=== PATIENT | male | born 1955 | race Caucasian/White ===

== ENCOUNTER 2017-05-28 19:28 | Inpatient (IN) | payer OTHER, MEDICAID ==
--- NOTE | 2017-05-28 20:57 | ER Document Report ---
ED General - General Chief Complaint: Altered Mental Status Stated Complaint: CONFUSION Time Seen by Provider: 05/28/17 20:26 Mode of Arrival: Ambulatory Information source: Patient Cannot obtain history due to: Other Notes: 61 yr old male presents with complaints of confusion feeling tired. He beleives he is in [facility] he has been walking outside all day. found ot by hypothermic at 92.2. pt denies any pain TRAVEL OUTSIDE OF THE [place] IN LAST 30 DAYS: No - HPI Onset: Just prior to arrival Onset/Duration: Sudden Quality of pain: No pain Severity: Mild Pain Level: Denies Associated symptoms: Weakness, Other Exacerbated by: Denies Relieved by: Denies Similar symptoms previously: No Recently seen / treated by doctor: No - Related Data Allergies/Adverse Reactions: No Known Allergies Allergy (Unverified 05/29/17 02:12) Past Medical History - Social History Smoking Status: Current Every Day Smoker Cigarette use (# per day): Yes Chew tobacco use (# tins/day): No Smoking Education Provided: No Family History: Reviewed & Not Pertinent Patient has suicidal ideation: No Patient has homicidal ideation: No Renal/ Medical History: Denies: Hx Peritoneal Dialysis Review of Systems - Review of Systems Notes: REVIEW OF SYSTEMS: CONSTITUTIONAL : Denies fever, chills, or sweats. Denies recent illness. EENT: Denies eye, ear, throat, or mouth pain or symptoms. Denies nasal or sinus congestion or discharge. Denies throat, tongue, or mouth swelling or difficulty swallowing. CARDIOVASCULAR: Denies chest pain. Denies palpitations or racing or irregular heart beat. Denies ankle edema. RESPIRATORY: Denies cough, cold, or chest congestion. Denies shortness of breath, difficulty breathing, or wheezing. GASTROINTESTINAL: Denies abdominal pain or distention. Denies nausea, vomiting , or diarrhea. Denies blood in vomitus, stools, or per rectum. Denies black, tarry stools. Denies constipation. GENITOURINARY: Denies difficulty urinating, painful urination, burning, frequency, blood in urine, or discharge. MUSCULOSKELETAL: Denies back or neck pain or stiffness. Denies joint pain or swelling. SKIN: Denies rash, lesions or sores. HEMATOLOGIC : Denies easy bruising or bleeding. LYMPHATIC: Denies swollen, enlarged glands. NEUROLOGICAL: Admits to weakness confusion PSYCHIATRIC: Denies anxiety or stress. Denies depression, suicidal ideation, or homicidal ideation. ALL OTHER SYSTEMS REVIEWED AND NEGATIVE. Dictation was performed using [employer] voice recognition software PHYSICAL EXAMINATION: GENERAL: Thin male cold to touch HEAD: Atraumatic, normocephalic. EYES: Pupils equal round and reactive to light, extraocular movements intact, sclera anicteric, conjunctiva are normal. ENT: Nares patent, oropharynx clear without exudates. Moist mucous membranes. NECK: Normal range of motion, supple without lymphadenopathy LUNGS: Breath sounds clear to auscultation bilaterally and equal. No wheezes rales or rhonchi. HEART: Regular rate and rhythm without murmurs ABDOMEN: Soft, nontender, nondistended abdomen. No guarding, no rebound. No masses appreciated. Musculoskeletal: Normal range of motion, no pitting or edema. No cyanosis. NEUROLOGICAL: Cranial nerves grossly intact. Normal speech, normal gait. Normal sensory, motor exams PSYCH: Normal mood, normal affect. SKIN: Cold to touch Physical Exam - Vital signs Vitals: Pulse Resp BP Pulse Ox 108 H 16 104/58 L 99 05/28/17 20:07 05/28/17 20:07 05/28/17 20:07 05/28/17 20:07 Course - Re-evaluation Re-evalutation: 05/28/17 20:58 Bear hugger IV fluids that are warmed have been started, septic workup pending 05/29/17 02:40 Patient overall looks quite ill however no sign of infection is noted, he has been noted to be hypotensive tachycardic white count elevation therefore he meets SIRS criteria but without a source of infection I will not be starting a prophylactic antibiotic at this time patient will be admitted to the hospitalist service - Vital Signs Vital signs: Temp Pulse Resp BP Pulse Ox 98.8 F 80 25 H 85/66 L 96 05/29/17 01:31 05/29/17 00:00 05/29/17 01:31 05/29/17 01:31 05/29/17 01:31 - Laboratory Result Diagrams: 05/28/17 20:50 05/28/17 20:50 Laboratory results interpreted by me: 05/28/17 05/28/17 05/28/17 20:50 20:50 20:50 WBC 13.7 H RBC 4.11 L MCV 106 H MCH 35.5 H RDW 15.7 H Seg Neutrophils % 79.0 H Lymphocytes % 12.4 L Absolute Neutrophils 10.8 H VBG HCO3 19.4 L Potassium 3.2 L Chloride 94 L Carbon Dioxide 18 L Anion Gap 31 H Lactic Acid Phosphorus Total Bilirubin 1.5 H Direct Bilirubin 0.9 H Creatine Kinase CK-MB (CK-2) TSH Urine Protein Urine Ketones Urine Bilirubin Urine Urobilinogen Ur Leukocyte Esterase Salicylates < 1.0 L Acetaminophen < 10 L 05/28/17 05/28/17 05/28/17 20:50 20:50 20:50 WBC RBC MCV MCH RDW Seg Neutrophils % Lymphocytes % Absolute Neutrophils VBG HCO3 Potassium Chloride Carbon Dioxide Anion Gap Lactic Acid 3.6 H Phosphorus 5.4 H Total Bilirubin Direct Bilirubin Creatine Kinase 210 H CK-MB (CK-2) TSH Urine Protein Urine Ketones Urine Bilirubin Urine Urobilinogen Ur Leukocyte Esterase Salicylates Acetaminophen 05/28/17 05/28/17 05/28/17 20:50 20:50 22:22 WBC RBC MCV MCH RDW Seg Neutrophils % Lymphocytes % Absolute Neutrophils VBG HCO3 Potassium Chloride Carbon Dioxide Anion Gap Lactic Acid Phosphorus Total Bilirubin Direct Bilirubin Creatine Kinase CK-MB (CK-2) 9.60 H TSH 7.99 H Urine Protein 30 H Urine Ketones 80 H Urine Bilirubin SMALL H Urine Urobilinogen 4.0 H Ur Leukocyte Esterase TRACE H Salicylates Acetaminophen - Diagnostic Test Radiology reviewed: Image reviewed, Reports reviewed - EKG Interpretation by [place] EKG shows normal: Sinus rhythm, Mcleod, Intervals, QRS Complexes Critical Care Note - Critical Care Note Total time excluding time spent on procedures (mins): 34 Comments: 34 minutes of critical care time spent in direct contact evaluating and reevaluating the patient, treating symptoms, reviewing labs and studies and speaking with family and consultants excluding any procedures Discharge - Discharge Clinical Impression: Altered awareness, transient Hypothermia Qualifiers: Encounter type: initial encounter Qualified Code(s): T68.XXXA - Hypothermia, initial encounter Hypotension Qualifiers: Hypotension type: unspecified hypotension type Qualified Code(s): I95.9 - Hypotension, unspecified Condition: Fair Disposition: ADMITTED INPATIENT Admitting Provider: Hospitalist Unit Admitted: [facility]
[2017-05-28] MEDS ORDERED: NORMAL SALINE 1000 ML 1,000 ML IV ONE (21:00)
[2017-05-28 21:12] LABS: VENOUS BLOOD BASE EXCESS -6.2 mmol/L; VENOUS BLOOD HCO3 19.4 mmol/L (20-32); VENOUS BLOOD PCO2 38.9 mmHg (35-63); VENOUS BLOOD PH 7.32 (7.30-7.42)
[2017-05-28 21:21] LABS: ABSOLUTE LYMPHOCYTES (AUTO) 1.7 10^3/uL (0.5-4.7); ABSOLUTE MONOCYTES (AUTO) 1.1 10^3/uL (0.1-1.4); ABSOLUTE NEUT (AUTO) 10.8 10^3/uL (1.7-8.2); BASOPHILS % (AUTO) 0.2 % (0-2); EOSINOPHILS % (AUTO) 0.1 % (0-6); HEMATOCRIT 43.7 % (37.9-51.0); HEMOGLOBIN 14.6 g/dL (13.5-17.0); LYMPHOCYTES % (AUTO) 12.4 % (13-45); MEAN CORPUSCULAR HEMOGLOBIN 35.5 pg (27.0-33.4); MEAN CORPUSCULAR HGB CONC 33.5 g/dL (32.0-36.0); MEAN CORPUSCULAR VOLUME 106 fl (80-97); MONOCYTES % (AUTO) 8.3 % (3-13); PLATELET COUNT 205 10^3/uL (150-450); RED BLOOD COUNT 4.11 10^6/uL (4.35-5.55); RED CELL DISTRIBUTION WIDTH 15.7 % (11.5-14.0); TOTAL CELLS COUNTED % (AUTO) 100 %; WHITE BLOOD COUNT 13.7 10^3/uL (4.0-10.5)
[2017-05-28 21:35] LABS: ALANINE AMINOTRANSFERASE 22 U/L (21-72); ALBUMIN 4.2 g/dL (3.5-5.0); ALKALINE PHOSPHATASE 77 U/L (38-126); ASPARTATE AMINO TRANSFERASE 33 U/L (17-59); BILIRUBIN,DIRECT 0.9 mg/dL (0.0-0.4); BILIRUBIN,TOTAL 1.5 mg/dL (0.2-1.3); BLOOD UREA NITROGEN 17 mg/dL (7-20); GLUCOSE 98 mg/dL (75-110); TOTAL PROTEIN 6.7 g/dL (6.3-8.2)
[2017-05-28 21:44] LABS: CARBON DIOXIDE 18 mmol/L (22-30); CHLORIDE 94 mmol/L (98-107); POTASSIUM 3.2 mmol/L (3.6-5.0); SODIUM 143.3 mmol/L (137-145)
[2017-05-28 21:47] LABS: ACETAMINOPHEN < 10 ug/mL (10-30); ALCOHOL < 10 mg/dL (NONE DETECTED); ANION GAP 31 (5-19); SALICYLATE < 1.0 mg/dL (2.0-20.0)
--- NOTE | 2017-05-28 22:07 | RADIOLOGY REPORT (SQ) ---
EXAM DESCRIPTION: CT HEAD WITHOUT COMPLETED DATE/TIME: 05/28/2017 9:28 pm REASON FOR STUDY: confusion COMPARISON: None. TECHNIQUE: Axial images acquired through the brain without intravenous contrast. Images reviewed wi th bone, brain and subdural windows. Images stored on PACS. All CT scanners at this facility use dose modulation, iterative reconstruction, and/or weight based d osing when appropriate to reduce radiation dose to as low as reasonably achievable (ALARA). [facility]: Dose Right [facility]: CareDose [facility]: Dose Right [facility]: Teradose 4D [facility]: Smart NXE RADIATION DOSE: Up-to-date CT equipment and radiation dose reduction techniques were employed. CTDIv ol: 64.6 mGy. DLP: 1163 mGy-cm. mGy. LIMITATIONS: None. FINDINGS: VENTRICLES: Normal size and contour. CEREBRUM: No masses. No hemorrhage. No midline shift. No evidence for acute infarction. Normal gra y/white matter differentiation. No areas of low density in the white matter. CEREBELLUM: No masses. No hemorrhage. No alteration of density. No evidence for acute infarction. EXTRAAXIAL SPACES: No fluid collections. No masses. ORBITS AND GLOBE: No intra- or extraconal masses. Normal contour of globe without masses. CALVARIUM: No fracture. PARANASAL SINUSES: No fluid or mucosal thickening. SOFT TISSUES: No mass or hematoma. OTHER: No other significant finding. IMPRESSION: No acute intracranial findings. EVIDENCE OF ACUTE STROKE: NO. COMMENT: Quality ID # [id number]: Final reports with documentation of one or more dose reduction techniques (e.g., Automated exposure control, adjustment of the mA and/or kV according to patient size, use of iterative reconstruction technique) TECHNICAL DOCUMENTATION: JOB ID: [id number] [place]-72 2010 [employer]- All Rights Reserved
--- NOTE | 2017-05-28 22:49 | RADIOLOGY REPORT (SQ) ---
EXAM DESCRIPTION: CHEST PA/LAT COMPLETED DATE/TIME: 05/28/2017 9:19 pm REASON FOR STUDY: confusion/AMS COMPARISON: None. NUMBER OF VIEWS: Two view. TECHNIQUE: Frontal and lateral radiographic views of the chest acquired. LIMITATIONS: None. FINDINGS: LUNGS AND PLEURA: No opacities, masses or pneumothorax. No pleural effusion. Attenuated bl ood vessels and flattened kike-diaphragms. MEDIASTINUM AND HILAR STRUCTURES: No masses. No contour abnormalities. HEART AND VASCULAR STRUCTURES: Heart normal in size and contour. No evidence for failure. BONES: No acute findings. HARDWARE: None in the chest. OTHER: No other significant finding. IMPRESSION: COPD. NO ACUTE RADIOGRAPHIC FINDING IN THE CHEST. TECHNICAL DOCUMENTATION: JOB ID: [id number] [place]-72 2010 [employer]- All Rights Reserved
[2017-05-28 23:10] LABS: APPEARANCE,URINE CLEAR; BILIRUBIN,URINE SMALL (NEGATIVE); COLOR,URINE AMBER; GLUCOSE, URINE NEGATIVE (NEGATIVE); KETONES,URINE 80 mg/dL (NEGATIVE); LEUKOCYTE ESTERASE,URINE TRACE (NEGATIVE); NITRITE,URINE NEGATIVE (NEGATIVE); PROTEIN,URINE 30 mg/dL (NEGATIVE); URINE SPECIFIC GRAVITY 1.024
[2017-05-28 23:24] LABS: URINE AMPHETAMINES SCREEN NEGATIVE; URINE BARBITURATES SCREEN NEGATIVE; URINE BENZODIAZEPINES SCREEN UNCONFIRMED POSITIVE; URINE COCAINE SCREEN NEGATIVE; URINE MARIJUANA (THC) SCREEN NEGATIVE; URINE METHADONE SCREEN NEGATIVE; URINE PHENCYCLIDINE SCREEN NEGATIVE
[2017-05-28] MEDS: NORMAL SALINE 1000 ML 1,000 ML IV PRN (23:34)
[2017-05-29] MEDS ORDERED: THIAMINE HCL 100 MG, FOLIC ACID 1 MG in NORMAL SALINE 250 ML IV ONE (00:02)
[2017-05-29] MEDS ORDERED: POTASSI CL 20 MEQ/D5-1/2NS 1L 1,000 ML IV ONE (00:11)
[2017-05-29] MEDS ORDERED: POTASSI CL 20 MEQ/50 ML RIDER 50 ML IV SCH (00:15)
[2017-05-29] MEDS: NORMAL SALINE 1000 ML 1,000 ML IV PRN (00:36)
[2017-05-29] MEDS ORDERED: THIAMINE HCL INJ 200 MG/2 ML VIAL ONE (00:40)
[2017-05-29] MEDS ORDERED: FOLIC ACID INJ 5 MG/1 ML 10 ML VIAL ONE (00:40)
[2017-05-29 00:41] LABS: PHOSPHORUS 5.4 mg/dL (2.5-4.5)
[2017-05-29] MEDS ORDERED: MAGNESIUM HYDROXIDE SUSP 30 ML UDCUP PO PRN (00:58)
[2017-05-29] MEDS ORDERED: DIAZEPAM 2 MG TABLET PO PRN (01:02)
[2017-05-29 01:13] LABS: CREATINE KINASE MB 9.6 ng/mL (<4.55)
[2017-05-29 01:17] LABS: TROPONIN I 0.044 ng/mL
[2017-05-29] MEDS ORDERED: DEXTROSE 5%-WATER 250 ML with NOREPINEPHRINE BITARTRATE 4 MG IV PRN ×2 (02:38)
[2017-05-29] MEDS ORDERED: NOREPINEPHRINE BITARTRATE INJ/PF 4 MG/4 ML SDV IV PRN (03:11)
[2017-05-29] MEDS ORDERED: LEVOFLOXACIN 750 MG/D5W RTU 750 MG/150 ML RTUPB IV ONE (04:00)
[2017-05-29] MEDS ORDERED: INFLUENZA ADLT QUAD (36MOS+) 2017-18 VAC 0.5 ML SYR IM PRN (04:53)
[2017-05-29] MEDS: HEPARIN SOD (PORCINE) 5,000 UNIT/ML 1 ML SYRINGE SUBCUT SCH ×3 (05:18→21:26)
[2017-05-29 05:25] LABS: ANION GAP 17 (5-19); BLOOD UREA NITROGEN 13 mg/dL (7-20); CALCIUM 7.5 mg/dL (8.4-10.2); CARBON DIOXIDE 20 mmol/L (22-30); CHLORIDE 109 mmol/L (98-107); GLUCOSE 122 mg/dL (75-110); SODIUM 145.5 mmol/L (137-145)
[2017-05-29 05:36] LABS: POTASSIUM 2.8 mmol/L (3.6-5.0)
[2017-05-29 05:42] LABS: ABSOLUTE LYMPHOCYTES (AUTO) 1.7 10^3/uL (0.5-4.7); ABSOLUTE MONOCYTES (AUTO) 0.8 10^3/uL (0.1-1.4); ABSOLUTE NEUT (AUTO) 6.9 10^3/uL (1.7-8.2); BASOPHILS % (AUTO) 0.1 % (0-2); EOSINOPHILS % (AUTO) 0.1 % (0-6); HEMATOCRIT 33.5 % (37.9-51.0); LYMPHOCYTES % (AUTO) 17.8 % (13-45); MEAN CORPUSCULAR HEMOGLOBIN 35.7 pg (27.0-33.4); MEAN CORPUSCULAR VOLUME 105 fl (80-97); MONOCYTES % (AUTO) 8.1 % (3-13); PLATELET COUNT 150 10^3/uL (150-450); RED BLOOD COUNT 3.18 10^6/uL (4.35-5.55); RED CELL DISTRIBUTION WIDTH 15.4 % (11.5-14.0); SEGMENTED NEUTROPHILS % (AUTO) 73.9 % (42-78); TOTAL CELLS COUNTED % (AUTO) 100 %; WHITE BLOOD COUNT 9.4 10^3/uL (4.0-10.5)
[2017-05-29 05:46] LABS: HEMOGLOBIN 11.4 g/dL (13.5-17.0)
[2017-05-29] MEDS: POTASSIUM CHLORIDE 20 MEQ/50 ML RTU IV SCH ×2 (05:56→07:39)
[2017-05-29] MEDS ORDERED: POTASSIUM CHLORIDE 10 MEQ TABLET.SA PO ONE (06:00)
--- NOTE | 2017-05-29 06:07 | PDOC H&P ---
History of Present Illness Admission Date/PCP: 05/29/17 00:58 Patient complains of: Confusion History of Present Illness: SANJANA GODWIN is a 61 year old male with an unclear past medical history who is brought to the emergency room by JVD after being found confused walking around in the rain. He is found to be hypothermic at 92.2, hypotensive with blood pressure of 70/40 with tachycardia. He denies pain, his speech is clear but confused believing he is in [place]. There is no record of prior visit , he cannot recall his medication. He receives IV fluid and warming and referred to the hospitalist for admission. Social History Information Source: Patient Smoking Status: Current Every Day Smoker Frequency of Alcohol Use: None Hx Recreational Drug Use: No - Advance Directive Resuscitation Status: Full Code Family History Family History: None Parental Family History Reviewed: Yes Children Family History Reviewed: Yes Sibling(s) Family History Reviewed.: Yes Medication/Allergy Allergies/Adverse Reactions: No Known Allergies Allergy (Unverified 05/29/17 02:12) Review of Systems Constitutional: ABSENT: chills, fever(s), headache(s), weight gain, weight loss Eyes: ABSENT: visual disturbances Ears: ABSENT: hearing changes Cardiovascular: ABSENT: chest pain, dyspnea on exertion, edema, orthropnea, palpitations Respiratory: ABSENT: cough, hemoptysis Gastrointestinal: ABSENT: abdominal pain, constipation, diarrhea, hematemesis, hematochezia, nausea, vomiting Genitourinary: ABSENT: dysuria, hematuria Musculoskeletal: ABSENT: joint swelling Integumentary: ABSENT: rash, wounds Neurological: ABSENT: abnormal gait, abnormal speech, confusion, dizziness, focal weakness, syncope Psychiatric: ABSENT: anxiety, depression, homidical ideation, suicidal ideation Endocrine: ABSENT: cold intolerance, heat intolerance, polydipsia, polyuria Hematologic/Lymphatic: ABSENT: easy bleeding, easy bruising Physical Exam Vital Signs: Temp Pulse Resp BP Pulse Ox 97.9 F 69 20 104/74 95 05/29/17 05:41 05/29/17 04:26 05/29/17 04:26 05/29/17 04:26 05/29/17 04:26 Intake & Output 05/27/17 05/28/17 05/29/17 11:59 11:59 11:59 Output Total 715 Balance -715 Weight 49.3 kg General appearance: PRESENT: cooperative, disheveled, mild distress, thin, other - Chronically ill-appearing, cachectic with temporal wasting Head exam: PRESENT: atraumatic, normocephalic Eye exam: PRESENT: conjunctiva pink, EOMI, PERRLA. ABSENT: scleral icterus Ear exam: PRESENT: normal external ear exam Mouth exam: PRESENT: moist, tongue midline Teeth exam: PRESENT: poor dentation Neck exam: ABSENT: carotid bruit, JVD, lymphadenopathy, thyromegaly Respiratory exam: PRESENT: clear to auscultation kae, prolonged expiratory phas. ABSENT: rales, rhonchi, wheezes Cardiovascular exam: PRESENT: RRR. ABSENT: diastolic murmur, rubs, systolic murmur Pulses: PRESENT: normal dorsalis pedis pul Vascular exam: PRESENT: normal capillary refill GI/Abdominal exam: PRESENT: normal bowel sounds, soft. ABSENT: distended, guarding, mass, organolmegaly, rebound, tenderness Rectal exam: PRESENT: deferred Extremities exam: PRESENT: full ROM. ABSENT: calf tenderness, clubbing, pedal edema Neurological exam: PRESENT: alert, altered, awake, oriented to person, CN II- XII grossly intact. ABSENT: motor sensory deficit Psychiatric exam: PRESENT: unusual affect Skin exam: PRESENT: dry, intact, warm. ABSENT: cyanosis, rash Results Laboratory Results: 05/29/17 04:58 05/29/17 04:58 05/29/17 05/29/17 05/29/17 01:40 04:58 04:58 WBC 9.4 RBC 3.18 L Hgb 11.4 L D Hct 33.5 L MCV 105 H MCH 35.7 H MCHC 34.0 RDW 15.4 H Plt Count 150 Seg Neutrophils % 73.9 Lymphocytes % 17.8 Monocytes % 8.1 Eosinophils % 0.1 Basophils % 0.1 Absolute Neutrophils 6.9 Absolute Lymphocytes 1.7 Absolute Monocytes 0.8 Absolute Eosinophils 0.0 Absolute Basophils 0.0 Sodium 145.5 H Potassium 2.8 L* Chloride 109 H Carbon Dioxide 20 L Anion Gap 17 BUN 13 Creatinine 0.61 Est GFR ( Amer) > 60 Est GFR (Non-Af Amer) > 60 Glucose 122 H Lactic Acid 1.3 Calcium 7.5 L Impressions: Chest X-Ray 05/28/17 20:27 IMPRESSION: COPD. NO ACUTE RADIOGRAPHIC FINDING IN THE CHEST. Head CT 05/28/17 20:27 IMPRESSION: No acute intracranial findings. EVIDENCE OF ACUTE STROKE: NO. Assessment & Plan - Diagnosis (1) Sepsis Is this a current diagnosis for this admission?: Yes Plan: Unclear source empiric antibiotics reevaluate CBC, blood and urine culture. (2) Encephalopathy Is this a current diagnosis for this admission?: Yes Plan: Benzodiazepine positive urine, possible acute intoxication, possible another acute intoxication not detected by drug screen, supportive measures (3) Hypokalemia Is this a current diagnosis for this admission?: Yes Plan: Unclear cause evaluate magnesium replete and reevaluate chemistry (4) Hypotension Qualifiers: Hypotension type: unspecified hypotension type Qualified Code(s): I95.9 - Hypotension, unspecified Is this a current diagnosis for this admission?: Yes Plan: Patient appears dehydrated he has received 2 L of normal saline will order additional 3 and levofed as needed (5) Hypothermia Qualifiers: Encounter type: initial encounter Qualified Code(s): T68.XXXA - Hypothermia , initial encounter Is this a current diagnosis for this admission?: Yes Plan: Likely secondary to exposure versus sepsis, warming blanket and empiric antibiotic, evaluate thyroid function and adrenal state. - Time Time Spent: 50 to 70 Minutes - Inpatient Certification Medical Necessity: Need Close Monitoring Due to Risk of Patient Decompensation
[2017-05-29] MEDS: NORMAL SALINE 1000 ML 1,000 ML IV SCH ×3 (06:08→07:59)
--- NOTE | 2017-05-29 08:05 | EKG REPORT ---
SEVERITY:- ABNORMAL ECG - SINUS TACHYCARDIA PROBABLE LEFT ATRIAL ABNORMALITY BORDERLINE RIGHT AXIS DEVIATION BORDERLINE R WAVE PROGRESSION, ANTERIOR LEADS, CONSIDER OLD ANT DC. ABNORMAL T, CONSIDER ISCHEMIA, DIFFUSE LEADS : Confirmed by: Davian Phan MD 29-May-2017 08:04:57
[2017-05-29] MEDS ORDERED: NORMAL SALINE 1000 ML 1,000 ML IV PRN ×2 (08:11→12:45)
[2017-05-29] MEDS ORDERED: POTASSI CL 40 MEQ/NS 1L 1,000 ML IV PRN (08:16)
[2017-05-29] MEDS: IPRATROPIUM/ALBUTEROL 0.5-2.5 MG/3 ML AMPUL NEB SCH ×2 (08:17→16:21)
--- NOTE | 2017-05-29 08:24 | Progress Note ---
Provider Note Provider Note: Patient was found wandering and confused and he was brought into emergency room for further evaluation. He was hypotensive and hypothermic. Patient at the present time in intensive care unit. Still confused. 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 Has a ketone smell but he denies diabetes. Blood pressure had recuperated. Proceed to discontinue Levophed and proceed with transfer to a telemetry unit. TSH was elevated and patient will be started on levothyroxine. Since potassium is low and patient alert will replace through IV and orally.
[2017-05-29] MEDS ORDERED: MAGNESIUM SULFATE/D5W 1 GM/100 ML RTUPB IV ONE (09:00)
[2017-05-29] MEDS ORDERED: POTASSIUM CHLORIDE 10 MEQ TABLET.SA PO SCH ×2 (09:30→14:00)
[2017-05-29] MEDS ORDERED: LEVOFLOXACIN 750 MG TABLET PO SCH (10:00)
[2017-05-29] MEDS: POTASSIUM CHLORIDE 20 MEQ/15 ML UDCUP PO SCH ×3 (10:37→17:20)
[2017-05-29] MEDS: THIAMINE HCL 100 MG TABLET PO SCH (10:39)
[2017-05-29] MEDS: MULTIVITAMIN TABLET PO SCH (10:39)
[2017-05-29] MEDS: DOCUSATE SODIUM 100 MG CAPSULE PO SCH ×2 (10:39→17:20)
[2017-05-29] MEDS ORDERED: NORMAL SALINE 1000 ML 2,000 ML IV ONE (11:30)
[2017-05-29] MEDS ORDERED: MIDODRINE HCL 5 MG TABLET PO ONE (13:45)
[2017-05-29] MEDS ORDERED: RINGERS SOLUTION 1,000 ML IV PRN (15:06)
[2017-05-29] MEDS: DEXTROSE 10%-WATER 1,000 ML IV PRN (17:20)
[2017-05-29] MEDS: MIDODRINE HCL 5 MG TABLET PO SCH (17:20)
--- NOTE | 2017-05-29 19:28 | RADIOLOGY REPORT (SQ) ---
EXAM DESCRIPTION: MRI HEAD WITHOUT COMPLETED DATE/TIME: 05/29/2017 6:58 pm REASON FOR STUDY: Encephalopathy COMPARISON: Head CT from 05/28/2017 TECHNIQUE: Multiplanar imaging includes non-contrasted T1, T2, FLAIR, and diffusion with ADC map seq uences. Images stored on PACS. LIMITATIONS: Nondiagnostic FLAIR sequence due to artifact. FINDINGS: ANATOMY: No anomalies. Normal vascular flow voids. Pituitary fossa normal. CSF SPACES: Normal in size and contour. No hemorrhage. CEREBRUM: Sulci and gyri normal in size and contour. No evidence of hemorrhage, mass, or extraaxial fluid collection. POSTERIOR FOSSA: No signal alteration. No hemorrhage. No edema, masses or mass effect. Internal vincenzo tory canals, cerebello-pontine angles, mastoids normal. DIFFUSION IMAGING: Negative for acute or sub-acute infarction. ORBITS: No masses. Globes normal. PARANASAL SINUSES: No fluid levels. Mucosa normal. OTHER: No other significant finding. IMPRESSION: NO ACUTE ISCHEMIA, HEMORRHAGE, OR MASS LESION. CANNOT ASSESS FOR ABNORMAL WHITE MATTER SIGNAL DUE TO NONDIAGNOSTIC FLAIR IMAGING FROM [employer]. EVIDENCE OF ACUTE STROKE: NO. TECHNICAL DOCUMENTATION: JOB ID: [id number] [employer]- All Rights Reserved
[2017-05-29] MEDS: HYDROCORTISONE SOD SUCCINATE INJ/PF 100 MG/2 ML SDV IV SCH (21:23)
[2017-05-29] MEDS: ACETAMINOPHEN 325 MG TABLET PO PRN (23:01)
[2017-05-30] MEDS: IPRATROPIUM/ALBUTEROL 0.5-2.5 MG/3 ML AMPUL NEB SCH ×4 (00:03→23:38)
[2017-05-30 04:35] LABS: ABSOLUTE LYMPHOCYTES (AUTO) 0.7 10^3/uL (0.5-4.7); ABSOLUTE MONOCYTES (AUTO) 0.3 10^3/uL (0.1-1.4); ABSOLUTE NEUT (AUTO) 5.8 10^3/uL (1.7-8.2); ABSOLUTE RETICS # 0.029 10^6/uL (0.028-0.122); BASOPHILS % (AUTO) 0.1 % (0-2); HEMATOCRIT 31.1 % (37.9-51.0); HEMOGLOBIN 10.7 g/dL (13.5-17.0); LYMPHOCYTES % (AUTO) 10.2 % (13-45); MEAN CORPUSCULAR HEMOGLOBIN 36.2 pg (27.0-33.4); MEAN CORPUSCULAR HGB CONC 34.2 g/dL (32.0-36.0); MEAN CORPUSCULAR VOLUME 106 fl (80-97); MONOCYTES % (AUTO) 4.7 % (3-13); PLATELET COUNT 133 10^3/uL (150-450); RED BLOOD COUNT 2.95 10^6/uL (4.35-5.55); RED CELL DISTRIBUTION WIDTH 15.7 % (11.5-14.0); RETICULOCYTE COUNT (AUTO) 0.97 % (0.66-2.85); TOTAL CELLS COUNTED % (AUTO) 100 %; WHITE BLOOD COUNT 6.8 10^3/uL (4.0-10.5)
[2017-05-30 05:20] LABS: IRON(TIBC) 68.7 ug/dL (49-181)
[2017-05-30] MEDS: HYDROCORTISONE SOD SUCCINATE INJ/PF 100 MG/2 ML SDV IV SCH (05:20)
[2017-05-30] MEDS: HEPARIN SOD (PORCINE) 5,000 UNIT/ML 1 ML SYRINGE SUBCUT SCH ×3 (05:21→22:09)
[2017-05-30] MEDS: MIDODRINE HCL 5 MG TABLET PO SCH ×3 (05:22→17:16)
[2017-05-30 05:23] LABS: ALANINE AMINOTRANSFERASE 17 U/L (21-72); ALKALINE PHOSPHATASE 40 U/L (38-126); ANION GAP 7 (5-19); ASPARTATE AMINO TRANSFERASE 19 U/L (17-59); BILIRUBIN,DIRECT 0.3 mg/dL (0.0-0.4); BILIRUBIN,TOTAL 0.3 mg/dL (0.2-1.3); BLOOD UREA NITROGEN 3 mg/dL (7-20); CALCIUM 7.3 mg/dL (8.4-10.2); CARBON DIOXIDE 20 mmol/L (22-30); CHLORIDE 116 mmol/L (98-107); GLUCOSE 181 mg/dL (75-110); SODIUM 142.5 mmol/L (137-145)
[2017-05-30 05:40] LABS: POTASSIUM 4.4 mmol/L (3.6-5.0)
[2017-05-30] MEDS: ACETAMINOPHEN 325 MG TABLET PO PRN (05:57)
[2017-05-30] MEDS: DEXTROSE 10%-WATER 1,000 ML IV PRN (07:36)
--- NOTE | 2017-05-30 07:53 | PDOC PROGRESS REPORT ---
Subjective Progress Note for:: 05/30/17 Subjective:: Patient relates that feels better than yesterday but nick not elaborate. still confused. Nurse reports that PT attempted to ambulate patient but BP went down to the 60's. Physical Exam Vital Signs: Temp Pulse Resp BP Pulse Ox 97.9 F 71 21 H 80/62 L 99 05/30/17 00:00 05/30/17 00:03 05/30/17 06:15 05/30/17 04:37 05/30/17 06:15 Intake & Output 05/29/17 05/30/17 05/31/17 06:59 06:59 06:59 Intake Total 2069 6056 Output Total 715 1712 Balance 1354 4344 Weight 49.3 kg 53.9 kg General appearance: PRESENT: no acute distress, cooperative, thin Head exam: PRESENT: atraumatic, normocephalic Eye exam: PRESENT: EOMI, PERRLA Mouth exam: PRESENT: moist, neck supple Teeth exam: PRESENT: poor dentation Neck exam: PRESENT: full ROM. ABSENT: tenderness Respiratory exam: PRESENT: clear to auscultation kae Cardiovascular exam: PRESENT: RRR. ABSENT: diastolic murmur, systolic murmur Vascular exam: PRESENT: normal capillary refill GI/Abdominal exam: PRESENT: normal bowel sounds, soft. ABSENT: guarding, rigid , tenderness Extremities exam: ABSENT: joint swelling, pedal edema Musculoskeletal exam: PRESENT: full ROM Neurological exam: PRESENT: alert, other - disoriented Skin exam: PRESENT: normal color Results Laboratory Results: 05/30/17 03:51 05/30/17 04:13 05/30/17 05/30/17 05/30/17 03:51 03:51 04:13 WBC 6.8 RBC 2.95 L Hgb 10.7 L Hct 31.1 L MCV 106 H MCH 36.2 H MCHC 34.2 RDW 15.7 H Plt Count 133 L Seg Neutrophils % 85.0 H Lymphocytes % 10.2 L Monocytes % 4.7 Eosinophils % 0.0 Basophils % 0.1 Absolute Neutrophils 5.8 Absolute Lymphocytes 0.7 Absolute Monocytes 0.3 Absolute Eosinophils 0.0 Absolute Basophils 0.0 Retic Count (auto) 0.97 Absolute Retic 0.029 Sodium Cancelled 142.5 Potassium Cancelled 4.4 D Chloride Cancelled 116 H Carbon Dioxide Cancelled 20 L Anion Gap Cancelled 7 BUN Cancelled 3 L Creatinine Cancelled 0.46 L Est GFR ( Amer) Cancelled > 60 Est GFR (Non-Af Amer) Cancelled > 60 Glucose Cancelled 181 H Calcium Cancelled 7.3 L Magnesium 1.3 L Iron 68.7 TIBC 160 L % Saturation 43 Ferritin 317.00 Total Bilirubin 0.3 AST 19 ALT 17 L Alkaline Phosphatase 40 Total Protein 4.0 L Albumin 2.0 L Vitamin B12 518.0 Folate 4.10 Impressions: Chest X-Ray 05/28/17 20:27 IMPRESSION: COPD. NO ACUTE RADIOGRAPHIC FINDING IN THE CHEST. Head CT 05/28/17 20:27 IMPRESSION: No acute intracranial findings. EVIDENCE OF ACUTE STROKE: NO. Head MRI 05/29/17 00:00 IMPRESSION: NO ACUTE ISCHEMIA, HEMORRHAGE, OR MASS LESION. CANNOT ASSESS FOR ABNORMAL WHITE MATTER SIGNAL DUE TO NONDIAGNOSTIC FLAIR IMAGING FROM [employer]. EVIDENCE OF ACUTE STROKE: NO. Assessment & Plan - Diagnosis (1) Hypomagnesemia Is this a current diagnosis for this admission?: Yes Plan: replace iv and po. Trend (2) Encephalopathy Is this a current diagnosis for this admission?: Yes Plan: MRI noted. Likely this is an ongoing issue and contributing to presentation. Order ammonia and RPR (3) Hypokalemia Is this a current diagnosis for this admission?: Yes Plan: Replaced (4) Hypotension Qualifiers: Hypotension type: unspecified hypotension type Qualified Code(s): I95.9 - Hypotension, unspecified Is this a current diagnosis for this admission?: Yes Plan: Add fludrocortisone. Discontinue hydrocortisone. Urine appears less concentrated. Continue ivf's. Follow up response to PT. (5) Hypothermia Qualifiers: Encounter type: initial encounter Qualified Code(s): T68.XXXA - Hypothermia , initial encounter Is this a current diagnosis for this admission?: Yes Plan: Resolved (6) Sepsis Is this a current diagnosis for this admission?: No Plan: Presumptive on admission and ruled out (7) Hypothyroidism Is this a current diagnosis for this admission?: Yes Plan: Replacement started (8) Metabolic acidosis Is this a current diagnosis for this admission?: Yes Plan: Mild. Start sodium bicarb aiming to correct abnormalities. - Time Time Spent with patient: 15-24 minutes Medications reviewed and adjusted accordingly: Yes Anticipated discharge: SNF - Inpatient Certification Based on my medical assessment, after consideration of the patient's comorbidities, presenting symptoms, or acuity I expect that the services needed warrant INPATIENT care.: Yes I certify that my determination is in accordance with my understanding of Medicare's requirements for reasonable and necessary INPATIENT services [42 CFR 412.3e].: Yes Medical Necessity: Need For IV Fluids, Need for Neurological Checks, Risk of Complication if Not Cared For in Hospital
[2017-05-30] MEDS ORDERED: MAGNESIUM SULFATE/D5W 1 GM/100 ML RTUPB IV ONE (08:00)
[2017-05-30] MEDS: RINGERS SOLUTION,LACTATED 1,000 ML IV PRN ×2 (09:29→23:19)
[2017-05-30] MEDS: LEVOTHYROXINE SODIUM 0.075 MG TABLET PO SCH (09:30)
[2017-05-30] MEDS: MAGNESIUM OXIDE 400 MG TABLET PO SCH ×2 (09:30→17:16)
[2017-05-30] MEDS: DOCUSATE SODIUM 100 MG CAPSULE PO SCH ×2 (09:30→17:16)
[2017-05-30] MEDS: MULTIVITAMIN TABLET PO SCH (09:30)
[2017-05-30] MEDS: THIAMINE HCL 100 MG TABLET PO SCH (09:30)
[2017-05-30] MEDS: FLUDROCORTISONE ACETATE 0.1 MG TABLET PO SCH (09:31)
[2017-05-30] MEDS: SODIUM BICARBONATE 650 MG TABLET PO SCH (09:31)
[2017-05-30] MEDS ORDERED: LEVOFLOXACIN 750 MG/D5W RTU 750 MG/150 ML RTUPB IV SCH (10:00)
[2017-05-31 04:04] LABS: ABSOLUTE LYMPHOCYTES (AUTO) 1.9 10^3/uL (0.5-4.7); ABSOLUTE MONOCYTES (AUTO) 0.6 10^3/uL (0.1-1.4); ABSOLUTE NEUT (AUTO) 2.9 10^3/uL (1.7-8.2); BASOPHILS % (AUTO) 0.6 % (0-2); EOSINOPHILS % (AUTO) 0.5 % (0-6); HEMATOCRIT 30.2 % (37.9-51.0); HEMOGLOBIN 10.4 g/dL (13.5-17.0); LYMPHOCYTES % (AUTO) 34.4 % (13-45); MEAN CORPUSCULAR HGB CONC 34.6 g/dL (32.0-36.0); MEAN CORPUSCULAR VOLUME 104 fl (80-97); MONOCYTES % (AUTO) 11.1 % (3-13); PLATELET COUNT 129 10^3/uL (150-450); RED BLOOD COUNT 2.89 10^6/uL (4.35-5.55); RED CELL DISTRIBUTION WIDTH 15.7 % (11.5-14.0); SEGMENTED NEUTROPHILS % (AUTO) 53.4 % (42-78); TOTAL CELLS COUNTED % (AUTO) 100 %; WHITE BLOOD COUNT 5.5 10^3/uL (4.0-10.5)
[2017-05-31 04:37] LABS: ALBUMIN 1.9 g/dL (3.5-5.0); BLOOD UREA NITROGEN 4 mg/dL (7-20); CALCIUM 7.4 mg/dL (8.4-10.2); CARBON DIOXIDE 23 mmol/L (22-30); CHLORIDE 112 mmol/L (98-107); GLUCOSE 90 mg/dL (75-110)
[2017-05-31 04:44] LABS: ANION GAP 6 (5-19); SODIUM 140.6 mmol/L (137-145)
[2017-05-31 04:46] LABS: POTASSIUM 3.4 mmol/L (3.6-5.0)
[2017-05-31] MEDS ORDERED: MAGNESIUM SULFATE/D5W 1 GM/100 ML RTUPB IV ONE ×2 (05:30→17:55)
[2017-05-31] MEDS: MIDODRINE HCL 5 MG TABLET PO SCH ×3 (05:33→17:48)
[2017-05-31] MEDS: HEPARIN SOD (PORCINE) 5,000 UNIT/ML 1 ML SYRINGE SUBCUT SCH ×3 (05:34→21:46)
[2017-05-31] MEDS: POTASSIUM CHLORIDE 20 MEQ/50 ML RTU IV SCH ×2 (05:34→07:57)
[2017-05-31] MEDS: RINGERS SOLUTION,LACTATED 1,000 ML IV PRN ×2 (06:08→12:48)
[2017-05-31] MEDS: IPRATROPIUM/ALBUTEROL 0.5-2.5 MG/3 ML AMPUL NEB SCH ×3 (08:06→23:22)
[2017-05-31] MEDS: MAGNESIUM OXIDE 400 MG TABLET PO SCH ×2 (09:47→17:48)
[2017-05-31] MEDS: MULTIVITAMIN TABLET PO SCH (09:47)
[2017-05-31] MEDS: THIAMINE HCL 100 MG TABLET PO SCH (09:47)
[2017-05-31] MEDS: DOCUSATE SODIUM 100 MG CAPSULE PO SCH ×2 (09:47→17:48)
[2017-05-31] MEDS: FLUDROCORTISONE ACETATE 0.1 MG TABLET PO SCH (09:47)
[2017-05-31] MEDS: LEVOTHYROXINE SODIUM 0.075 MG TABLET PO SCH (09:48)
[2017-05-31] MEDS: SODIUM BICARBONATE 650 MG TABLET PO SCH (09:48)
--- NOTE | 2017-05-31 13:56 | PDOC PROGRESS REPORT ---
Subjective Progress Note for:: 05/31/17 Subjective:: The patient is a 61-year-old male who was found wandering in [facility]. He was taken to the emergency department by police. Today, he could tell me his name, his birthdate and his Social Security number. He could not tell me where he lived. He could not tell me who he lived with. He could not tell me why he was in the hospital. He did not answer questions appropriately. His only complaint today was that his left toe is hurting. Physical Exam Vital Signs: Temp Pulse Resp BP Pulse Ox 98.1 F 83 17 98/70 L 95 05/31/17 05:10 05/31/17 09:06 05/31/17 10:16 05/31/17 10:16 05/31/17 10:16 Intake & Output 05/30/17 05/31/17 06/01/17 06:59 06:59 06:59 Intake Total 6056 3664 Output Total 1712 1750 425 Balance 4344 1914 -425 Weight 53.9 kg 56.7 kg Additional comments: The patient is disheveled. He appears much older than his stated age. He is thin, bordering on cachexia. He has unkempt facial hair. His oropharynx is noteworthy for multiple, severe dental caries. His lips are otherwise normal. His thyroid is nonpalpable. Trachea is midline. He does not have any cervical or supraclavicular lymphadenopathy. His lungs are clear bilaterally both anteriorly and posteriorly. His cardiac exam demonstrates a regular rate and rhythm. He does not have any murmurs, gallops or rubs. The abdomen is soft and flat. Bowel sounds are present in all 4 quadrants. He does not have guarding or rebound. He does not have hernias or masses. Lower extremities are no noteworthy for 1-2+ pedal edema. The patient has a stage II ulcer on the right heel. This is covered with Tegaderm. He is complaining of abnormal sensation and pain of the left great toe but no abnormalities are identified. Results Laboratory Results: 05/31/17 03:56 05/31/17 03:56 05/30/17 05/31/17 05/31/17 03:51 03:56 03:56 WBC 5.5 RBC 2.89 L Hgb 10.4 L Hct 30.2 L MCV 104 H MCH 36.0 H MCHC 34.6 RDW 15.7 H Plt Count 129 L Seg Neutrophils % 53.4 Lymphocytes % 34.4 Monocytes % 11.1 Eosinophils % 0.5 Basophils % 0.6 Absolute Neutrophils 2.9 Absolute Lymphocytes 1.9 Absolute Monocytes 0.6 Absolute Eosinophils 0.0 Absolute Basophils 0.0 Sodium 140.6 Potassium 3.4 L D Chloride 112 H Carbon Dioxide 23 Anion Gap 6 BUN 4 L Creatinine 0.44 L Est GFR ( Amer) > 60 Est GFR (Non-Af Amer) > 60 Glucose 90 Calcium 7.4 L Magnesium 1.5 L Transferrin 90 L Albumin 1.9 L Impressions: Chest X-Ray 05/28/17 20:27 IMPRESSION: COPD. NO ACUTE RADIOGRAPHIC FINDING IN THE CHEST. Head CT 05/28/17 20:27 IMPRESSION: No acute intracranial findings. EVIDENCE OF ACUTE STROKE: NO. Head MRI 05/29/17 00:00 IMPRESSION: NO ACUTE ISCHEMIA, HEMORRHAGE, OR MASS LESION. CANNOT ASSESS FOR ABNORMAL WHITE MATTER SIGNAL DUE TO NONDIAGNOSTIC FLAIR IMAGING FROM [employer]. EVIDENCE OF ACUTE STROKE: NO. Assessment & Plan - Diagnosis (1) Encephalopathy Is this a current diagnosis for this admission?: Yes Plan: need to follow-up on ammonia level and RPR. Alcoholism is suspected. Start thiamine. (2) Hypokalemia Is this a current diagnosis for this admission?: Yes Plan: Will need additional replacement today. (3) Hypomagnesemia Is this a current diagnosis for this admission?: Yes Plan: Will need additional replacement today. (4) Hypotension Qualifiers: Hypotension type: unspecified hypotension type Qualified Code(s): I95.9 - Hypotension, unspecified Is this a current diagnosis for this admission?: Yes Plan: Normalizing. (5) Hypothermia Qualifiers: Encounter type: initial encounter Qualified Code(s): T68.XXXA - Hypothermia , initial encounter Is this a current diagnosis for this admission?: Yes Plan: Likely due to exposure. Normalizing. (6) Hypothyroidism Is this a current diagnosis for this admission?: Yes Plan: Continue supplementation. (7) Metabolic acidosis Is this a current diagnosis for this admission?: Yes Plan: Near corrected. Stop supplemental bicarbonate. (8) Sepsis Is this a current diagnosis for this admission?: No Plan: Ruled out. - Time Time Spent with patient: 25-34 minutes - Inpatient Certification Medical Necessity: Risk of Complication if Not Cared For in Hospital - Plan Summary Plan Summary: I will need to call the police department in [place] to see if I can find any of patient's living relatives. Patient will need care after discharge and will likely need to go to a skilled facility.
[2017-05-31] MEDS: MAGNESIUM SULFATE/D5W 1 GM/100 ML RTUPB IV SCH ×3 (14:57→17:58)
--- NOTE | 2017-05-31 15:03 | RADIOLOGY REPORT (SQ) ---
EXAM DESCRIPTION: FOOT LEFT COMPLETE COMPLETED DATE/TIME: 05/31/2017 2:48 pm REASON FOR STUDY: Pain COMPARISON: None. NUMBER OF VIEWS: Three views left foot. LIMITATIONS: None. FINDINGS: Joint space narrowing at the toe MP joint. Mild osteopenia. No fracture or bone lesion, subluxation or dislocation evident. No radiopaque foreign body. No large ankle joint effusion or so ft tissue swelling. OTHER: No other significant finding. IMPRESSION: 1. No acute or suspicious radiographic abnormality left the left foot. TECHNICAL DOCUMENTATION: JOB ID: [id number]
[2017-06-01] MEDS: DIAZEPAM 5 MG TABLET PO PRN ×3 (00:05→18:47)
[2017-06-01 04:08] LABS: ABSOLUTE EOSINOPHILS # (AUTO) 0.1 10^3/uL (0.0-0.6); ABSOLUTE LYMPHOCYTES (AUTO) 2.1 10^3/uL (0.5-4.7); ABSOLUTE MONOCYTES (AUTO) 0.6 10^3/uL (0.1-1.4); ABSOLUTE NEUT (AUTO) 2.9 10^3/uL (1.7-8.2); BASOPHILS % (AUTO) 0.3 % (0-2); EOSINOPHILS % (AUTO) 0.9 % (0-6); HEMATOCRIT 31.1 % (37.9-51.0); HEMOGLOBIN 10.6 g/dL (13.5-17.0); LYMPHOCYTES % (AUTO) 37.4 % (13-45); MEAN CORPUSCULAR HEMOGLOBIN 35.5 pg (27.0-33.4); MEAN CORPUSCULAR HGB CONC 34.2 g/dL (32.0-36.0); MEAN CORPUSCULAR VOLUME 104 fl (80-97); MONOCYTES % (AUTO) 10.5 % (3-13); PLATELET COUNT 144 10^3/uL (150-450); RED BLOOD COUNT 2.99 10^6/uL (4.35-5.55); SEGMENTED NEUTROPHILS % (AUTO) 50.9 % (42-78); TOTAL CELLS COUNTED % (AUTO) 100 %; WHITE BLOOD COUNT 5.6 10^3/uL (4.0-10.5)
[2017-06-01 04:31] LABS: BLOOD UREA NITROGEN 6 mg/dL (7-20); CALCIUM 7.7 mg/dL (8.4-10.2); GLUCOSE 85 mg/dL (75-110)
[2017-06-01 04:48] LABS: CHLORIDE 108 mmol/L (98-107); POTASSIUM 4.7 mmol/L (3.6-5.0)
[2017-06-01 04:49] LABS: ANION GAP 4 (5-19); CARBON DIOXIDE 27 mmol/L (22-30); SODIUM 139.5 mmol/L (137-145)
[2017-06-01] MEDS: HEPARIN SOD (PORCINE) 5,000 UNIT/ML 1 ML SYRINGE SUBCUT SCH ×3 (06:11→22:03)
[2017-06-01] MEDS: MIDODRINE HCL 5 MG TABLET PO SCH ×3 (06:11→18:47)
[2017-06-01] MEDS: IPRATROPIUM/ALBUTEROL 0.5-2.5 MG/3 ML AMPUL NEB SCH ×3 (08:15→23:39)
[2017-06-01] MEDS: MAGNESIUM OXIDE 400 MG TABLET PO SCH ×2 (09:52→18:47)
[2017-06-01] MEDS: MULTIVITAMIN TABLET PO SCH (09:52)
[2017-06-01] MEDS: DOCUSATE SODIUM 100 MG CAPSULE PO SCH ×2 (09:52→18:47)
[2017-06-01] MEDS: THIAMINE HCL 100 MG TABLET PO SCH (09:52)
[2017-06-01] MEDS: LEVOTHYROXINE SODIUM 0.075 MG TABLET PO SCH (09:52)
--- NOTE | 2017-06-01 10:09 | PDOC PROGRESS REPORT ---
Subjective Progress Note for:: 06/01/17 Subjective:: The patient is a 61-year-old male who was found wandering in [place]. He was taken to the emergency department by police. Today, the patient is awake. He is oriented to person. He knows that he is in the hospital but he does not know why. He does not remember being brought in by police. He could not tell me his address or the town that he lives in. He states that he is but he could not tell me where his is or what her phone number is. He told me that he thinks that she works in [place] or [place] as a nurse. He is no longer complaining of left foot pain. Physical Exam Vital Signs: Temp Pulse Resp BP Pulse Ox 97.3 F 67 20 118/70 95 06/01/17 06:00 06/01/17 07:53 06/01/17 07:15 06/01/17 06:09 06/01/17 06:00 Intake & Output 05/31/17 06/01/17 06/02/17 06:59 06:59 06:59 Intake Total 3664 2504 Output Total 1750 1525 Balance 1914 979 Weight 56.7 kg 55.5 kg Additional comments: The patient does not appear to be in any distress. He does have some tremulousness of the extremities. His facial appearance is unchanged. He appears unkempt. He has multiple dental caries. His lungs are noted to be clear to auscultation bilaterally. His cardiac exam is regular. I do not appreciate any murmurs, gallops or rubs. The abdomen is soft and flat. Bowel sounds are noted in the lower quadrants. The patient does not have guarding, rebound, hernias, masses. The lower extremities are warm to touch. 1+ pedal edema remains present. Otherwise, the skin is warm, dry and intact without lesions or rashes. Results Laboratory Results: 06/01/17 03:56 06/01/17 03:56 05/30/17 06/01/17 06/01/17 03:51 03:56 03:56 WBC 5.6 RBC 2.99 L Hgb 10.6 L Hct 31.1 L MCV 104 H MCH 35.5 H MCHC 34.2 RDW 16.0 H Plt Count 144 L Seg Neutrophils % 50.9 Lymphocytes % 37.4 Monocytes % 10.5 Eosinophils % 0.9 Basophils % 0.3 Absolute Neutrophils 2.9 Absolute Lymphocytes 2.1 Absolute Monocytes 0.6 Absolute Eosinophils 0.1 Absolute Basophils 0.0 Sodium 139.5 Potassium 4.7 D Chloride 108 H Carbon Dioxide 27 Anion Gap 4 L BUN 6 L Creatinine 0.49 L Est GFR ( Amer) > 60 Est GFR (Non-Af Amer) > 60 Glucose 85 Calcium 7.7 L Transferrin 90 L Impressions: Chest X-Ray 05/28/17 20:27 IMPRESSION: COPD. NO ACUTE RADIOGRAPHIC FINDING IN THE CHEST. Head CT 05/28/17 20:27 IMPRESSION: No acute intracranial findings. EVIDENCE OF ACUTE STROKE: NO. Head MRI 05/29/17 00:00 IMPRESSION: NO ACUTE ISCHEMIA, HEMORRHAGE, OR MASS LESION. CANNOT ASSESS FOR ABNORMAL WHITE MATTER SIGNAL DUE TO NONDIAGNOSTIC FLAIR IMAGING FROM [employer]. EVIDENCE OF ACUTE STROKE: NO. Foot X-Ray 05/31/17 00:00 IMPRESSION: 1. No acute or suspicious radiographic abnormality left the left foot. Assessment & Plan - Diagnosis (1) Encephalopathy Is this a current diagnosis for this admission?: Yes Plan: Ammonia level sent on admission is normal. RPR is still pending. Patient is being presumed at risk for alcohol withdrawal. (2) Hypokalemia Is this a current diagnosis for this admission?: Yes Plan: Corrected. Will follow. (3) Hypomagnesemia Is this a current diagnosis for this admission?: Yes Plan: Patient received IV replacement yesterday. Will repeat labs in the morning. (4) Hypotension Qualifiers: Hypotension type: unspecified hypotension type Qualified Code(s): I95.9 - Hypotension, unspecified Is this a current diagnosis for this admission?: Yes Plan: Normalizing. Levophed was discontinued. Midodrine and fludrocortisone have been discontinued. (5) Hypothermia Qualifiers: Encounter type: initial encounter Qualified Code(s): T68.XXXA - Hypothermia , initial encounter Is this a current diagnosis for this admission?: Yes Plan: Likely due to exposure. Normalizing. (6) Hypothyroidism Is this a current diagnosis for this admission?: Yes Plan: Continue supplementation. (7) Metabolic acidosis Is this a current diagnosis for this admission?: Yes Plan: Near corrected. Stopped supplemental bicarbonate. (8) Sepsis Is this a current diagnosis for this admission?: No Plan: Ruled out. - Time Time Spent with patient: 25-34 minutes - Inpatient Certification Medical Necessity: Need Close Monitoring Due to Risk of Patient Decompensation, Risk of Complication if Not Cared For in Hospital - Plan Summary Plan Summary: The patient is certainly not capable of caring for himself at home. We will continue to try to find friends or relatives that know this patient. I did contact the [facility] Police Department yesterday. They have not had anybody calling regarding this patient. They have no contacts on record. We will [facility] to [facility] some [facility]. The patient will likely need to be transferred to a skilled facility upon discharge. At this time the patient is not stable medically for discharge and I anticipate that he will have evidence of alcohol withdrawal ongoing for the next 3 days.
[2017-06-01] MEDS ORDERED: NORMAL SALINE 500 ML IV ONE (12:15)
[2017-06-01] MEDS ORDERED: MIDODRINE HCL 5 MG TABLET PO ONE (12:53)
[2017-06-02] MEDS: LORAZEPAM INJ 2 MG/1 ML VIAL IV PRN (01:22)
[2017-06-02] MEDS: HEPARIN SOD (PORCINE) 5,000 UNIT/ML 1 ML SYRINGE SUBCUT SCH ×3 (05:10→21:40)
[2017-06-02 08:09] LABS: ABSOLUTE EOSINOPHILS # (AUTO) 0.1 10^3/uL (0.0-0.6); ABSOLUTE LYMPHOCYTES (AUTO) 1.7 10^3/uL (0.5-4.7); ABSOLUTE MONOCYTES (AUTO) 0.6 10^3/uL (0.1-1.4); ABSOLUTE NEUT (AUTO) 4.2 10^3/uL (1.7-8.2); BASOPHILS % (AUTO) 0.5 % (0-2); EOSINOPHILS % (AUTO) 0.9 % (0-6); HEMATOCRIT 28.7 % (37.9-51.0); LYMPHOCYTES % (AUTO) 25.8 % (13-45); MEAN CORPUSCULAR HEMOGLOBIN 36.5 pg (27.0-33.4); MEAN CORPUSCULAR HGB CONC 34.8 g/dL (32.0-36.0); MEAN CORPUSCULAR VOLUME 105 fl (80-97); MONOCYTES % (AUTO) 9.7 % (3-13); PLATELET COUNT 150 10^3/uL (150-450); RED BLOOD COUNT 2.74 10^6/uL (4.35-5.55); RED CELL DISTRIBUTION WIDTH 15.6 % (11.5-14.0); SEGMENTED NEUTROPHILS % (AUTO) 63.1 % (42-78); TOTAL CELLS COUNTED % (AUTO) 100 %; WHITE BLOOD COUNT 6.6 10^3/uL (4.0-10.5)
[2017-06-02] MEDS: IPRATROPIUM/ALBUTEROL 0.5-2.5 MG/3 ML AMPUL NEB SCH ×3 (08:10→23:43)
[2017-06-02 08:11] LABS: INTERNATIONAL RATION (INR) 0.83
[2017-06-02 08:36] LABS: ALANINE AMINOTRANSFERASE 26 U/L (21-72); ALKALINE PHOSPHATASE 42 U/L (38-126); ANION GAP 5 (5-19); ASPARTATE AMINO TRANSFERASE 17 U/L (17-59); BILIRUBIN,DIRECT 0.3 mg/dL (0.0-0.4); BILIRUBIN,TOTAL 0.3 mg/dL (0.2-1.3); BLOOD UREA NITROGEN 9 mg/dL (7-20); CALCIUM 8.4 mg/dL (8.4-10.2); CARBON DIOXIDE 27 mmol/L (22-30); CHLORIDE 106 mmol/L (98-107); GLUCOSE 93 mg/dL (75-110); PHOSPHORUS 3.9 mg/dL (2.5-4.5); POTASSIUM 3.9 mmol/L (3.6-5.0); SODIUM 137.7 mmol/L (137-145); TOTAL PROTEIN 3.8 g/dL (6.3-8.2)
[2017-06-02] MEDS: DOCUSATE SODIUM 100 MG CAPSULE PO SCH ×2 (09:35→17:53)
[2017-06-02] MEDS: MULTIVITAMIN TABLET PO SCH (09:35)
[2017-06-02] MEDS: LEVOTHYROXINE SODIUM 0.075 MG TABLET PO SCH (09:35)
[2017-06-02] MEDS: MAGNESIUM OXIDE 400 MG TABLET PO SCH ×2 (09:35→17:54)
[2017-06-02] MEDS: THIAMINE HCL 100 MG TABLET PO SCH (09:35)
[2017-06-02] MEDS: MIDODRINE HCL 5 MG TABLET PO SCH ×3 (09:35→17:53)
--- NOTE | 2017-06-02 11:30 | PDOC PROGRESS REPORT ---
Subjective Progress Note for:: 06/02/17 Subjective:: The patient is a 61-year-old male who was found wandering in [place]. He was taken to the emergency department by police. When the patient was brought into the hospital he was noted to be hypotensive and hypothermic. He was started on Levophed. This was titrated to off in 12 hours. The patient was also placed on Midodrine and fludrocortisone. Yesterday, I stopped the Midodrine and fludrocortisone. However, his blood pressure again dropped to 70/40 and therefore I restarted the Midodrine. His blood pressure is now normalizing. The patient has also been started on supplemental Synthroid for a mildly elevated TSH. At this point time the patient does admit to drinking a lot of alcohol. His beverage of choice is vodka. He is receiving Valium and thiamine for withdrawal prophylaxis and for prophylaxis of Wernicke's encephalopathy. The patient remains very confused. He is not able to tell me where he is or why he is here. At this point time we have not been able to find any family members or friends that could be responsible for this person. He is clearly unable to care for himself. He will likely need to be placed. I think the next most appropriate thing to do is try to contact the [place] system to see if they have any records on this patient and to see if they can find a next of kin. Physical Exam Vital Signs: Temp Pulse Resp BP Pulse Ox 98.4 F 76 14 109/57 L 92 06/02/17 07:40 06/02/17 08:10 06/02/17 08:10 06/02/17 07:40 06/02/17 08:10 Intake & Output 06/01/17 06/02/17 06/03/17 06:59 06:59 06:59 Intake Total 2504 840 Output Total 1525 1200 Balance 979 -360 Weight 55.5 kg 61 kg Additional comments: Patient appears to be disheveled. He was again confused this morning. He is oriented to person but not place. He was not aware that he was in [place] this morning. He was not aware that he was in the hospital this morning. He does have some increasing periorbital edema this morning especially on the right. His lungs, however, remain clear both anteriorly and posteriorly. His cardiac exam demonstrates a regular rate and rhythm without murmurs, gallops or rubs. The abdomen is soft and flat. Bowel sounds are present. There is no guarding or rebound and there are no hernias or masses present. The lower extremities demonstrate 1+ pedal edema which is symmetrical bilaterally. Otherwise, the skin is clean dry and intact without lesions or rashes. Results Laboratory Results: 06/02/17 07:45 06/02/17 07:45 06/02/17 06/02/17 07:45 07:45 WBC 6.6 RBC 2.74 L Hgb 10.0 L Hct 28.7 L MCV 105 H MCH 36.5 H MCHC 34.8 RDW 15.6 H Plt Count 150 Seg Neutrophils % 63.1 Lymphocytes % 25.8 Monocytes % 9.7 Eosinophils % 0.9 Basophils % 0.5 Absolute Neutrophils 4.2 Absolute Lymphocytes 1.7 Absolute Monocytes 0.6 Absolute Eosinophils 0.1 Absolute Basophils 0.0 Sodium 137.7 Potassium 3.9 Chloride 106 Carbon Dioxide 27 Anion Gap 5 BUN 9 Creatinine 0.48 L Est GFR ( Amer) > 60 Est GFR (Non-Af Amer) > 60 Glucose 93 Calcium 8.4 Phosphorus 3.9 Magnesium 1.8 Total Bilirubin 0.3 AST 17 ALT 26 Alkaline Phosphatase 42 Total Protein 3.8 L Albumin 2.0 L Impressions: Chest X-Ray 05/28/17 20:27 IMPRESSION: COPD. NO ACUTE RADIOGRAPHIC FINDING IN THE CHEST. Head CT 05/28/17 20:27 IMPRESSION: No acute intracranial findings. EVIDENCE OF ACUTE STROKE: NO. Head MRI 05/29/17 00:00 IMPRESSION: NO ACUTE ISCHEMIA, HEMORRHAGE, OR MASS LESION. CANNOT ASSESS FOR ABNORMAL WHITE MATTER SIGNAL DUE TO NONDIAGNOSTIC FLAIR IMAGING FROM [employer]. EVIDENCE OF ACUTE STROKE: NO. Foot X-Ray 05/31/17 00:00 IMPRESSION: 1. No acute or suspicious radiographic abnormality left the left foot. Assessment & Plan - Diagnosis (1) Encephalopathy Is this a current diagnosis for this admission?: Yes Plan: Ammonia level sent on admission is normal. RPR is still pending. Imaging of brain is unremarkable. Patient is being presumed at risk for alcohol withdrawal. Continue benzodiazepines and thiamine. (2) Hypokalemia Is this a current diagnosis for this admission?: Yes Plan: Corrected. Will follow. (3) Hypomagnesemia Is this a current diagnosis for this admission?: Yes Plan: Corrected. Continue supplementation. (4) Hypotension Qualifiers: Hypotension type: unspecified hypotension type Qualified Code(s): I95.9 - Hypotension, unspecified Is this a current diagnosis for this admission?: Yes Plan: After stopping fludrocortisone and Midodrine yesterday the patient had recurrent hypotension. Midodrine has been restarted with good effect. (5) Hypothermia Qualifiers: Encounter type: initial encounter Qualified Code(s): T68.XXXA - Hypothermia , initial encounter Is this a current diagnosis for this admission?: Yes Plan: Likely due to exposure. Normalizing. (6) Hypothyroidism Is this a current diagnosis for this admission?: Yes Plan: Continue supplementation. (7) Metabolic acidosis Is this a current diagnosis for this admission?: Yes Plan: Resolved. (8) Sepsis Is this a current diagnosis for this admission?: No Plan: Ruled out. (9) Severe protein-calorie malnutrition Is this a current diagnosis for this admission?: Yes Plan: The patient presents with evidence of severe and long-standing protein calorie malnutrition. I will request a dietary consultation. - Time Time Spent with patient: 25-34 minutes - Inpatient Certification Medical Necessity: Need Close Monitoring Due to Risk of Patient Decompensation, Risk of Complication if Not Cared For in Hospital
[2017-06-03] MEDS: HEPARIN SOD (PORCINE) 5,000 UNIT/ML 1 ML SYRINGE SUBCUT SCH ×3 (05:13→22:31)
[2017-06-03] MEDS: IPRATROPIUM/ALBUTEROL 0.5-2.5 MG/3 ML AMPUL NEB SCH ×3 (08:44→23:58)
[2017-06-03] MEDS: LEVOTHYROXINE SODIUM 0.075 MG TABLET PO SCH (09:57)
[2017-06-03] MEDS: DOCUSATE SODIUM 100 MG CAPSULE PO SCH ×2 (09:57→18:11)
[2017-06-03] MEDS: THIAMINE HCL 100 MG TABLET PO SCH (09:57)
[2017-06-03] MEDS: MULTIVITAMIN TABLET PO SCH (09:58)
[2017-06-03] MEDS: MAGNESIUM OXIDE 400 MG TABLET PO SCH ×2 (09:58→18:12)
[2017-06-03] MEDS: MIDODRINE HCL 5 MG TABLET PO SCH ×3 (09:58→18:11)
--- NOTE | 2017-06-03 13:13 | PDOC PROGRESS REPORT ---
Subjective Progress Note for:: 06/03/17 Subjective:: Mr. Bolden is a 61-year-old male who was found wandering in [place]. He was taken to the emergency department by police. When the patient was brought into the hospital he was noted to be hypotensive and hypothermic. He required pressor support with Levophed, which has now been weaned off. He was started on Midodrine and fludrocortisone for BP support. Has a long standing history of EtOH absue and there is concern for Wernicke's encephalopathy. Interval History: Remains confused. Thinks that he came to the hospital today as he was not feeling well at work. States that he lives with his but is unable to recall her name. No specific complaints today. Denies fevers, chills, CP, SOB, abdominal pain, NV. PO intake has been good. At times is noted to be agitated by staffing and scheduling coordinator and trying to remove lines and court monitor. In the process of obtaining records from the [facility]. Physical Exam Vital Signs: Temp Pulse Resp BP Pulse Ox 98.7 F 73 17 99/55 L 93 06/03/17 11:27 06/03/17 11:27 06/03/17 11:27 06/03/17 11:27 06/03/17 11:27 Intake & Output 06/02/17 06/03/17 06/04/17 06:59 06:59 06:59 Intake Total 840 950 Output Total 1200 3100 Balance -360 -2150 Weight 61 kg 58.3 kg General appearance: PRESENT: no acute distress, thin, well-nourished Head exam: PRESENT: atraumatic, normocephalic Eye exam: PRESENT: EOMI, PERRLA. ABSENT: scleral icterus Mouth exam: PRESENT: moist Teeth exam: PRESENT: poor dentation Neck exam: ABSENT: carotid bruit, JVD, lymphadenopathy, thyromegaly Respiratory exam: PRESENT: clear to auscultation kae. ABSENT: rales, rhonchi, wheezes Cardiovascular exam: PRESENT: RRR. ABSENT: diastolic murmur, rubs, systolic murmur Pulses: PRESENT: normal dorsalis pedis pul Vascular exam: PRESENT: normal capillary refill GI/Abdominal exam: PRESENT: normal bowel sounds, soft. ABSENT: distended, guarding, mass, organolmegaly, rebound, tenderness Rectal exam: PRESENT: deferred Extremities exam: PRESENT: full ROM. ABSENT: calf tenderness, clubbing, pedal edema Neurological exam: PRESENT: alert, awake, CN II-XII grossly intact, other - No asterixis. ABSENT: oriented to person, oriented to place, oriented to time, oriented to situation, motor sensory deficit Psychiatric exam: PRESENT: normal mood. ABSENT: appropriate affect, homicidal ideation, suicidal ideation Focused psych exam: PRESENT: other - Confused Skin exam: PRESENT: dry, intact, warm. ABSENT: cyanosis, rash Results Laboratory Results: 06/02/17 07:45 06/02/17 07:45 05/29/17 07:08 Blood Blood Culture - Final NO GROWTH IN 5 DAYS 05/29/17 04:58 Blood Blood Culture - Final NO GROWTH IN 5 DAYS Impressions: Chest X-Ray 05/28/17 20:27 IMPRESSION: COPD. NO ACUTE RADIOGRAPHIC FINDING IN THE CHEST. Head CT 05/28/17 20:27 IMPRESSION: No acute intracranial findings. EVIDENCE OF ACUTE STROKE: NO. Head MRI 05/29/17 00:00 IMPRESSION: NO ACUTE ISCHEMIA, HEMORRHAGE, OR MASS LESION. CANNOT ASSESS FOR ABNORMAL WHITE MATTER SIGNAL DUE TO NONDIAGNOSTIC FLAIR IMAGING FROM [employer]. EVIDENCE OF ACUTE STROKE: NO. Foot X-Ray 05/31/17 00:00 IMPRESSION: 1. No acute or suspicious radiographic abnormality left the left foot. Assessment & Plan - Diagnosis (1) Encephalopathy Is this a current diagnosis for this admission?: Yes Plan: Unclear etiology. Concern fro Wernicke's Encephalopathy. Work up includes negative brain MRI, normal NH3 levels, no other metabolic abnormalities to explain confusion. Records obtained from [facility] and patient has recent history of homelessness and has been living in and out of homeless shelters. Continue thiamine and multivitamins. Given 5 days of admission and no evidence of DT's, discontinued court monitor. Can have PRN Benzo's if needed. (2) Sepsis Is this a current diagnosis for this admission?: No Plan: No evidence of sepsis. Blood cultures negative. Has been off antibiotics. (3) Severe protein-calorie malnutrition Is this a current diagnosis for this admission?: Yes Plan: Nutrition following. Per their recs: Recommend as liberal diet as possible. Will change to low sodium diet order, Ensure high protein to all meals and magic cup to lunch and dinner to increase kcal intake (4) Homelessness Is this a current diagnosis for this admission?: Yes Plan[facility] Will need to work with social work re: placement. - Time Time Spent with patient: 15-24 minutes Anticipated discharge: Other - Will need to determine if patient qualifies for placement.
[2017-06-04] MEDS: HEPARIN SOD (PORCINE) 5,000 UNIT/ML 1 ML SYRINGE SUBCUT SCH ×3 (06:21→21:33)
[2017-06-04] MEDS: IPRATROPIUM/ALBUTEROL 0.5-2.5 MG/3 ML AMPUL NEB SCH ×2 (07:31→16:03)
[2017-06-04] MEDS: MAGNESIUM OXIDE 400 MG TABLET PO SCH ×2 (10:55→17:33)
[2017-06-04] MEDS: MULTIVITAMIN TABLET PO SCH (10:56)
[2017-06-04] MEDS: DOCUSATE SODIUM 100 MG CAPSULE PO SCH ×2 (10:56→17:34)
[2017-06-04] MEDS: THIAMINE HCL 100 MG TABLET PO SCH (10:57)
[2017-06-04] MEDS: LEVOTHYROXINE SODIUM 0.075 MG TABLET PO SCH (10:58)
[2017-06-04] MEDS: MIDODRINE HCL 5 MG TABLET PO SCH ×3 (10:58→17:35)
[2017-06-04] MEDS ORDERED: NORMAL SALINE 1000 ML 1,000 ML IV PRN (13:48)
--- NOTE | 2017-06-04 13:48 | PDOC PROGRESS REPORT ---
Subjective Progress Note for:: 06/04/17 Subjective:: Pt states that he is doing well. Physical Exam Vital Signs: Temp Pulse Resp BP Pulse Ox 98.7 F 88 17 91/50 L 93 06/04/17 11:39 06/04/17 11:39 06/04/17 11:39 06/04/17 11:39 06/04/17 11:39 Intake & Output 06/03/17 06/04/17 06/05/17 06:59 06:59 06:59 Intake Total 950 1207 Output Total 3100 Balance -2150 1207 Weight 58.3 kg 58.7 kg General appearance: PRESENT: no acute distress, thin Head exam: PRESENT: atraumatic, normocephalic Eye exam: PRESENT: conjunctiva pink, EOMI, PERRLA. ABSENT: scleral icterus Ear exam: PRESENT: normal external ear exam Mouth exam: PRESENT: moist, tongue midline Neck exam: ABSENT: carotid bruit, JVD, lymphadenopathy, thyromegaly Respiratory exam: PRESENT: clear to auscultation kae. ABSENT: rales, rhonchi, wheezes Cardiovascular exam: PRESENT: RRR. ABSENT: diastolic murmur, rubs, systolic murmur Pulses: PRESENT: normal dorsalis pedis pul Vascular exam: PRESENT: normal capillary refill GI/Abdominal exam: PRESENT: normal bowel sounds, soft. ABSENT: distended, guarding, mass, organolmegaly, rebound, tenderness Rectal exam: PRESENT: deferred Extremities exam: PRESENT: full ROM. ABSENT: calf tenderness, clubbing, pedal edema Neurological exam: PRESENT: alert, altered, oriented to person, other - Pt states that the President is John. Pt stated that the year was 2009. ABSENT : motor sensory deficit Psychiatric exam: PRESENT: appropriate affect, normal mood. ABSENT: homicidal ideation, suicidal ideation Skin exam: PRESENT: dry, intact, warm. ABSENT: cyanosis, rash Results Laboratory Results: 06/02/17 07:45 06/02/17 07:45 Impressions: Chest X-Ray 05/28/17 20:27 IMPRESSION: COPD. NO ACUTE RADIOGRAPHIC FINDING IN THE CHEST. Head CT 05/28/17 20:27 IMPRESSION: No acute intracranial findings. EVIDENCE OF ACUTE STROKE: NO. Head MRI 05/29/17 00:00 IMPRESSION: NO ACUTE ISCHEMIA, HEMORRHAGE, OR MASS LESION. CANNOT ASSESS FOR ABNORMAL WHITE MATTER SIGNAL DUE TO NONDIAGNOSTIC FLAIR IMAGING FROM [employer]. EVIDENCE OF ACUTE STROKE: NO. Foot X-Ray 05/31/17 00:00 IMPRESSION: 1. No acute or suspicious radiographic abnormality left the left foot. Assessment & Plan - Diagnosis (1) Encephalopathy Is this a current diagnosis for this admission?: Yes Plan: Secondary to ETOH Abuse: Supportive care. (2) Homelessness Is this a current diagnosis for this admission?: Yes Plan: Pt will need to locate next of Kin in order to arrange discharge plans. (3) Hypokalemia Is this a current diagnosis for this admission?: Yes Plan: resolved. Will check labs. (4) Hypomagnesemia Is this a current diagnosis for this admission?: Yes Plan: Resolved. (5) Hypotension Qualifiers: Hypotension type: unspecified hypotension type Qualified Code(s): I95.9 - Hypotension, unspecified Is this a current diagnosis for this admission?: Yes Plan: Will continue IVF. (6) Hypothermia Qualifiers: Encounter type: initial encounter Qualified Code(s): T68.XXXA - Hypothermia , initial encounter Is this a current diagnosis for this admission?: Yes Plan: Secondary to environment: Resolved. (7) Hypothyroidism Is this a current diagnosis for this admission?: Yes Plan: Continue Synthroid (8) Sepsis Is this a current diagnosis for this admission?: No Plan: Ruled out - Time Time Spent with patient: Less than 15 minutes
[2017-06-04] MEDS: DIAZEPAM 5 MG TABLET PO PRN (17:34)
[2017-06-04] MEDS: LORAZEPAM INJ 2 MG/1 ML VIAL IV PRN (23:14)
[2017-06-04] MEDS: ACETAMINOPHEN 325 MG TABLET PO PRN (23:14)
[2017-06-05] MEDS: IPRATROPIUM/ALBUTEROL 0.5-2.5 MG/3 ML AMPUL NEB SCH ×4 (00:03→23:43)
[2017-06-05] MEDS: HEPARIN SOD (PORCINE) 5,000 UNIT/ML 1 ML SYRINGE SUBCUT SCH ×3 (05:42→23:46)
[2017-06-05 09:09] LABS: HEMATOCRIT 29.2 % (37.9-51.0); HEMOGLOBIN 10.2 g/dL (13.5-17.0); MEAN CORPUSCULAR HEMOGLOBIN 36.1 pg (27.0-33.4); MEAN CORPUSCULAR HGB CONC 34.8 g/dL (32.0-36.0); MEAN CORPUSCULAR VOLUME 104 fl (80-97); PLATELET COUNT 191 10^3/uL (150-450); RED BLOOD COUNT 2.81 10^6/uL (4.35-5.55); RED CELL DISTRIBUTION WIDTH 16.3 % (11.5-14.0); WHITE BLOOD COUNT 5.3 10^3/uL (4.0-10.5)
[2017-06-05] MEDS: DOCUSATE SODIUM 100 MG CAPSULE PO SCH ×2 (09:10→17:25)
[2017-06-05] MEDS: THIAMINE HCL 100 MG TABLET PO SCH (09:10)
[2017-06-05] MEDS: LEVOTHYROXINE SODIUM 0.075 MG TABLET PO SCH (09:11)
[2017-06-05] MEDS: MAGNESIUM OXIDE 400 MG TABLET PO SCH ×2 (09:11→17:25)
[2017-06-05] MEDS: MULTIVITAMIN TABLET PO SCH (09:11)
[2017-06-05] MEDS: MIDODRINE HCL 5 MG TABLET PO SCH ×3 (09:11→17:25)
--- NOTE | 2017-06-05 09:14 | PDOC PROGRESS REPORT ---
Subjective Progress Note for:: 06/05/17 Subjective:: Pt states that his children have been to the hospital. Pt states that he has a son Hubert and a daughter Maggie. Nursing states that pt has not had any visitors. Pt states that he is hoping to go to [facility] today. Physical Exam Vital Signs: Temp Pulse Resp BP Pulse Ox 98.5 F 66 14 100/62 94 06/05/17 07:46 06/05/17 08:13 06/05/17 08:13 06/05/17 07:46 06/05/17 08:13 Intake & Output 06/04/17 06/05/17 06/06/17 06:59 06:59 06:59 Intake Total 1207 1012 Output Total 1725 Balance 1207 -713 Weight 58.7 kg 55 kg General appearance: PRESENT: no acute distress, thin Head exam: PRESENT: atraumatic, normocephalic Eye exam: PRESENT: conjunctiva pink, EOMI, PERRLA. ABSENT: scleral icterus Ear exam: PRESENT: normal external ear exam Mouth exam: PRESENT: moist, tongue midline Neck exam: ABSENT: carotid bruit, JVD, lymphadenopathy, thyromegaly Respiratory exam: PRESENT: clear to auscultation kae. ABSENT: rales, rhonchi, wheezes Cardiovascular exam: PRESENT: RRR. ABSENT: diastolic murmur, rubs, systolic murmur Pulses: PRESENT: normal dorsalis pedis pul Vascular exam: PRESENT: normal capillary refill GI/Abdominal exam: PRESENT: normal bowel sounds, soft. ABSENT: distended, guarding, mass, organolmegaly, rebound, tenderness Rectal exam: PRESENT: deferred Extremities exam: PRESENT: full ROM. ABSENT: calf tenderness, clubbing, pedal edema Neurological exam: PRESENT: alert, altered, oriented to person Psychiatric exam: PRESENT: appropriate affect, normal mood. ABSENT: homicidal ideation, suicidal ideation Skin exam: PRESENT: dry, intact, warm. ABSENT: cyanosis, rash Results Laboratory Results: 06/05/17 08:55 06/05/17 08:55 WBC 5.3 RBC 2.81 L Hgb 10.2 L Hct 29.2 L MCV 104 H MCH 36.1 H MCHC 34.8 RDW 16.3 H Plt Count 191 Impressions: Chest X-Ray 05/28/17 20:27 IMPRESSION: COPD. NO ACUTE RADIOGRAPHIC FINDING IN THE CHEST. Head CT 05/28/17 20:27 IMPRESSION: No acute intracranial findings. EVIDENCE OF ACUTE STROKE: NO. Head MRI 05/29/17 00:00 IMPRESSION: NO ACUTE ISCHEMIA, HEMORRHAGE, OR MASS LESION. CANNOT ASSESS FOR ABNORMAL WHITE MATTER SIGNAL DUE TO NONDIAGNOSTIC FLAIR IMAGING FROM [employer]. EVIDENCE OF ACUTE STROKE: NO. Foot X-Ray 05/31/17 00:00 IMPRESSION: 1. No acute or suspicious radiographic abnormality left the left foot. Assessment & Plan - Diagnosis (1) Encephalopathy Is this a current diagnosis for this admission?: Yes Plan: Secondary to ETOH Abuse: Supportive care. (2) Homelessness Is this a current diagnosis for this admission?: Yes Plan: Case managment states that they are trying to locate his family. (3) Hypokalemia Is this a current diagnosis for this admission?: Yes Plan: resolved. BMP pending (4) Hypomagnesemia Is this a current diagnosis for this admission?: Yes Plan: Resolved. (5) Hypotension Qualifiers: Hypotension type: unspecified hypotension type Qualified Code(s): I95.9 - Hypotension, unspecified Is this a current diagnosis for this admission?: Yes Plan: Will continue IVF. (6) Hypothermia Qualifiers: Encounter type: initial encounter Qualified Code(s): T68.XXXA - Hypothermia , initial encounter Is this a current diagnosis for this admission?: Yes Plan: Secondary to environment: Resolved. (7) Hypothyroidism Is this a current diagnosis for this admission?: Yes Plan: Continue Synthroid (8) Sepsis Is this a current diagnosis for this admission?: No Plan: Ruled out (9) DVT prophylaxis Is this a current diagnosis for this admission?: Yes Plan: heparin - Time Time Spent with patient: Less than 15 minutes
[2017-06-05 09:22] LABS: ANION GAP 7 (5-19); BLOOD UREA NITROGEN 9 mg/dL (7-20); CALCIUM 9.3 mg/dL (8.4-10.2); CARBON DIOXIDE 27 mmol/L (22-30); CHLORIDE 106 mmol/L (98-107); GLUCOSE 83 mg/dL (75-110); POTASSIUM 4.1 mmol/L (3.6-5.0); SODIUM 139.7 mmol/L (137-145)
[2017-06-05] MEDS ORDERED: LORAZEPAM INJ 2 MG/1 ML VIAL IV PRN (14:00)
[2017-06-06] MEDS: LEVOTHYROXINE SODIUM 0.075 MG TABLET PO SCH (05:24)
[2017-06-06] MEDS: HEPARIN SOD (PORCINE) 5,000 UNIT/ML 1 ML SYRINGE SUBCUT SCH ×3 (05:24→23:15)
[2017-06-06] MEDS: IPRATROPIUM/ALBUTEROL 0.5-2.5 MG/3 ML AMPUL NEB SCH ×2 (07:52→15:47)
[2017-06-06] MEDS: DOCUSATE SODIUM 100 MG CAPSULE PO SCH ×2 (10:21→18:24)
[2017-06-06] MEDS: MULTIVITAMIN TABLET PO SCH (10:21)
[2017-06-06] MEDS: THIAMINE HCL 100 MG TABLET PO SCH (10:22)
[2017-06-06] MEDS: MAGNESIUM OXIDE 400 MG TABLET PO SCH ×2 (10:22→18:25)
[2017-06-06] MEDS: MIDODRINE HCL 5 MG TABLET PO SCH ×4 (10:22→18:25)
--- NOTE | 2017-06-06 13:55 | PDOC PROGRESS REPORT ---
Subjective Progress Note for:: 06/06/17 Subjective:: Nursing states that pt did not sleeping well. Pt states that he is ok but tired. Physical Exam Vital Signs: Temp Pulse Resp BP Pulse Ox 98.7 F 93 20 90/50 L 94 06/06/17 12:00 06/06/17 12:00 06/06/17 12:00 06/06/17 12:00 06/06/17 12:00 Intake & Output 06/05/17 06/06/17 06/07/17 06:59 06:59 06:59 Intake Total 1012 1312 Output Total 1725 Balance -713 1312 Weight 55 kg 55.2 kg General appearance: PRESENT: no acute distress, thin Head exam: PRESENT: atraumatic, normocephalic Eye exam: PRESENT: conjunctiva pink, EOMI, PERRLA. ABSENT: scleral icterus Ear exam: PRESENT: normal external ear exam Mouth exam: PRESENT: moist, tongue midline Neck exam: ABSENT: carotid bruit, JVD, lymphadenopathy, thyromegaly Respiratory exam: PRESENT: clear to auscultation ake. ABSENT: rales, rhonchi, wheezes Cardiovascular exam: PRESENT: RRR. ABSENT: diastolic murmur, rubs, systolic murmur Pulses: PRESENT: normal dorsalis pedis pul Vascular exam: PRESENT: normal capillary refill GI/Abdominal exam: PRESENT: normal bowel sounds, soft. ABSENT: distended, guarding, mass, organolmegaly, rebound, tenderness Rectal exam: PRESENT: deferred Extremities exam: PRESENT: full ROM. ABSENT: calf tenderness, clubbing, pedal edema Neurological exam: PRESENT: alert, altered, awake, oriented to person Psychiatric exam: PRESENT: appropriate affect, normal mood. ABSENT: homicidal ideation, suicidal ideation Skin exam: PRESENT: dry, intact, warm. ABSENT: cyanosis, rash Results Laboratory Results: 06/05/17 08:55 06/05/17 08:55 Impressions: Chest X-Ray 05/28/17 20:27 IMPRESSION: COPD. NO ACUTE RADIOGRAPHIC FINDING IN THE CHEST. Head CT 05/28/17 20:27 IMPRESSION: No acute intracranial findings. EVIDENCE OF ACUTE STROKE: NO. Head MRI 05/29/17 00:00 IMPRESSION: NO ACUTE ISCHEMIA, HEMORRHAGE, OR MASS LESION. CANNOT ASSESS FOR ABNORMAL WHITE MATTER SIGNAL DUE TO NONDIAGNOSTIC FLAIR IMAGING FROM [employer]. EVIDENCE OF ACUTE STROKE: NO. Foot X-Ray 05/31/17 00:00 IMPRESSION: 1. No acute or suspicious radiographic abnormality left the left foot. Assessment & Plan - Diagnosis (1) Korsakoff's psychosis, alcoholic Is this a current diagnosis for this admission?: Yes Plan: Supportive care. Will continue to monitor. (2) Encephalopathy Is this a current diagnosis for this admission?: Yes Plan: Secondary to ETOH Abuse: Resolved. (3) Homelessness Is this a current diagnosis for this admission?: Yes Plan: Case managment states that they are trying to locate his family. (4) Hypokalemia Is this a current diagnosis for this admission?: Yes Plan: Resolved. (5) Hypotension Qualifiers: Hypotension type: unspecified hypotension type Qualified Code(s): I95.9 - Hypotension, unspecified Is this a current diagnosis for this admission?: Yes Plan: Will increase Midodrine 10mg PO TID. (6) Hypomagnesemia Is this a current diagnosis for this admission?: Yes Plan: Will give 2 grams of magnesium. (7) Hypothermia Qualifiers: Encounter type: initial encounter Qualified Code(s): T68.XXXA - Hypothermia , initial encounter Is this a current diagnosis for this admission?: Yes Plan: Secondary to environment: Resolved. (8) Hypothyroidism Is this a current diagnosis for this admission?: Yes Plan: Continue Synthroid (9) Sepsis Is this a current diagnosis for this admission?: No Plan: Ruled out (10) DVT prophylaxis Is this a current diagnosis for this admission?: Yes Plan: Heparin - Time Time Spent with patient: Less than 15 minutes
[2017-06-06] MEDS: MAGNESIUM SULFATE/D5W 1 GM/100 ML RTUPB IV SCH ×2 (15:31→16:38)
[2017-06-06] MEDS: ACETAMINOPHEN 325 MG TABLET PO PRN ×2 (16:38→20:35)
[2017-06-07] MEDS: IPRATROPIUM/ALBUTEROL 0.5-2.5 MG/3 ML AMPUL NEB SCH ×3 (00:35→16:35)
[2017-06-07] MEDS: HEPARIN SOD (PORCINE) 5,000 UNIT/ML 1 ML SYRINGE SUBCUT SCH ×3 (05:41→22:20)
[2017-06-07] MEDS: LEVOTHYROXINE SODIUM 0.075 MG TABLET PO SCH (05:42)
[2017-06-07] MEDS: DOCUSATE SODIUM 100 MG CAPSULE PO SCH ×2 (10:36→17:39)
[2017-06-07] MEDS: THIAMINE HCL 100 MG TABLET PO SCH (10:36)
[2017-06-07] MEDS: MIDODRINE HCL 5 MG TABLET PO SCH ×3 (10:36→18:00)
[2017-06-07] MEDS: MAGNESIUM OXIDE 400 MG TABLET PO SCH ×2 (10:36→17:39)
[2017-06-07] MEDS: MULTIVITAMIN TABLET PO SCH (10:36)
--- NOTE | 2017-06-07 15:13 | PDOC PROGRESS REPORT ---
Subjective Progress Note for:: 06/07/17 Subjective:: No new issues. Physical Exam Vital Signs: Temp Pulse Resp BP Pulse Ox 98.4 F 78 18 103/65 98 06/07/17 11:51 06/07/17 11:51 06/07/17 11:51 06/07/17 11:51 06/07/17 11:51 Intake & Output 06/06/17 06/07/17 06/08/17 06:59 06:59 06:59 Intake Total 1312 1404 Output Total 500 Balance 1312 904 Weight 55.2 kg 54.1 kg General appearance: PRESENT: no acute distress, thin Head exam: PRESENT: atraumatic, normocephalic Eye exam: PRESENT: conjunctiva pink, EOMI. ABSENT: scleral icterus Ear exam: PRESENT: normal external ear exam Mouth exam: PRESENT: moist, tongue midline Neck exam: ABSENT: carotid bruit, JVD, lymphadenopathy, thyromegaly Respiratory exam: PRESENT: clear to auscultation kae. ABSENT: rales, rhonchi, wheezes Cardiovascular exam: PRESENT: RRR. ABSENT: diastolic murmur, rubs, systolic murmur Pulses: PRESENT: normal dorsalis pedis pul Vascular exam: PRESENT: normal capillary refill GI/Abdominal exam: PRESENT: normal bowel sounds, soft. ABSENT: distended, guarding, mass, organolmegaly, rebound, tenderness Rectal exam: PRESENT: deferred Extremities exam: PRESENT: full ROM. ABSENT: calf tenderness, clubbing, pedal edema Neurological exam: PRESENT: alert, awake, oriented to person Skin exam: PRESENT: dry, intact, warm. ABSENT: cyanosis, rash Results Laboratory Results: 06/05/17 08:55 06/05/17 08:55 Impressions: Chest X-Ray 05/28/17 20:27 IMPRESSION: COPD. NO ACUTE RADIOGRAPHIC FINDING IN THE CHEST. Head CT 05/28/17 20:27 IMPRESSION: No acute intracranial findings. EVIDENCE OF ACUTE STROKE: NO. Head MRI 05/29/17 00:00 IMPRESSION: NO ACUTE ISCHEMIA, HEMORRHAGE, OR MASS LESION. CANNOT ASSESS FOR ABNORMAL WHITE MATTER SIGNAL DUE TO NONDIAGNOSTIC FLAIR IMAGING FROM [employer]. EVIDENCE OF ACUTE STROKE: NO. Foot X-Ray 05/31/17 00:00 IMPRESSION: 1. No acute or suspicious radiographic abnormality left the left foot. Assessment & Plan - Diagnosis (1) Korsakoff's psychosis, alcoholic Is this a current diagnosis for this admission?: Yes Plan: Supportive care. Will continue to monitor. (2) Encephalopathy Is this a current diagnosis for this admission?: Yes Plan: Secondary to ETOH Abuse: Resolved. (3) Homelessness Is this a current diagnosis for this admission?: Yes Plan: Case managment states that they are trying to locate his family. (4) Hypokalemia Is this a current diagnosis for this admission?: Yes Plan: Resolved. (5) Hypotension Qualifiers: Hypotension type: unspecified hypotension type Qualified Code(s): I95.9 - Hypotension, unspecified Is this a current diagnosis for this admission?: Yes Plan: Midodrine 10mg PO TID. (6) Hypomagnesemia Is this a current diagnosis for this admission?: Yes Plan: Will give 3 grams of magnesium. (7) Hypothermia Qualifiers: Encounter type: initial encounter Qualified Code(s): T68.XXXA - Hypothermia , initial encounter Is this a current diagnosis for this admission?: Yes Plan: Secondary to environment: Resolved. (8) Hypothyroidism Is this a current diagnosis for this admission?: Yes Plan: Continue Synthroid (9) Sepsis Is this a current diagnosis for this admission?: No Plan: Ruled out (10) DVT prophylaxis Is this a current diagnosis for this admission?: Yes Plan: Heparin - Time Time Spent with patient: Less than 15 minutes - Case Management states that they have contacted pt Ex who will provide phone numbers for the next of kin.
[2017-06-07] MEDS: MAGNESIUM SULFATE/D5W 1 GM/100 ML RTUPB IV SCH ×3 (17:40→22:20)
[2017-06-08] MEDS: IPRATROPIUM/ALBUTEROL 0.5-2.5 MG/3 ML AMPUL NEB SCH ×3 (00:22→15:32)
[2017-06-08] MEDS: LEVOTHYROXINE SODIUM 0.075 MG TABLET PO SCH (05:44)
[2017-06-08] MEDS: HEPARIN SOD (PORCINE) 5,000 UNIT/ML 1 ML SYRINGE SUBCUT SCH ×3 (05:45→22:21)
[2017-06-08 08:03] LABS: ANION GAP 10 (5-19); BLOOD UREA NITROGEN 13 mg/dL (7-20); CALCIUM 9.1 mg/dL (8.4-10.2); CARBON DIOXIDE 25 mmol/L (22-30); CHLORIDE 104 mmol/L (98-107); GLUCOSE 95 mg/dL (75-110); POTASSIUM 4.1 mmol/L (3.6-5.0); SODIUM 138.9 mmol/L (137-145)
[2017-06-08] MEDS: MIDODRINE HCL 5 MG TABLET PO SCH ×3 (10:53→17:41)
[2017-06-08] MEDS: MULTIVITAMIN TABLET PO SCH (10:54)
[2017-06-08] MEDS: DOCUSATE SODIUM 100 MG CAPSULE PO SCH ×2 (10:54→17:41)
[2017-06-08] MEDS: MAGNESIUM OXIDE 400 MG TABLET PO SCH ×2 (10:54→17:41)
[2017-06-08] MEDS: THIAMINE HCL 100 MG TABLET PO SCH (10:54)
--- NOTE | 2017-06-08 11:24 | PDOC PROGRESS REPORT ---
Subjective Progress Note for:: 06/08/17 Subjective:: Pt sitting up in chair. Pt states that he gets agitated at times. Physical Exam Vital Signs: Temp Pulse Resp BP Pulse Ox 98.7 F 75 14 98/58 L 98 06/08/17 08:08 06/08/17 08:18 06/08/17 08:18 06/08/17 08:08 06/08/17 08:18 Intake & Output 06/07/17 06/08/17 06/09/17 06:59 06:59 06:59 Intake Total 1626 875 Output Total 500 325 Balance 1126 550 Weight 54.1 kg 54.3 kg General appearance: PRESENT: no acute distress, thin Head exam: PRESENT: atraumatic, normocephalic Eye exam: PRESENT: conjunctiva pink, EOMI, PERRLA. ABSENT: scleral icterus Ear exam: PRESENT: normal external ear exam Mouth exam: PRESENT: moist, tongue midline Neck exam: ABSENT: carotid bruit, JVD, lymphadenopathy, thyromegaly Respiratory exam: PRESENT: clear to auscultation kae. ABSENT: rales, rhonchi, wheezes Cardiovascular exam: PRESENT: RRR. ABSENT: diastolic murmur, rubs, systolic murmur Pulses: PRESENT: normal dorsalis pedis pul Vascular exam: PRESENT: normal capillary refill GI/Abdominal exam: PRESENT: normal bowel sounds, soft. ABSENT: distended, guarding, mass, organolmegaly, rebound, tenderness Rectal exam: PRESENT: deferred Extremities exam: PRESENT: full ROM. ABSENT: calf tenderness, clubbing, pedal edema Neurological exam: PRESENT: alert, awake, oriented to person, oriented to place , oriented to time, oriented to situation, CN II-XII grossly intact. ABSENT: motor sensory deficit Psychiatric exam: PRESENT: appropriate affect, normal mood. ABSENT: homicidal ideation, suicidal ideation Skin exam: PRESENT: dry, intact, warm. ABSENT: cyanosis, rash Results Laboratory Results: 06/05/17 08:55 06/08/17 07:21 06/08/17 07:21 Sodium 138.9 Potassium 4.1 Chloride 104 Carbon Dioxide 25 Anion Gap 10 BUN 13 Creatinine 0.58 Est GFR ( Amer) > 60 Est GFR (Non-Af Amer) > 60 Glucose 95 Calcium 9.1 Magnesium 2.3 Impressions: Chest X-Ray 05/28/17 20:27 IMPRESSION: COPD. NO ACUTE RADIOGRAPHIC FINDING IN THE CHEST. Head CT 05/28/17 20:27 IMPRESSION: No acute intracranial findings. EVIDENCE OF ACUTE STROKE: NO. Head MRI 05/29/17 00:00 IMPRESSION: NO ACUTE ISCHEMIA, HEMORRHAGE, OR MASS LESION. CANNOT ASSESS FOR ABNORMAL WHITE MATTER SIGNAL DUE TO NONDIAGNOSTIC FLAIR IMAGING FROM [employer]. EVIDENCE OF ACUTE STROKE: NO. Foot X-Ray 05/31/17 00:00 IMPRESSION: 1. No acute or suspicious radiographic abnormality left the left foot. Assessment & Plan - Diagnosis (1) Korsakoff's psychosis, alcoholic Is this a current diagnosis for this admission?: Yes Plan: Supportive care. Will continue to monitor. (2) Encephalopathy Is this a current diagnosis for this admission?: Yes Plan: Secondary to ETOH Abuse: Resolved. (3) Homelessness Is this a current diagnosis for this admission?: Yes Plan: Case managment states that they are trying to locate his family. (4) Hypokalemia Is this a current diagnosis for this admission?: Yes Plan: Resolved. (5) Hypotension Qualifiers: Hypotension type: unspecified hypotension type Qualified Code(s): I95.9 - Hypotension, unspecified Is this a current diagnosis for this admission?: Yes Plan: Midodrine 10mg PO TID. (6) Hypomagnesemia Is this a current diagnosis for this admission?: Yes Plan: Resolved. (7) Hypothermia Qualifiers: Encounter type: initial encounter Qualified Code(s): T68.XXXA - Hypothermia , initial encounter Is this a current diagnosis for this admission?: Yes Plan: Secondary to environment: Resolved. (8) Hypothyroidism Is this a current diagnosis for this admission?: Yes Plan: Continue Synthroid (9) Sepsis Is this a current diagnosis for this admission?: No Plan: Ruled out (10) DVT prophylaxis Is this a current diagnosis for this admission?: Yes Plan: Heparin - Time Time Spent with patient: Less than 15 minutes - No new changes. Pt is a placement issue. Case Management working to resolve this issue.
[2017-06-09] MEDS: IPRATROPIUM/ALBUTEROL 0.5-2.5 MG/3 ML AMPUL NEB SCH ×3 (00:15→16:10)
[2017-06-09] MEDS: HEPARIN SOD (PORCINE) 5,000 UNIT/ML 1 ML SYRINGE SUBCUT SCH ×3 (06:08→22:51)
[2017-06-09] MEDS: LEVOTHYROXINE SODIUM 0.075 MG TABLET PO SCH (06:08)
[2017-06-09] MEDS: DOCUSATE SODIUM 100 MG CAPSULE PO SCH ×2 (09:12→17:15)
[2017-06-09] MEDS: THIAMINE HCL 100 MG TABLET PO SCH (09:12)
[2017-06-09] MEDS: MIDODRINE HCL 5 MG TABLET PO SCH ×3 (09:12→17:14)
[2017-06-09] MEDS: MULTIVITAMIN TABLET PO SCH (09:12)
[2017-06-09] MEDS: MAGNESIUM OXIDE 400 MG TABLET PO SCH ×2 (09:13→17:14)
--- NOTE | 2017-06-09 16:56 | PDOC PROGRESS REPORT ---
Subjective Progress Note for:: 06/09/17 Subjective:: No new issues. Physical Exam Vital Signs: Temp Pulse Resp BP Pulse Ox 99.0 F 87 16 120/66 96 06/09/17 15:41 06/09/17 16:10 06/09/17 16:10 06/09/17 15:41 06/09/17 16:10 Intake & Output 06/08/17 06/09/17 06/10/17 06:59 06:59 06:59 Intake Total 875 1143 Output Total 325 Balance 550 1143 Weight 54.3 kg General appearance: PRESENT: no acute distress, thin Head exam: PRESENT: atraumatic, normocephalic Eye exam: PRESENT: conjunctiva pink, EOMI. ABSENT: scleral icterus Ear exam: PRESENT: normal external ear exam Mouth exam: PRESENT: dry mucosa Neck exam: ABSENT: carotid bruit, JVD, lymphadenopathy, thyromegaly Respiratory exam: PRESENT: clear to auscultation kae. ABSENT: rales, rhonchi, wheezes Cardiovascular exam: PRESENT: RRR. ABSENT: diastolic murmur, rubs, systolic murmur Pulses: PRESENT: normal dorsalis pedis pul Vascular exam: PRESENT: normal capillary refill GI/Abdominal exam: PRESENT: normal bowel sounds, soft. ABSENT: distended, guarding, mass, organolmegaly, rebound, tenderness Rectal exam: PRESENT: deferred Extremities exam: PRESENT: full ROM. ABSENT: calf tenderness, clubbing, pedal edema Neurological exam: PRESENT: alert, awake, oriented to person Psychiatric exam: PRESENT: appropriate affect, normal mood. ABSENT: homicidal ideation, suicidal ideation Skin exam: PRESENT: dry, intact, warm. ABSENT: cyanosis, rash Results Laboratory Results: 06/05/17 08:55 06/08/17 07:21 Impressions: Chest X-Ray 05/28/17 20:27 IMPRESSION: COPD. NO ACUTE RADIOGRAPHIC FINDING IN THE CHEST. Head CT 05/28/17 20:27 IMPRESSION: No acute intracranial findings. EVIDENCE OF ACUTE STROKE: NO. Head MRI 05/29/17 00:00 IMPRESSION: NO ACUTE ISCHEMIA, HEMORRHAGE, OR MASS LESION. CANNOT ASSESS FOR ABNORMAL WHITE MATTER SIGNAL DUE TO NONDIAGNOSTIC FLAIR IMAGING FROM [employer]. EVIDENCE OF ACUTE STROKE: NO. Foot X-Ray 05/31/17 00:00 IMPRESSION: 1. No acute or suspicious radiographic abnormality left the left foot. Assessment & Plan - Diagnosis (1) Korsakoff's psychosis, alcoholic Is this a current diagnosis for this admission?: Yes Plan: Supportive care. Will continue to monitor. (2) Encephalopathy Is this a current diagnosis for this admission?: Yes Plan: Secondary to ETOH Abuse: Resolved. (3) Homelessness Is this a current diagnosis for this admission?: Yes Plan: Case management states that they are trying to locate his family. (4) Hypokalemia Is this a current diagnosis for this admission?: Yes Plan: Resolved. (5) Hypotension Qualifiers: Hypotension type: unspecified hypotension type Qualified Code(s): I95.9 - Hypotension, unspecified Is this a current diagnosis for this admission?: Yes Plan: Midodrine 10mg PO TID. (6) Hypomagnesemia Is this a current diagnosis for this admission?: Yes Plan: Resolved. (7) Hypothermia Qualifiers: Encounter type: initial encounter Qualified Code(s): T68.XXXA - Hypothermia , initial encounter Is this a current diagnosis for this admission?: Yes Plan: Secondary to environment: Resolved. (8) Hypothyroidism Is this a current diagnosis for this admission?: Yes Plan: Continue Synthroid (9) Sepsis Is this a current diagnosis for this admission?: No Plan: Ruled out (10) DVT prophylaxis Is this a current diagnosis for this admission?: Yes Plan: Heparin - Time Time Spent with patient: Less than 15 minutes
[2017-06-10] MEDS: IPRATROPIUM/ALBUTEROL 0.5-2.5 MG/3 ML AMPUL NEB SCH ×4 (00:41→23:47)
[2017-06-10] MEDS: HEPARIN SOD (PORCINE) 5,000 UNIT/ML 1 ML SYRINGE SUBCUT SCH ×3 (05:43→21:36)
[2017-06-10] MEDS: LEVOTHYROXINE SODIUM 0.075 MG TABLET PO SCH (05:43)
[2017-06-10] MEDS: MIDODRINE HCL 5 MG TABLET PO SCH ×3 (10:45→21:35)
[2017-06-10] MEDS: DOCUSATE SODIUM 100 MG CAPSULE PO SCH ×2 (10:45→17:15)
[2017-06-10] MEDS: THIAMINE HCL 100 MG TABLET PO SCH (10:45)
[2017-06-10] MEDS: MAGNESIUM OXIDE 400 MG TABLET PO SCH ×2 (10:46→17:15)
[2017-06-10] MEDS: MULTIVITAMIN TABLET PO SCH (10:46)
[2017-06-10] MEDS ORDERED: MAGNESIUM HYDROXIDE SUSP 30 ML UDCUP PO PRN (14:30)
--- NOTE | 2017-06-10 19:31 | PDOC PROGRESS REPORT ---
Subjective Progress Note for:: 06/10/17 Subjective:: Patient admitted for hypotension, hypothermia thought to have Koraskoffs pyshosis. Patient states hes was working until 2 this morning. He states it was very cold riding around his his jeep. Patient does not have any other complaints. Physical Exam Vital Signs: Temp Pulse Resp BP Pulse Ox 98.0 F 80 14 97/54 L 100 06/10/17 00:15 06/10/17 00:40 06/10/17 00:40 06/10/17 00:15 06/10/17 00:15 Intake & Output 06/09/17 06/10/17 06/11/17 06:59 06:59 06:59 Intake Total 1143 1496 Balance 1143 1496 Weight 54.2 kg General appearance: PRESENT: no acute distress, disheveled, thin Head exam: PRESENT: normocephalic Eye exam: PRESENT: EOMI. ABSENT: scleral icterus Ear exam: PRESENT: normal external ear exam Mouth exam: PRESENT: moist Neck exam: ABSENT: carotid bruit, JVD, lymphadenopathy, thyromegaly Respiratory exam: PRESENT: clear to auscultation kae. ABSENT: rales, rhonchi, wheezes Cardiovascular exam: PRESENT: RRR. ABSENT: diastolic murmur, rubs, systolic murmur Pulses: PRESENT: normal dorsalis pedis pul Vascular exam: PRESENT: normal capillary refill GI/Abdominal exam: PRESENT: normal bowel sounds, soft. ABSENT: distended, guarding, mass, organolmegaly, rebound, tenderness Rectal exam: PRESENT: deferred Extremities exam: PRESENT: full ROM. ABSENT: calf tenderness, clubbing, pedal edema Neurological exam: PRESENT: alert, altered, awake, oriented to person, CN II- XII grossly intact. ABSENT: motor sensory deficit Psychiatric exam: PRESENT: appropriate affect, normal mood. ABSENT: homicidal ideation, suicidal ideation Skin exam: PRESENT: dry, intact, warm. ABSENT: cyanosis, rash Results Laboratory Results: 06/05/17 08:55 06/08/17 07:21 Impressions: Chest X-Ray 05/28/17 20:27 IMPRESSION: COPD. NO ACUTE RADIOGRAPHIC FINDING IN THE CHEST. Head CT 05/28/17 20:27 IMPRESSION: No acute intracranial findings. EVIDENCE OF ACUTE STROKE: NO. Head MRI 05/29/17 00:00 IMPRESSION: NO ACUTE ISCHEMIA, HEMORRHAGE, OR MASS LESION. CANNOT ASSESS FOR ABNORMAL WHITE MATTER SIGNAL DUE TO NONDIAGNOSTIC FLAIR IMAGING FROM [employer]. EVIDENCE OF ACUTE STROKE: NO. Foot X-Ray 05/31/17 00:00 IMPRESSION: 1. No acute or suspicious radiographic abnormality left the left foot. Assessment & Plan - Diagnosis (1) Encephalopathy Is this a current diagnosis for this admission?: Yes Plan: Due to alcohol abuse. Patient without any other signs of infection. Resolved. (2) Homelessness Is this a current diagnosis for this admission?: Yes Plan: Attempted to reach family. It does not appear as if discharge planning is having much luck. (3) Hypokalemia Is this a current diagnosis for this admission?: Yes Plan: Most likely due to poor dietary intake. Resolved. (4) Hypomagnesemia Is this a current diagnosis for this admission?: Yes Plan: Most likely due to poor dietary intake. Resolved. (5) Hypotension Qualifiers: Hypotension type: unspecified hypotension type Qualified Code(s): I95.9 - Hypotension, unspecified Is this a current diagnosis for this admission?: Yes Plan: Labile. Paitent currently on midodrine. If patient is symptomatic will increase dose to 10mg TID. If still not improved add florinef. (6) Hypothyroidism Is this a current diagnosis for this admission?: Yes Plan: Conitnue supplement. (7) Korsakoff's psychosis, alcoholic Is this a current diagnosis for this admission?: Yes Plan: Continue with supportive care. (8) DVT prophylaxis Is this a current diagnosis for this admission?: Yes Plan: Continue heparin. (9) Hypothermia Qualifiers: Encounter type: initial encounter Qualified Code(s): T68.XXXA - Hypothermia , initial encounter Is this a current diagnosis for this admission?: Yes Plan: Patient being out in the cold weather. Now resolved. - Time Time Spent with patient: Less than 15 minutes Anticipated discharge: SNF - Inpatient Certification Medical Necessity: Risk of Complication if Not Cared For in Hospital - Patient out in the cold and hypothermic.
[2017-06-11] MEDS: HEPARIN SOD (PORCINE) 5,000 UNIT/ML 1 ML SYRINGE SUBCUT SCH ×3 (06:50→22:29)
[2017-06-11] MEDS: LEVOTHYROXINE SODIUM 0.075 MG TABLET PO SCH (06:50)
[2017-06-11] MEDS: IPRATROPIUM/ALBUTEROL 0.5-2.5 MG/3 ML AMPUL NEB SCH ×2 (08:10→15:52)
[2017-06-11] MEDS: MIDODRINE HCL 5 MG TABLET PO SCH ×2 (13:21→17:22)
[2017-06-11] MEDS: MAGNESIUM OXIDE 400 MG TABLET PO SCH ×2 (13:21→17:22)
[2017-06-11] MEDS: THIAMINE HCL 100 MG TABLET PO SCH (13:22)
[2017-06-11] MEDS: MULTIVITAMIN TABLET PO SCH (13:22)
[2017-06-11] MEDS: DOCUSATE SODIUM 100 MG CAPSULE PO SCH ×2 (13:23→17:22)
[2017-06-12] MEDS: IPRATROPIUM/ALBUTEROL 0.5-2.5 MG/3 ML AMPUL NEB SCH ×4 (00:18→23:32)
[2017-06-12] MEDS: LEVOTHYROXINE SODIUM 0.075 MG TABLET PO SCH (06:40)
[2017-06-12] MEDS: HEPARIN SOD (PORCINE) 5,000 UNIT/ML 1 ML SYRINGE SUBCUT SCH ×3 (06:44→22:33)
[2017-06-12] MEDS: MIDODRINE HCL 5 MG TABLET PO SCH (12:01)
[2017-06-12] MEDS: MAGNESIUM OXIDE 400 MG TABLET PO SCH ×2 (12:02→18:16)
[2017-06-12] MEDS: THIAMINE HCL 100 MG TABLET PO SCH (12:03)
[2017-06-12] MEDS: MULTIVITAMIN TABLET PO SCH (12:03)
[2017-06-12] MEDS: DOCUSATE SODIUM 100 MG CAPSULE PO SCH ×2 (12:04→18:18)
[2017-06-12] MEDS: HYDROXYZINE PAMOATE 25 MG CAPSULE PO PRN ×2 (16:27→22:31)
--- NOTE | 2017-06-12 18:52 | PDOC PROGRESS REPORT ---
Subjective Progress Note for:: 06/11/17 Subjective:: Patient admitted for hypotension, hypothermia thought to have Koraskoffs psychosis. Patient still continues to make up stories. He is otherwise doing okay. Still awaiting placement. Physical Exam Vital Signs: Temp Pulse Resp BP Pulse Ox 99.2 F 83 20 100/64 95 06/11/17 15:54 06/11/17 15:54 06/11/17 15:54 06/11/17 15:54 06/11/17 15:54 Intake & Output 06/10/17 06/11/17 06/12/17 06:59 06:59 06:59 Intake Total 1496 1155 240 Output Total 600 Balance 1496 1155 -360 Weight 54.2 kg 54.6 kg General appearance: PRESENT: no acute distress, disheveled Head exam: PRESENT: normocephalic, other - bi temporal wasting Eye exam: PRESENT: EOMI Mouth exam: PRESENT: moist, neck supple Neck exam: PRESENT: full ROM Respiratory exam: PRESENT: clear to auscultation kae, unlabored Cardiovascular exam: PRESENT: RRR GI/Abdominal exam: PRESENT: normal bowel sounds, soft. ABSENT: tenderness Rectal exam: PRESENT: deferred Neurological exam: PRESENT: alert, altered, awake, oriented to person, CN II- XII grossly intact Psychiatric exam: PRESENT: flat affect Results Laboratory Results: 06/05/17 08:55 06/08/17 07:21 Impressions: Chest X-Ray 05/28/17 20:27 IMPRESSION: COPD. NO ACUTE RADIOGRAPHIC FINDING IN THE CHEST. Head CT 05/28/17 20:27 IMPRESSION: No acute intracranial findings. EVIDENCE OF ACUTE STROKE: NO. Head MRI 05/29/17 00:00 IMPRESSION: NO ACUTE ISCHEMIA, HEMORRHAGE, OR MASS LESION. CANNOT ASSESS FOR ABNORMAL WHITE MATTER SIGNAL DUE TO NONDIAGNOSTIC FLAIR IMAGING FROM [employer]. EVIDENCE OF ACUTE STROKE: NO. Foot X-Ray 05/31/17 00:00 IMPRESSION: 1. No acute or suspicious radiographic abnormality left the left foot. Assessment & Plan - Diagnosis (1) Encephalopathy Is this a current diagnosis for this admission?: Yes Plan: Infection ruled out. Most likely the result of chronic alcohol abuse. Stable. (2) Homelessness Is this a current diagnosis for this admission?: Yes Plan: Discharge planning is assisting with placement. (3) Hypokalemia Is this a current diagnosis for this admission?: Yes Plan: Most likely due to poor dietary intake. Resolved. (4) Hypomagnesemia Is this a current diagnosis for this admission?: Yes Plan: Most likely due to poor dietary intake. Resolved. (5) Hypotension Qualifiers: Hypotension type: unspecified hypotension type Qualified Code(s): I95.9 - Hypotension, unspecified Is this a current diagnosis for this admission?: Yes Plan: Labile. Paitent currently on midodrine. Will monitor for side effects especially with patient being on maximum dose. (6) Hypothyroidism Is this a current diagnosis for this admission?: Yes Plan: Continue supplement. (7) Korsakoff's psychosis, alcoholic Is this a current diagnosis for this admission?: Yes Plan: Continue with supportive care. (8) DVT prophylaxis Is this a current diagnosis for this admission?: Yes Plan: Continue heparin. (9) Hypothermia Qualifiers: Encounter type: initial encounter Qualified Code(s): T68.XXXA - Hypothermia , initial encounter Is this a current diagnosis for this admission?: Yes Plan: Patient being out in the cold weather. Now resolved. - Time Time Spent with patient: Less than 15 minutes Anticipated discharge: SNF Within: when bed available - Inpatient Certification Medical Necessity: Risk of Complication if Not Cared For in Hospital
--- NOTE | 2017-06-12 22:05 | PDOC PROGRESS REPORT ---
Subjective Progress Note for:: 06/12/17 Subjective:: Patient admitted for hypotension, hypothermia thought to have Koraskoffs psychosis. Patient continues to confabulate when asked questions. He does state that he is very anxious. [facility] Patient states he get panic attack from time to time. Nurse report that patient is anxious at times stating that he cannot breathe. Physical Exam Vital Signs: Temp Pulse Resp BP Pulse Ox 98.2 F 84 20 108/72 97 06/12/17 16:00 06/12/17 16:00 06/12/17 16:00 06/12/17 16:00 06/12/17 16:00 Intake & Output 06/11/17 06/12/17 06/13/17 06:59 06:59 06:59 Intake Total 1155 545 789 Output Total 600 3 Balance 1155 -55 786 Weight 54.6 kg 51.6 kg General appearance: PRESENT: no acute distress, disheveled, thin Head exam: PRESENT: normocephalic Eye exam: PRESENT: EOMI. ABSENT: scleral icterus Ear exam: PRESENT: normal external ear exam Mouth exam: PRESENT: moist Neck exam: ABSENT: carotid bruit, JVD, lymphadenopathy, thyromegaly Respiratory exam: PRESENT: clear to auscultation kae. ABSENT: rales, rhonchi, wheezes Cardiovascular exam: PRESENT: RRR. ABSENT: diastolic murmur, rubs, systolic murmur Pulses: PRESENT: normal dorsalis pedis pul Vascular exam: PRESENT: normal capillary refill GI/Abdominal exam: PRESENT: normal bowel sounds, soft. ABSENT: distended, guarding, mass, organolmegaly, rebound, tenderness Rectal exam: PRESENT: deferred Extremities exam: PRESENT: full ROM. ABSENT: calf tenderness, clubbing, pedal edema Neurological exam: PRESENT: alert, altered, awake, oriented to person, CN II- XII grossly intact. ABSENT: motor sensory deficit Psychiatric exam: PRESENT: anxious, flat affect. ABSENT: homicidal ideation, suicidal ideation Skin exam: PRESENT: dry, intact, warm. ABSENT: cyanosis, rash Results Laboratory Results: 06/05/17 08:55 06/08/17 07:21 Impressions: Chest X-Ray 05/28/17 20:27 IMPRESSION: COPD. NO ACUTE RADIOGRAPHIC FINDING IN THE CHEST. Head CT 05/28/17 20:27 IMPRESSION: No acute intracranial findings. EVIDENCE OF ACUTE STROKE: NO. Head MRI 05/29/17 00:00 IMPRESSION: NO ACUTE ISCHEMIA, HEMORRHAGE, OR MASS LESION. CANNOT ASSESS FOR ABNORMAL WHITE MATTER SIGNAL DUE TO NONDIAGNOSTIC FLAIR IMAGING FROM [employer]. EVIDENCE OF ACUTE STROKE: NO. Foot X-Ray 05/31/17 00:00 IMPRESSION: 1. No acute or suspicious radiographic abnormality left the left foot. Assessment & Plan - Diagnosis (1) Encephalopathy Is this a current diagnosis for this admission?: Yes Plan: Infection ruled out. Most likely the result of chronic alcohol abuse. Stable. (2) Homelessness Is this a current diagnosis for this admission?: Yes Plan: Discharge planning is assisting with placement. (3) Hypokalemia Is this a current diagnosis for this admission?: Yes Plan: Most likely due to poor dietary intake. Resolved. (4) Hypomagnesemia Is this a current diagnosis for this admission?: Yes Plan: Most likely due to poor dietary intake. Resolved. (5) Hypotension Qualifiers: Hypotension type: unspecified hypotension type Qualified Code(s): I95.9 - Hypotension, unspecified Is this a current diagnosis for this admission?: Yes Plan: Labile. Patient may be having side effects from the midodrine, this medication was discontinued and patient started on florinef. (6) Hypothyroidism Is this a current diagnosis for this admission?: Yes Plan: Continue supplement. (7) Korsakoff's psychosis, alcoholic Is this a current diagnosis for this admission?: Yes Plan: Continue with supportive care. (8) DVT prophylaxis Is this a current diagnosis for this admission?: Yes Plan: Continue heparin. (9) Hypothermia Qualifiers: Encounter type: initial encounter Qualified Code(s): T68.XXXA - Hypothermia , initial encounter Is this a current diagnosis for this admission?: Yes Plan: Patient being out in the cold weather. Now resolved. (10) Anxiety Is this a current diagnosis for this admission?: Yes Plan: Patient gives history of being treated for panic attacks and anxiety in the past. Concern that the midodrine may be causing some of the feeling of nervousness as that is a side effect of the drung along with chills. Midodrine was discontinued. Patient started on buspar 5mg Qam and 10mg Qpm along with vistaril Q6PRN for anxiety. - Time Time Spent with patient: 15-24 minutes Anticipated discharge: Other - Inpatient Certification Medical Necessity: Risk of Complication if Not Cared For in Hospital
[2017-06-12] MEDS: BUSPIRONE HCL 10 MG TABLET PO SCH (22:31)
[2017-06-13] MEDS: LEVOTHYROXINE SODIUM 0.075 MG TABLET PO SCH (06:47)
[2017-06-13] MEDS: HEPARIN SOD (PORCINE) 5,000 UNIT/ML 1 ML SYRINGE SUBCUT SCH ×3 (06:49→22:00)
[2017-06-13 07:15] LABS: ANION GAP 10 (5-19); BLOOD UREA NITROGEN 17 mg/dL (7-20); CALCIUM 9.8 mg/dL (8.4-10.2); CARBON DIOXIDE 25 mmol/L (22-30); CHLORIDE 106 mmol/L (98-107); GLUCOSE 94 mg/dL (75-110); POTASSIUM 4.2 mmol/L (3.6-5.0); SODIUM 140.8 mmol/L (137-145)
[2017-06-13] MEDS: IPRATROPIUM/ALBUTEROL 0.5-2.5 MG/3 ML AMPUL NEB SCH ×3 (08:56→23:49)
[2017-06-13] MEDS: FLUDROCORTISONE ACETATE 0.1 MG TABLET PO SCH (09:21)
[2017-06-13] MEDS: THIAMINE HCL 100 MG TABLET PO SCH (09:21)
[2017-06-13] MEDS: MAGNESIUM OXIDE 400 MG TABLET PO SCH ×2 (09:21→18:06)
[2017-06-13] MEDS: DOCUSATE SODIUM 100 MG CAPSULE PO SCH ×2 (09:21→18:06)
[2017-06-13] MEDS: BUSPIRONE HCL 10 MG TABLET PO SCH ×2 (09:22→22:00)
[2017-06-13] MEDS: MULTIVITAMIN TABLET PO SCH (09:22)
--- NOTE | 2017-06-13 13:44 | PDOC PROGRESS REPORT ---
Subjective Progress Note for:: 06/13/17 Subjective:: The patient was admitted after being found wandering in [facility]. He was brought in by police. He appears now to have evidence of Korsakoff psychosis. He has issues of malnutrition. Today, the patient knew that he was in the hospital but could not identify the city that he was in. Physical Exam Vital Signs: Temp Pulse Resp BP Pulse Ox 98.4 F 73 16 104/64 95 06/13/17 08:34 06/13/17 08:56 06/13/17 08:56 06/13/17 08:34 06/13/17 08:56 Intake & Output 06/12/17 06/13/17 06/14/17 06:59 06:59 06:59 Intake Total 545 1269 Output Total 600 603 Balance -55 666 Weight 51.6 kg 51.6 kg Additional comments: Patient is disheveled in appearance. His breath is fetid. However, he is extremely pleasant and cooperative. His lungs are noted to be clear to auscultation bilaterally. His cardiac exam is regular without murmurs, gallops or rubs. The abdomen is soft and flat. Bowel sounds are present in the lower quadrants. There is no guarding or rebound present. The lower extremities are thin. No edema is present. The skin is warm, dry and intact. Results Laboratory Results: 06/05/17 08:55 06/13/17 06:45 06/13/17 06:45 Sodium 140.8 Potassium 4.2 Chloride 106 Carbon Dioxide 25 Anion Gap 10 BUN 17 Creatinine 0.55 Est GFR ( Amer) > 60 Est GFR (Non-Af Amer) > 60 Glucose 94 Calcium 9.8 Impressions: Chest X-Ray 05/28/17 20:27 IMPRESSION: COPD. NO ACUTE RADIOGRAPHIC FINDING IN THE CHEST. Head CT 05/28/17 20:27 IMPRESSION: No acute intracranial findings. EVIDENCE OF ACUTE STROKE: NO. Head MRI 05/29/17 00:00 IMPRESSION: NO ACUTE ISCHEMIA, HEMORRHAGE, OR MASS LESION. CANNOT ASSESS FOR ABNORMAL WHITE MATTER SIGNAL DUE TO NONDIAGNOSTIC FLAIR IMAGING FROM [employer]. EVIDENCE OF ACUTE STROKE: NO. Foot X-Ray 05/31/17 00:00 IMPRESSION: 1. No acute or suspicious radiographic abnormality left the left foot. Assessment & Plan - Diagnosis (1) Encephalopathy Is this a current diagnosis for this admission?: Yes (2) Hypokalemia Is this a current diagnosis for this admission?: Yes (3) Hypomagnesemia Is this a current diagnosis for this admission?: Yes (4) Hypotension Qualifiers: Hypotension type: unspecified hypotension type Qualified Code(s): I95.9 - Hypotension, unspecified Is this a current diagnosis for this admission?: Yes (5) Hypothermia Qualifiers: Encounter type: initial encounter Qualified Code(s): T68.XXXA - Hypothermia , initial encounter Is this a current diagnosis for this admission?: Yes (6) Hypothyroidism Is this a current diagnosis for this admission?: Yes (7) Metabolic acidosis Is this a current diagnosis for this admission?: Yes (8) Sepsis Is this a current diagnosis for this admission?: No (9) Severe protein-calorie malnutrition Is this a current diagnosis for this admission?: Yes (10) Korsakoff's psychosis, alcoholic Is this a current diagnosis for this admission?: Yes - Time Time Spent with patient: 15-24 minutes - Inpatient Certification Medical Necessity: Risk of Complication if Not Cared For in Hospital - Plan Summary Plan Summary: Midodrine was discontinued. Florinef was started. The patient is also started on BuSpar per Dr. whitmore yesterday. Otherwise, we will waiting for discharge planning to arrange disposition due to the patient's homelessness.
[2017-06-14] MEDS: LEVOTHYROXINE SODIUM 0.075 MG TABLET PO SCH (06:46)
[2017-06-14] MEDS: HEPARIN SOD (PORCINE) 5,000 UNIT/ML 1 ML SYRINGE SUBCUT SCH ×3 (06:46→23:55)
[2017-06-14] MEDS: IPRATROPIUM/ALBUTEROL 0.5-2.5 MG/3 ML AMPUL NEB SCH ×3 (08:00→23:18)
[2017-06-14] MEDS: FLUDROCORTISONE ACETATE 0.1 MG TABLET PO SCH (09:13)
[2017-06-14] MEDS: MULTIVITAMIN TABLET PO SCH (09:13)
[2017-06-14] MEDS: THIAMINE HCL 100 MG TABLET PO SCH (09:13)
[2017-06-14] MEDS: DOCUSATE SODIUM 100 MG CAPSULE PO SCH ×2 (09:13→17:51)
[2017-06-14] MEDS: MAGNESIUM OXIDE 400 MG TABLET PO SCH ×2 (09:13→17:51)
[2017-06-14] MEDS: BUSPIRONE HCL 10 MG TABLET PO SCH ×2 (09:13→23:54)
--- NOTE | 2017-06-14 10:49 | PDOC PROGRESS REPORT ---
Subjective Progress Note for:: 06/14/17 Subjective:: The patient is a 61-year-old male who was brought in by police secondary to being found wandering in [facility]. He is chronically an alcoholic. 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 The patient has been treated for hypotension likely associated with adrenal insufficiency, severe protein calorie malnutrition and vitamin deficiencies. He remains in the hospital. He is not safe for discharge. We are working on a disposition for this patient with discharge planning. Patient remains disoriented and continues to confabulate stories. He told me that he worked from 12 midnight to 6 AM [place]. Physical Exam Vital Signs: Temp Pulse Resp BP Pulse Ox 98.5 F 87 16 104/64 94 06/14/17 08:19 06/14/17 08:19 06/14/17 08:19 06/14/17 08:19 06/14/17 08:19 Intake & Output 06/13/17 06/14/17 06/15/17 06:59 06:59 06:59 Intake Total 1269 960 Output Total 603 700 Balance 666 260 Weight 51.6 kg 51.6 kg Additional comments: The patient is sitting up in bed. Again, he appears disheveled. He does not appear to be in any distress. His lungs are clear to auscultation bilaterally. His cardiac exam is regular without murmurs, gallops or rubs. The abdomen is soft and flat. Bowel sounds are present. The lower extremities are thin without edema. The patient has no acute skin lesions. Results Laboratory Results: 06/05/17 08:55 06/13/17 06:45 Impressions: Chest X-Ray 05/28/17 20:27 IMPRESSION: COPD. NO ACUTE RADIOGRAPHIC FINDING IN THE CHEST. Head CT 05/28/17 20:27 IMPRESSION: No acute intracranial findings. EVIDENCE OF ACUTE STROKE: NO. Head MRI 05/29/17 00:00 IMPRESSION: NO ACUTE ISCHEMIA, HEMORRHAGE, OR MASS LESION. CANNOT ASSESS FOR ABNORMAL WHITE MATTER SIGNAL DUE TO NONDIAGNOSTIC FLAIR IMAGING FROM [employer]IF[employer]. EVIDENCE OF ACUTE STROKE: NO. Foot X-Ray 05/31/17 00:00 IMPRESSION: 1. No acute or suspicious radiographic abnormality left the left foot. Assessment & Plan - Diagnosis (1) Encephalopathy Is this a current diagnosis for this admission?: Yes (2) Hypokalemia Is this a current diagnosis for this admission?: Yes (3) Hypomagnesemia Is this a current diagnosis for this admission?: Yes (4) Hypotension Qualifiers: Hypotension type: unspecified hypotension type Qualified Code(s): I95.9 - Hypotension, unspecified Is this a current diagnosis for this admission?: Yes (5) Hypothermia Qualifiers: Encounter type: initial encounter Qualified Code(s): T68.XXXA - Hypothermia , initial encounter Is this a current diagnosis for this admission?: Yes (6) Hypothyroidism Is this a current diagnosis for this admission?: Yes (7) Metabolic acidosis Is this a current diagnosis for this admission?: Yes (8) Sepsis Is this a current diagnosis for this admission?: No (9) Severe protein-calorie malnutrition Is this a current diagnosis for this admission?: Yes (10) Korsakoff's psychosis, alcoholic Is this a current diagnosis for this admission?: Yes - Time Time Spent with patient: 15-24 minutes - Inpatient Certification Medical Necessity: Risk of Complication if Not Cared For in Hospital - Plan Summary Plan Summary: The patient will remain in the hospital until we can determine a logical disposition. We have treated his hypothermia. He remains on Florinef for orthostatic hypotension. He remains on supplements to include thiamine and we are trying to improve his severe protein calorie malnutrition. BuSpar has been started for anxiety.
[2017-06-14] MEDS: HYDROXYZINE PAMOATE 25 MG CAPSULE PO PRN (23:54)
[2017-06-15] MEDS: HEPARIN SOD (PORCINE) 5,000 UNIT/ML 1 ML SYRINGE SUBCUT SCH ×3 (06:55→22:34)
[2017-06-15] MEDS: LEVOTHYROXINE SODIUM 0.075 MG TABLET PO SCH (06:55)
[2017-06-15] MEDS: HYDROXYZINE PAMOATE 25 MG CAPSULE PO PRN (06:55)
[2017-06-15] MEDS: IPRATROPIUM/ALBUTEROL 0.5-2.5 MG/3 ML AMPUL NEB SCH ×2 (07:26→16:11)
[2017-06-15] MEDS: FLUDROCORTISONE ACETATE 0.1 MG TABLET PO SCH (09:13)
[2017-06-15] MEDS: MULTIVITAMIN TABLET PO SCH (09:13)
[2017-06-15] MEDS: THIAMINE HCL 100 MG TABLET PO SCH (09:14)
[2017-06-15] MEDS: DOCUSATE SODIUM 100 MG CAPSULE PO SCH ×2 (09:14→17:21)
[2017-06-15] MEDS: MAGNESIUM OXIDE 400 MG TABLET PO SCH ×2 (09:14→17:21)
[2017-06-15] MEDS: BUSPIRONE HCL 10 MG TABLET PO SCH ×2 (09:14→22:34)
--- NOTE | 2017-06-15 13:23 | PDOC PROGRESS REPORT ---
Subjective Progress Note for:: 06/15/17 Subjective:: The patient is a 61-year-old male who was brought in by police secondary to being found wandering in [place]. He is chronically an alcoholic. 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 The patient has been treated for hypothermia from exposure, hypotension likely associated with adrenal insufficiency, severe protein calorie malnutrition and vitamin deficiencies. He remains in the hospital. He is not safe for discharge. We are working on a disposition for this patient with discharge planning. Patient remains disoriented and continues to confabulate stories. The patient is estranged from his family including his . Discharge planning has now involved Adult Protective Services. Physical Exam Vital Signs: Temp Pulse Resp BP Pulse Ox 98.4 F 80 16 105/61 96 06/15/17 12:03 06/15/17 12:03 06/15/17 12:03 06/15/17 12:03 06/15/17 12:03 Intake & Output 06/14/17 06/15/17 06/16/17 06:59 06:59 06:59 Intake Total 960 1354 Output Total 700 Balance 260 1354 Weight 51.6 kg 51.1 kg Additional comments: Patient is thin and borders on cachexia. He continues to be disheveled in appearance. He has severe halitosis. His lungs are clear to auscultation bilaterally. His cardiac exam is regular without murmurs, gallops or rubs. The abdomen is soft and flat. Bowel sounds are present. The lower extremities are warm to touch without any edema. Visible skin does not demonstrate any lesions or rashes. Results Laboratory Results: 06/05/17 08:55 06/13/17 06:45 Impressions: Chest X-Ray 05/28/17 20:27 IMPRESSION: COPD. NO ACUTE RADIOGRAPHIC FINDING IN THE CHEST. Head CT 05/28/17 20:27 IMPRESSION: No acute intracranial findings. EVIDENCE OF ACUTE STROKE: NO. Head MRI 05/29/17 00:00 IMPRESSION: NO ACUTE ISCHEMIA, HEMORRHAGE, OR MASS LESION. CANNOT ASSESS FOR ABNORMAL WHITE MATTER SIGNAL DUE TO NONDIAGNOSTIC FLAIR IMAGING FROM [employer]IF[employer]. EVIDENCE OF ACUTE STROKE: NO. Foot X-Ray 05/31/17 00:00 IMPRESSION: 1. No acute or suspicious radiographic abnormality left the left foot. Assessment & Plan - Diagnosis (1) Encephalopathy Is this a current diagnosis for this admission?: Yes Plan: Ammonia level and RPR were normal. Patient likely has chronic dementia from alcoholism. (2) Hypokalemia Is this a current diagnosis for this admission?: Yes Plan: Resolved (3) Hypomagnesemia Is this a current diagnosis for this admission?: Yes Plan: Resolved (4) Hypotension Qualifiers: Hypotension type: unspecified hypotension type Qualified Code(s): I95.9 - Hypotension, unspecified Is this a current diagnosis for this admission?: Yes Plan: Upon admission, the patient required Levophed. He was then placed on midodrine and fludrocortisone. He developed anxiety and therefore Midodrine was discontinued. Patient remains on Florinef. (5) Hypothermia Qualifiers: Encounter type: initial encounter Qualified Code(s): T68.XXXA - Hypothermia , initial encounter Is this a current diagnosis for this admission?: Yes Plan: Likely due to exposure. Resolved (6) Hypothyroidism Is this a current diagnosis for this admission?: Yes Plan: Continue supplementation. (7) Metabolic acidosis Is this a current diagnosis for this admission?: Yes Plan: Resolved. (8) Sepsis Is this a current diagnosis for this admission?: No Plan: Ruled out. (9) Severe protein-calorie malnutrition Is this a current diagnosis for this admission?: Yes Plan: The patient presents with evidence of severe and long-standing protein calorie malnutrition. Continue supplements. 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 Patient is also receiving folate and multivitamin. Buspar has been added for anxiety. - Time Time Spent with patient: 15-24 minutes - Inpatient Certification Medical Necessity: Risk of Complication if Not Cared For in Hospital
--- NOTE | 2017-06-15 13:27 | Progress Note ---
Provider Note Provider Note: Please note that the patient also has anemia. His MCV is elevated. Labs were sent on 05/30/2017. His iron stores are normal. Ferritin is normal. His anemia is likely secondary to B12 deficiency and suppression of bone marrow from alcoholism.
[2017-06-16] MEDS: IPRATROPIUM/ALBUTEROL 0.5-2.5 MG/3 ML AMPUL NEB SCH ×3 (00:05→16:01)
[2017-06-16] MEDS: LEVOTHYROXINE SODIUM 0.075 MG TABLET PO SCH (05:33)
[2017-06-16] MEDS: HEPARIN SOD (PORCINE) 5,000 UNIT/ML 1 ML SYRINGE SUBCUT SCH ×3 (05:34→22:46)
[2017-06-16] MEDS: DOCUSATE SODIUM 100 MG CAPSULE PO SCH ×2 (10:41→17:09)
[2017-06-16] MEDS: MULTIVITAMIN TABLET PO SCH (10:41)
[2017-06-16] MEDS: FLUDROCORTISONE ACETATE 0.1 MG TABLET PO SCH (10:41)
[2017-06-16] MEDS: BUSPIRONE HCL 10 MG TABLET PO SCH ×2 (10:41→21:24)
[2017-06-16] MEDS: THIAMINE HCL 100 MG TABLET PO SCH (10:41)
[2017-06-16] MEDS: MAGNESIUM OXIDE 400 MG TABLET PO SCH ×2 (10:41→17:09)
--- NOTE | 2017-06-16 13:19 | PDOC PROGRESS REPORT ---
Subjective Progress Note for:: 06/16/17 Subjective:: Patient is seen on rounds. He is sitting on the side of the bed dressed in street clothing. He denies any shortness of breath, chest pain or dyspnea. He denies any fevers or chills. He denies any nausea, vomiting or diarrhea. He denies any significant arthralgias or myalgias. Remaining review of systems are negative.The patient is a 61-year-old male who was brought in by police secondary to being found wandering in [place]. He is chronically an alcoholic. 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 The patient has been treated for hypothermia from exposure, hypotension likely associated with adrenal insufficiency, severe protein calorie malnutrition and vitamin deficiencies. He remains in the hospital. He is not safe for discharge. We are working on a disposition for this patient with discharge planning Physical Exam Vital Signs: Temp Pulse Resp BP Pulse Ox 98.8 F 71 16 96/68 L 95 06/15/17 23:24 06/16/17 08:23 06/16/17 08:23 06/15/17 23:24 06/16/17 08:23 Intake & Output 06/15/17 06/16/17 06/17/17 06:59 06:59 06:59 Intake Total 1354 701 Balance 1354 701 Weight 51.1 kg 50.6 kg General appearance: PRESENT: no acute distress, disheveled, thin, well-developed Head exam: PRESENT: atraumatic, normocephalic Eye exam: PRESENT: conjunctiva pink, EOMI, PERRLA. ABSENT: scleral icterus Ear exam: PRESENT: normal external ear exam Mouth exam: PRESENT: moist, tongue midline Neck exam: ABSENT: carotid bruit, JVD, lymphadenopathy, thyromegaly Respiratory exam: PRESENT: clear to auscultation kae. ABSENT: rales, rhonchi, wheezes Cardiovascular exam: PRESENT: RRR. ABSENT: diastolic murmur, rubs, systolic murmur Pulses: PRESENT: normal dorsalis pedis pul Vascular exam: PRESENT: normal capillary refill GI/Abdominal exam: PRESENT: normal bowel sounds, soft. ABSENT: distended, guarding, mass, organolmegaly, rebound, tenderness Rectal exam: PRESENT: deferred Extremities exam: PRESENT: full ROM. ABSENT: calf tenderness, clubbing, pedal edema Neurological exam: PRESENT: alert, awake, oriented to person, oriented to place , oriented to time, oriented to situation, CN II-XII grossly intact. ABSENT: motor sensory deficit Psychiatric exam: PRESENT: appropriate affect, normal mood. ABSENT: homicidal ideation, suicidal ideation Skin exam: PRESENT: dry, intact, warm. ABSENT: cyanosis, rash Results Laboratory Results: 06/05/17 08:55 06/13/17 06:45 Impressions: Chest X-Ray 05/28/17 20:27 IMPRESSION: COPD. NO ACUTE RADIOGRAPHIC FINDING IN THE CHEST. Head CT 05/28/17 20:27 IMPRESSION: No acute intracranial findings. EVIDENCE OF ACUTE STROKE: NO. Head MRI 05/29/17 00:00 IMPRESSION: NO ACUTE ISCHEMIA, HEMORRHAGE, OR MASS LESION. CANNOT ASSESS FOR ABNORMAL WHITE MATTER SIGNAL DUE TO NONDIAGNOSTIC FLAIR IMAGING FROM [employer]IF[employer]. EVIDENCE OF ACUTE STROKE: NO. Foot X-Ray 05/31/17 00:00 IMPRESSION: 1. No acute or suspicious radiographic abnormality left the left foot. Assessment & Plan - Diagnosis (2) Korsakoff's psychosis, alcoholic Is this a current diagnosis for this admission?: Yes Plan: Continue thiamine, folic acid supplements (3) Anxiety Is this a current diagnosis for this admission?: Yes Plan: Continue anxiolytics (4) DVT prophylaxis Is this a current diagnosis for this admission?: Yes (5) Homelessness Is this a current diagnosis for this admission?: Yes (6) Hypomagnesemia Is this a current diagnosis for this admission?: Yes Plan: Replete and monitor (7) Hypothyroidism Is this a current diagnosis for this admission?: Yes Plan: Continue synthroid (8) Severe protein-calorie malnutrition Is this a current diagnosis for this admission?: Yes - Time Time Spent with patient: 25-34 minutes Critical Time spent with patient: 15-24 minutes Medications reviewed and adjusted accordingly: Yes Anticipated discharge: SNF Within: when bed available
[2017-06-17] MEDS: IPRATROPIUM/ALBUTEROL 0.5-2.5 MG/3 ML AMPUL NEB SCH ×3 (00:39→16:04)
[2017-06-17] MEDS: HEPARIN SOD (PORCINE) 5,000 UNIT/ML 1 ML SYRINGE SUBCUT SCH ×3 (07:06→21:07)
[2017-06-17] MEDS: LEVOTHYROXINE SODIUM 0.075 MG TABLET PO SCH (07:06)
[2017-06-17] MEDS: MULTIVITAMIN TABLET PO SCH (12:11)
[2017-06-17] MEDS: THIAMINE HCL 100 MG TABLET PO SCH (12:11)
[2017-06-17] MEDS: DOCUSATE SODIUM 100 MG CAPSULE PO SCH ×2 (12:11→17:33)
[2017-06-17] MEDS: BUSPIRONE HCL 10 MG TABLET PO SCH ×2 (12:11→21:09)
[2017-06-17] MEDS: FLUDROCORTISONE ACETATE 0.1 MG TABLET PO SCH (12:12)
[2017-06-17] MEDS: MAGNESIUM OXIDE 400 MG TABLET PO SCH ×2 (12:12→17:33)
--- NOTE | 2017-06-17 16:31 | PDOC PROGRESS REPORT ---
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 Patient walking with PT. Patient has no difficulty ambulating. Patient states he has left ankle problems. X ray was done earlier this admission which was negative. Reason For Visit: HYPOTENSION, HYPOTHERMIA, ENCEPHALOPATHY Physical Exam Vital Signs: Temp Pulse Resp BP Pulse Ox 98.7 F 80 16 100/60 96 06/17/17 12:32 06/17/17 16:06 06/17/17 16:06 06/17/17 08:03 06/17/17 16:06 Intake & Output 06/16/17 06/17/17 06/18/17 06:59 06:59 06:59 Intake Total 701 1100 Balance 701 1100 Weight 50.6 kg 53 kg General appearance: PRESENT: no acute distress, thin Head exam: PRESENT: normocephalic, other - bi temporal wasting Eye exam: PRESENT: EOMI. ABSENT: scleral icterus Ear exam: PRESENT: normal external ear exam Mouth exam: PRESENT: moist Neck exam: ABSENT: carotid bruit, JVD, lymphadenopathy, thyromegaly Respiratory exam: PRESENT: clear to auscultation kae. ABSENT: rales, rhonchi, wheezes Cardiovascular exam: PRESENT: RRR. ABSENT: diastolic murmur, rubs, systolic murmur GI/Abdominal exam: PRESENT: normal bowel sounds, soft. ABSENT: distended, guarding, mass, organolmegaly, rebound, tenderness Rectal exam: PRESENT: deferred Extremities exam: PRESENT: full ROM. ABSENT: calf tenderness, clubbing, pedal edema Neurological exam: PRESENT: alert, altered, awake, oriented to person, CN II- XII grossly intact. ABSENT: motor sensory deficit Psychiatric exam: PRESENT: normal mood, unusual affect. ABSENT: homicidal ideation, suicidal ideation Skin exam: PRESENT: dry, intact, warm. ABSENT: cyanosis, rash Results Laboratory Results: 06/05/17 08:55 06/13/17 06:45 Impressions: Chest X-Ray 05/28/17 20:27 IMPRESSION: COPD. NO ACUTE RADIOGRAPHIC FINDING IN THE CHEST. Head CT 05/28/17 20:27 IMPRESSION: No acute intracranial findings. EVIDENCE OF ACUTE STROKE: NO. Head MRI 05/29/17 00:00 IMPRESSION: NO ACUTE ISCHEMIA, HEMORRHAGE, OR MASS LESION. CANNOT ASSESS FOR ABNORMAL WHITE MATTER SIGNAL DUE TO NONDIAGNOSTIC FLAIR IMAGING FROM [employer]. EVIDENCE OF ACUTE STROKE: NO. Foot X-Ray 05/31/17 00:00 IMPRESSION: 1. No acute or suspicious radiographic abnormality left the left foot. Assessment & Plan - Diagnosis (1) Encephalopathy Is this a current diagnosis for this admission?: Yes Plan: Infection ruled out. Most likely the result of chronic alcohol abuse. Resolved. (2) Homelessness Is this a current diagnosis for this admission?: Yes Plan: Discharge planning is assisting with placement. Patient new eval by psychology for capacity. (3) Hypokalemia Is this a current diagnosis for this admission?: Yes Plan: Most likely due to poor dietary intake. Resolved. (4) Hypomagnesemia Is this a current diagnosis for this admission?: Yes Plan: Most likely due to poor dietary intake. Resolved. (5) Hypotension Qualifiers: Hypotension type: unspecified hypotension type Qualified Code(s): I95.9 - Hypotension, unspecified Is this a current diagnosis for this admission?: Yes Plan: Labile. Continue florinef. (6) Hypothyroidism Is this a current diagnosis for this admission?: Yes Plan: Continue supplement. (7) Korsakoff's psychosis, alcoholic Is this a current diagnosis for this admission?: Yes Plan: Continue with supportive care. (8) DVT prophylaxis Is this a current diagnosis for this admission?: Yes Plan: Continue heparin. (9) Hypothermia Qualifiers: Encounter type: initial encounter Qualified Code(s): T68.XXXA - Hypothermia , initial encounter Is this a current diagnosis for this admission?: Yes Plan: Patient being out in the cold weather. Now resolved. (10) Anxiety Is this a current diagnosis for this admission?: Yes Plan: Patient gives history of being treated for panic attacks and anxiety in the past. Continue buspar 5mg Qam and 10mg Qpm along with vistaril Q6PRN for anxiety. - Time Time Spent with patient: Less than 15 minutes Anticipated discharge: SNF - Inpatient Certification Medical Necessity: Need Close Monitoring Due to Risk of Patient Decompensation - Patient need placement.
[2017-06-18] MEDS: IPRATROPIUM/ALBUTEROL 0.5-2.5 MG/3 ML AMPUL NEB SCH ×3 (00:44→16:00)
[2017-06-18] MEDS: HEPARIN SOD (PORCINE) 5,000 UNIT/ML 1 ML SYRINGE SUBCUT SCH ×3 (05:25→21:08)
[2017-06-18] MEDS: LEVOTHYROXINE SODIUM 0.075 MG TABLET PO SCH (06:53)
[2017-06-18] MEDS: DOCUSATE SODIUM 100 MG CAPSULE PO SCH ×2 (11:06→17:31)
[2017-06-18] MEDS: MAGNESIUM OXIDE 400 MG TABLET PO SCH ×2 (11:06→17:31)
[2017-06-18] MEDS: THIAMINE HCL 100 MG TABLET PO SCH (11:06)
[2017-06-18] MEDS: BUSPIRONE HCL 10 MG TABLET PO SCH ×2 (11:06→21:09)
[2017-06-18] MEDS: MULTIVITAMIN TABLET PO SCH (11:06)
[2017-06-18] MEDS: FLUDROCORTISONE ACETATE 0.1 MG TABLET PO SCH (11:07)
--- NOTE | 2017-06-18 19:11 | PDOC PROGRESS REPORT ---
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 Patient walking with PT. Patient has no difficulty ambulating. Patient states he is doing well. Reason For Visit: HYPOTENSION, HYPOTHERMIA, ENCEPHALOPATHY Physical Exam Vital Signs: Temp Pulse Resp BP Pulse Ox 98.4 F 85 16 110/66 98 06/18/17 15:32 06/18/17 15:32 06/18/17 15:32 06/18/17 15:32 06/18/17 15:32 Intake & Output 06/17/17 06/18/17 06/19/17 06:59 06:59 06:59 Intake Total 1100 686 358 Output Total 2350 Balance 1100 -1664 358 Weight 53 kg 51.6 kg General appearance: PRESENT: no acute distress, thin Head exam: PRESENT: normocephalic, other - bitemporal wasting Eye exam: PRESENT: conjunctiva pink, EOMI, PERRLA. ABSENT: scleral icterus Ear exam: PRESENT: normal external ear exam Mouth exam: PRESENT: moist Neck exam: ABSENT: carotid bruit, JVD, lymphadenopathy, thyromegaly Respiratory exam: PRESENT: clear to auscultation kae. ABSENT: rales, rhonchi, wheezes Cardiovascular exam: PRESENT: RRR. ABSENT: diastolic murmur, rubs, systolic murmur Pulses: PRESENT: normal dorsalis pedis pul Vascular exam: PRESENT: normal capillary refill GI/Abdominal exam: PRESENT: normal bowel sounds, soft. ABSENT: distended, guarding, mass, organolmegaly, rebound, tenderness Rectal exam: PRESENT: deferred Extremities exam: PRESENT: full ROM. ABSENT: calf tenderness, clubbing, pedal edema Neurological exam: PRESENT: alert, altered, awake, oriented to person, CN II- XII grossly intact. ABSENT: motor sensory deficit Psychiatric exam: PRESENT: appropriate affect, normal mood. ABSENT: homicidal ideation, suicidal ideation Skin exam: PRESENT: dry, intact, warm. ABSENT: cyanosis, rash Results Laboratory Results: 06/05/17 08:55 06/13/17 06:45 Impressions: Chest X-Ray 05/28/17 20:27 IMPRESSION: COPD. NO ACUTE RADIOGRAPHIC FINDING IN THE CHEST. Head CT 05/28/17 20:27 IMPRESSION: No acute intracranial findings. EVIDENCE OF ACUTE STROKE: NO. Head MRI 05/29/17 00:00 IMPRESSION: NO ACUTE ISCHEMIA, HEMORRHAGE, OR MASS LESION. CANNOT ASSESS FOR ABNORMAL WHITE MATTER SIGNAL DUE TO NONDIAGNOSTIC FLAIR IMAGING FROM [employer]. EVIDENCE OF ACUTE STROKE: NO. Foot X-Ray 05/31/17 00:00 IMPRESSION: 1. No acute or suspicious radiographic abnormality left the left foot. Assessment & Plan - Diagnosis (1) Encephalopathy Is this a current diagnosis for this admission?: Yes Plan: Infection ruled out. Most likely the result of chronic alcohol abuse. Resolved. (2) Homelessness Is this a current diagnosis for this admission?: Yes Plan: Discharge planning is assisting with placement. Patient needs evaluation by psychology for capacity. (3) Hypokalemia Is this a current diagnosis for this admission?: Yes Plan: Most likely due to poor dietary intake. Resolved. (4) Hypomagnesemia Is this a current diagnosis for this admission?: Yes Plan: Most likely due to poor dietary intake. Resolved. (5) Hypotension Qualifiers: Hypotension type: unspecified hypotension type Qualified Code(s): I95.9 - Hypotension, unspecified Is this a current diagnosis for this admission?: Yes Plan: Labile. Continue florinef. Patient ambulatory and is asymptomatic. (6) Hypothyroidism Is this a current diagnosis for this admission?: Yes Plan: Continue supplement. (7) Korsakoff's psychosis, alcoholic Is this a current diagnosis for this admission?: Yes Plan: Continue with supportive care. (8) DVT prophylaxis Is this a current diagnosis for this admission?: Yes Plan: Continue heparin. (9) Hypothermia Qualifiers: Encounter type: initial encounter Qualified Code(s): T68.XXXA - Hypothermia , initial encounter Is this a current diagnosis for this admission?: Yes Plan: Patient being out in the cold weather. Now resolved. (10) Anxiety Is this a current diagnosis for this admission?: Yes Plan: Patient gives history of being treated for panic attacks and anxiety in the past. Continue buspar 5mg Qam and 10mg Qpm along with vistaril Q6PRN for anxiety. - Time Time Spent with patient: Less than 15 minutes Anticipated discharge: SNF - Inpatient Certification Medical Necessity: Need Close Monitoring Due to Risk of Patient Decompensation
[2017-06-19] MEDS: HEPARIN SOD (PORCINE) 5,000 UNIT/ML 1 ML SYRINGE SUBCUT SCH ×3 (05:37→21:32)
[2017-06-19] MEDS: LEVOTHYROXINE SODIUM 0.075 MG TABLET PO SCH (05:46)
[2017-06-19] MEDS: BUSPIRONE HCL 10 MG TABLET PO SCH ×2 (11:15→21:32)
[2017-06-19] MEDS: THIAMINE HCL 100 MG TABLET PO SCH (11:16)
[2017-06-19] MEDS: FLUDROCORTISONE ACETATE 0.1 MG TABLET PO SCH (11:16)
[2017-06-19] MEDS: DOCUSATE SODIUM 100 MG CAPSULE PO SCH ×2 (11:16→18:45)
[2017-06-19] MEDS: MULTIVITAMIN TABLET PO SCH (11:17)
[2017-06-19] MEDS: MAGNESIUM OXIDE 400 MG TABLET PO SCH ×2 (11:17→18:45)
[2017-06-19] MEDS: HYDROXYZINE PAMOATE 25 MG CAPSULE PO PRN (13:22)
--- NOTE | 2017-06-19 20:02 | PDOC PROGRESS REPORT ---
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 Patient walking with PT. Patient has no difficulty ambulating. Patient states he is doing well but he bet they are going to call him in for work tomorrow. Reason For Visit: HYPOTENSION, HYPOTHERMIA, ENCEPHALOPATHY Physical Exam Vital Signs: Temp Pulse Resp BP Pulse Ox 98.6 F 109 H 18 99/78 L 92 06/19/17 15:33 06/19/17 15:33 06/19/17 15:33 06/19/17 15:33 06/19/17 15:33 Intake & Output 06/18/17 06/19/17 06/20/17 06:59 06:59 06:59 Intake Total 686 758 626 Output Total 2350 200 Balance -1664 758 426 Weight 51.6 kg 51.6 kg General appearance: PRESENT: no acute distress, thin Head exam: PRESENT: normocephalic, other - bitemporal wasting Eye exam: PRESENT: EOMI. ABSENT: scleral icterus Ear exam: PRESENT: normal external ear exam Mouth exam: PRESENT: moist Neck exam: ABSENT: carotid bruit, JVD, lymphadenopathy, thyromegaly Respiratory exam: PRESENT: clear to auscultation kae. ABSENT: rales, rhonchi, wheezes Cardiovascular exam: PRESENT: RRR. ABSENT: diastolic murmur, rubs, systolic murmur Pulses: PRESENT: normal dorsalis pedis pul Vascular exam: PRESENT: normal capillary refill GI/Abdominal exam: PRESENT: normal bowel sounds, soft. ABSENT: distended, guarding, mass, organolmegaly, rebound, tenderness Rectal exam: PRESENT: deferred Extremities exam: PRESENT: full ROM. ABSENT: calf tenderness, clubbing, pedal edema Neurological exam: PRESENT: alert, altered, awake, oriented to person, CN II- XII grossly intact. ABSENT: motor sensory deficit Psychiatric exam: PRESENT: appropriate affect, normal mood. ABSENT: homicidal ideation, suicidal ideation Skin exam: PRESENT: dry, intact, warm. ABSENT: cyanosis, rash Results Laboratory Results: 06/05/17 08:55 06/13/17 06:45 Impressions: Chest X-Ray 05/28/17 20:27 IMPRESSION: COPD. NO ACUTE RADIOGRAPHIC FINDING IN THE CHEST. Head CT 05/28/17 20:27 IMPRESSION: No acute intracranial findings. EVIDENCE OF ACUTE STROKE: NO. Head MRI 05/29/17 00:00 IMPRESSION: NO ACUTE ISCHEMIA, HEMORRHAGE, OR MASS LESION. CANNOT ASSESS FOR ABNORMAL WHITE MATTER SIGNAL DUE TO NONDIAGNOSTIC FLAIR IMAGING FROM [employer]. EVIDENCE OF ACUTE STROKE: NO. Foot X-Ray 05/31/17 00:00 IMPRESSION: 1. No acute or suspicious radiographic abnormality left the left foot. Assessment & Plan - Diagnosis (1) Encephalopathy Is this a current diagnosis for this admission?: Yes Plan: Most likely the result of chronic alcohol abuse. Resolved. (2) Homelessness Is this a current diagnosis for this admission?: Yes Plan: Discharge planning is assisting with placement. Patient evaluated by Dr. Asencio for capacity. (3) Hypokalemia Is this a current diagnosis for this admission?: Yes Plan: Most likely due to poor dietary intake. Resolved. (4) Hypomagnesemia Is this a current diagnosis for this admission?: Yes Plan: Most likely due to poor dietary intake. Resolved. (5) Hypotension Qualifiers: Hypotension type: unspecified hypotension type Qualified Code(s): I95.9 - Hypotension, unspecified Is this a current diagnosis for this admission?: Yes Plan: Labile. Continue florinef. Patient ambulatory and is asymptomatic. (6) Hypothyroidism Is this a current diagnosis for this admission?: Yes Plan: Continue supplement. (7) Korsakoff's psychosis, alcoholic Is this a current diagnosis for this admission?: Yes Plan: Continue with supportive care. (8) DVT prophylaxis Is this a current diagnosis for this admission?: Yes Plan: Continue heparin. (9) Hypothermia Qualifiers: Encounter type: initial encounter Qualified Code(s): T68.XXXA - Hypothermia , initial encounter Is this a current diagnosis for this admission?: Yes Plan: Patient being out in the cold weather. Now resolved. (10) Anxiety Is this a current diagnosis for this admission?: Yes Plan: Patient gives history of being treated for panic attacks and anxiety in the past. Continue buspar 5mg Qam and 10mg Qpm along with vistaril Q6PRN for anxiety. - Time Time Spent with patient: Less than 15 minutes Anticipated discharge: SNF - Inpatient Certification Medical Necessity: Significant Comorbidiites Make Outpatient Treatment Too Risky
[2017-06-20] MEDS: HEPARIN SOD (PORCINE) 5,000 UNIT/ML 1 ML SYRINGE SUBCUT SCH ×3 (03:43→21:53)
[2017-06-20] MEDS: LEVOTHYROXINE SODIUM 0.075 MG TABLET PO SCH (05:38)
[2017-06-20] MEDS: BUSPIRONE HCL 10 MG TABLET PO SCH ×2 (09:22→21:53)
[2017-06-20] MEDS: FLUDROCORTISONE ACETATE 0.1 MG TABLET PO SCH (09:22)
[2017-06-20] MEDS: DOCUSATE SODIUM 100 MG CAPSULE PO SCH ×2 (09:22→17:16)
[2017-06-20] MEDS: MULTIVITAMIN TABLET PO SCH (09:22)
[2017-06-20] MEDS: MAGNESIUM OXIDE 400 MG TABLET PO SCH ×2 (09:22→17:11)
[2017-06-20] MEDS: THIAMINE HCL 100 MG TABLET PO SCH (09:22)
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
--- NOTE | 2017-06-20 11:29 | PDOC PROGRESS REPORT ---
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 Patient walking with PT. Patient has no difficulty ambulating. Patient states his right shoulder hurts. He is waiting for someone to come and pick him up. Patient has the clock and other odd items packed in his bag. Reason For Visit: HYPOTENSION, HYPOTHERMIA, ENCEPHALOPATHY Physical Exam Vital Signs: Temp Pulse Resp BP Pulse Ox 98.6 F 87 16 105/74 99 06/19/17 23:18 06/19/17 23:18 06/19/17 23:18 06/19/17 23:18 06/19/17 23:18 Intake & Output 06/19/17 06/20/17 06/21/17 06:59 06:59 06:59 Intake Total 758 1106 Output Total 800 Balance 758 306 Weight 51.6 kg 51.6 kg General appearance: PRESENT: no acute distress, disheveled, thin, other - patient dressed in layers Head exam: PRESENT: normocephalic, other - bi temporal wasting Eye exam: PRESENT: EOMI. ABSENT: scleral icterus Ear exam: PRESENT: normal external ear exam Mouth exam: PRESENT: moist Neck exam: ABSENT: carotid bruit, JVD, lymphadenopathy, thyromegaly Respiratory exam: PRESENT: clear to auscultation kae. ABSENT: rales, rhonchi, wheezes Cardiovascular exam: PRESENT: RRR. ABSENT: diastolic murmur, rubs, systolic murmur Pulses: PRESENT: normal dorsalis pedis pul GI/Abdominal exam: PRESENT: normal bowel sounds, soft. ABSENT: distended, guarding, mass, organolmegaly, rebound, tenderness Rectal exam: PRESENT: deferred Extremities exam: PRESENT: full ROM. ABSENT: calf tenderness, clubbing, pedal edema Neurological exam: PRESENT: alert, altered, awake, oriented to person, CN II- XII grossly intact. ABSENT: motor sensory deficit Psychiatric exam: PRESENT: anxious, appropriate affect. ABSENT: homicidal ideation, suicidal ideation Skin exam: PRESENT: dry, intact, warm. ABSENT: cyanosis, rash Results Laboratory Results: 06/05/17 08:55 06/13/17 06:45 Impressions: Chest X-Ray 05/28/17 20:27 IMPRESSION: COPD. NO ACUTE RADIOGRAPHIC FINDING IN THE CHEST. Head CT 05/28/17 20:27 IMPRESSION: No acute intracranial findings. EVIDENCE OF ACUTE STROKE: NO. Head MRI 05/29/17 00:00 IMPRESSION: NO ACUTE ISCHEMIA, HEMORRHAGE, OR MASS LESION. CANNOT ASSESS FOR ABNORMAL WHITE MATTER SIGNAL DUE TO NONDIAGNOSTIC FLAIR IMAGING FROM [employer]. EVIDENCE OF ACUTE STROKE: NO. Foot X-Ray 05/31/17 00:00 IMPRESSION: 1. No acute or suspicious radiographic abnormality left the left foot. Assessment & Plan - Diagnosis (1) Encephalopathy Is this a current diagnosis for this admission?: Yes Plan: Most likely the result of chronic alcohol abuse. Resolved. (2) Homelessness Is this a current diagnosis for this admission?: Yes Plan: Discharge planning is assisting with placement. Per psychology patient requires a guardian as he does not have the capacity to make his own decisions. (3) Hypokalemia Is this a current diagnosis for this admission?: Yes Plan: Most likely due to poor dietary intake. Resolved. (4) Hypomagnesemia Is this a current diagnosis for this admission?: Yes Plan: Most likely due to poor dietary intake. Resolved. (5) Hypotension Qualifiers: Hypotension type: unspecified hypotension type Qualified Code(s): I95.9 - Hypotension, unspecified Is this a current diagnosis for this admission?: Yes Plan: Labile. Continue florinef. Patient ambulatory and is asymptomatic. (6) Hypothyroidism Is this a current diagnosis for this admission?: Yes Plan: Continue supplement. (7) Korsakoff's psychosis, alcoholic Is this a current diagnosis for this admission?: Yes Plan: Continue with supportive care. Patient will require a guardian to assist with making decision. Patient still confused. (8) DVT prophylaxis Is this a current diagnosis for this admission?: Yes Plan: Continue heparin. (9) Hypothermia Qualifiers: Encounter type: initial encounter Qualified Code(s): T68.XXXA - Hypothermia , initial encounter Is this a current diagnosis for this admission?: Yes Plan: Patient being out in the cold weather. Now resolved. (10) Anxiety Is this a current diagnosis for this admission?: Yes Plan: Patient gives history of being treated for panic attacks and anxiety in the past. Continue buspar 5mg Qam and 10mg Qpm along with vistaril Q6PRN for anxiety. (11) Right shoulder pain Qualifiers: Chronicity: unspecified Qualified Code(s): M25.511 - Pain in right shoulder Is this a current diagnosis for this admission?: Yes Plan: Will order X ray of the right shoulder. Patient still has good range of motion although tender with movement. This may be OA. - Time Time Spent with patient: Less than 15 minutes Anticipated discharge: SNF - Inpatient Certification Medical Necessity: Other - Patient requires a gaurdian. He is unable to make appropriate decisions.
--- NOTE | 2017-06-20 14:25 | RADIOLOGY REPORT (SQ) ---
EXAM DESCRIPTION: SHOULDER RIGHT 2 OR MORE VIEWS COMPLETED DATE/TIME: 06/20/2017 2:05 pm REASON FOR STUDY: pain COMPARISON: None. NUMBER OF VIEWS: Three views. TECHNIQUE: Internal rotation, external rotation, and Y view images acquired of the right shoulder. LIMITATIONS: None. FINDINGS: MINERALIZATION: Normal. BONES: No acute fracture or dislocation. No worrisome bone lesions. No significant osteophytes. GLENOHUMERAL JOINT: No significant findings. ACROMIOCLAVICULAR JOINT: No large osteophytes. SOFT TISSUES: No calcifications. VISUALIZED RIBS, SPINE, AND LUNG: No other significant finding. OTHER: No other significant finding. IMPRESSION: NEGATIVE STUDY OF THE RIGHT SHOULDER. NO RADIOGRAPHIC EVIDENCE OF ACUTE INJURY. NO EXPLA NATION FOR PAIN. TECHNICAL DOCUMENTATION: JOB ID: [id number] [employer]- All Rights Reserved
[2017-06-21] MEDS: LEVOTHYROXINE SODIUM 0.075 MG TABLET PO SCH (05:58)
[2017-06-21] MEDS: HEPARIN SOD (PORCINE) 5,000 UNIT/ML 1 ML SYRINGE SUBCUT SCH ×3 (05:58→22:02)
[2017-06-21] MEDS: MAGNESIUM OXIDE 400 MG TABLET PO SCH ×2 (09:01→17:10)
[2017-06-21] MEDS: MULTIVITAMIN TABLET PO SCH (09:01)
[2017-06-21] MEDS: THIAMINE HCL 100 MG TABLET PO SCH (09:01)
[2017-06-21] MEDS: FLUDROCORTISONE ACETATE 0.1 MG TABLET PO SCH (09:01)
[2017-06-21] MEDS: DOCUSATE SODIUM 100 MG CAPSULE PO SCH ×2 (09:02→17:10)
[2017-06-21] MEDS: BUSPIRONE HCL 10 MG TABLET PO SCH ×2 (09:02→22:01)
[2017-06-21] MEDS: ACETAMINOPHEN 325 MG TABLET PO PRN (15:23)
[2017-06-22] MEDS: HEPARIN SOD (PORCINE) 5,000 UNIT/ML 1 ML SYRINGE SUBCUT SCH ×3 (06:07→21:57)
[2017-06-22] MEDS: LEVOTHYROXINE SODIUM 0.075 MG TABLET PO SCH (06:09)
--- NOTE | 2017-06-22 08:06 | PDOC PROGRESS REPORT ---
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 Patient states that the shoulder is not hurting today. Patient states that he is just waiting to go. Patient worked all day. Reason For Visit: HYPOTENSION, HYPOTHERMIA, ENCEPHALOPATHY Physical Exam Vital Signs: Temp Pulse Resp BP Pulse Ox 99.0 F 85 16 109/59 L 97 06/21/17 23:36 06/21/17 23:36 06/21/17 23:36 06/21/17 23:36 06/21/17 23:36 Intake & Output 06/21/17 06/22/17 06/23/17 06:59 06:59 06:59 Intake Total 840 880 Output Total 600 600 Balance 240 280 Weight 51.6 kg 51.6 kg General appearance: PRESENT: no acute distress, thin, other - bitemporal wasting Head exam: PRESENT: normocephalic Eye exam: ABSENT: scleral icterus Neck exam: ABSENT: carotid bruit, JVD, lymphadenopathy, thyromegaly Respiratory exam: PRESENT: clear to auscultation kae. ABSENT: rales, rhonchi, wheezes Cardiovascular exam: PRESENT: RRR. ABSENT: diastolic murmur, rubs, systolic murmur GI/Abdominal exam: PRESENT: normal bowel sounds, soft. ABSENT: distended, guarding, mass, organolmegaly, rebound, tenderness Rectal exam: PRESENT: deferred Extremities exam: PRESENT: full ROM. ABSENT: calf tenderness, clubbing, pedal edema Neurological exam: PRESENT: alert, altered, awake, oriented to person, CN II- XII grossly intact. ABSENT: motor sensory deficit Psychiatric exam: PRESENT: appropriate affect, normal mood. ABSENT: homicidal ideation, suicidal ideation Skin exam: PRESENT: dry, intact, warm. ABSENT: cyanosis, rash Results Laboratory Results: 06/05/17 08:55 06/13/17 06:45 Impressions: Chest X-Ray 05/28/17 20:27 IMPRESSION: COPD. NO ACUTE RADIOGRAPHIC FINDING IN THE CHEST. Head CT 05/28/17 20:27 IMPRESSION: No acute intracranial findings. EVIDENCE OF ACUTE STROKE: NO. Head MRI 05/29/17 00:00 IMPRESSION: NO ACUTE ISCHEMIA, HEMORRHAGE, OR MASS LESION. CANNOT ASSESS FOR ABNORMAL WHITE MATTER SIGNAL DUE TO NONDIAGNOSTIC FLAIR IMAGING FROM [employer]. EVIDENCE OF ACUTE STROKE: NO. Foot X-Ray 05/31/17 00:00 IMPRESSION: 1. No acute or suspicious radiographic abnormality left the left foot. Shoulder X-Ray 06/20/17 00:00 IMPRESSION: NEGATIVE STUDY OF THE RIGHT SHOULDER. NO RADIOGRAPHIC EVIDENCE OF ACUTE INJURY. NO EXPLANATION FOR PAIN. Assessment & Plan - Diagnosis (1) Korsakoff's psychosis, alcoholic Is this a current diagnosis for this admission?: Yes Plan: Continue with supportive care. Patient will require a guardian to assist with making decision. Per psychology patient does not have decision capacity. (2) Encephalopathy Is this a current diagnosis for this admission?: Yes Plan: Most likely the result of chronic alcohol abuse. Resolved. (3) Homelessness Is this a current diagnosis for this admission?: Yes Plan: Discharge planning is assisting with placement. Per psychology patient requires a guardian as he does not have the capacity to make his own decisions. (4) Hypokalemia Is this a current diagnosis for this admission?: Yes Plan: Resolved. (5) Hypomagnesemia Is this a current diagnosis for this admission?: Yes Plan: Resolved. (6) Hypotension Qualifiers: Hypotension type: unspecified hypotension type Qualified Code(s): I95.9 - Hypotension, unspecified Is this a current diagnosis for this admission?: Yes Plan: Labile. Continue florinef. Patient ambulatory and is asymptomatic. (7) Hypothyroidism Is this a current diagnosis for this admission?: Yes Plan: Continue supplement. (8) DVT prophylaxis Is this a current diagnosis for this admission?: Yes Plan: Continue heparin. (9) Hypothermia Qualifiers: Encounter type: initial encounter Qualified Code(s): T68.XXXA - Hypothermia , initial encounter Is this a current diagnosis for this admission?: Yes Plan: Patient being out in the cold weather. Now resolved. (10) Anxiety Is this a current diagnosis for this admission?: Yes Plan: Patient gives history of being treated for panic attacks and anxiety in the past. Continue buspar 5mg Qam and 10mg Qpm along with vistaril Q6PRN for anxiety. (11) Right shoulder pain Qualifiers: Chronicity: unspecified Qualified Code(s): M25.511 - Pain in right shoulder Is this a current diagnosis for this admission?: Yes Plan: Will order X ray of the right shoulder. Patient still has good range of motion although tender with movement. Resolved on its own. - Time Time Spent with patient: Less than 15 minutes Anticipated discharge: SNF - Inpatient Certification Medical Necessity: Other - Patient does not have decision making capacity and is not safe to live on his own. Awaiting placement.
[2017-06-22] MEDS: MULTIVITAMIN TABLET PO SCH (10:29)
[2017-06-22] MEDS: FLUDROCORTISONE ACETATE 0.1 MG TABLET PO SCH (10:30)
[2017-06-22] MEDS: THIAMINE HCL 100 MG TABLET PO SCH (10:30)
[2017-06-22] MEDS: DOCUSATE SODIUM 100 MG CAPSULE PO SCH ×2 (10:30→17:49)
[2017-06-22] MEDS: BUSPIRONE HCL 10 MG TABLET PO SCH ×2 (10:30→21:59)
[2017-06-22] MEDS: MAGNESIUM OXIDE 400 MG TABLET PO SCH ×2 (10:30→17:49)
[2017-06-22] MEDS: HYDROXYZINE PAMOATE 25 MG CAPSULE PO PRN (11:57)
--- NOTE | 2017-06-22 14:23 | PDOC PROGRESS REPORT ---
Subjective Progress Note for:: 06/22/17 Subjective:: No new issues. Reason For Visit: HYPOTENSION, HYPOTHERMIA, ENCEPHALOPATHY Physical Exam Vital Signs: Temp Pulse Resp BP Pulse Ox 98.5 F 85 18 102/63 98 06/22/17 07:19 06/22/17 07:19 06/22/17 07:19 06/22/17 07:19 06/22/17 07:19 Intake & Output 06/21/17 06/22/17 06/23/17 06:59 06:59 06:59 Intake Total 840 880 Output Total 600 600 Balance 240 280 Weight 51.6 kg 51.6 kg General appearance: PRESENT: no acute distress, well-developed, well-nourished Head exam: PRESENT: atraumatic, normocephalic Eye exam: PRESENT: conjunctiva pink, EOMI, PERRLA. ABSENT: scleral icterus Ear exam: PRESENT: normal external ear exam Mouth exam: PRESENT: moist, tongue midline Neck exam: ABSENT: carotid bruit, JVD, lymphadenopathy, thyromegaly Respiratory exam: PRESENT: clear to auscultation kae. ABSENT: rales, rhonchi, wheezes Cardiovascular exam: PRESENT: RRR. ABSENT: diastolic murmur, rubs, systolic murmur Pulses: PRESENT: normal dorsalis pedis pul Vascular exam: PRESENT: normal capillary refill GI/Abdominal exam: PRESENT: normal bowel sounds, soft. ABSENT: distended, guarding, mass, organolmegaly, rebound, tenderness Rectal exam: PRESENT: deferred Extremities exam: PRESENT: full ROM. ABSENT: calf tenderness, clubbing, pedal edema Neurological exam: PRESENT: alert, awake, oriented to person, oriented to place , oriented to time, oriented to situation, CN II-XII grossly intact. ABSENT: motor sensory deficit Psychiatric exam: PRESENT: appropriate affect, normal mood. ABSENT: homicidal ideation, suicidal ideation Skin exam: PRESENT: dry, intact, warm. ABSENT: cyanosis, rash Results Laboratory Results: 06/05/17 08:55 06/13/17 06:45 Impressions: Chest X-Ray 05/28/17 20:27 IMPRESSION: COPD. NO ACUTE RADIOGRAPHIC FINDING IN THE CHEST. Head CT 05/28/17 20:27 IMPRESSION: No acute intracranial findings. EVIDENCE OF ACUTE STROKE: NO. Head MRI 05/29/17 00:00 IMPRESSION: NO ACUTE ISCHEMIA, HEMORRHAGE, OR MASS LESION. CANNOT ASSESS FOR ABNORMAL WHITE MATTER SIGNAL DUE TO NONDIAGNOSTIC FLAIR IMAGING FROM [employer]. EVIDENCE OF ACUTE STROKE: NO. Foot X-Ray 05/31/17 00:00 IMPRESSION: 1. No acute or suspicious radiographic abnormality left the left foot. Shoulder X-Ray 06/20/17 00:00 IMPRESSION: NEGATIVE STUDY OF THE RIGHT SHOULDER. NO RADIOGRAPHIC EVIDENCE OF ACUTE INJURY. NO EXPLANATION FOR PAIN. Assessment & Plan - Diagnosis (1) Korsakoff's psychosis, alcoholic Is this a current diagnosis for this admission?: Yes Plan: Supportive care. Will continue to monitor. (2) Encephalopathy Is this a current diagnosis for this admission?: Yes Plan: Secondary to ETOH Abuse: Resolved. (3) Homelessness Is this a current diagnosis for this admission?: Yes Plan: Case management states that they are trying to locate his family. (4) Hypokalemia Is this a current diagnosis for this admission?: Yes Plan: Resolved. (5) Hypotension Qualifiers: Hypotension type: unspecified hypotension type Qualified Code(s): I95.9 - Hypotension, unspecified Is this a current diagnosis for this admission?: Yes Plan: Will continue current treatment. (6) Hypomagnesemia Is this a current diagnosis for this admission?: Yes Plan: Resolved. (7) Hypothermia Qualifiers: Encounter type: initial encounter Qualified Code(s): T68.XXXA - Hypothermia , initial encounter Is this a current diagnosis for this admission?: Yes Plan: Secondary to environment: Resolved. (8) Hypothyroidism Is this a current diagnosis for this admission?: Yes Plan: Continue Synthroid (9) Sepsis Is this a current diagnosis for this admission?: No Plan: Ruled out (10) DVT prophylaxis Is this a current diagnosis for this admission?: Yes Plan: Heparin - Time Time Spent with patient: Less than 15 minutes
[2017-06-22] MEDS ORDERED: HALOPERIDOL LACTATE INJ 5 MG/1 ML VIAL IM ONE (18:30)
[2017-06-23] MEDS: HEPARIN SOD (PORCINE) 5,000 UNIT/ML 1 ML SYRINGE SUBCUT SCH ×3 (05:04→21:29)
[2017-06-23] MEDS: LEVOTHYROXINE SODIUM 0.075 MG TABLET PO SCH (06:55)
[2017-06-23] MEDS: THIAMINE HCL 100 MG TABLET PO SCH (09:06)
[2017-06-23] MEDS: MAGNESIUM OXIDE 400 MG TABLET PO SCH ×2 (09:06→17:50)
[2017-06-23] MEDS: DOCUSATE SODIUM 100 MG CAPSULE PO SCH ×2 (09:06→17:50)
[2017-06-23] MEDS: FLUDROCORTISONE ACETATE 0.1 MG TABLET PO SCH (09:06)
[2017-06-23] MEDS: BUSPIRONE HCL 10 MG TABLET PO SCH ×2 (09:06→21:39)
[2017-06-23] MEDS: MULTIVITAMIN TABLET PO SCH (09:06)
--- NOTE | 2017-06-23 14:31 | PDOC PROGRESS REPORT ---
Subjective Progress Note for:: 06/23/17 Subjective:: Pt states that he is doing well. Reason For Visit: HYPOTENSION, HYPOTHERMIA, ENCEPHALOPATHY Physical Exam Vital Signs: Temp Pulse Resp BP Pulse Ox 98.4 F 72 16 92/62 L 100 06/23/17 12:00 06/23/17 12:00 06/23/17 12:00 06/23/17 12:00 06/23/17 12:00 Intake & Output 06/22/17 06/23/17 06/24/17 06:59 06:59 06:59 Intake Total 880 1220 Output Total 600 Balance 280 1220 Weight 51.6 kg 51.6 kg General appearance: PRESENT: no acute distress, thin Head exam: PRESENT: atraumatic, normocephalic Eye exam: PRESENT: conjunctiva pink, EOMI. ABSENT: scleral icterus Ear exam: PRESENT: normal external ear exam Mouth exam: PRESENT: moist, tongue midline Neck exam: ABSENT: carotid bruit, JVD, lymphadenopathy, thyromegaly Respiratory exam: PRESENT: clear to auscultation kae. ABSENT: rales, rhonchi, wheezes Cardiovascular exam: PRESENT: RRR. ABSENT: diastolic murmur, rubs, systolic murmur Pulses: PRESENT: normal dorsalis pedis pul Vascular exam: PRESENT: normal capillary refill GI/Abdominal exam: PRESENT: normal bowel sounds, soft. ABSENT: distended, guarding, mass, organolmegaly, rebound, tenderness Rectal exam: PRESENT: deferred Extremities exam: PRESENT: full ROM. ABSENT: calf tenderness, clubbing, pedal edema Neurological exam: PRESENT: alert, awake, oriented to person Psychiatric exam: PRESENT: appropriate affect, normal mood. ABSENT: homicidal ideation, suicidal ideation Skin exam: PRESENT: dry, intact, warm. ABSENT: cyanosis, rash Results Laboratory Results: 06/05/17 08:55 06/13/17 06:45 Impressions: Chest X-Ray 05/28/17 20:27 IMPRESSION: COPD. NO ACUTE RADIOGRAPHIC FINDING IN THE CHEST. Head CT 05/28/17 20:27 IMPRESSION: No acute intracranial findings. EVIDENCE OF ACUTE STROKE: NO. Head MRI 05/29/17 00:00 IMPRESSION: NO ACUTE ISCHEMIA, HEMORRHAGE, OR MASS LESION. CANNOT ASSESS FOR ABNORMAL WHITE MATTER SIGNAL DUE TO NONDIAGNOSTIC FLAIR IMAGING FROM [employer]. EVIDENCE OF ACUTE STROKE: NO. Foot X-Ray 05/31/17 00:00 IMPRESSION: 1. No acute or suspicious radiographic abnormality left the left foot. Shoulder X-Ray 06/20/17 00:00 IMPRESSION: NEGATIVE STUDY OF THE RIGHT SHOULDER. NO RADIOGRAPHIC EVIDENCE OF ACUTE INJURY. NO EXPLANATION FOR PAIN. Assessment & Plan - Diagnosis (1) Korsakoff's psychosis, alcoholic Is this a current diagnosis for this admission?: Yes Plan: Supportive care. Will continue to monitor. (2) Encephalopathy Is this a current diagnosis for this admission?: Yes Plan: Secondary to ETOH Abuse: Resolved. (3) Homelessness Is this a current diagnosis for this admission?: Yes Plan: Case management states that they are trying to locate his family. (4) Hypokalemia Is this a current diagnosis for this admission?: Yes Plan: Resolved. (5) Hypotension Qualifiers: Hypotension type: unspecified hypotension type Qualified Code(s): I95.9 - Hypotension, unspecified Is this a current diagnosis for this admission?: Yes Plan: Will continue current treatment. (6) Hypomagnesemia Is this a current diagnosis for this admission?: Yes Plan: Resolved. (7) Hypothermia Qualifiers: Encounter type: initial encounter Qualified Code(s): T68.XXXA - Hypothermia , initial encounter Is this a current diagnosis for this admission?: Yes Plan: Secondary to environment: Resolved. (8) Hypothyroidism Is this a current diagnosis for this admission?: Yes Plan: Continue Synthroid (9) Sepsis Is this a current diagnosis for this admission?: No Plan: Ruled out (10) DVT prophylaxis Is this a current diagnosis for this admission?: Yes Plan: Heparin - Time Time Spent with patient: Less than 15 minutes
[2017-06-24 04:53] LABS: ABSOLUTE EOSINOPHILS # (AUTO) 0.1 10^3/uL (0.0-0.6); ABSOLUTE LYMPHOCYTES (AUTO) 2.5 10^3/uL (0.5-4.7); ABSOLUTE MONOCYTES (AUTO) 0.8 10^3/uL (0.1-1.4); ABSOLUTE NEUT (AUTO) 2.9 10^3/uL (1.7-8.2); BASOPHILS % (AUTO) 0.4 % (0-2); EOSINOPHILS % (AUTO) 1.6 % (0-6); LYMPHOCYTES % (AUTO) 39.4 % (13-45); MEAN CORPUSCULAR HEMOGLOBIN 35.3 pg (27.0-33.4); MEAN CORPUSCULAR HGB CONC 34.5 g/dL (32.0-36.0); MEAN CORPUSCULAR VOLUME 102 fl (80-97); PLATELET COUNT 240 10^3/uL (150-450); RED BLOOD COUNT 2.83 10^6/uL (4.35-5.55); RED CELL DISTRIBUTION WIDTH 15.1 % (11.5-14.0); SEGMENTED NEUTROPHILS % (AUTO) 45.6 % (42-78); TOTAL CELLS COUNTED % (AUTO) 100 %; WHITE BLOOD COUNT 6.2 10^3/uL (4.0-10.5)
[2017-06-24] MEDS: HEPARIN SOD (PORCINE) 5,000 UNIT/ML 1 ML SYRINGE SUBCUT SCH ×3 (05:03→21:14)
[2017-06-24 05:05] LABS: GLUCOSE 88 mg/dL (75-110); TOTAL PROTEIN 5.4 g/dL (6.3-8.2)
[2017-06-24 05:07] LABS: ALANINE AMINOTRANSFERASE 27 U/L (21-72); ALBUMIN 3.4 g/dL (3.5-5.0); ALKALINE PHOSPHATASE 35 U/L (38-126); ANION GAP 9 (5-19); ASPARTATE AMINO TRANSFERASE 15 U/L (17-59); BILIRUBIN,DIRECT 0.3 mg/dL (0.0-0.4); BILIRUBIN,TOTAL 0.4 mg/dL (0.2-1.3); BLOOD UREA NITROGEN 18 mg/dL (7-20); CALCIUM 9.9 mg/dL (8.4-10.2); CARBON DIOXIDE 26 mmol/L (22-30); CHLORIDE 105 mmol/L (98-107); POTASSIUM 4.1 mmol/L (3.6-5.0); SODIUM 139.5 mmol/L (137-145)
[2017-06-24] MEDS: LEVOTHYROXINE SODIUM 0.075 MG TABLET PO SCH (05:50)
[2017-06-24] MEDS: THIAMINE HCL 100 MG TABLET PO SCH (09:20)
[2017-06-24] MEDS: DOCUSATE SODIUM 100 MG CAPSULE PO SCH ×2 (09:20→17:02)
[2017-06-24] MEDS: MULTIVITAMIN TABLET PO SCH (09:20)
[2017-06-24] MEDS: BUSPIRONE HCL 10 MG TABLET PO SCH ×2 (09:20→21:14)
[2017-06-24] MEDS: MAGNESIUM OXIDE 400 MG TABLET PO SCH ×2 (09:20→17:02)
[2017-06-24] MEDS: FLUDROCORTISONE ACETATE 0.1 MG TABLET PO SCH (09:20)
--- NOTE | 2017-06-24 18:07 | PDOC PROGRESS REPORT ---
Subjective Progress Note for:: 06/24/17 Subjective:: The patient is resting in his bed. He is awake alert and oriented 1. A review of systems cannot be obtained. Nursing staff reports no overnight events Reason For Visit: HYPOTENSION, HYPOTHERMIA, ENCEPHALOPATHY Physical Exam Vital Signs: Temp Pulse Resp BP Pulse Ox 98.4 F 74 16 95/58 L 99 06/24/17 16:00 06/24/17 16:00 06/24/17 16:00 06/24/17 16:00 06/24/17 16:00 Intake & Output 06/23/17 06/24/17 06/25/17 06:59 06:59 06:59 Intake Total 1220 2085 Balance 1220 2085 Weight 51.6 kg 50.6 kg General appearance: PRESENT: cooperative, disheveled, thin, other - Ill- appearing Head exam: PRESENT: atraumatic, normocephalic Eye exam: PRESENT: conjunctiva pink, EOMI, PERRLA. ABSENT: scleral icterus Mouth exam: PRESENT: moist, tongue midline Respiratory exam: PRESENT: clear to auscultation kae. ABSENT: rales, rhonchi, wheezes Cardiovascular exam: PRESENT: RRR. ABSENT: diastolic murmur, rubs, systolic murmur GI/Abdominal exam: PRESENT: normal bowel sounds, soft. ABSENT: distended, guarding, mass, organolmegaly, rebound, tenderness Rectal exam: PRESENT: deferred Extremities exam: PRESENT: full ROM. ABSENT: calf tenderness, clubbing, pedal edema Neurological exam: PRESENT: alert, altered, awake, oriented to person. ABSENT: oriented to place, oriented to time, oriented to situation Psychiatric exam: PRESENT: normal mood, unusual affect. ABSENT: homicidal ideation, suicidal ideation Skin exam: PRESENT: dry, intact, warm. ABSENT: cyanosis, rash Results Laboratory Results: 06/24/17 04:17 06/24/17 04:17 06/24/17 06/24/17 04:17 04:17 WBC 6.2 RBC 2.83 L Hgb 10.0 L Hct 29.0 L MCV 102 H MCH 35.3 H MCHC 34.5 RDW 15.1 H Plt Count 240 Seg Neutrophils % 45.6 Lymphocytes % 39.4 Monocytes % 13.0 Eosinophils % 1.6 Basophils % 0.4 Absolute Neutrophils 2.9 Absolute Lymphocytes 2.5 Absolute Monocytes 0.8 Absolute Eosinophils 0.1 Absolute Basophils 0.0 Sodium 139.5 Potassium 4.1 Chloride 105 Carbon Dioxide 26 Anion Gap 9 BUN 18 Creatinine 0.56 Est GFR ( Amer) > 60 Est GFR (Non-Af Amer) > 60 Glucose 88 Calcium 9.9 Magnesium 1.8 Total Bilirubin 0.4 AST 15 L ALT 27 Alkaline Phosphatase 35 L Total Protein 5.4 L Albumin 3.4 L Impressions: Chest X-Ray 05/28/17 20:27 IMPRESSION: COPD. NO ACUTE RADIOGRAPHIC FINDING IN THE CHEST. Head CT 05/28/17 20:27 IMPRESSION: No acute intracranial findings. EVIDENCE OF ACUTE STROKE: NO. Head MRI 05/29/17 00:00 IMPRESSION: NO ACUTE ISCHEMIA, HEMORRHAGE, OR MASS LESION. CANNOT ASSESS FOR ABNORMAL WHITE MATTER SIGNAL DUE TO NONDIAGNOSTIC FLAIR IMAGING FROM [employer]. EVIDENCE OF ACUTE STROKE: NO. Foot X-Ray 05/31/17 00:00 IMPRESSION: 1. No acute or suspicious radiographic abnormality left the left foot. Shoulder X-Ray 06/20/17 00:00 IMPRESSION: NEGATIVE STUDY OF THE RIGHT SHOULDER. NO RADIOGRAPHIC EVIDENCE OF ACUTE INJURY. NO EXPLANATION FOR PAIN. Assessment & Plan - Diagnosis (1) Korsakoff's psychosis, alcoholic Is this a current diagnosis for this admission?: Yes Plan: He appears to be at his baseline. (2) Encephalopathy Is this a current diagnosis for this admission?: Yes Plan: Likely due to his Korsakoff's. (3) Homelessness Is this a current diagnosis for this admission?: Yes Plan: We are waiting on placement (4) Hypokalemia Is this a current diagnosis for this admission?: Yes Plan: Repleted (5) Hypotension Qualifiers: Hypotension type: unspecified hypotension type Qualified Code(s): I95.9 - Hypotension, unspecified Is this a current diagnosis for this admission?: Yes Plan: Secondary to dehydration. Resolved (6) Hypomagnesemia Is this a current diagnosis for this admission?: Yes Plan: Repleted (7) Hypothermia Qualifiers: Encounter type: initial encounter Qualified Code(s): T68.XXXA - Hypothermia , initial encounter Is this a current diagnosis for this admission?: Yes Plan: Due to environmental exposure. Resolved (8) Hypothyroidism Is this a current diagnosis for this admission?: Yes Plan: Continue Synthroid (9) Metabolic acidosis Is this a current diagnosis for this admission?: Yes Plan: Resolved (10) Severe protein-calorie malnutrition Is this a current diagnosis for this admission?: Yes Plan: Continue to encourage good p.o. intake. (11) Alcohol abuse Plan: He will need placement (12) Anxiety Is this a current diagnosis for this admission?: Yes Plan: Stable (13) Anemia Plan: He has a macrocytic anemia likely related to his alcohol abuse. His hemoglobin is stable (14) Sepsis Plan: Ruled out - Time Time Spent with patient: 15-24 minutes - Inpatient Certification Based on my medical assessment, after consideration of the patient's comorbidities, presenting symptoms, or acuity I expect that the services needed warrant INPATIENT care.: Yes I certify that my determination is in accordance with my understanding of Medicare's requirements for reasonable and necessary INPATIENT services [42 CFR 412.3e].: Yes Medical Necessity: Other - Inpatient hospitalization remains necessary for disposition. Is not safe to discharge the patient and his confused state to the street. We are waiting on placement. The discharge planners are working on this.
[2017-06-25] MEDS: HEPARIN SOD (PORCINE) 5,000 UNIT/ML 1 ML SYRINGE SUBCUT SCH ×3 (05:02→21:45)
[2017-06-25] MEDS: LEVOTHYROXINE SODIUM 0.075 MG TABLET PO SCH (05:45)
[2017-06-25] MEDS: THIAMINE HCL 100 MG TABLET PO SCH (09:15)
[2017-06-25] MEDS: DOCUSATE SODIUM 100 MG CAPSULE PO SCH ×2 (09:15→18:53)
[2017-06-25] MEDS: MULTIVITAMIN TABLET PO SCH (09:15)
[2017-06-25] MEDS: FLUDROCORTISONE ACETATE 0.1 MG TABLET PO SCH (09:15)
[2017-06-25] MEDS: BUSPIRONE HCL 10 MG TABLET PO SCH ×2 (09:15→22:01)
[2017-06-25] MEDS: MAGNESIUM OXIDE 400 MG TABLET PO SCH ×2 (09:15→18:52)
--- NOTE | 2017-06-25 16:57 | PDOC PROGRESS REPORT ---
Subjective Progress Note for:: 06/25/17 Subjective:: The patient is resting in his bed. He is awake alert and oriented 2 today. He answers questions fairly appropriately. He denies fever chills. No chest pain, shortness of breath or heart palpitations. He states he is not eating well because he does not have any appetite. No nausea vomiting or diarrhea. No urinary complaints Reason For Visit: HYPOTENSION, HYPOTHERMIA, ENCEPHALOPATHY Physical Exam Vital Signs: Temp Pulse Resp BP Pulse Ox 98.1 F 69 12 98/65 L 100 06/25/17 12:27 06/25/17 12:27 06/25/17 12:27 06/25/17 12:27 06/25/17 12:27 Intake & Output 06/24/17 06/25/17 06/26/17 06:59 06:59 06:59 Intake Total 2084 1650 Output Total 600 Balance 2084 1050 Weight 50.6 kg 50.6 kg General appearance: PRESENT: no acute distress, disheveled, thin Head exam: PRESENT: atraumatic, normocephalic Mouth exam: PRESENT: moist, tongue midline Respiratory exam: PRESENT: clear to auscultation kae. ABSENT: rales, rhonchi, wheezes Cardiovascular exam: PRESENT: RRR. ABSENT: diastolic murmur, rubs, systolic murmur GI/Abdominal exam: PRESENT: normal bowel sounds, soft. ABSENT: distended, guarding, mass, organolmegaly, rebound, tenderness Rectal exam: PRESENT: deferred Extremities exam: PRESENT: full ROM. ABSENT: calf tenderness, clubbing, pedal edema Neurological exam: PRESENT: alert, awake, oriented to person, oriented to place , oriented to time, oriented to situation, CN II-XII grossly intact. ABSENT: motor sensory deficit Psychiatric exam: PRESENT: unusual affect. ABSENT: agitated, anxious, homicidal ideation, suicidal ideation Skin exam: PRESENT: dry, intact, warm. ABSENT: cyanosis, rash Results Laboratory Results: 06/24/17 04:17 06/24/17 04:17 Impressions: Chest X-Ray 05/28/17 20:27 IMPRESSION: COPD. NO ACUTE RADIOGRAPHIC FINDING IN THE CHEST. Head CT 05/28/17 20:27 IMPRESSION: No acute intracranial findings. EVIDENCE OF ACUTE STROKE: NO. Head MRI 05/29/17 00:00 IMPRESSION: NO ACUTE ISCHEMIA, HEMORRHAGE, OR MASS LESION. CANNOT ASSESS FOR ABNORMAL WHITE MATTER SIGNAL DUE TO NONDIAGNOSTIC FLAIR IMAGING FROM [employer]. EVIDENCE OF ACUTE STROKE: NO. Foot X-Ray 05/31/17 00:00 IMPRESSION: 1. No acute or suspicious radiographic abnormality left the left foot. Shoulder X-Ray 06/20/17 00:00 IMPRESSION: NEGATIVE STUDY OF THE RIGHT SHOULDER. NO RADIOGRAPHIC EVIDENCE OF ACUTE INJURY. NO EXPLANATION FOR PAIN. Assessment & Plan - Diagnosis (1) Korsakoff's psychosis, alcoholic Is this a current diagnosis for this admission?: Yes Plan: He appears to be at his baseline. No change from yesterday. (2) Encephalopathy Is this a current diagnosis for this admission?: Yes Plan: Likely due to his Korsakoff's. (3) Homelessness Is this a current diagnosis for this admission?: Yes Plan: We are waiting on placement (4) Hypokalemia Is this a current diagnosis for this admission?: Yes Plan: Repleted (5) Hypotension Qualifiers: Hypotension type: unspecified hypotension type Qualified Code(s): I95.9 - Hypotension, unspecified Is this a current diagnosis for this admission?: Yes Plan: Secondary to dehydration. Resolved (6) Hypomagnesemia Is this a current diagnosis for this admission?: Yes Plan: Repleted (7) Hypothermia Qualifiers: Encounter type: initial encounter Qualified Code(s): T68.XXXA - Hypothermia , initial encounter Is this a current diagnosis for this admission?: Yes Plan: Due to environmental exposure. Resolved (8) Hypothyroidism Is this a current diagnosis for this admission?: Yes Plan: Continue Synthroid (9) Metabolic acidosis Is this a current diagnosis for this admission?: Yes Plan: Resolved (10) Severe protein-calorie malnutrition Is this a current diagnosis for this admission?: Yes Plan: Continue to encourage good p.o. intake. (11) Alcohol abuse Plan: He will need placement (12) Anxiety Is this a current diagnosis for this admission?: Yes Plan: Stable (13) Anemia Plan: He has a macrocytic anemia likely related to his alcohol abuse. His hemoglobin is stable (14) Sepsis Plan: Ruled out - Time Time Spent with patient: 15-24 minutes - Inpatient Certification Based on my medical assessment, after consideration of the patient's comorbidities, presenting symptoms, or acuity I expect that the services needed warrant INPATIENT care.: Yes I certify that my determination is in accordance with my understanding of Medicare's requirements for reasonable and necessary INPATIENT services [42 CFR 412.3e].: Yes Medical Necessity: Other - Inpatient hospitalization remains necessary for disposition. Due to the patient's ongoing confusion and homelessness it is not felt safe to discharge the patient. The discharge planners are working on placement.
[2017-06-26] MEDS: HEPARIN SOD (PORCINE) 5,000 UNIT/ML 1 ML SYRINGE SUBCUT SCH ×3 (05:09→21:03)
[2017-06-26] MEDS: LEVOTHYROXINE SODIUM 0.075 MG TABLET PO SCH (05:54)
[2017-06-26] MEDS: DOCUSATE SODIUM 100 MG CAPSULE PO SCH ×2 (10:14→18:09)
[2017-06-26] MEDS: MULTIVITAMIN TABLET PO SCH (10:14)
[2017-06-26] MEDS: MAGNESIUM OXIDE 400 MG TABLET PO SCH ×2 (10:14→18:09)
[2017-06-26] MEDS: FLUDROCORTISONE ACETATE 0.1 MG TABLET PO SCH (10:14)
[2017-06-26] MEDS: BUSPIRONE HCL 10 MG TABLET PO SCH ×2 (10:14→21:55)
[2017-06-26] MEDS: THIAMINE HCL 100 MG TABLET PO SCH (10:15)
--- NOTE | 2017-06-26 16:14 | PDOC PROGRESS REPORT ---
Subjective Progress Note for:: 06/26/17 Subjective:: Today the patient states that he is not feeling well. He states that his chest feels a little tight and he is a little short of breath. He states that he is developed a little bit of a sore throat. He denies fever chills. No chest pain or heart palpitations. No nausea vomiting or diarrhea. He states he does not have much of an appetite. No dysuria frequency or hematuria. The patient is awake alert and oriented 2 today. Reason For Visit: HYPOTENSION, HYPOTHERMIA, ENCEPHALOPATHY Physical Exam Vital Signs: Temp Pulse Resp BP Pulse Ox 98.1 F 66 18 104/59 L 100 06/26/17 11:51 06/26/17 11:51 06/26/17 11:51 06/26/17 11:51 06/26/17 11:51 Intake & Output 06/25/17 06/26/17 06/27/17 06:59 06:59 06:59 Intake Total 1650 1072 Output Total 600 600 Balance 1050 472 Weight 50.6 kg 50.6 kg General appearance: PRESENT: no acute distress, well-developed, well-nourished Head exam: PRESENT: atraumatic, normocephalic Eye exam: PRESENT: conjunctiva pink, EOMI, PERRLA. ABSENT: scleral icterus Mouth exam: PRESENT: moist, tongue midline Respiratory exam: PRESENT: rhonchi Cardiovascular exam: PRESENT: RRR. ABSENT: diastolic murmur, rubs, systolic murmur GI/Abdominal exam: PRESENT: normal bowel sounds, soft. ABSENT: distended, guarding, mass, organolmegaly, rebound, tenderness Extremities exam: PRESENT: full ROM. ABSENT: calf tenderness, clubbing, pedal edema Neurological exam: PRESENT: alert, awake, oriented to person, oriented to place , oriented to time, oriented to situation, CN II-XII grossly intact. ABSENT: motor sensory deficit Psychiatric exam: PRESENT: appropriate affect, normal mood. ABSENT: homicidal ideation, suicidal ideation Skin exam: PRESENT: dry, intact, warm. ABSENT: cyanosis, rash Results Laboratory Results: 06/24/17 04:17 06/24/17 04:17 Impressions: Chest X-Ray 05/28/17 20:27 IMPRESSION: COPD. NO ACUTE RADIOGRAPHIC FINDING IN THE CHEST. Head CT 05/28/17 20:27 IMPRESSION: No acute intracranial findings. EVIDENCE OF ACUTE STROKE: NO. Head MRI 05/29/17 00:00 IMPRESSION: NO ACUTE ISCHEMIA, HEMORRHAGE, OR MASS LESION. CANNOT ASSESS FOR ABNORMAL WHITE MATTER SIGNAL DUE TO NONDIAGNOSTIC FLAIR IMAGING FROM [employer]. EVIDENCE OF ACUTE STROKE: NO. Foot X-Ray 05/31/17 00:00 IMPRESSION: 1. No acute or suspicious radiographic abnormality left the left foot. Shoulder X-Ray 06/20/17 00:00 IMPRESSION: NEGATIVE STUDY OF THE RIGHT SHOULDER. NO RADIOGRAPHIC EVIDENCE OF ACUTE INJURY. NO EXPLANATION FOR PAIN. Assessment & Plan - Diagnosis (1) Korsakoff's psychosis, alcoholic Is this a current diagnosis for this admission?: Yes Plan: He appears to be at his baseline. No change from yesterday. (2) Encephalopathy Is this a current diagnosis for this admission?: Yes Plan: Likely due to his Korsakoff's. (3) Shortness of breath Is this a current diagnosis for this admission?: Yes Plan: The patient states he is short of breath this morning. He has some coarse rhonchi noted on exam today. I am going to obtain a chest x-ray on the patient. All of his vital signs are good. He is not febrile. He may be developing a viral respiratory infection. I will get a CBC on the patient in the morning and follow-up with the results of his chest x-ray. (4) Homelessness Is this a current diagnosis for this admission?: Yes (5) Hypokalemia Is this a current diagnosis for this admission?: Yes (6) Hypotension Qualifiers: Hypotension type: unspecified hypotension type Qualified Code(s): I95.9 - Hypotension, unspecified Is this a current diagnosis for this admission?: Yes (7) Hypomagnesemia Is this a current diagnosis for this admission?: Yes (8) Hypothermia Qualifiers: Encounter type: initial encounter Qualified Code(s): T68.XXXA - Hypothermia , initial encounter Is this a current diagnosis for this admission?: Yes (9) Hypothyroidism Is this a current diagnosis for this admission?: Yes (10) Metabolic acidosis Is this a current diagnosis for this admission?: Yes (11) Severe protein-calorie malnutrition Is this a current diagnosis for this admission?: Yes (13) Anxiety Is this a current diagnosis for this admission?: Yes - Time Time Spent with patient: 15-24 minutes - Inpatient Certification Based on my medical assessment, after consideration of the patient's comorbidities, presenting symptoms, or acuity I expect that the services needed warrant INPATIENT care.: Yes I certify that my determination is in accordance with my understanding of Medicare's requirements for reasonable and necessary INPATIENT services [42 CFR 412.3e].: Yes Medical Necessity: Other - Inpatient hospitalization remains necessary for disposition. Overall the patient is not felt to be competent to go back to his previous living situation. He was homeless living on the streets. He remains confused and he needs placement. He will be transferred to a facility as soon as a bed is found
--- NOTE | 2017-06-26 17:00 | RADIOLOGY REPORT (SQ) ---
EXAM DESCRIPTION: CHEST PA/LAT COMPLETED DATE/TIME: 06/26/2017 4:50 pm REASON FOR STUDY: sob COMPARISON: 05/28/2017. NUMBER OF VIEWS: Two view. TECHNIQUE: Frontal and lateral radiographic views of the chest acquired. LIMITATIONS: None. FINDINGS: LUNGS AND PLEURA: No opacities, masses or pneumothorax. No pleural effusion. Attenuated bl ood vessels and flattened kike-diaphragms. MEDIASTINUM AND HILAR STRUCTURES: No masses. No contour abnormalities. HEART AND VASCULAR STRUCTURES: Heart normal in size and contour. No evidence for failure. BONES: No acute findings. HARDWARE: None in the chest. OTHER: No other significant finding. IMPRESSION: COPD. NO ACUTE RADIOGRAPHIC FINDING IN THE CHEST. TECHNICAL DOCUMENTATION: JOB ID: [id number] [employer]- All Rights Reserved
[2017-06-27] MEDS: HEPARIN SOD (PORCINE) 5,000 UNIT/ML 1 ML SYRINGE SUBCUT SCH ×3 (04:45→22:04)
[2017-06-27 05:11] LABS: ABSOLUTE EOSINOPHILS # (AUTO) 0.1 10^3/uL (0.0-0.6); ABSOLUTE LYMPHOCYTES (AUTO) 2.5 10^3/uL (0.5-4.7); ABSOLUTE MONOCYTES (AUTO) 0.8 10^3/uL (0.1-1.4); ABSOLUTE NEUT (AUTO) 2.7 10^3/uL (1.7-8.2); BASOPHILS % (AUTO) 0.2 % (0-2); EOSINOPHILS % (AUTO) 1.1 % (0-6); HEMATOCRIT 30.9 % (37.9-51.0); HEMOGLOBIN 10.7 g/dL (13.5-17.0); LYMPHOCYTES % (AUTO) 40.8 % (13-45); MEAN CORPUSCULAR HEMOGLOBIN 34.9 pg (27.0-33.4); MEAN CORPUSCULAR HGB CONC 34.7 g/dL (32.0-36.0); MEAN CORPUSCULAR VOLUME 101 fl (80-97); MONOCYTES % (AUTO) 13.6 % (3-13); PLATELET COUNT 251 10^3/uL (150-450); RED BLOOD COUNT 3.07 10^6/uL (4.35-5.55); RED CELL DISTRIBUTION WIDTH 14.1 % (11.5-14.0); SEGMENTED NEUTROPHILS % (AUTO) 44.3 % (42-78); TOTAL CELLS COUNTED % (AUTO) 100 %; WHITE BLOOD COUNT 6.1 10^3/uL (4.0-10.5)
[2017-06-27] MEDS: LEVOTHYROXINE SODIUM 0.075 MG TABLET PO SCH (05:13)
[2017-06-27 05:28] LABS: ANION GAP 9 (5-19); BLOOD UREA NITROGEN 16 mg/dL (7-20); CALCIUM 10.1 mg/dL (8.4-10.2); CARBON DIOXIDE 28 mmol/L (22-30); CHLORIDE 103 mmol/L (98-107); GLUCOSE 86 mg/dL (75-110); POTASSIUM 4.5 mmol/L (3.6-5.0); SODIUM 139.9 mmol/L (137-145)
[2017-06-27] MEDS: NORMAL SALINE 1000 ML 1,000 ML IV PRN ×2 (10:33→18:33)
[2017-06-27] MEDS: MAGNESIUM OXIDE 400 MG TABLET PO SCH ×2 (10:37→17:15)
[2017-06-27] MEDS: THIAMINE HCL 100 MG TABLET PO SCH (10:37)
[2017-06-27] MEDS: BUSPIRONE HCL 10 MG TABLET PO SCH ×2 (10:37→22:19)
[2017-06-27] MEDS: DOCUSATE SODIUM 100 MG CAPSULE PO SCH ×2 (10:37→17:15)
[2017-06-27] MEDS: MULTIVITAMIN TABLET PO SCH (10:37)
[2017-06-27] MEDS: FLUDROCORTISONE ACETATE 0.1 MG TABLET PO SCH (10:38)
--- NOTE | 2017-06-27 11:09 | PDOC PROGRESS REPORT ---
Subjective Progress Note for:: 06/27/17 Subjective:: The patient is a 61-year-old homeless man who was brought to the emergency room with confusion. He was found to be hypotensive and encephalopathic. He was initially in the ICU. He had multiple electrolyte abnormalities at the time of admission which is since been corrected. It is felt that the patient has Korsakoff encephalopathy. He is currently awaiting disposition. It is felt that the patient needs placement due to his homeless status and ongoing encephalopathy. He cannot make good decisions for himself. The patient has been telling me for the past couple of days that he does not feel well. He cannot elaborate on this. He states that he just feels weak. He denies fever chills. He has had no chest pain. He does not report a cough. He states his chest feels a little tight at times. He has had no nausea, vomiting or diarrhea. He has not been eating well. He states he does not have much of an appetite. He reports no abdominal pain. No urinary complaints. I am not sure how good this review of systems is as the patient is somewhat confused. He is awake alert and oriented 2 today. Reason For Visit: HYPOTENSION, HYPOTHERMIA, ENCEPHALOPATHY Physical Exam Vital Signs: Temp Pulse Resp BP Pulse Ox 98.7 F 69 16 92/52 L 99 06/27/17 08:00 06/27/17 08:00 06/27/17 08:00 06/27/17 08:00 06/27/17 08:00 Intake & Output 06/26/17 06/27/17 06/28/17 06:59 06:59 06:59 Intake Total 1072 1249 Output Total 600 600 Balance 472 649 Weight 50.6 kg 50.6 kg General appearance: PRESENT: no acute distress, disheveled Head exam: PRESENT: atraumatic, normocephalic Eye exam: PRESENT: conjunctiva pink, EOMI, PERRLA. ABSENT: scleral icterus Mouth exam: PRESENT: dry mucosa Respiratory exam: PRESENT: rhonchi Cardiovascular exam: PRESENT: RRR. ABSENT: diastolic murmur, rubs, systolic murmur GI/Abdominal exam: PRESENT: normal bowel sounds, soft. ABSENT: distended, guarding, mass, organolmegaly, rebound, tenderness Rectal exam: PRESENT: deferred Extremities exam: PRESENT: full ROM. ABSENT: calf tenderness, clubbing, pedal edema Neurological exam: PRESENT: awake, oriented to person, oriented to place. ABSENT: oriented to time, oriented to situation Psychiatric exam: PRESENT: appropriate affect, normal mood. ABSENT: homicidal ideation, suicidal ideation Skin exam: PRESENT: dry, intact, warm. ABSENT: cyanosis, rash Results Laboratory Results: 06/27/17 04:13 06/27/17 04:13 06/27/17 06/27/17 04:13 04:13 WBC 6.1 RBC 3.07 L Hgb 10.7 L Hct 30.9 L MCV 101 H MCH 34.9 H MCHC 34.7 RDW 14.1 H Plt Count 251 Seg Neutrophils % 44.3 Lymphocytes % 40.8 Monocytes % 13.6 H Eosinophils % 1.1 Basophils % 0.2 Absolute Neutrophils 2.7 Absolute Lymphocytes 2.5 Absolute Monocytes 0.8 Absolute Eosinophils 0.1 Absolute Basophils 0.0 Sodium 139.9 Potassium 4.5 Chloride 103 Carbon Dioxide 28 Anion Gap 9 BUN 16 Creatinine 0.56 Est GFR ( Amer) > 60 Est GFR (Non-Af Amer) > 60 Glucose 86 Calcium 10.1 Magnesium 1.8 Impressions: Head CT 05/28/17 20:27 IMPRESSION: No acute intracranial findings. EVIDENCE OF ACUTE STROKE: NO. Head MRI 05/29/17 00:00 IMPRESSION: NO ACUTE ISCHEMIA, HEMORRHAGE, OR MASS LESION. CANNOT ASSESS FOR ABNORMAL WHITE MATTER SIGNAL DUE TO NONDIAGNOSTIC FLAIR IMAGING FROM [employer]. EVIDENCE OF ACUTE STROKE: NO. Foot X-Ray 05/31/17 00:00 IMPRESSION: 1. No acute or suspicious radiographic abnormality left the left foot. Shoulder X-Ray 06/20/17 00:00 IMPRESSION: NEGATIVE STUDY OF THE RIGHT SHOULDER. NO RADIOGRAPHIC EVIDENCE OF ACUTE INJURY. NO EXPLANATION FOR PAIN. Chest X-Ray 06/26/17 00:00 IMPRESSION: COPD. NO ACUTE RADIOGRAPHIC FINDING IN THE CHEST. Assessment & Plan - Diagnosis (1) Korsakoff's psychosis, alcoholic Is this a current diagnosis for this admission?: Yes Plan: He appears to be at his baseline. No change from yesterday. (2) Encephalopathy Is this a current diagnosis for this admission?: Yes Plan: Likely due to his Korsakoff's. I do believe his encephalopathy has improved since the time of admission. He did have multiple electrolyte abnormalities that were likely contributing as well as being hypotensive and hypothermic at the time of admission. (3) Shortness of breath Is this a current diagnosis for this admission?: Yes Plan: The patient has some coarse breath sounds. A chest x-ray yesterday did not reveal an underlying pneumonia. He is afebrile. I did repeat labs today which are unremarkable. I am going to start the patient on some breathing treatments. He does have a history of tobacco abuse. (4) Homelessness Is this a current diagnosis for this admission?: Yes Plan: We are waiting on placement (5) Hypokalemia Is this a current diagnosis for this admission?: Yes Plan: Repleted (6) Hypotension Qualifiers: Hypotension type: unspecified hypotension type Qualified Code(s): I95.9 - Hypotension, unspecified Is this a current diagnosis for this admission?: Yes Plan: Secondary to dehydration. Resolved. He was initially admitted to the ICU and was briefly on pressors. (7) Hypomagnesemia Is this a current diagnosis for this admission?: Yes Plan: Repleted (8) Hypothermia Qualifiers: Encounter type: initial encounter Qualified Code(s): T68.XXXA - Hypothermia , initial encounter Is this a current diagnosis for this admission?: Yes (9) Hypothyroidism Is this a current diagnosis for this admission?: Yes (10) Metabolic acidosis Is this a current diagnosis for this admission?: Yes (11) Severe protein-calorie malnutrition Is this a current diagnosis for this admission?: Yes (13) Anxiety Is this a current diagnosis for this admission?: Yes (15) Dehydration Plan: The patient seems a little dry today. He has not been eating or drinking well. He is a little hypotensive this morning. I am going to give him 2 L of normal saline today. We will check labs in the morning. (16) Sepsis Plan: Ruled out - Time Time Spent with patient: 15-24 minutes - Inpatient Certification Medical Necessity: Other - Inpatient hospitalization remains necessary for disposition. I am going to give the patient some IV fluids today as he looks like he is becoming a little dry and does not feel well. He is stable for transport really at any time we can get a bed available.
[2017-06-28] MEDS: LEVOTHYROXINE SODIUM 0.075 MG TABLET PO SCH (05:08)
[2017-06-28 05:32] LABS: ABSOLUTE EOSINOPHILS # (AUTO) 0.1 10^3/uL (0.0-0.6); ABSOLUTE LYMPHOCYTES (AUTO) 2.1 10^3/uL (0.5-4.7); ABSOLUTE MONOCYTES (AUTO) 0.7 10^3/uL (0.1-1.4); ABSOLUTE NEUT (AUTO) 2.1 10^3/uL (1.7-8.2); BASOPHILS % (AUTO) 0.6 % (0-2); EOSINOPHILS % (AUTO) 1.7 % (0-6); HEMATOCRIT 28.6 % (37.9-51.0); HEMOGLOBIN 10.1 g/dL (13.5-17.0); LYMPHOCYTES % (AUTO) 42.2 % (13-45); MEAN CORPUSCULAR HEMOGLOBIN 36.1 pg (27.0-33.4); MEAN CORPUSCULAR HGB CONC 35.5 g/dL (32.0-36.0); MEAN CORPUSCULAR VOLUME 102 fl (80-97); MONOCYTES % (AUTO) 13.3 % (3-13); PLATELET COUNT 241 10^3/uL (150-450); RED BLOOD COUNT 2.81 10^6/uL (4.35-5.55); RED CELL DISTRIBUTION WIDTH 14.5 % (11.5-14.0); SEGMENTED NEUTROPHILS % (AUTO) 42.2 % (42-78); TOTAL CELLS COUNTED % (AUTO) 100 %
[2017-06-28 05:55] LABS: ANION GAP 6 (5-19); BLOOD UREA NITROGEN 13 mg/dL (7-20); CALCIUM 9.5 mg/dL (8.4-10.2); CARBON DIOXIDE 27 mmol/L (22-30); CHLORIDE 107 mmol/L (98-107); GLUCOSE 91 mg/dL (75-110); PHOSPHORUS 4.6 mg/dL (2.5-4.5); POTASSIUM 4.2 mmol/L (3.6-5.0); SODIUM 140.2 mmol/L (137-145)
[2017-06-28] MEDS: BUSPIRONE HCL 10 MG TABLET PO SCH ×2 (09:59→21:26)
[2017-06-28] MEDS: MAGNESIUM OXIDE 400 MG TABLET PO SCH ×2 (09:59→17:26)
[2017-06-28] MEDS: FLUDROCORTISONE ACETATE 0.1 MG TABLET PO SCH (10:00)
--- NOTE | 2017-06-28 12:38 | PDOC PROGRESS REPORT ---
Subjective Progress Note for:: 06/28/17 Subjective:: The patient is a 61-year-old male who was brought in by police secondary to being found wandering in [place]. He is chronically an alcoholic. 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 The patient has been treated for hypothermia from exposure, hypotension likely associated with adrenal insufficiency, severe protein calorie malnutrition and vitamin deficiencies. He remains in the hospital. He is not safe for discharge. We are working on a disposition for this patient with discharge planning. Patient remains disoriented and continues to confabulate stories. The patient is estranged from his family including his . Discharge planning has now involved Adult Protective Services. Today, the patient's blood pressure was tenuous. He was given IV fluids, 2 L. His labs remained stable. Today, the patient still unaware of where he is or why he is here. Reason For Visit: HYPOTENSION, HYPOTHERMIA, ENCEPHALOPATHY Physical Exam Vital Signs: Temp Pulse Resp BP Pulse Ox 98.6 F 62 12 104/59 L 96 06/28/17 11:41 06/28/17 11:41 06/28/17 11:41 06/28/17 11:41 06/28/17 11:41 Intake & Output 06/27/17 06/28/17 06/29/17 06:59 06:59 06:59 Intake Total 1249 2644 Output Total 600 200 Balance 649 2444 Weight 50.6 kg 55.8 kg Additional comments: The patient does not appear to be in any distress. He is disheveled in appearance. He is calm and polite and tries to answer questions appropriately identify where he is or why he is here. His facial appearance is normal. Halitosis is noted. His lungs are clear today. Apparently, yesterday and the day before he did have some coarse rhonchi present. His cardiac exam is regular without murmurs, gallops or rubs. His abdomen is soft and flat. Bowel sounds are present. He does not have any lower extremity edema. The skin is warm, dry and intact in the visible areas. Results Laboratory Results: 06/28/17 05:16 06/28/17 05:16 06/28/17 06/28/17 05:16 05:16 WBC 5.0 RBC 2.81 L Hgb 10.1 L Hct 28.6 L MCV 102 H MCH 36.1 H MCHC 35.5 RDW 14.5 H Plt Count 241 Seg Neutrophils % 42.2 Lymphocytes % 42.2 Monocytes % 13.3 H Eosinophils % 1.7 Basophils % 0.6 Absolute Neutrophils 2.1 Absolute Lymphocytes 2.1 Absolute Monocytes 0.7 Absolute Eosinophils 0.1 Absolute Basophils 0.0 Sodium 140.2 Potassium 4.2 Chloride 107 Carbon Dioxide 27 Anion Gap 6 BUN 13 Creatinine 0.51 L Est GFR ( Amer) > 60 Est GFR (Non-Af Amer) > 60 Glucose 91 Calcium 9.5 Phosphorus 4.6 H Magnesium 1.8 Impressions: Head CT 05/28/17 20:27 IMPRESSION: No acute intracranial findings. EVIDENCE OF ACUTE STROKE: NO. Head MRI 05/29/17 00:00 IMPRESSION: NO ACUTE ISCHEMIA, HEMORRHAGE, OR MASS LESION. CANNOT ASSESS FOR ABNORMAL WHITE MATTER SIGNAL DUE TO NONDIAGNOSTIC FLAIR IMAGING FROM [employer]. EVIDENCE OF ACUTE STROKE: NO. Foot X-Ray 05/31/17 00:00 IMPRESSION: 1. No acute or suspicious radiographic abnormality left the left foot. Shoulder X-Ray 06/20/17 00:00 IMPRESSION: NEGATIVE STUDY OF THE RIGHT SHOULDER. NO RADIOGRAPHIC EVIDENCE OF ACUTE INJURY. NO EXPLANATION FOR PAIN. Chest X-Ray 06/26/17 00:00 IMPRESSION: COPD. NO ACUTE RADIOGRAPHIC FINDING IN THE CHEST. Assessment & Plan - Diagnosis (1) Encephalopathy Is this a current diagnosis for this admission?: Yes (2) Hypokalemia Is this a current diagnosis for this admission?: Yes (3) Hypomagnesemia Is this a current diagnosis for this admission?: Yes (4) Hypotension Qualifiers: Hypotension type: unspecified hypotension type Qualified Code(s): I95.9 - Hypotension, unspecified Is this a current diagnosis for this admission?: Yes (5) Hypothermia Qualifiers: Encounter type: initial encounter Qualified Code(s): T68.XXXA - Hypothermia , initial encounter Is this a current diagnosis for this admission?: Yes (6) Hypothyroidism Is this a current diagnosis for this admission?: Yes (7) Metabolic acidosis Is this a current diagnosis for this admission?: Yes (8) Sepsis Is this a current diagnosis for this admission?: No (9) Severe protein-calorie malnutrition Is this a current diagnosis for this admission?: Yes (10) Korsakoff's psychosis, alcoholic Is this a current diagnosis for this admission?: Yes - Time Time Spent with patient: 15-24 minutes - Inpatient Certification Medical Necessity: Risk of Complication if Not Cared For in Hospital - Plan Summary Plan Summary: The patient is not safe for discharge on his own accord. We are working on placement for this patient. At the present time the patient's medical issues appear to be stable. Once disposition is arranged I feel that he can be safely transferred.
[2017-06-28] MEDS ORDERED: INFLUENZA ADLT QUAD (36MOS+) 2017-18 VAC 0.5 ML SYR IM PRN (18:05)
[2017-06-28] MEDS ORDERED: MAGNESIUM HYDROXIDE SUSP 30 ML UDCUP PO PRN (18:05)
[2017-06-28] MEDS: DOCUSATE SODIUM 100 MG CAPSULE PO SCH (18:48)
[2017-06-29] MEDS: LEVOTHYROXINE SODIUM 0.075 MG TABLET PO SCH (05:18)
[2017-06-29] MEDS: FLUDROCORTISONE ACETATE 0.1 MG TABLET PO SCH (10:23)
[2017-06-29] MEDS: BUSPIRONE HCL 10 MG TABLET PO SCH ×2 (10:23→21:44)
[2017-06-29] MEDS: THIAMINE HCL 100 MG TABLET PO SCH (10:23)
[2017-06-29] MEDS: MULTIVITAMIN TABLET PO SCH (10:23)
[2017-06-29] MEDS: DOCUSATE SODIUM 100 MG CAPSULE PO SCH ×2 (10:23→17:27)
--- NOTE | 2017-06-29 11:44 | PDOC PROGRESS REPORT ---
Subjective Progress Note for:: 06/29/17 Subjective:: The patient is a 61-year-old male who was brought in by police secondary to being found wandering in [place]. He is chronically an alcoholic. 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 The patient has been treated for hypothermia from exposure, hypotension likely associated with adrenal insufficiency, severe protein calorie malnutrition and vitamin deficiencies. He remains in the hospital. He is not safe for discharge. We are working on a disposition for this patient with discharge planning. Patient remains disoriented and continues to confabulate stories. The patient is estranged from his family including his . Discharge planning has now involved Adult Protective Services. Reason For Visit: HYPOTENSION, HYPOTHERMIA, ENCEPHALOPATHY Physical Exam Vital Signs: Temp Pulse Resp BP Pulse Ox 98.5 F 76 16 94/61 L 97 06/29/17 08:00 06/29/17 08:00 06/29/17 08:00 06/29/17 08:00 06/29/17 08:00 Intake & Output 06/28/17 06/29/17 06/30/17 06:59 06:59 06:59 Intake Total 2644 1780 Output Total 200 Balance 2444 1780 Weight 55.8 kg Additional comments: The patient was asleep when I entered the room. He is startled fairly easily when I woke him up. He continues to have severe halitosis. He does have a lesion on his nose. This could be an early skin cancer. His lungs are clear bilaterally. His cardiac exam is within normal limits. His abdominal exam is benign. Results Laboratory Results: 06/28/17 05:16 06/28/17 05:16 Impressions: Head CT 05/28/17 20:27 IMPRESSION: No acute intracranial findings. EVIDENCE OF ACUTE STROKE: NO. Head MRI 05/29/17 00:00 IMPRESSION: NO ACUTE ISCHEMIA, HEMORRHAGE, OR MASS LESION. CANNOT ASSESS FOR ABNORMAL WHITE MATTER SIGNAL DUE TO NONDIAGNOSTIC FLAIR IMAGING FROM [employer]. EVIDENCE OF ACUTE STROKE: NO. Foot X-Ray 05/31/17 00:00 IMPRESSION: 1. No acute or suspicious radiographic abnormality left the left foot. Shoulder X-Ray 06/20/17 00:00 IMPRESSION: NEGATIVE STUDY OF THE RIGHT SHOULDER. NO RADIOGRAPHIC EVIDENCE OF ACUTE INJURY. NO EXPLANATION FOR PAIN. Chest X-Ray 06/26/17 00:00 IMPRESSION: COPD. NO ACUTE RADIOGRAPHIC FINDING IN THE CHEST. Assessment & Plan - Diagnosis (1) Encephalopathy Is this a current diagnosis for this admission?: Yes (2) Hypokalemia Is this a current diagnosis for this admission?: Yes (3) Hypomagnesemia Is this a current diagnosis for this admission?: Yes (4) Hypotension Qualifiers: Hypotension type: unspecified hypotension type Qualified Code(s): I95.9 - Hypotension, unspecified Is this a current diagnosis for this admission?: Yes (5) Hypothermia Qualifiers: Encounter type: initial encounter Qualified Code(s): T68.XXXA - Hypothermia , initial encounter Is this a current diagnosis for this admission?: Yes (6) Hypothyroidism Is this a current diagnosis for this admission?: Yes (7) Metabolic acidosis Is this a current diagnosis for this admission?: Yes (8) Sepsis Is this a current diagnosis for this admission?: No (9) Severe protein-calorie malnutrition Is this a current diagnosis for this admission?: Yes (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 This has led to homelessness. He has had significant metabolic disturbances and hypothermia which have been treated this hospitalization. He remains on thiamine but continues to have what appears to be Korsakoff's dementia. At the present time we are waiting to place the patient.
[2017-06-29] MEDS: HYDROXYZINE PAMOATE 25 MG CAPSULE PO PRN (14:38)
[2017-06-29] MEDS: ACETAMINOPHEN 325 MG TABLET PO PRN (14:38)
[2017-06-30] MEDS: LEVOTHYROXINE SODIUM 0.075 MG TABLET PO SCH (05:49)
[2017-06-30] MEDS: THIAMINE HCL 100 MG TABLET PO SCH (10:41)
[2017-06-30] MEDS: DOCUSATE SODIUM 100 MG CAPSULE PO SCH ×2 (10:41→17:11)
[2017-06-30] MEDS: FLUDROCORTISONE ACETATE 0.1 MG TABLET PO SCH (10:41)
[2017-06-30] MEDS: BUSPIRONE HCL 10 MG TABLET PO SCH ×2 (10:42→21:00)
[2017-06-30] MEDS: MULTIVITAMIN TABLET PO SCH (10:42)
--- NOTE | 2017-06-30 14:02 | PDOC PROGRESS REPORT ---
Subjective Progress Note for:: 06/30/17 Subjective:: The patient is a 61-year-old male who was brought in by police secondary to being found wandering in [place]. He is chronically an alcoholic. 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 The patient has been treated for hypothermia from exposure, hypotension likely associated with adrenal insufficiency, severe protein calorie malnutrition and vitamin deficiencies. He remains in the hospital. He is not safe for discharge. We are working on a disposition for this patient with discharge planning. Patient remains disoriented and continues to confabulate stories. The patient is estranged from his family including his . Discharge planning has now involved Adult Protective Services. Reason For Visit: HYPOTENSION, HYPOTHERMIA, ENCEPHALOPATHY Physical Exam Vital Signs: Temp Pulse Resp BP Pulse Ox 98.5 F 65 16 96/56 L 99 06/30/17 11:18 06/30/17 11:18 06/30/17 11:18 06/30/17 11:18 06/30/17 11:18 Intake & Output 06/29/17 06/30/17 07/01/17 06:59 06:59 06:59 Intake Total 1780 442 Balance 1780 442 Weight 52.2 kg Additional comments: The patient is a disheveled, middle aged male. He appears older than his stated age. He is thin but not cachectic. His facial appearance is significant for the fact that he has a lesion on his nose which could be an early skin cancer. His lungs are clear bilaterally. His cardiac exam is within normal limits and his abdomen is benign. Results Laboratory Results: 06/28/17 05:16 06/28/17 05:16 Impressions: Head CT 05/28/17 20:27 IMPRESSION: No acute intracranial findings. EVIDENCE OF ACUTE STROKE: NO. Head MRI 05/29/17 00:00 IMPRESSION: NO ACUTE ISCHEMIA, HEMORRHAGE, OR MASS LESION. CANNOT ASSESS FOR ABNORMAL WHITE MATTER SIGNAL DUE TO NONDIAGNOSTIC FLAIR IMAGING FROM [employer]. EVIDENCE OF ACUTE STROKE: NO. Foot X-Ray 05/31/17 00:00 IMPRESSION: 1. No acute or suspicious radiographic abnormality left the left foot. Shoulder X-Ray 06/20/17 00:00 IMPRESSION: NEGATIVE STUDY OF THE RIGHT SHOULDER. NO RADIOGRAPHIC EVIDENCE OF ACUTE INJURY. NO EXPLANATION FOR PAIN. Chest X-Ray 06/26/17 00:00 IMPRESSION: COPD. NO ACUTE RADIOGRAPHIC FINDING IN THE CHEST. Assessment & Plan - Diagnosis (1) Encephalopathy Is this a current diagnosis for this admission?: Yes (2) Hypokalemia Is this a current diagnosis for this admission?: Yes (3) Hypomagnesemia Is this a current diagnosis for this admission?: Yes (4) Hypotension Qualifiers: Hypotension type: unspecified hypotension type Qualified Code(s): I95.9 - Hypotension, unspecified Is this a current diagnosis for this admission?: Yes (5) Hypothermia Qualifiers: Encounter type: initial encounter Qualified Code(s): T68.XXXA - Hypothermia , initial encounter Is this a current diagnosis for this admission?: Yes (6) Hypothyroidism Is this a current diagnosis for this admission?: Yes (7) Metabolic acidosis Is this a current diagnosis for this admission?: Yes (8) Sepsis Is this a current diagnosis for this admission?: No (9) Severe protein-calorie malnutrition Is this a current diagnosis for this admission?: Yes (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 He is not capable of caring for himself. At this point time we are going to continue the patient's supplements including thiamine. He will remain on fludrocortisone for his adrenal insufficiency. We did have the patient on Midrin but this led to an increase in anxiety. Currently, his anxiety is being treated with an antihistamine and buspirone with good effect. He is also receiving supplemental thyroxine for hypothyroidism. The patient has had an increase in his phosphorus which is mild. At this point time I would only recommend checking labs about once every 1-2 weeks. A follow-up phosphorus can be addressed at that time.
[2017-07-01] MEDS: LEVOTHYROXINE SODIUM 0.075 MG TABLET PO SCH (05:29)
[2017-07-01] MEDS: BUSPIRONE HCL 10 MG TABLET PO SCH ×2 (09:26→21:47)
[2017-07-01] MEDS: THIAMINE HCL 100 MG TABLET PO SCH (09:27)
[2017-07-01] MEDS: FLUDROCORTISONE ACETATE 0.1 MG TABLET PO SCH (09:27)
[2017-07-01] MEDS: MULTIVITAMIN TABLET PO SCH (09:27)
[2017-07-01] MEDS: DOCUSATE SODIUM 100 MG CAPSULE PO SCH ×2 (09:27→16:58)
--- NOTE | 2017-07-01 17:42 | PDOC PROGRESS REPORT ---
Subjective Progress Note for:: 07/01/17 Subjective:: The patient is a 61-year-old male who was admitted on May 29 after he was brought in by police secondary to be found wandering. He has a history of alcoholism and was felt to be suffering from Korsakoff dementia. He was treated for hypothermia secondary to exposure, hypotension felt to be associated with adrenal insufficiency and was also found to have severe protein calorie malnutrition and vitamin deficiencies. He is currently in the hospital pending safe disposition. He is awake and alert but is confused. Adult Protective Services is involved and they are helping arrange disposition Reason For Visit: HYPOTENSION, HYPOTHERMIA, ENCEPHALOPATHY Physical Exam Vital Signs: Temp Pulse Resp BP Pulse Ox 98.2 F 64 17 105/64 98 07/01/17 16:21 07/01/17 16:21 07/01/17 16:21 07/01/17 16:21 07/01/17 16:21 Intake & Output 06/30/17 07/01/17 07/02/17 06:59 06:59 06:59 Intake Total 442 1004 974 Balance 442 1004 974 Weight 52.2 kg 52 kg Additional comments: Frail middle-aged gentleman lying comfortably in bed not in acute distress HEENT: Pupils are reactive to light moist pink oropharyngeal mucosa with no lesions Neck is supple no masses palpable no JVD Lungs: Clear to auscultation bilaterally with normal respiratory effort Cardiac: S1-S2 regular no peripheral edema no cyanosis no calf tenderness Skin: Warm and dry Abdomen: Soft, no focal tenderness, normal bowel sounds next Results Laboratory Results: 06/28/17 05:16 06/28/17 05:16 Impressions: Head CT 05/28/17 20:27 IMPRESSION: No acute intracranial findings. EVIDENCE OF ACUTE STROKE: NO. Head MRI 05/29/17 00:00 IMPRESSION: NO ACUTE ISCHEMIA, HEMORRHAGE, OR MASS LESION. CANNOT ASSESS FOR ABNORMAL WHITE MATTER SIGNAL DUE TO NONDIAGNOSTIC FLAIR IMAGING FROM [employer]. EVIDENCE OF ACUTE STROKE: NO. Foot X-Ray 05/31/17 00:00 IMPRESSION: 1. No acute or suspicious radiographic abnormality left the left foot. Shoulder X-Ray 06/20/17 00:00 IMPRESSION: NEGATIVE STUDY OF THE RIGHT SHOULDER. NO RADIOGRAPHIC EVIDENCE OF ACUTE INJURY. NO EXPLANATION FOR PAIN. Chest X-Ray 06/26/17 00:00 IMPRESSION: COPD. NO ACUTE RADIOGRAPHIC FINDING IN THE CHEST. Assessment & Plan - Diagnosis (4) Encephalopathy Is this a current diagnosis for this admission?: Yes (5) Hypokalemia Is this a current diagnosis for this admission?: Yes (6) Hypotension Qualifiers: Hypotension type: unspecified hypotension type Qualified Code(s): I95.9 - Hypotension, unspecified Is this a current diagnosis for this admission?: Yes (7) Hypothermia Qualifiers: Encounter type: initial encounter Qualified Code(s): T68.XXXA - Hypothermia , initial encounter Is this a current diagnosis for this admission?: Yes (8) Hypothyroidism Is this a current diagnosis for this admission?: Yes (9) Severe protein-calorie malnutrition Is this a current diagnosis for this admission?: Yes Plan: Plan: Continue current management. His hypothermia hypotension hypothyroidism have been treated. He is currently awaiting safe disposition - Time Time Spent with patient: Less than 15 minutes
[2017-07-02] MEDS: LEVOTHYROXINE SODIUM 0.075 MG TABLET PO SCH (05:11)
[2017-07-02] MEDS: MULTIVITAMIN TABLET PO SCH (10:05)
[2017-07-02] MEDS: BUSPIRONE HCL 10 MG TABLET PO SCH ×2 (10:05→21:05)
[2017-07-02] MEDS: THIAMINE HCL 100 MG TABLET PO SCH (10:06)
[2017-07-02] MEDS: FLUDROCORTISONE ACETATE 0.1 MG TABLET PO SCH (10:07)
[2017-07-02] MEDS: DOCUSATE SODIUM 100 MG CAPSULE PO SCH ×2 (10:07→19:02)
--- NOTE | 2017-07-02 18:51 | PDOC PROGRESS REPORT ---
Subjective Progress Note for:: 07/02/17 Subjective:: The patient is a 61-year-old male who was admitted on May 29 after he was brought in by police secondary to be found wandering. He has a history of alcoholism and was felt to be suffering from Korsakoff dementia. He was treated for hypothermia secondary to exposure, hypotension felt to be associated with adrenal insufficiency and was also found to have severe protein calorie malnutrition and vitamin deficiencies. Adult Protective Services is involved and they are helping arrange disposition He is currently in the hospital pending safe disposition. Reason For Visit: HYPOTENSION, HYPOTHERMIA, ENCEPHALOPATHY Physical Exam Vital Signs: Temp Pulse Resp BP Pulse Ox 97.7 F 75 16 115/65 100 07/02/17 15:42 07/02/17 15:42 07/02/17 15:42 07/02/17 15:42 07/02/17 15:42 Intake & Output 07/01/17 07/02/17 07/03/17 06:59 06:59 06:59 Intake Total 1004 1476 480 Balance 1004 1476 480 Weight 52 kg 51.5 kg Additional comments: Frail middle-aged gentleman lying comfortably in bed not in acute distress Lungs: Clear to auscultation bilaterally normal respiratory effort Cardiac: S1-S2 regular no peripheral edema Results Laboratory Results: 06/28/17 05:16 06/28/17 05:16 Impressions: Head CT 05/28/17 20:27 IMPRESSION: No acute intracranial findings. EVIDENCE OF ACUTE STROKE: NO. Head MRI 05/29/17 00:00 IMPRESSION: NO ACUTE ISCHEMIA, HEMORRHAGE, OR MASS LESION. CANNOT ASSESS FOR ABNORMAL WHITE MATTER SIGNAL DUE TO NONDIAGNOSTIC FLAIR IMAGING FROM [employer]. EVIDENCE OF ACUTE STROKE: NO. Foot X-Ray 05/31/17 00:00 IMPRESSION: 1. No acute or suspicious radiographic abnormality left the left foot. Shoulder X-Ray 06/20/17 00:00 IMPRESSION: NEGATIVE STUDY OF THE RIGHT SHOULDER. NO RADIOGRAPHIC EVIDENCE OF ACUTE INJURY. NO EXPLANATION FOR PAIN. Chest X-Ray 06/26/17 00:00 IMPRESSION: COPD. NO ACUTE RADIOGRAPHIC FINDING IN THE CHEST. Assessment & Plan - Diagnosis (4) Encephalopathy Is this a current diagnosis for this admission?: Yes (5) Hypokalemia Is this a current diagnosis for this admission?: Yes (6) Hypotension Qualifiers: Hypotension type: unspecified hypotension type Qualified Code(s): I95.9 - Hypotension, unspecified Is this a current diagnosis for this admission?: Yes (7) Hypothermia Qualifiers: Encounter type: initial encounter Qualified Code(s): T68.XXXA - Hypothermia , initial encounter Is this a current diagnosis for this admission?: Yes (8) Hypothyroidism Is this a current diagnosis for this admission?: Yes (9) Severe protein-calorie malnutrition Is this a current diagnosis for this admission?: Yes - Time Time Spent with patient: Less than 15 minutes - Plan Summary Plan Summary: Currently awaiting safe disposition. No change to plan.
[2017-07-03] MEDS: LEVOTHYROXINE SODIUM 0.075 MG TABLET PO SCH (05:16)
[2017-07-03] MEDS: MULTIVITAMIN TABLET PO SCH (09:17)
[2017-07-03] MEDS: BUSPIRONE HCL 10 MG TABLET PO SCH ×2 (09:17→22:28)
[2017-07-03] MEDS: DOCUSATE SODIUM 100 MG CAPSULE PO SCH ×2 (09:17→17:33)
[2017-07-03] MEDS: THIAMINE HCL 100 MG TABLET PO SCH (09:17)
[2017-07-03] MEDS: FLUDROCORTISONE ACETATE 0.1 MG TABLET PO SCH (09:17)
--- NOTE | 2017-07-03 16:41 | PDOC PROGRESS REPORT ---
Subjective Progress Note for:: 07/03/17 Subjective:: The patient is a 61-year-old male who was admitted on May 29 after he was brought in by police secondary to be found wandering. 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 He was treated for hypothermia secondary to exposure, hypotension felt to be associated with adrenal insufficiency and was also found to have severe protein calorie malnutrition and vitamin deficiencies. Adult Protective Services is involved and they are helping arrange disposition. He is currently in the hospital pending safe disposition. Is no complaints at present. Reason For Visit: HYPOTENSION, HYPOTHERMIA, ENCEPHALOPATHY Physical Exam Vital Signs: Temp Pulse Resp BP Pulse Ox 98.4 F 68 16 98/56 L 100 07/03/17 11:38 07/03/17 11:38 07/03/17 11:38 07/03/17 11:38 07/03/17 11:38 Intake & Output 07/02/17 07/03/17 07/04/17 06:59 06:59 06:59 Intake Total 1476 600 Balance 1476 600 Weight 51.5 kg 50.4 kg Additional comments: Frail, elderly gentleman sitting by the side of the bed not in acute distress Lungs: Clear to auscultation bilaterally normal respiratory effort Cardiac: S1-S2 regular no peripheral edema Results Laboratory Results: 06/28/17 05:16 06/28/17 05:16 Impressions: Head CT 05/28/17 20:27 IMPRESSION: No acute intracranial findings. EVIDENCE OF ACUTE STROKE: NO. Head MRI 05/29/17 00:00 IMPRESSION: NO ACUTE ISCHEMIA, HEMORRHAGE, OR MASS LESION. CANNOT ASSESS FOR ABNORMAL WHITE MATTER SIGNAL DUE TO NONDIAGNOSTIC FLAIR IMAGING FROM [employer]. EVIDENCE OF ACUTE STROKE: NO. Foot X-Ray 05/31/17 00:00 IMPRESSION: 1. No acute or suspicious radiographic abnormality left the left foot. Shoulder X-Ray 06/20/17 00:00 IMPRESSION: NEGATIVE STUDY OF THE RIGHT SHOULDER. NO RADIOGRAPHIC EVIDENCE OF ACUTE INJURY. NO EXPLANATION FOR PAIN. Chest X-Ray 06/26/17 00:00 IMPRESSION: COPD. NO ACUTE RADIOGRAPHIC FINDING IN THE CHEST. Assessment & Plan - Diagnosis (4) Encephalopathy Is this a current diagnosis for this admission?: Yes (5) Hypokalemia Is this a current diagnosis for this admission?: Yes (6) Hypotension Qualifiers: Hypotension type: unspecified hypotension type Qualified Code(s): I95.9 - Hypotension, unspecified Is this a current diagnosis for this admission?: Yes (7) Hypothermia Qualifiers: Encounter type: initial encounter Qualified Code(s): T68.XXXA - Hypothermia , initial encounter Is this a current diagnosis for this admission?: Yes (8) Hypothyroidism Is this a current diagnosis for this admission?: Yes (9) Severe protein-calorie malnutrition Is this a current diagnosis for this admission?: Yes - Time Time Spent with patient: Less than 15 minutes - Plan Summary Plan Summary: No change in current plan. Awaiting disposition.
[2017-07-04] MEDS: LEVOTHYROXINE SODIUM 0.075 MG TABLET PO SCH (06:48)
[2017-07-04] MEDS: DOCUSATE SODIUM 100 MG CAPSULE PO SCH ×2 (10:10→18:34)
[2017-07-04] MEDS: THIAMINE HCL 100 MG TABLET PO SCH (10:11)
[2017-07-04] MEDS: BUSPIRONE HCL 10 MG TABLET PO SCH ×2 (10:11→21:08)
[2017-07-04] MEDS: MULTIVITAMIN TABLET PO SCH (10:11)
[2017-07-04] MEDS: FLUDROCORTISONE ACETATE 0.1 MG TABLET PO SCH (10:11)
--- NOTE | 2017-07-04 16:38 | PDOC PROGRESS REPORT ---
Subjective Progress Note for:: 07/04/17 Subjective:: 61-year-old gentleman who was admitted on May 29 after he was brought in by police secondary to be found wandering. He has a history of alcoholism and was diagnosed with Wernicke-Korsakoff dementia. He was treated for hypothermia secondary to exposure, hypotension felt to be associated with adrenal insufficiency and was also found to have severe protein calorie malnutrition and vitamin deficiencies. Adult Protective Services is involved and they are helping arrange disposition. He is currently in the hospital pending safe disposition. The patient has no complaints at present. Reason For Visit: HYPOTENSION, HYPOTHERMIA, ENCEPHALOPATHY Physical Exam Vital Signs: Temp Pulse Resp BP Pulse Ox 98.7 F 72 16 112/62 100 07/04/17 15:36 07/04/17 15:36 07/04/17 15:36 07/04/17 15:36 07/04/17 15:36 Intake & Output 07/03/17 07/04/17 07/05/17 06:59 06:59 06:59 Intake Total 600 640 911 Balance 600 640 911 Weight 50.4 kg 51 kg Additional comments: Frail, middle-aged gentleman sitting up in his chair not in acute distress Lungs: Normal respiratory effort no wheezing or crackles heard Cardiac: S1 is regular no peripheral edema Results Laboratory Results: 06/28/17 05:16 06/28/17 05:16 Impressions: Head CT 05/28/17 20:27 IMPRESSION: No acute intracranial findings. EVIDENCE OF ACUTE STROKE: NO. Head MRI 05/29/17 00:00 IMPRESSION: NO ACUTE ISCHEMIA, HEMORRHAGE, OR MASS LESION. CANNOT ASSESS FOR ABNORMAL WHITE MATTER SIGNAL DUE TO NONDIAGNOSTIC FLAIR IMAGING FROM [employer]. EVIDENCE OF ACUTE STROKE: NO. Foot X-Ray 05/31/17 00:00 IMPRESSION: 1. No acute or suspicious radiographic abnormality left the left foot. Shoulder X-Ray 06/20/17 00:00 IMPRESSION: NEGATIVE STUDY OF THE RIGHT SHOULDER. NO RADIOGRAPHIC EVIDENCE OF ACUTE INJURY. NO EXPLANATION FOR PAIN. Chest X-Ray 06/26/17 00:00 IMPRESSION: COPD. NO ACUTE RADIOGRAPHIC FINDING IN THE CHEST. Assessment & Plan - Diagnosis (4) Encephalopathy Is this a current diagnosis for this admission?: Yes (5) Hypokalemia Is this a current diagnosis for this admission?: Yes (6) Hypotension Qualifiers: Hypotension type: unspecified hypotension type Qualified Code(s): I95.9 - Hypotension, unspecified Is this a current diagnosis for this admission?: Yes (7) Hypothermia Qualifiers: Encounter type: initial encounter Qualified Code(s): T68.XXXA - Hypothermia , initial encounter Is this a current diagnosis for this admission?: Yes (8) Hypothyroidism Is this a current diagnosis for this admission?: Yes (9) Severe protein-calorie malnutrition Is this a current diagnosis for this admission?: Yes - Time Time Spent with patient: Less than 15 minutes - Plan Summary Plan Summary: No change to current plan. Awaiting disposition.
[2017-07-05] MEDS: LEVOTHYROXINE SODIUM 0.075 MG TABLET PO SCH (06:33)
[2017-07-05] MEDS: DOCUSATE SODIUM 100 MG CAPSULE PO SCH ×2 (10:24→16:52)
[2017-07-05] MEDS: MULTIVITAMIN TABLET PO SCH (10:24)
[2017-07-05] MEDS: THIAMINE HCL 100 MG TABLET PO SCH (10:24)
[2017-07-05] MEDS: FLUDROCORTISONE ACETATE 0.1 MG TABLET PO SCH (10:24)
[2017-07-05] MEDS: BUSPIRONE HCL 10 MG TABLET PO SCH ×2 (10:24→21:23)
--- NOTE | 2017-07-05 18:45 | PDOC PROGRESS REPORT ---
Subjective Progress Note for:: 07/05/17 Subjective:: 61-year-old gentleman who was admitted on May 29 after he was brought in by police secondary to be found wandering. He has a history of alcoholism and was diagnosed with Wernicke-Korsakoff dementia. He was treated for hypothermia secondary to exposure, hypotension felt to be associated with adrenal insufficiency and was also found to have severe protein calorie malnutrition and vitamin deficiencies. Adult Protective Services is involved and they are helping arrange disposition. He is currently in the hospital pending safe disposition. The patient has no complaints at present. Reason For Visit: HYPOTENSION, HYPOTHERMIA, ENCEPHALOPATHY Physical Exam Vital Signs: Temp Pulse Resp BP Pulse Ox 98.5 F 78 12 94/56 L 97 07/05/17 16:00 07/05/17 16:00 07/05/17 16:00 07/05/17 16:00 07/05/17 16:00 Intake & Output 07/04/17 07/05/17 07/06/17 06:59 06:59 06:59 Intake Total 640 1511 300 Balance 640 1511 300 Weight 51 kg 51 kg General appearance: PRESENT: no acute distress Eye exam: PRESENT: EOMI Mouth exam: PRESENT: moist Respiratory exam: PRESENT: clear to auscultation kae. ABSENT: accessory muscle use Cardiovascular exam: PRESENT: RRR GI/Abdominal exam: PRESENT: soft Results Laboratory Results: 06/28/17 05:16 06/28/17 05:16 Impressions: Head CT 05/28/17 20:27 IMPRESSION: No acute intracranial findings. EVIDENCE OF ACUTE STROKE: NO. Head MRI 05/29/17 00:00 IMPRESSION: NO ACUTE ISCHEMIA, HEMORRHAGE, OR MASS LESION. CANNOT ASSESS FOR ABNORMAL WHITE MATTER SIGNAL DUE TO NONDIAGNOSTIC FLAIR IMAGING FROM [employer]IF[employer]. EVIDENCE OF ACUTE STROKE: NO. Foot X-Ray 05/31/17 00:00 IMPRESSION: 1. No acute or suspicious radiographic abnormality left the left foot. Shoulder X-Ray 06/20/17 00:00 IMPRESSION: NEGATIVE STUDY OF THE RIGHT SHOULDER. NO RADIOGRAPHIC EVIDENCE OF ACUTE INJURY. NO EXPLANATION FOR PAIN. Chest X-Ray 06/26/17 00:00 IMPRESSION: COPD. NO ACUTE RADIOGRAPHIC FINDING IN THE CHEST. Assessment & Plan - Diagnosis (4) Encephalopathy Is this a current diagnosis for this admission?: Yes (5) Hypokalemia Is this a current diagnosis for this admission?: Yes (6) Hypotension Qualifiers: Hypotension type: unspecified hypotension type Qualified Code(s): I95.9 - Hypotension, unspecified Is this a current diagnosis for this admission?: Yes (7) Hypothermia Qualifiers: Encounter type: initial encounter Qualified Code(s): T68.XXXA - Hypothermia , initial encounter Is this a current diagnosis for this admission?: Yes (8) Hypothyroidism Is this a current diagnosis for this admission?: Yes (9) Severe protein-calorie malnutrition Is this a current diagnosis for this admission?: Yes - Time Time Spent with patient: Less than 15 minutes - Plan Summary Plan Summary: Awaiting disposition
[2017-07-06] MEDS: BUSPIRONE HCL 10 MG TABLET PO SCH ×2 (10:11→21:10)
[2017-07-06] MEDS: FLUDROCORTISONE ACETATE 0.1 MG TABLET PO SCH (10:11)
[2017-07-06] MEDS: THIAMINE HCL 100 MG TABLET PO SCH (10:12)
[2017-07-06] MEDS: MULTIVITAMIN TABLET PO SCH (10:12)
[2017-07-06] MEDS: DOCUSATE SODIUM 100 MG CAPSULE PO SCH ×2 (10:12→17:11)
--- NOTE | 2017-07-06 12:41 | PDOC PROGRESS REPORT ---
Subjective Progress Note for:: 07/06/17 Subjective:: 61-year-old gentleman who was admitted on May 29 after he was brought in by police secondary to be found wandering. He has a history of alcoholism and was diagnosed with Wernicke-Korsakoff dementia. He was treated for hypothermia secondary to exposure, hypotension felt to be associated with adrenal insufficiency and was also found to have severe protein calorie malnutrition and vitamin deficiencies. Adult Protective Services is involved and they are helping arrange disposition. No complaints at present. Awaiting disposition. Reason For Visit: HYPOTENSION, HYPOTHERMIA, ENCEPHALOPATHY Physical Exam Vital Signs: Temp Pulse Resp BP Pulse Ox 98.6 F 71 12 98/60 L 97 07/06/17 12:00 07/06/17 12:00 07/06/17 12:00 07/06/17 12:00 07/06/17 12:00 Intake & Output 07/05/17 07/06/17 07/07/17 06:59 06:59 06:59 Intake Total 1511 780 Output Total 600 Balance 1511 180 Weight 51 kg 51 kg Additional comments: Thin middle-aged gentleman lying comfortably in bed not in acute distress Lungs: Clear to auscultation bilaterally normal respiratory effort Abdomen: Soft, no focal tenderness Results Laboratory Results: 06/28/17 05:16 06/28/17 05:16 Impressions: Head CT 05/28/17 20:27 IMPRESSION: No acute intracranial findings. EVIDENCE OF ACUTE STROKE: NO. Head MRI 05/29/17 00:00 IMPRESSION: NO ACUTE ISCHEMIA, HEMORRHAGE, OR MASS LESION. CANNOT ASSESS FOR ABNORMAL WHITE MATTER SIGNAL DUE TO NONDIAGNOSTIC FLAIR IMAGING FROM [employer]. EVIDENCE OF ACUTE STROKE: NO. Foot X-Ray 05/31/17 00:00 IMPRESSION: 1. No acute or suspicious radiographic abnormality left the left foot. Shoulder X-Ray 06/20/17 00:00 IMPRESSION: NEGATIVE STUDY OF THE RIGHT SHOULDER. NO RADIOGRAPHIC EVIDENCE OF ACUTE INJURY. NO EXPLANATION FOR PAIN. Chest X-Ray 06/26/17 00:00 IMPRESSION: COPD. NO ACUTE RADIOGRAPHIC FINDING IN THE CHEST. Assessment & Plan - Diagnosis (4) Encephalopathy Is this a current diagnosis for this admission?: Yes (5) Hypokalemia Is this a current diagnosis for this admission?: Yes (6) Hypotension Qualifiers: Hypotension type: unspecified hypotension type Qualified Code(s): I95.9 - Hypotension, unspecified Is this a current diagnosis for this admission?: Yes (7) Hypothermia Qualifiers: Encounter type: initial encounter Qualified Code(s): T68.XXXA - Hypothermia , initial encounter Is this a current diagnosis for this admission?: Yes (8) Hypothyroidism Is this a current diagnosis for this admission?: Yes (9) Severe protein-calorie malnutrition Is this a current diagnosis for this admission?: Yes - Time Time Spent with patient: Less than 15 minutes - Plan Summary Plan Summary: Awaiting disposition.
[2017-07-07] MEDS: DOCUSATE SODIUM 100 MG CAPSULE PO SCH ×2 (10:30→17:49)
[2017-07-07] MEDS: MULTIVITAMIN TABLET PO SCH (10:31)
[2017-07-07] MEDS: THIAMINE HCL 100 MG TABLET PO SCH (10:31)
[2017-07-07] MEDS: BUSPIRONE HCL 10 MG TABLET PO SCH ×2 (10:31→21:08)
[2017-07-07] MEDS: FLUDROCORTISONE ACETATE 0.1 MG TABLET PO SCH (10:34)
--- NOTE | 2017-07-07 19:14 | PDOC PROGRESS REPORT ---
Subjective Progress Note for:: 07/07/17 Subjective:: 61-year-old gentleman who was admitted on May 29 after he was brought in by police secondary to be found wandering. He has a history of alcoholism and was diagnosed with Wernicke-Korsakoff dementia. He was treated for hypothermia secondary to exposure, hypotension felt to be associated with adrenal insufficiency and was also found to have severe protein calorie malnutrition and vitamin deficiencies. Adult Protective Services is involved and they are helping arrange disposition. No complaints at present. Awaiting disposition. Reason For Visit: HYPOTENSION, HYPOTHERMIA, ENCEPHALOPATHY Physical Exam Vital Signs: Temp Pulse Resp BP Pulse Ox 98.5 F 74 16 92/54 L 96 07/07/17 15:30 07/07/17 15:30 07/07/17 15:30 07/07/17 15:30 07/07/17 15:30 Intake & Output 07/06/17 07/07/17 07/08/17 06:59 06:59 06:59 Intake Total 780 840 354 Output Total 600 700 Balance 180 140 354 Weight 51 kg 51 kg Additional comments: Frail middle-aged gentleman lying in bed not in acute distress Lungs: Clear to auscultation bilaterally normal respiratory effort Abdomen: Soft, no focal tenderness, normal bowel sounds Results Laboratory Results: 06/28/17 05:16 06/28/17 05:16 Impressions: Head CT 05/28/17 20:27 IMPRESSION: No acute intracranial findings. EVIDENCE OF ACUTE STROKE: NO. Head MRI 05/29/17 00:00 IMPRESSION: NO ACUTE ISCHEMIA, HEMORRHAGE, OR MASS LESION. CANNOT ASSESS FOR ABNORMAL WHITE MATTER SIGNAL DUE TO NONDIAGNOSTIC FLAIR IMAGING FROM [employer]. EVIDENCE OF ACUTE STROKE: NO. Foot X-Ray 05/31/17 00:00 IMPRESSION: 1. No acute or suspicious radiographic abnormality left the left foot. Shoulder X-Ray 06/20/17 00:00 IMPRESSION: NEGATIVE STUDY OF THE RIGHT SHOULDER. NO RADIOGRAPHIC EVIDENCE OF ACUTE INJURY. NO EXPLANATION FOR PAIN. Chest X-Ray 06/26/17 00:00 IMPRESSION: COPD. NO ACUTE RADIOGRAPHIC FINDING IN THE CHEST. Assessment & Plan - Diagnosis (4) Encephalopathy Is this a current diagnosis for this admission?: Yes (5) Hypokalemia Is this a current diagnosis for this admission?: Yes (6) Hypotension Qualifiers: Hypotension type: unspecified hypotension type Qualified Code(s): I95.9 - Hypotension, unspecified Is this a current diagnosis for this admission?: Yes (7) Hypothermia Qualifiers: Encounter type: initial encounter Qualified Code(s): T68.XXXA - Hypothermia , initial encounter Is this a current diagnosis for this admission?: Yes (8) Hypothyroidism Is this a current diagnosis for this admission?: Yes (9) Severe protein-calorie malnutrition Is this a current diagnosis for this admission?: Yes - Time Time Spent with patient: Less than 15 minutes - Plan Summary Plan Summary: Awaiting disposition
--- NOTE | 2017-07-08 13:43 | PDOC PROGRESS REPORT ---
Subjective Progress Note for:: 07/08/17 Subjective:: Denies any complaints. Reason For Visit: HYPOTENSION, HYPOTHERMIA, ENCEPHALOPATHY Physical Exam Vital Signs: Temp Pulse Resp BP Pulse Ox 98.1 F 69 17 100/60 99 07/08/17 07:47 07/08/17 07:47 07/08/17 07:47 07/08/17 07:47 07/08/17 07:47 Intake & Output 07/07/17 07/08/17 07/09/17 06:59 06:59 06:59 Intake Total 840 834 Output Total 700 600 Balance 140 234 Weight 51 kg 51 kg General appearance: PRESENT: no acute distress Eye exam: PRESENT: conjunctiva pink. ABSENT: scleral icterus Mouth exam: PRESENT: moist, tongue midline Neck exam: ABSENT: JVD Respiratory exam: PRESENT: clear to auscultation kae. ABSENT: rales, rhonchi, wheezes Cardiovascular exam: PRESENT: RRR. ABSENT: diastolic murmur, rubs, systolic murmur GI/Abdominal exam: PRESENT: normal bowel sounds, soft. ABSENT: distended, guarding, mass, organolmegaly, rebound, tenderness Extremities exam: ABSENT: calf tenderness, clubbing, pedal edema Neurological exam: PRESENT: alert, awake, oriented to person, oriented to place. ABSENT: oriented to time, oriented to situation Psychiatric exam: PRESENT: appropriate affect Skin exam: PRESENT: dry, intact, warm. ABSENT: cyanosis, rash Results Laboratory Results: 06/28/17 05:16 06/28/17 05:16 Impressions: Head CT 05/28/17 20:27 IMPRESSION: No acute intracranial findings. EVIDENCE OF ACUTE STROKE: NO. Head MRI 05/29/17 00:00 IMPRESSION: NO ACUTE ISCHEMIA, HEMORRHAGE, OR MASS LESION. CANNOT ASSESS FOR ABNORMAL WHITE MATTER SIGNAL DUE TO NONDIAGNOSTIC FLAIR IMAGING FROM [employer]. EVIDENCE OF ACUTE STROKE: NO. Foot X-Ray 05/31/17 00:00 IMPRESSION: 1. No acute or suspicious radiographic abnormality left the left foot. Shoulder X-Ray 06/20/17 00:00 IMPRESSION: NEGATIVE STUDY OF THE RIGHT SHOULDER. NO RADIOGRAPHIC EVIDENCE OF ACUTE INJURY. NO EXPLANATION FOR PAIN. Chest X-Ray 06/26/17 00:00 IMPRESSION: COPD. NO ACUTE RADIOGRAPHIC FINDING IN THE CHEST. Assessment & Plan - Diagnosis (1) Hypothermia Qualifiers: Encounter type: initial encounter Qualified Code(s): T68.XXXA - Hypothermia , initial encounter Is this a current diagnosis for this admission?: Yes Plan: Resolved. (2) Hypotension Qualifiers: Hypotension type: unspecified hypotension type Qualified Code(s): I95.9 - Hypotension, unspecified Is this a current diagnosis for this admission?: Yes Plan: Resolved. There was concern that this was related to adrenal insufficiency and he is currently on steroids. We will try to wean this down and watch his blood pressure closely. (3) Anemia Is this a current diagnosis for this admission?: Yes Plan: Stable. (4) Anxiety Is this a current diagnosis for this admission?: Yes (5) Encephalopathy Is this a current diagnosis for this admission?: Yes Plan: Most likely secondary to alcohol abuse. (6) Hypothyroidism Is this a current diagnosis for this admission?: Yes Plan: The patient's TSH was high. Start Synthroid. (7) Severe protein-calorie malnutrition Is this a current diagnosis for this admission?: Yes - Time Time Spent with patient: 25-34 minutes - Inpatient Certification Medical Necessity: Need Close Monitoring Due to Risk of Patient Decompensation - Plan Summary Plan Summary: Awaiting placement.
[2017-07-08] MEDS: BUSPIRONE HCL 10 MG TABLET PO SCH ×2 (13:57→21:30)
[2017-07-08] MEDS: THIAMINE HCL 100 MG TABLET PO SCH (13:58)
[2017-07-08] MEDS: MULTIVITAMIN TABLET PO SCH (13:58)
[2017-07-08] MEDS: DOCUSATE SODIUM 100 MG CAPSULE PO SCH ×2 (14:01→18:45)
[2017-07-08] MEDS: FLUDROCORTISONE ACETATE 0.1 MG TABLET PO SCH (15:18)
[2017-07-09 05:04] LABS: ABSOLUTE EOSINOPHILS # (AUTO) 0.1 10^3/uL (0.0-0.6); ABSOLUTE LYMPHOCYTES (AUTO) 2.5 10^3/uL (0.5-4.7); ABSOLUTE MONOCYTES (AUTO) 0.8 10^3/uL (0.1-1.4); ABSOLUTE NEUT (AUTO) 2.6 10^3/uL (1.7-8.2); BASOPHILS % (AUTO) 0.2 % (0-2); EOSINOPHILS % (AUTO) 1.6 % (0-6); HEMATOCRIT 29.2 % (37.9-51.0); HEMOGLOBIN 10.2 g/dL (13.5-17.0); LYMPHOCYTES % (AUTO) 42.2 % (13-45); MEAN CORPUSCULAR HEMOGLOBIN 34.6 pg (27.0-33.4); MEAN CORPUSCULAR HGB CONC 34.9 g/dL (32.0-36.0); MEAN CORPUSCULAR VOLUME 99 fl (80-97); MONOCYTES % (AUTO) 12.8 % (3-13); PLATELET COUNT 195 10^3/uL (150-450); RED BLOOD COUNT 2.95 10^6/uL (4.35-5.55); RED CELL DISTRIBUTION WIDTH 13.5 % (11.5-14.0); SEGMENTED NEUTROPHILS % (AUTO) 43.2 % (42-78); TOTAL CELLS COUNTED % (AUTO) 100 %
[2017-07-09 05:26] LABS: ANION GAP 8 (5-19); BLOOD UREA NITROGEN 25 mg/dL (7-20); CARBON DIOXIDE 29 mmol/L (22-30); CHLORIDE 104 mmol/L (98-107); GLUCOSE 89 mg/dL (75-110); SODIUM 140.7 mmol/L (137-145)
[2017-07-09] MEDS: LEVOTHYROXINE SODIUM 0.025 MG TABLET PO SCH (06:49)
[2017-07-09] MEDS: MULTIVITAMIN TABLET PO SCH (10:22)
[2017-07-09] MEDS: DOCUSATE SODIUM 100 MG CAPSULE PO SCH ×2 (10:22→18:13)
[2017-07-09] MEDS: BUSPIRONE HCL 10 MG TABLET PO SCH ×2 (10:22→22:31)
[2017-07-09] MEDS: FLUDROCORTISONE ACETATE 0.1 MG TABLET PO SCH (10:22)
[2017-07-09] MEDS: THIAMINE HCL 100 MG TABLET PO SCH (10:23)
--- NOTE | 2017-07-09 10:34 | PDOC PROGRESS REPORT ---
Subjective Progress Note for:: 07/09/17 Subjective:: Denies any complaints. Reason For Visit: HYPOTENSION, HYPOTHERMIA, ENCEPHALOPATHY Physical Exam Vital Signs: Temp Pulse Resp BP Pulse Ox 98.6 F 70 18 104/58 L 98 07/09/17 08:00 07/09/17 08:00 07/09/17 08:00 07/09/17 08:00 07/09/17 08:00 Intake & Output 07/08/17 07/09/17 07/10/17 06:59 06:59 06:59 Intake Total 834 1398 Output Total 600 Balance 234 1398 Weight 51 kg 51.2 kg General appearance: PRESENT: no acute distress Eye exam: PRESENT: conjunctiva pink. ABSENT: scleral icterus Mouth exam: PRESENT: moist, tongue midline Neck exam: ABSENT: JVD Respiratory exam: ABSENT: rales, rhonchi, wheezes Cardiovascular exam: PRESENT: RRR. ABSENT: diastolic murmur, rubs, systolic murmur GI/Abdominal exam: PRESENT: normal bowel sounds, soft. ABSENT: distended, guarding, mass, organolmegaly, rebound, tenderness Extremities exam: ABSENT: calf tenderness, clubbing, pedal edema Neurological exam: PRESENT: alert, awake, oriented to person, oriented to place. ABSENT: oriented to time, oriented to situation Psychiatric exam: PRESENT: flat affect Skin exam: PRESENT: dry, intact, warm. ABSENT: cyanosis, rash Results Laboratory Results: 07/09/17 04:16 07/09/17 04:16 07/09/17 07/09/17 04:16 04:16 WBC 6.0 RBC 2.95 L Hgb 10.2 L Hct 29.2 L MCV 99 H MCH 34.6 H MCHC 34.9 RDW 13.5 Plt Count 195 Seg Neutrophils % 43.2 Lymphocytes % 42.2 Monocytes % 12.8 Eosinophils % 1.6 Basophils % 0.2 Absolute Neutrophils 2.6 Absolute Lymphocytes 2.5 Absolute Monocytes 0.8 Absolute Eosinophils 0.1 Absolute Basophils 0.0 Sodium 140.7 Potassium 4.0 Chloride 104 Carbon Dioxide 29 Anion Gap 8 BUN 25 H Creatinine 0.57 Est GFR ( Amer) > 60 Est GFR (Non-Af Amer) > 60 Glucose 89 Calcium 10.0 Impressions: Head CT 05/28/17 20:27 IMPRESSION: No acute intracranial findings. EVIDENCE OF ACUTE STROKE: NO. Head MRI 05/29/17 00:00 IMPRESSION: NO ACUTE ISCHEMIA, HEMORRHAGE, OR MASS LESION. CANNOT ASSESS FOR ABNORMAL WHITE MATTER SIGNAL DUE TO NONDIAGNOSTIC FLAIR IMAGING FROM [employer]. EVIDENCE OF ACUTE STROKE: NO. Foot X-Ray 05/31/17 00:00 IMPRESSION: 1. No acute or suspicious radiographic abnormality left the left foot. Shoulder X-Ray 06/20/17 00:00 IMPRESSION: NEGATIVE STUDY OF THE RIGHT SHOULDER. NO RADIOGRAPHIC EVIDENCE OF ACUTE INJURY. NO EXPLANATION FOR PAIN. Chest X-Ray 06/26/17 00:00 IMPRESSION: COPD. NO ACUTE RADIOGRAPHIC FINDING IN THE CHEST. Assessment & Plan - Diagnosis (1) Hypothermia Qualifiers: Encounter type: initial encounter Qualified Code(s): T68.XXXA - Hypothermia , initial encounter Is this a current diagnosis for this admission?: Yes Plan: Resolved. (2) Hypotension Qualifiers: Hypotension type: unspecified hypotension type Qualified Code(s): I95.9 - Hypotension, unspecified Is this a current diagnosis for this admission?: Yes Plan: Resolved. There was concern that this was related to adrenal insufficiency and he is currently on Florinef. We will try to wean this down and watch his blood pressure closely. (3) Anemia Is this a current diagnosis for this admission?: Yes Plan: Stable. (4) Anxiety Is this a current diagnosis for this admission?: Yes (5) Encephalopathy Is this a current diagnosis for this admission?: Yes Plan: Most likely secondary to alcohol abuse. (6) Hypothyroidism Is this a current diagnosis for this admission?: Yes Plan: The patient's TSH was high. Start Synthroid. (7) Severe protein-calorie malnutrition Is this a current diagnosis for this admission?: Yes - Time Time Spent with patient: 15-24 minutes - Plan Summary Plan Summary: Awaiting placement
[2017-07-10] MEDS: LEVOTHYROXINE SODIUM 0.025 MG TABLET PO SCH (06:18)
[2017-07-10] MEDS: BUSPIRONE HCL 10 MG TABLET PO SCH ×2 (09:37→21:16)
[2017-07-10] MEDS: MULTIVITAMIN TABLET PO SCH (09:37)
[2017-07-10] MEDS: DOCUSATE SODIUM 100 MG CAPSULE PO SCH ×2 (09:37→17:35)
[2017-07-10] MEDS: THIAMINE HCL 100 MG TABLET PO SCH (09:37)
[2017-07-10] MEDS: FLUDROCORTISONE ACETATE 0.1 MG TABLET PO SCH (09:38)
--- NOTE | 2017-07-10 11:41 | PDOC PROGRESS REPORT ---
Subjective Progress Note for:: 07/10/17 Subjective:: Denies any complaints. Reason For Visit: HYPOTENSION, HYPOTHERMIA, ENCEPHALOPATHY Physical Exam Vital Signs: Temp Pulse Resp BP Pulse Ox 98.6 F 70 16 93/51 L 98 07/10/17 07:43 07/10/17 07:43 07/10/17 07:43 07/10/17 07:43 07/10/17 07:43 Intake & Output 07/09/17 07/10/17 07/11/17 06:59 06:59 06:59 Intake Total 1398 870 Output Total 500 Balance 1398 370 Weight 51.2 kg 51.2 kg General appearance: PRESENT: no acute distress Eye exam: PRESENT: conjunctiva pink. ABSENT: scleral icterus Mouth exam: PRESENT: moist, tongue midline Neck exam: ABSENT: JVD Respiratory exam: PRESENT: clear to auscultation kae. ABSENT: rales, rhonchi, wheezes Cardiovascular exam: PRESENT: RRR. ABSENT: diastolic murmur, rubs, systolic murmur GI/Abdominal exam: PRESENT: normal bowel sounds, soft. ABSENT: distended, guarding, mass, organolmegaly, rebound, tenderness Extremities exam: ABSENT: calf tenderness, clubbing, pedal edema Neurological exam: PRESENT: oriented to person, oriented to place. ABSENT: oriented to time, oriented to situation Psychiatric exam: PRESENT: flat affect Skin exam: PRESENT: dry, intact, warm. ABSENT: cyanosis, rash Results Laboratory Results: 07/09/17 04:16 07/09/17 04:16 Impressions: Head CT 05/28/17 20:27 IMPRESSION: No acute intracranial findings. EVIDENCE OF ACUTE STROKE: NO. Head MRI 05/29/17 00:00 IMPRESSION: NO ACUTE ISCHEMIA, HEMORRHAGE, OR MASS LESION. CANNOT ASSESS FOR ABNORMAL WHITE MATTER SIGNAL DUE TO NONDIAGNOSTIC FLAIR IMAGING FROM [employer]. EVIDENCE OF ACUTE STROKE: NO. Foot X-Ray 05/31/17 00:00 IMPRESSION: 1. No acute or suspicious radiographic abnormality left the left foot. Shoulder X-Ray 06/20/17 00:00 IMPRESSION: NEGATIVE STUDY OF THE RIGHT SHOULDER. NO RADIOGRAPHIC EVIDENCE OF ACUTE INJURY. NO EXPLANATION FOR PAIN. Chest X-Ray 06/26/17 00:00 IMPRESSION: COPD. NO ACUTE RADIOGRAPHIC FINDING IN THE CHEST. Assessment & Plan - Diagnosis (1) Hypothermia Qualifiers: Encounter type: initial encounter Qualified Code(s): T68.XXXA - Hypothermia , initial encounter Is this a current diagnosis for this admission?: Yes Plan: Resolved. (2) Hypotension Qualifiers: Hypotension type: unspecified hypotension type Qualified Code(s): I95.9 - Hypotension, unspecified Is this a current diagnosis for this admission?: Yes Plan: Resolved. There was concern that this was related to adrenal insufficiency and he is currently on Florinef. (3) Anemia Is this a current diagnosis for this admission?: Yes Plan: Stable. (4) Anxiety Is this a current diagnosis for this admission?: Yes (5) Encephalopathy Is this a current diagnosis for this admission?: Yes Plan: Most likely secondary to alcohol abuse. (6) Hypothyroidism Is this a current diagnosis for this admission?: Yes Plan: The patient's TSH was high. Continue Synthroid. (7) Severe protein-calorie malnutrition Is this a current diagnosis for this admission?: Yes - Time Time Spent with patient: 15-24 minutes - Plan Summary Plan Summary: Awaiting placement
[2017-07-10] MEDS: ACETAMINOPHEN 325 MG TABLET PO PRN (15:33)
[2017-07-10] MEDS: HYDROXYZINE PAMOATE 25 MG CAPSULE PO PRN (23:25)
[2017-07-11] MEDS: LEVOTHYROXINE SODIUM 0.025 MG TABLET PO SCH (05:35)
[2017-07-11] MEDS: FLUDROCORTISONE ACETATE 0.1 MG TABLET PO SCH (09:06)
[2017-07-11] MEDS: MULTIVITAMIN TABLET PO SCH (09:06)
[2017-07-11] MEDS: BUSPIRONE HCL 10 MG TABLET PO SCH ×2 (09:06→21:57)
[2017-07-11] MEDS: THIAMINE HCL 100 MG TABLET PO SCH (09:07)
[2017-07-11] MEDS: DOCUSATE SODIUM 100 MG CAPSULE PO SCH ×2 (09:07→17:08)
--- NOTE | 2017-07-11 11:11 | PDOC PROGRESS REPORT ---
Subjective Progress Note for:: 07/11/17 Subjective:: Denies any complaints. Reason For Visit: HYPOTENSION, HYPOTHERMIA, ENCEPHALOPATHY Physical Exam Vital Signs: Temp Pulse Resp BP Pulse Ox 98.1 F 62 12 100/60 99 07/11/17 08:08 07/11/17 08:08 07/11/17 08:08 07/11/17 08:08 07/11/17 08:08 Intake & Output 07/10/17 07/11/17 07/12/17 06:59 06:59 06:59 Intake Total 870 943 Output Total 500 Balance 370 943 Weight 51.2 kg 51.9 kg General appearance: PRESENT: no acute distress Eye exam: PRESENT: conjunctiva pink. ABSENT: scleral icterus Neck exam: ABSENT: JVD Respiratory exam: PRESENT: clear to auscultation kae. ABSENT: rales, rhonchi, wheezes Cardiovascular exam: PRESENT: RRR. ABSENT: diastolic murmur, rubs, systolic murmur GI/Abdominal exam: PRESENT: normal bowel sounds, soft. ABSENT: distended, guarding, mass, organolmegaly, rebound, tenderness Extremities exam: ABSENT: calf tenderness, clubbing, pedal edema Results Laboratory Results: 07/09/17 04:16 07/09/17 04:16 Impressions: Head CT 05/28/17 20:27 IMPRESSION: No acute intracranial findings. EVIDENCE OF ACUTE STROKE: NO. Head MRI 05/29/17 00:00 IMPRESSION: NO ACUTE ISCHEMIA, HEMORRHAGE, OR MASS LESION. CANNOT ASSESS FOR ABNORMAL WHITE MATTER SIGNAL DUE TO NONDIAGNOSTIC FLAIR IMAGING FROM [employer]. EVIDENCE OF ACUTE STROKE: NO. Foot X-Ray 05/31/17 00:00 IMPRESSION: 1. No acute or suspicious radiographic abnormality left the left foot. Shoulder X-Ray 06/20/17 00:00 IMPRESSION: NEGATIVE STUDY OF THE RIGHT SHOULDER. NO RADIOGRAPHIC EVIDENCE OF ACUTE INJURY. NO EXPLANATION FOR PAIN. Chest X-Ray 06/26/17 00:00 IMPRESSION: COPD. NO ACUTE RADIOGRAPHIC FINDING IN THE CHEST. Assessment & Plan - Diagnosis (1) Hypothermia Qualifiers: Encounter type: initial encounter Qualified Code(s): T68.XXXA - Hypothermia , initial encounter Is this a current diagnosis for this admission?: Yes Plan: Resolved. (2) Hypotension Qualifiers: Hypotension type: unspecified hypotension type Qualified Code(s): I95.9 - Hypotension, unspecified Is this a current diagnosis for this admission?: Yes Plan: Resolved. There was concern that this was related to adrenal insufficiency and he is currently on Florinef. (3) Anemia Is this a current diagnosis for this admission?: Yes Plan: Stable. (4) Anxiety Is this a current diagnosis for this admission?: Yes (5) Encephalopathy Is this a current diagnosis for this admission?: Yes Plan: Most likely secondary to alcohol abuse. (6) Hypothyroidism Is this a current diagnosis for this admission?: Yes Plan: The patient's TSH was high. Continue Synthroid. (7) Severe protein-calorie malnutrition Is this a current diagnosis for this admission?: Yes - Time Time Spent with patient: 15-24 minutes - Plan Summary Plan Summary: Awaiting placement
[2017-07-12] MEDS: LEVOTHYROXINE SODIUM 0.025 MG TABLET PO SCH (05:32)
[2017-07-12] MEDS: THIAMINE HCL 100 MG TABLET PO SCH (10:14)
[2017-07-12] MEDS: BUSPIRONE HCL 10 MG TABLET PO SCH (10:14)
[2017-07-12] MEDS: MULTIVITAMIN TABLET PO SCH (10:14)
[2017-07-12] MEDS: FLUDROCORTISONE ACETATE 0.1 MG TABLET PO SCH (10:14)
[2017-07-12] MEDS: DOCUSATE SODIUM 100 MG CAPSULE PO SCH ×2 (10:15→17:12)
--- NOTE | 2017-07-12 14:05 | PDOC PROGRESS REPORT ---
Subjective Progress Note for:: 07/12/17 Subjective:: Denies any complaints. Reason For Visit: HYPOTENSION, HYPOTHERMIA, ENCEPHALOPATHY Physical Exam Vital Signs: Temp Pulse Resp BP Pulse Ox 98.6 F 64 12 95/55 L 95 07/12/17 11:50 07/12/17 11:50 07/12/17 11:50 07/12/17 11:50 07/12/17 11:50 Intake & Output 07/11/17 07/12/17 07/13/17 06:59 06:59 06:59 Intake Total 943 1022 Balance 943 1022 Weight 51.9 kg 53.1 kg General appearance: PRESENT: no acute distress Eye exam: PRESENT: conjunctiva pink. ABSENT: scleral icterus Mouth exam: PRESENT: moist, tongue midline Neck exam: ABSENT: JVD Respiratory exam: PRESENT: clear to auscultation kae. ABSENT: rales, rhonchi, wheezes Cardiovascular exam: PRESENT: RRR. ABSENT: diastolic murmur, rubs, systolic murmur GI/Abdominal exam: PRESENT: normal bowel sounds, soft. ABSENT: distended, guarding, mass, organolmegaly, rebound, tenderness Extremities exam: ABSENT: calf tenderness, clubbing, pedal edema Psychiatric exam: PRESENT: flat affect Results Laboratory Results: 07/09/17 04:16 07/09/17 04:16 Impressions: Head CT 05/28/17 20:27 IMPRESSION: No acute intracranial findings. EVIDENCE OF ACUTE STROKE: NO. Head MRI 05/29/17 00:00 IMPRESSION: NO ACUTE ISCHEMIA, HEMORRHAGE, OR MASS LESION. CANNOT ASSESS FOR ABNORMAL WHITE MATTER SIGNAL DUE TO NONDIAGNOSTIC FLAIR IMAGING FROM [employer]. EVIDENCE OF ACUTE STROKE: NO. Foot X-Ray 05/31/17 00:00 IMPRESSION: 1. No acute or suspicious radiographic abnormality left the left foot. Shoulder X-Ray 06/20/17 00:00 IMPRESSION: NEGATIVE STUDY OF THE RIGHT SHOULDER. NO RADIOGRAPHIC EVIDENCE OF ACUTE INJURY. NO EXPLANATION FOR PAIN. Chest X-Ray 06/26/17 00:00 IMPRESSION: COPD. NO ACUTE RADIOGRAPHIC FINDING IN THE CHEST. Assessment & Plan - Diagnosis (1) Hypothermia Qualifiers: Encounter type: initial encounter Qualified Code(s): T68.XXXA - Hypothermia , initial encounter Is this a current diagnosis for this admission?: Yes Plan: Resolved. (2) Hypotension Qualifiers: Hypotension type: unspecified hypotension type Qualified Code(s): I95.9 - Hypotension, unspecified Is this a current diagnosis for this admission?: Yes Plan: Resolved. There was concern that this was related to adrenal insufficiency and he is currently on Florinef. (3) Anemia Is this a current diagnosis for this admission?: Yes Plan: Stable. (4) Anxiety Is this a current diagnosis for this admission?: Yes (5) Encephalopathy Is this a current diagnosis for this admission?: Yes Plan: Most likely secondary to alcohol abuse. (6) Hypothyroidism Is this a current diagnosis for this admission?: Yes Plan: The patient's TSH was high. Continue Synthroid. (7) Severe protein-calorie malnutrition Is this a current diagnosis for this admission?: Yes - Time Time Spent with patient: 15-24 minutes - Plan Summary Plan Summary: Awaiting placement
[2017-07-13] MEDS: LEVOTHYROXINE SODIUM 0.025 MG TABLET PO SCH (05:37)
[2017-07-13] MEDS: DOCUSATE SODIUM 100 MG CAPSULE PO SCH ×2 (09:18→17:15)
[2017-07-13] MEDS: MULTIVITAMIN TABLET PO SCH (09:18)
[2017-07-13] MEDS: THIAMINE HCL 100 MG TABLET PO SCH (09:18)
--- NOTE | 2017-07-13 10:51 | PDOC PROGRESS REPORT ---
Subjective Progress Note for:: 07/13/17 Subjective:: Denies any complaints. Reason For Visit: HYPOTENSION, HYPOTHERMIA, ENCEPHALOPATHY Physical Exam Vital Signs: Temp Pulse Resp BP Pulse Ox 98.1 F 69 12 101/56 L 98 07/13/17 08:02 07/13/17 08:02 07/13/17 08:02 07/13/17 08:02 07/13/17 08:02 Intake & Output 07/12/17 07/13/17 07/14/17 06:59 06:59 06:59 Intake Total 1022 660 Balance 1022 660 Weight 53.1 kg 53.4 kg General appearance: PRESENT: no acute distress Eye exam: PRESENT: conjunctiva pink. ABSENT: scleral icterus Mouth exam: PRESENT: moist, tongue midline Neck exam: ABSENT: JVD Respiratory exam: ABSENT: rales, rhonchi, wheezes Cardiovascular exam: PRESENT: RRR. ABSENT: diastolic murmur, rubs, systolic murmur GI/Abdominal exam: PRESENT: normal bowel sounds, soft. ABSENT: distended, guarding, mass, organolmegaly, rebound, tenderness Psychiatric exam: PRESENT: appropriate affect Skin exam: PRESENT: dry, intact, warm. ABSENT: cyanosis, rash Results Laboratory Results: 07/09/17 04:16 07/09/17 04:16 Impressions: Head CT 05/28/17 20:27 IMPRESSION: No acute intracranial findings. EVIDENCE OF ACUTE STROKE: NO. Head MRI 05/29/17 00:00 IMPRESSION: NO ACUTE ISCHEMIA, HEMORRHAGE, OR MASS LESION. CANNOT ASSESS FOR ABNORMAL WHITE MATTER SIGNAL DUE TO NONDIAGNOSTIC FLAIR IMAGING FROM [employer]. EVIDENCE OF ACUTE STROKE: NO. Foot X-Ray 05/31/17 00:00 IMPRESSION: 1. No acute or suspicious radiographic abnormality left the left foot. Shoulder X-Ray 06/20/17 00:00 IMPRESSION: NEGATIVE STUDY OF THE RIGHT SHOULDER. NO RADIOGRAPHIC EVIDENCE OF ACUTE INJURY. NO EXPLANATION FOR PAIN. Chest X-Ray 06/26/17 00:00 IMPRESSION: COPD. NO ACUTE RADIOGRAPHIC FINDING IN THE CHEST. Assessment & Plan - Diagnosis (1) Hypothermia Qualifiers: Encounter type: initial encounter Qualified Code(s): T68.XXXA - Hypothermia , initial encounter Is this a current diagnosis for this admission?: Yes Plan: Resolved. (2) Hypotension Qualifiers: Hypotension type: unspecified hypotension type Qualified Code(s): I95.9 - Hypotension, unspecified Is this a current diagnosis for this admission?: Yes Plan: Resolved. There was concern that this was related to adrenal insufficiency and he is currently on Florinef. (3) Anemia Is this a current diagnosis for this admission?: Yes Plan: Stable. (4) Anxiety Is this a current diagnosis for this admission?: Yes (5) Encephalopathy Is this a current diagnosis for this admission?: Yes Plan: Most likely secondary to alcohol abuse. (6) Hypothyroidism Is this a current diagnosis for this admission?: Yes Plan: The patient's TSH was high. Continue Synthroid. (7) Severe protein-calorie malnutrition Is this a current diagnosis for this admission?: Yes - Time Time Spent with patient: 15-24 minutes - Plan Summary Plan Summary: Awaiting placement
[2017-07-14 05:41] LABS: ABSOLUTE EOSINOPHILS # (AUTO) 0.1 10^3/uL (0.0-0.6); ABSOLUTE LYMPHOCYTES (AUTO) 2.6 10^3/uL (0.5-4.7); ABSOLUTE NEUT (AUTO) 3.2 10^3/uL (1.7-8.2); BASOPHILS % (AUTO) 0.1 % (0-2); EOSINOPHILS % (AUTO) 1.9 % (0-6); HEMATOCRIT 29.2 % (37.9-51.0); LYMPHOCYTES % (AUTO) 37.4 % (13-45); MEAN CORPUSCULAR HEMOGLOBIN 33.7 pg (27.0-33.4); MEAN CORPUSCULAR HGB CONC 34.1 g/dL (32.0-36.0); MEAN CORPUSCULAR VOLUME 99 fl (80-97); MONOCYTES % (AUTO) 14.2 % (3-13); PLATELET COUNT 198 10^3/uL (150-450); RED BLOOD COUNT 2.95 10^6/uL (4.35-5.55); SEGMENTED NEUTROPHILS % (AUTO) 46.4 % (42-78); TOTAL CELLS COUNTED % (AUTO) 100 %; WHITE BLOOD COUNT 6.9 10^3/uL (4.0-10.5)
[2017-07-14 05:57] LABS: ANION GAP 9 (5-19); BLOOD UREA NITROGEN 28 mg/dL (7-20); CALCIUM 10.2 mg/dL (8.4-10.2); CARBON DIOXIDE 28 mmol/L (22-30); CHLORIDE 104 mmol/L (98-107); GLUCOSE 86 mg/dL (75-110); POTASSIUM 4.4 mmol/L (3.6-5.0); SODIUM 141.2 mmol/L (137-145)
[2017-07-14] MEDS: LEVOTHYROXINE SODIUM 0.025 MG TABLET PO SCH (06:18)
[2017-07-14] MEDS: THIAMINE HCL 100 MG TABLET PO SCH (10:05)
[2017-07-14] MEDS: DOCUSATE SODIUM 100 MG CAPSULE PO SCH ×2 (10:05→17:53)
[2017-07-14] MEDS: MULTIVITAMIN TABLET PO SCH (10:05)
[2017-07-14] MEDS: HALOPERIDOL 5 MG TABLET PO PRN (14:06)
--- NOTE | 2017-07-14 14:15 | PDOC PROGRESS REPORT ---
Subjective Progress Note for:: 07/14/17 Subjective:: Denies any complaints. 61-year-old male who was found wandering the streets [place] by the police department brought in. He was found to be hypothermic and hypertensive. He was given IV fluids and admitted. He is also found to be adrenally insufficient and started on Florinef. Since that time his blood pressures been stable. 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 We are currently awaiting placement. Reason For Visit: HYPOTENSION, HYPOTHERMIA, ENCEPHALOPATHY Physical Exam Vital Signs: Temp Pulse Resp BP Pulse Ox 98.2 F 64 14 101/60 100 07/14/17 11:48 07/14/17 11:48 07/14/17 11:48 07/14/17 11:48 07/14/17 11:48 Intake & Output 07/13/17 07/14/17 07/15/17 06:59 06:59 06:59 Intake Total 660 717 Balance 660 717 Weight 53.4 kg 54.5 kg General appearance: PRESENT: no acute distress Eye exam: PRESENT: conjunctiva pink. ABSENT: scleral icterus Mouth exam: PRESENT: moist, tongue midline Neck exam: ABSENT: JVD Respiratory exam: PRESENT: clear to auscultation kae. ABSENT: rales, rhonchi, wheezes Cardiovascular exam: ABSENT: diastolic murmur, rubs, systolic murmur GI/Abdominal exam: PRESENT: normal bowel sounds, soft. ABSENT: distended, guarding, mass, organolmegaly, rebound, tenderness Extremities exam: ABSENT: calf tenderness, clubbing, pedal edema Neurological exam: PRESENT: alert, awake, oriented to person, oriented to place , CN II-XII grossly intact. ABSENT: oriented to time, oriented to situation, motor sensory deficit Psychiatric exam: PRESENT: appropriate affect Skin exam: PRESENT: dry, intact, warm. ABSENT: cyanosis, rash Results Laboratory Results: 07/14/17 04:42 07/14/17 04:42 07/14/17 07/14/17 04:42 04:42 WBC 6.9 RBC 2.95 L Hgb 10.0 L Hct 29.2 L MCV 99 H MCH 33.7 H MCHC 34.1 RDW 14.0 Plt Count 198 Seg Neutrophils % 46.4 Lymphocytes % 37.4 Monocytes % 14.2 H Eosinophils % 1.9 Basophils % 0.1 Absolute Neutrophils 3.2 Absolute Lymphocytes 2.6 Absolute Monocytes 1.0 Absolute Eosinophils 0.1 Absolute Basophils 0.0 Sodium 141.2 Potassium 4.4 Chloride 104 Carbon Dioxide 28 Anion Gap 9 BUN 28 H Creatinine 0.76 Est GFR ( Amer) > 60 Est GFR (Non-Af Amer) > 60 Glucose 86 Calcium 10.2 Impressions: Head CT 05/28/17 20:27 IMPRESSION: No acute intracranial findings. EVIDENCE OF ACUTE STROKE: NO. Head MRI 05/29/17 00:00 IMPRESSION: NO ACUTE ISCHEMIA, HEMORRHAGE, OR MASS LESION. CANNOT ASSESS FOR ABNORMAL WHITE MATTER SIGNAL DUE TO NONDIAGNOSTIC FLAIR IMAGING FROM ARTIFACT. EVIDENCE OF ACUTE STROKE: NO. Foot X-Ray 05/31/17 00:00 IMPRESSION: 1. No acute or suspicious radiographic abnormality left the left foot. Shoulder X-Ray 06/20/17 00:00 IMPRESSION: NEGATIVE STUDY OF THE RIGHT SHOULDER. NO RADIOGRAPHIC EVIDENCE OF ACUTE INJURY. NO EXPLANATION FOR PAIN. Chest X-Ray 06/26/17 00:00 IMPRESSION: COPD. NO ACUTE RADIOGRAPHIC FINDING IN THE CHEST. Assessment & Plan - Diagnosis (1) Hypothermia Qualifiers: Encounter type: initial encounter Qualified Code(s): T68.XXXA - Hypothermia , initial encounter Is this a current diagnosis for this admission?: Yes Plan: Resolved. (2) Hypotension Qualifiers: Hypotension type: unspecified hypotension type Qualified Code(s): I95.9 - Hypotension, unspecified Is this a current diagnosis for this admission?: Yes Plan: Resolved. There was concern that this was related to adrenal insufficiency and he is currently on Florinef. (3) Anemia Is this a current diagnosis for this admission?: Yes Plan: Stable. (4) Anxiety Is this a current diagnosis for this admission?: Yes (5) Encephalopathy Is this a current diagnosis for this admission?: Yes Plan: Most likely secondary to alcohol abuse. (6) Hypothyroidism Is this a current diagnosis for this admission?: Yes Plan: The patient's TSH was high. Continue Synthroid. (7) Severe protein-calorie malnutrition Is this a current diagnosis for this admission?: Yes - Time Time Spent with patient: 25-34 minutes - Inpatient Certification Medical Necessity: Need Close Monitoring Due to Risk of Patient Decompensation - Plan Summary Plan Summary: Awaiting placement.
[2017-07-15] MEDS: LEVOTHYROXINE SODIUM 0.025 MG TABLET PO SCH (05:05)
--- NOTE | 2017-07-15 09:33 | PROGRESS NOTE E ---
Progress Note NAME: SANJANA GODWIN : 1955 AGE: 61Y DATE: 07/15/2017 ROOM: 403 SUBJECTIVE: The patient is currently lying in bed. Patient denies any nausea, vomiting, or diarrhea. No shortness of breath, dizziness, or chest pain. No fever or chills. The patient has been afebrile. His blood pressures have been in a good range. The patient does not voice any other concerns at this time. REVIEW OF SYSTEMS: Rest of the review of systems negative. MEDICATIONS: Have been reviewed. OBJECTIVE: GENERAL: The patient is a 61-year-old male who is awake, alert. He is oriented to person and place but not fully oriented to situation. He is delayed and does not appear to be distressed. VITAL SIGNS: Temperature 98.4, pulse 58, respirations 16, blood pressure 98/55, oxygen saturation is 100% on room air. SKIN: Warm and dry. No rash. He is not diaphoretic. HEENT: Pupils equal, round, reactive to light and accommodation. Conjunctivae are pink. No JVP. CARDIOVASCULAR: Heart is regular. There is no murmur or rub. CHEST: Clear, symmetrical, unlabored. ABDOMEN: Soft, nontender, nondistended. BACK: No CVA tenderness or sacral edema. EXTREMITIES: No clubbing, cyanosis, or edema. PSYCHIATRIC: Flat affect. DIAGNOSTICS: Lab values are as follows: Hematology on 07/15/2017: WBCs are 6.9, hemoglobin is 10.0, hematocrit is 29.2, platelet count is 198,000. Chemistry obtained on 07/14/2017: Sodium is 141, potassium 4.4, chloride is 104, carbon dioxide 28, BUN 28, creatinine 0.76, glucose 86, calcium is 10.2. IMPRESSION AND PLAN: 1. ADRENAL INSUFFICIENCY. Will continue the patient's steroid supplementation and follow. 2. HYPOTHERMIA MOST LIKELY SECONDARY TO #1 WELL EXPOSURE. 3. HYPOTENSION. Possibly related to adrenal insufficiency. Will continue the current medications, and the patient is overall stable. 4. ANEMIA STABLE. 5. ANXIETY. The patient is stable at this time. 6. ENCEPHALOPATHY MOST LIKELY SECONDARY TO CHRONIC ALCOHOL ABUSE. 7. HYPOTHYROIDISM. Will continue Synthroid. 8. SEVERE PROTEIN CALORIE MALNOURISHMENT. Will continue supplements. DISPOSITION: The patient is a FULL CODE. Pending patient's symptomatology and diagnostic findings, will reevaluate in the a.m. The patient can be discharged as soon as placement is available. Time spent on this followup including assessment, plan, physical examination, patient education, and review of records is 25 minutes. DICTATING PHYSICIAN: HODAN BUSH NP [id number] PHY#: [id number] ID: [id number] JOB#: [id number] ACCT: [id number] cc: > MTDD
[2017-07-15] MEDS: DOCUSATE SODIUM 100 MG CAPSULE PO SCH ×2 (11:55→17:19)
[2017-07-15] MEDS: THIAMINE HCL 100 MG TABLET PO SCH (11:55)
[2017-07-15] MEDS: MULTIVITAMIN TABLET PO SCH (11:55)
[2017-07-16] MEDS: LEVOTHYROXINE SODIUM 0.025 MG TABLET PO SCH (05:17)
[2017-07-16] MEDS ORDERED: FLUDROCORTISONE ACETATE 0.1 MG TABLET PO ONE (06:15)
--- NOTE | 2017-07-16 07:38 | PROGRESS NOTE E ---
Progress Note NAME: SANJANA GODWIN : 1955 AGE: 61Y DATE: 07/16/2017 ROOM: 403 SUBJECTIVE: The patient is currently lying in bed. He states he feels okay. He was awakened this morning on rounds. The patient has had no reported episodes of vomiting nor diarrhea. The patient has been afebrile. His blood pressures have continued to be soft, and the patient does not voice any concerns at this time. REVIEW OF SYSTEMS: Rest of review of systems is negative. MEDICATIONS: Medications have been reviewed. OBJECTIVE: GENERAL: The patient is a 61-year-old male who is awake, alert. He is oriented to place but not fully oriented to situation. He does not appear to be distressed. VITAL SIGNS: Are as follows: Temperature is 98.7, pulse 73, respirations 14, blood pressure is 96/56, oxygen saturation is 100% on room air. SKIN: Pale. He is not diaphoretic. HEENT: Pupils are reactive. Poor dentition. No evidence of JVP. CARDIOVASCULAR SYSTEM: Heart is regular. There is no murmur or rub. CHEST: Clear, symmetrical, unlabored. ABDOMEN: Soft, nontender, nondistended. BACK: No CVA tenderness, sacral edema. EXTREMITIES: No clubbing, cyanosis, edema. PSYCHIATRIC: The patient is quite flat. DIAGNOSTICS: Lab values are as follows: Hematology obtained on 07/14/2017: WBCs are 6.9, hemoglobin is 10.0, hematocrit is 29.2, platelet count is 198,000. Chemistry obtained on 07/14/2017: Sodium is 141, potassium 4.4, chloride is 104, carbon dioxide 28, BUN 28, creatinine is 0.73, glucose 86, calcium is 10.2. IMPRESSION AND PLAN: 1. ADRENAL INSUFFICIENCY. Will continue the patient's steroid supplementation, follow. 2. HYPOTHERMIA, MOST LIKELY SECONDARY TO #1 WELL EXPOSURE. 3. HYPOTENSION, MOST LIKELY DUE TO #1. The patient's blood pressures have slowly been trending down. Will ensure the patient is receiving his steroid supplement. 4. ANEMIA. Overall stable. 5. ANXIETY. Stable at this time. 6. ENCEPHALOPATHY, MOST LIKELY DUE TO HIS CHRONIC ALCOHOL ABUSE. 7. HYPOTHYROIDISM. Will continue Synthroid. 8. SEVERE PROTEIN-CALORIE MALNOURISHMENT. Will continue supplements. 9. ALCOHOL DEPENDENCY IN REMISSION. The patient has not been drinking since admission. Will continue to supplement B vitamins. DISPOSITION: The patient is a FULL CODE. Pending patient's symptomatology and diagnostic findings, the patient can go to a facility as soon as a bed is available. Time spent on this followup including assessment, plan, physical examination, patient education, and review of records is 25 minutes. DICTATING PHYSICIAN: HODAN BUSH NP [id number] Y#: [id number] ID: [id number] JOB#: [id number] ACCT: [id number] cc: > MTDD
[2017-07-16] MEDS ORDERED: MAGNESIUM CITRATE 296 ML BOTTLE PO ONE (08:45)
[2017-07-16] MEDS: DOCUSATE SODIUM 100 MG CAPSULE PO SCH ×2 (11:14→19:22)
[2017-07-16] MEDS: THIAMINE HCL 100 MG TABLET PO SCH (11:15)
[2017-07-16] MEDS: MULTIVITAMIN TABLET PO SCH (11:15)
[2017-07-16] MEDS: FOLIC ACID 1 MG TABLET PO SCH (11:15)
[2017-07-16] MEDS: FLUDROCORTISONE ACETATE 0.1 MG TABLET PO SCH (11:26)
[2017-07-17] MEDS: LEVOTHYROXINE SODIUM 0.025 MG TABLET PO SCH (05:27)
--- NOTE | 2017-07-17 09:13 | PROGRESS NOTE E ---
Progress Note NAME: SANJANA GODWIN : 1955 AGE: 61Y DATE: 07/17/2017 ROOM: 403 SUBJECTIVE: The patient is currently lying in bed. The patient is the same as yesterday. No nausea, vomiting, diarrhea, shortness of breath, dizziness, chest pain. No fevers, chills. Patient has been afebrile. His blood pressure has been in a good range. The patient voices no concerns at this time. REVIEW OF SYSTEMS: Rest of review of systems negative. MEDICATIONS: Medications have been reviewed. OBJECTIVE: GENERAL: The patient is a 61-year-old male who is awake, alert, and oriented to person, place, time, and situation. He is verbal, conversational, does not appear to be in acute distress. VITAL SIGNS: Are as follows: Temperature is 98.8, pulse 70, respirations 16, blood pressure is 94/69, oxygen saturation 98% on room air. SKIN: Warm and dry. No rash. Not diaphoretic. HEENT: Pupils equal, round, reactive to light and accommodation. Conjunctivae pink. No JVP. CARDIOVASCULAR SYSTEM: Heart is regular. There is no murmur or rub. CHEST: Clear, symmetrical, unlabored. ABDOMEN: Soft, nontender, nondistended. BACK: No CVA tenderness, sacral edema. EXTREMITIES: No clubbing, cyanosis, edema. PSYCHIATRIC: Appropriate affect. Pleasant mood. DIAGNOSTICS: Lab values are as follows: Hematology obtained on 07/14/2017: WBCs are 6.9, hemoglobin is 10.0, hematocrit is 29.2, platelet count is 198,000. Chemistry obtained on 07/14/2017: Sodium is 141, potassium 4.4, chloride is 104, carbon dioxide is 28, BUN 28, creatinine is 0.76, glucose 96, calcium is 10.2. IMPRESSION AND PLAN: 1. ADRENAL INSUFFICIENCY. Continue steroid supplementation and follow. 2. HYPOTHERMIA SECONDARY TO #1 WELL EXPOSURE. 3. HYPOTENSION, MOST LIKELY DUE TO #1. The patient's blood pressures have been stable since increasing Florinef. Continue this for now. 4. ANEMIA, overall stable. 5. ANXIETY, stable at this time. 6. ALCOHOL-INDUCED DEMENTIA. 7. HYPOTHYROIDISM. Continue Synthroid. 8. ALCOHOL DEPENDENCY, in remission. Patient has not been drinking since admission. Will continue to supplement B vitamins. 9. SEVERE PROTEIN-CALORIE MALNOURISHMENT. Continue supplements. DISPOSITION: The patient is a FULL CODE. The patient can be discharged as soon as a facility is available. Currently, [facility] is working on guardianship. Time spent on this followup including assessment, plan, physical examination, patient education, and review of records is 25 minutes. DICTATING PHYSICIAN: HODAN BUSH NP [id number] PHY#: [id number] ID: [id number] JOB#: [id number] ACCT: [id number] cc: > MTDD
[2017-07-17] MEDS: FLUDROCORTISONE ACETATE 0.1 MG TABLET PO SCH (11:16)
[2017-07-17] MEDS: DOCUSATE SODIUM 100 MG CAPSULE PO SCH ×2 (11:16→17:43)
[2017-07-17] MEDS: FOLIC ACID 1 MG TABLET PO SCH (11:17)
[2017-07-17] MEDS: THIAMINE HCL 100 MG TABLET PO SCH (11:17)
[2017-07-17] MEDS: MULTIVITAMIN TABLET PO SCH (11:17)
[2017-07-17] MEDS: HALOPERIDOL 5 MG TABLET PO PRN (20:21)
[2017-07-18] MEDS: LEVOTHYROXINE SODIUM 0.025 MG TABLET PO SCH (05:10)
[2017-07-18] MEDS: FLUDROCORTISONE ACETATE 0.1 MG TABLET PO SCH (11:13)
[2017-07-18] MEDS: MULTIVITAMIN TABLET PO SCH (11:13)
[2017-07-18] MEDS: FOLIC ACID 1 MG TABLET PO SCH (11:13)
[2017-07-18] MEDS: DOCUSATE SODIUM 100 MG CAPSULE PO SCH ×2 (11:13→17:52)
[2017-07-18] MEDS: THIAMINE HCL 100 MG TABLET PO SCH (11:14)
--- NOTE | 2017-07-18 12:22 | PDOC PROGRESS REPORT ---
Subjective Progress Note for:: 07/18/17 Subjective:: The patient is seen on morning rounds. He is found lying in bed comfortably. He is initially sleeping, but wakes easily. He states that he is feeling fine and that his only concern today is that he is still in the hospital. He denies fever, chills, headache, chest pain, cough, dyspnea, abdominal pain, nausea vomiting and diarrhea. He has no other questions or concerns at this time. Reason For Visit: HYPOTENSION, HYPOTHERMIA, ENCEPHALOPATHY Physical Exam Vital Signs: Temp Pulse Resp BP Pulse Ox 98.8 F 61 16 105/60 99 07/18/17 07:42 07/18/17 07:42 07/18/17 07:42 07/18/17 07:42 07/18/17 07:42 Intake & Output 07/17/17 07/18/17 07/19/17 06:59 06:59 06:59 Intake Total 720 1758 Balance 720 1758 General appearance: PRESENT: no acute distress, disheveled, thin, well-developed Head exam: PRESENT: atraumatic, normocephalic Eye exam: PRESENT: conjunctiva pink, EOMI, PERRLA. ABSENT: scleral icterus Ear exam: PRESENT: normal external ear exam Mouth exam: PRESENT: moist, tongue midline Neck exam: ABSENT: carotid bruit, JVD, lymphadenopathy, thyromegaly Respiratory exam: PRESENT: clear to auscultation kae. ABSENT: rales, rhonchi, wheezes Cardiovascular exam: PRESENT: RRR. ABSENT: diastolic murmur, rubs, systolic murmur Pulses: PRESENT: normal dorsalis pedis pul Vascular exam: PRESENT: normal capillary refill GI/Abdominal exam: PRESENT: normal bowel sounds, soft. ABSENT: distended, guarding, mass, organolmegaly, rebound, tenderness Rectal exam: PRESENT: deferred Extremities exam: PRESENT: full ROM. ABSENT: calf tenderness, clubbing, pedal edema Neurological exam: PRESENT: alert, awake, oriented to person, oriented to place , oriented to time, oriented to situation, CN II-XII grossly intact. ABSENT: motor sensory deficit Psychiatric exam: PRESENT: appropriate affect, normal mood. ABSENT: homicidal ideation, suicidal ideation Skin exam: PRESENT: dry, intact, warm. ABSENT: cyanosis, rash Results Laboratory Results: 07/14/17 04:42 07/14/17 04:42 Impressions: Head CT 05/28/17 20:27 IMPRESSION: No acute intracranial findings. EVIDENCE OF ACUTE STROKE: NO. Head MRI 05/29/17 00:00 IMPRESSION: NO ACUTE ISCHEMIA, HEMORRHAGE, OR MASS LESION. CANNOT ASSESS FOR ABNORMAL WHITE MATTER SIGNAL DUE TO NONDIAGNOSTIC FLAIR IMAGING FROM [employer]IFACT. EVIDENCE OF ACUTE STROKE: NO. Foot X-Ray 05/31/17 00:00 IMPRESSION: 1. No acute or suspicious radiographic abnormality left the left foot. Shoulder X-Ray 06/20/17 00:00 IMPRESSION: NEGATIVE STUDY OF THE RIGHT SHOULDER. NO RADIOGRAPHIC EVIDENCE OF ACUTE INJURY. NO EXPLANATION FOR PAIN. Chest X-Ray 06/26/17 00:00 IMPRESSION: COPD. NO ACUTE RADIOGRAPHIC FINDING IN THE CHEST. Assessment & Plan - Diagnosis (1) Adrenal insufficiency Is this a current diagnosis for this admission?: Yes Plan: We will continue steroid supplementation and follow. (2) Severe protein-calorie malnutrition Is this a current diagnosis for this admission?: Yes Plan: Continue cardiac diet with supplements. Appreciate RD consultation and recommendation. (3) Dementia Is this a current diagnosis for this admission?: Yes Plan: Likely exacerbated by chronic alcohol dependency. Will provide for patient safety. Appreciate discharge planning's assistance in establishing a safe discharge plan. (4) Anemia Is this a current diagnosis for this admission?: Yes Plan: Hemoglobin is stable. No signs of active bleeding at this time. We will continue to monitor. (5) Anxiety Is this a current diagnosis for this admission?: Yes Plan: Stable. Haldol as needed for severe anxiety/agitation. (6) Hypotension Qualifiers: Hypotension type: unspecified hypotension type Qualified Code(s): I95.9 - Hypotension, unspecified Is this a current diagnosis for this admission?: Yes Plan: Likely secondary to adrenal insufficiency. The blood pressures have remained stable since increasing Florinef. He does remain slightly hypotensive and may benefit from additional adjustments. (7) Hypothermia Qualifiers: Encounter type: initial encounter Qualified Code(s): T68.XXXA - Hypothermia , initial encounter Is this a current diagnosis for this admission?: Yes (8) Hypothyroidism Is this a current diagnosis for this admission?: Yes Plan: TSH was elevated on admission (7.99) and he was placed on Synthroid. We will repeat labs in the a.m. and adjust the dose accordingly. (9) Alcohol dependence Plan: We will continue thiamine and folic acid supplements. - Time Time Spent with patient: 15-24 minutes Medications reviewed and adjusted accordingly: Yes Disposition: The patient can be discharged as soon as a facility is available. Currently, [facility] is working on guardianship.
[2017-07-19] MEDS: LEVOTHYROXINE SODIUM 0.025 MG TABLET PO SCH (05:23)
[2017-07-19 06:47] LABS: HEMATOCRIT 30.2 % (37.9-51.0); HEMOGLOBIN 10.4 g/dL (13.5-17.0); MEAN CORPUSCULAR HEMOGLOBIN 33.6 pg (27.0-33.4); MEAN CORPUSCULAR HGB CONC 34.3 g/dL (32.0-36.0); MEAN CORPUSCULAR VOLUME 98 fl (80-97); PLATELET COUNT 209 10^3/uL (150-450); RED BLOOD COUNT 3.08 10^6/uL (4.35-5.55); RED CELL DISTRIBUTION WIDTH 13.4 % (11.5-14.0); WHITE BLOOD COUNT 5.9 10^3/uL (4.0-10.5)
[2017-07-19 07:16] LABS: ANION GAP 7 (5-19); BLOOD UREA NITROGEN 22 mg/dL (7-20); CALCIUM 10.2 mg/dL (8.4-10.2); CARBON DIOXIDE 30 mmol/L (22-30); CHLORIDE 106 mmol/L (98-107); GLUCOSE 84 mg/dL (75-110); POTASSIUM 4.2 mmol/L (3.6-5.0); SODIUM 143.1 mmol/L (137-145)
[2017-07-19 07:30] LABS: FREE T4 (FREE THYROXINE) 0.95 ng/dL (0.78-2.19)
[2017-07-19 07:44] LABS: THYROID STIMULATING HORMONE 3.19 uIU/mL (0.47-4.68)
[2017-07-19] MEDS: MULTIVITAMIN TABLET PO SCH (12:11)
[2017-07-19] MEDS: THIAMINE HCL 100 MG TABLET PO SCH (12:12)
[2017-07-19] MEDS: FOLIC ACID 1 MG TABLET PO SCH (12:12)
[2017-07-19] MEDS: DOCUSATE SODIUM 100 MG CAPSULE PO SCH ×2 (12:12→19:28)
[2017-07-19] MEDS: FLUDROCORTISONE ACETATE 0.1 MG TABLET PO SCH (12:14)
[2017-07-19] MEDS: HALOPERIDOL 5 MG TABLET PO PRN (12:15)
--- NOTE | 2017-07-19 13:07 | PDOC PROGRESS REPORT ---
Subjective Progress Note for:: 07/19/17 Subjective:: Does not voice any concerns. Reason For Visit: HYPOTENSION, HYPOTHERMIA, ENCEPHALOPATHY Physical Exam Vital Signs: Temp Pulse Resp BP Pulse Ox 98.5 F 72 16 108/62 98 07/18/17 19:55 07/18/17 19:55 07/18/17 19:55 07/18/17 19:55 07/18/17 19:55 Intake & Output 07/18/17 07/19/17 07/20/17 06:59 06:59 06:59 Intake Total 1758 1332 Output Total 250 Balance 1758 1082 General appearance: PRESENT: no acute distress, cooperative, thin Head exam: PRESENT: atraumatic, normocephalic Eye exam: PRESENT: EOMI, PERRLA Ear exam: PRESENT: normal external ear exam, TM's normal bilaterally Mouth exam: PRESENT: moist, neck supple Neck exam: PRESENT: full ROM. ABSENT: JVD Respiratory exam: PRESENT: clear to auscultation kae Cardiovascular exam: PRESENT: RRR. ABSENT: diastolic murmur, systolic murmur Vascular exam: PRESENT: normal capillary refill GI/Abdominal exam: PRESENT: normal bowel sounds, soft. ABSENT: tenderness Neurological exam: PRESENT: alert, oriented to person, oriented to place Psychiatric exam: PRESENT: appropriate affect, normal mood Results Laboratory Results: 07/19/17 05:19 07/19/17 05:19 07/19/17 07/19/17 05:19 05:19 WBC 5.9 RBC 3.08 L Hgb 10.4 L Hct 30.2 L MCV 98 H MCH 33.6 H MCHC 34.3 RDW 13.4 Plt Count 209 Sodium 143.1 Potassium 4.2 Chloride 106 Carbon Dioxide 30 Anion Gap 7 BUN 22 H Creatinine 0.64 Est GFR ( Amer) > 60 Est GFR (Non-Af Amer) > 60 Glucose 84 Calcium 10.2 Impressions: Head CT 05/28/17 20:27 IMPRESSION: No acute intracranial findings. EVIDENCE OF ACUTE STROKE: NO. Head MRI 05/29/17 00:00 IMPRESSION: NO ACUTE ISCHEMIA, HEMORRHAGE, OR MASS LESION. CANNOT ASSESS FOR ABNORMAL WHITE MATTER SIGNAL DUE TO NONDIAGNOSTIC FLAIR IMAGING FROM ARTIFACT. EVIDENCE OF ACUTE STROKE: NO. Foot X-Ray 05/31/17 00:00 IMPRESSION: 1. No acute or suspicious radiographic abnormality left the left foot. Shoulder X-Ray 06/20/17 00:00 IMPRESSION: NEGATIVE STUDY OF THE RIGHT SHOULDER. NO RADIOGRAPHIC EVIDENCE OF ACUTE INJURY. NO EXPLANATION FOR PAIN. Chest X-Ray 06/26/17 00:00 IMPRESSION: COPD. NO ACUTE RADIOGRAPHIC FINDING IN THE CHEST. Assessment & Plan - Diagnosis (1) Hypomagnesemia Is this a current diagnosis for this admission?: Yes (2) Encephalopathy Is this a current diagnosis for this admission?: Yes Plan: Resolved (3) Hypokalemia Is this a current diagnosis for this admission?: Yes Plan: Replaced (4) Hypotension Qualifiers: Hypotension type: unspecified hypotension type Qualified Code(s): I95.9 - Hypotension, unspecified Is this a current diagnosis for this admission?: Yes Plan: Resolved (5) Hypothermia Qualifiers: Encounter type: initial encounter Qualified Code(s): T68.XXXA - Hypothermia , initial encounter Is this a current diagnosis for this admission?: Yes Plan: Resolved (6) Sepsis Is this a current diagnosis for this admission?: No Plan: Presumptive on admission and ruled out (7) Hypothyroidism Is this a current diagnosis for this admission?: Yes Plan: Will continue current dose (8) Metabolic acidosis Is this a current diagnosis for this admission?: Yes Plan: Resolved. - Time Time Spent with patient: Less than 15 minutes Medications reviewed and adjusted accordingly: Yes - Inpatient Certification Based on my medical assessment, after consideration of the patient's comorbidities, presenting symptoms, or acuity I expect that the services needed warrant INPATIENT care.: Yes I certify that my determination is in accordance with my understanding of Medicare's requirements for reasonable and necessary INPATIENT services [42 CFR 412.3e].: Yes Medical Necessity: Other - Needs placement
[2017-07-20] MEDS: LEVOTHYROXINE SODIUM 0.025 MG TABLET PO SCH (05:12)
[2017-07-20] MEDS: FOLIC ACID 1 MG TABLET PO SCH (10:01)
[2017-07-20] MEDS: THIAMINE HCL 100 MG TABLET PO SCH (10:01)
[2017-07-20] MEDS: MULTIVITAMIN TABLET PO SCH (10:01)
[2017-07-20] MEDS: DOCUSATE SODIUM 100 MG CAPSULE PO SCH ×2 (10:01→17:58)
[2017-07-20] MEDS: FLUDROCORTISONE ACETATE 0.1 MG TABLET PO SCH (10:02)
--- NOTE | 2017-07-20 14:09 | PDOC PROGRESS REPORT ---
Subjective Progress Note for:: 07/20/17 Subjective:: Does not voice any concerns. Reason For Visit: HYPOTENSION, HYPOTHERMIA, ENCEPHALOPATHY Physical Exam Vital Signs: Temp Pulse Resp BP Pulse Ox 98.3 F 64 16 104/54 L 100 07/19/17 16:14 07/19/17 20:09 07/19/17 20:09 07/19/17 20:09 07/19/17 20:09 Intake & Output 07/19/17 07/20/17 07/21/17 06:59 06:59 06:59 Intake Total 1332 960 Output Total 250 350 Balance 1082 610 General appearance: PRESENT: no acute distress, cooperative Head exam: PRESENT: atraumatic, normocephalic Eye exam: PRESENT: EOMI, PERRLA Ear exam: PRESENT: normal external ear exam Mouth exam: PRESENT: moist Teeth exam: PRESENT: poor dentation Neck exam: PRESENT: full ROM. ABSENT: JVD, tenderness Respiratory exam: PRESENT: clear to auscultation kae Cardiovascular exam: PRESENT: RRR. ABSENT: diastolic murmur, systolic murmur Vascular exam: PRESENT: normal capillary refill GI/Abdominal exam: PRESENT: normal bowel sounds, soft. ABSENT: tenderness Extremities exam: ABSENT: joint swelling, pedal edema Musculoskeletal exam: PRESENT: full ROM Neurological exam: PRESENT: alert, awake, oriented to person, oriented to place , oriented to time Results Laboratory Results: 07/19/17 05:19 07/19/17 05:19 07/19/17 07/19/17 05:19 05:19 Sodium 143.1 Potassium 4.2 Chloride 106 Carbon Dioxide 30 Anion Gap 7 BUN 22 H Creatinine 0.64 Est GFR ( Amer) > 60 Est GFR (Non-Af Amer) > 60 Glucose 84 Calcium 10.2 TSH 3.19 Free T4 0.95 Impressions: Head CT 05/28/17 20:27 IMPRESSION: No acute intracranial findings. EVIDENCE OF ACUTE STROKE: NO. Head MRI 05/29/17 00:00 IMPRESSION: NO ACUTE ISCHEMIA, HEMORRHAGE, OR MASS LESION. CANNOT ASSESS FOR ABNORMAL WHITE MATTER SIGNAL DUE TO NONDIAGNOSTIC FLAIR IMAGING FROM [employer]. EVIDENCE OF ACUTE STROKE: NO. Foot X-Ray 05/31/17 00:00 IMPRESSION: 1. No acute or suspicious radiographic abnormality left the left foot. Shoulder X-Ray 06/20/17 00:00 IMPRESSION: NEGATIVE STUDY OF THE RIGHT SHOULDER. NO RADIOGRAPHIC EVIDENCE OF ACUTE INJURY. NO EXPLANATION FOR PAIN. Chest X-Ray 06/26/17 00:00 IMPRESSION: COPD. NO ACUTE RADIOGRAPHIC FINDING IN THE CHEST. Assessment & Plan - Diagnosis (1) Hypomagnesemia Is this a current diagnosis for this admission?: Yes Plan: replace iv and po. Trend (2) Encephalopathy Is this a current diagnosis for this admission?: Yes Plan: Resolved (3) Hypokalemia Is this a current diagnosis for this admission?: Yes Plan: Replaced (4) Hypotension Qualifiers: Hypotension type: unspecified hypotension type Qualified Code(s): I95.9 - Hypotension, unspecified Is this a current diagnosis for this admission?: Yes Plan: Resolved (5) Hypothermia Qualifiers: Encounter type: initial encounter Qualified Code(s): T68.XXXA - Hypothermia , initial encounter Is this a current diagnosis for this admission?: Yes Plan: Resolved (6) Sepsis Is this a current diagnosis for this admission?: No Plan: Presumptive on admission and ruled out (7) Hypothyroidism Is this a current diagnosis for this admission?: Yes Plan: Will continue current dose (8) Metabolic acidosis Is this a current diagnosis for this admission?: Yes Plan: Resolved. - Time Time Spent with patient: Less than 15 minutes Medications reviewed and adjusted accordingly: Yes Anticipated discharge: SNF Within: Other - unknown - Inpatient Certification Based on my medical assessment, after consideration of the patient's comorbidities, presenting symptoms, or acuity I expect that the services needed warrant INPATIENT care.: Yes I certify that my determination is in accordance with my understanding of Medicare's requirements for reasonable and necessary INPATIENT services [42 CFR 412.3e].: Yes Medical Necessity: Other - dispostion not secured
[2017-07-21] MEDS: LEVOTHYROXINE SODIUM 0.025 MG TABLET PO SCH (06:24)
[2017-07-21] MEDS: FOLIC ACID 1 MG TABLET PO SCH (10:20)
[2017-07-21] MEDS: THIAMINE HCL 100 MG TABLET PO SCH (10:20)
[2017-07-21] MEDS: DOCUSATE SODIUM 100 MG CAPSULE PO SCH ×2 (10:20→17:06)
[2017-07-21] MEDS: FLUDROCORTISONE ACETATE 0.1 MG TABLET PO SCH (10:21)
[2017-07-21] MEDS: MULTIVITAMIN TABLET PO SCH (10:21)
[2017-07-21] MEDS: ACETAMINOPHEN 325 MG TABLET PO PRN (12:24)
--- NOTE | 2017-07-21 13:58 | PDOC PROGRESS REPORT ---
Subjective Progress Note for:: 07/21/17 Subjective:: Patient states that he went to town last night and then return back late. When inquired about taking a bath he states that he did not do it yesterday but that he does it daily Reason For Visit: HYPOTENSION, HYPOTHERMIA, ENCEPHALOPATHY Physical Exam Vital Signs: Temp Pulse Resp BP Pulse Ox 98.1 F 68 16 90/50 L 97 07/21/17 00:00 07/21/17 00:00 07/21/17 00:00 07/21/17 00:00 07/21/17 00:00 Intake & Output 07/20/17 07/21/17 07/22/17 06:59 06:59 06:59 Intake Total 960 746 Output Total 350 Balance 610 746 General appearance: PRESENT: no acute distress, cooperative, thin, other - Urine smell Head exam: PRESENT: atraumatic, normocephalic Eye exam: PRESENT: conjunctiva pink, EOMI, PERRLA Ear exam: PRESENT: normal external ear exam Mouth exam: PRESENT: moist Neck exam: PRESENT: full ROM. ABSENT: JVD, tenderness Respiratory exam: PRESENT: clear to auscultation kae Cardiovascular exam: PRESENT: RRR. ABSENT: diastolic murmur, systolic murmur Vascular exam: PRESENT: normal capillary refill GI/Abdominal exam: PRESENT: normal bowel sounds, soft. ABSENT: tenderness Neurological exam: PRESENT: CN II-XII grossly intact Results Laboratory Results: 07/19/17 05:19 07/19/17 05:19 Impressions: Head CT 05/28/17 20:27 IMPRESSION: No acute intracranial findings. EVIDENCE OF ACUTE STROKE: NO. Head MRI 05/29/17 00:00 IMPRESSION: NO ACUTE ISCHEMIA, HEMORRHAGE, OR MASS LESION. CANNOT ASSESS FOR ABNORMAL WHITE MATTER SIGNAL DUE TO NONDIAGNOSTIC FLAIR IMAGING FROM [employer]. EVIDENCE OF ACUTE STROKE: NO. Foot X-Ray 05/31/17 00:00 IMPRESSION: 1. No acute or suspicious radiographic abnormality left the left foot. Shoulder X-Ray 06/20/17 00:00 IMPRESSION: NEGATIVE STUDY OF THE RIGHT SHOULDER. NO RADIOGRAPHIC EVIDENCE OF ACUTE INJURY. NO EXPLANATION FOR PAIN. Chest X-Ray 06/26/17 00:00 IMPRESSION: COPD. NO ACUTE RADIOGRAPHIC FINDING IN THE CHEST. Assessment & Plan - Diagnosis (1) Hypomagnesemia Is this a current diagnosis for this admission?: Yes Plan: Replaced (2) Encephalopathy Is this a current diagnosis for this admission?: Yes Plan: Resolved (3) Hypokalemia Is this a current diagnosis for this admission?: Yes Plan: Replaced (4) Hypotension Qualifiers: Hypotension type: unspecified hypotension type Qualified Code(s): I95.9 - Hypotension, unspecified Is this a current diagnosis for this admission?: Yes Plan: Resolved (5) Hypothermia Qualifiers: Encounter type: initial encounter Qualified Code(s): T68.XXXA - Hypothermia , initial encounter Is this a current diagnosis for this admission?: Yes Plan: Resolved (6) Sepsis Is this a current diagnosis for this admission?: No Plan: Presumptive on admission and ruled out (7) Hypothyroidism Is this a current diagnosis for this admission?: Yes Plan: Will continue current dose (8) Metabolic acidosis Is this a current diagnosis for this admission?: Yes Plan: Resolved. - Time Time Spent with patient: Less than 15 minutes Within: Other - Unknown and pending placement - Inpatient Certification Based on my medical assessment, after consideration of the patient's comorbidities, presenting symptoms, or acuity I expect that the services needed warrant INPATIENT care.: Yes I certify that my determination is in accordance with my understanding of Medicare's requirements for reasonable and necessary INPATIENT services [42 CFR 412.3e].: Yes Medical Necessity: Other - Requires placement
[2017-07-22 05:00] LABS: ABSOLUTE EOSINOPHILS # (AUTO) 0.1 10^3/uL (0.0-0.6); ABSOLUTE LYMPHOCYTES (AUTO) 2.4 10^3/uL (0.5-4.7); ABSOLUTE MONOCYTES (AUTO) 0.7 10^3/uL (0.1-1.4); ABSOLUTE NEUT (AUTO) 2.4 10^3/uL (1.7-8.2); BASOPHILS % (AUTO) 0.1 % (0-2); EOSINOPHILS % (AUTO) 2.3 % (0-6); HEMATOCRIT 30.1 % (37.9-51.0); HEMOGLOBIN 10.4 g/dL (13.5-17.0); LYMPHOCYTES % (AUTO) 42.4 % (13-45); MEAN CORPUSCULAR HEMOGLOBIN 33.4 pg (27.0-33.4); MEAN CORPUSCULAR HGB CONC 34.5 g/dL (32.0-36.0); MEAN CORPUSCULAR VOLUME 97 fl (80-97); MONOCYTES % (AUTO) 13.1 % (3-13); PLATELET COUNT 218 10^3/uL (150-450); RED BLOOD COUNT 3.11 10^6/uL (4.35-5.55); RED CELL DISTRIBUTION WIDTH 13.6 % (11.5-14.0); SEGMENTED NEUTROPHILS % (AUTO) 42.1 % (42-78); TOTAL CELLS COUNTED % (AUTO) 100 %; WHITE BLOOD COUNT 5.6 10^3/uL (4.0-10.5)
[2017-07-22] MEDS: LEVOTHYROXINE SODIUM 0.025 MG TABLET PO SCH (05:17)
[2017-07-22 05:22] LABS: ALANINE AMINOTRANSFERASE 21 U/L (21-72); ALBUMIN 3.3 g/dL (3.5-5.0); ALKALINE PHOSPHATASE 35 U/L (38-126); ANION GAP 11 (5-19); ASPARTATE AMINO TRANSFERASE 13 U/L (17-59); BILIRUBIN,DIRECT 0.1 mg/dL (0.0-0.4); BILIRUBIN,TOTAL 0.3 mg/dL (0.2-1.3); BLOOD UREA NITROGEN 18 mg/dL (7-20); CALCIUM 10.1 mg/dL (8.4-10.2); CARBON DIOXIDE 25 mmol/L (22-30); CHLORIDE 106 mmol/L (98-107); GLUCOSE 90 mg/dL (75-110); POTASSIUM 3.9 mmol/L (3.6-5.0); SODIUM 142.2 mmol/L (137-145); TOTAL PROTEIN 5.4 g/dL (6.3-8.2)
[2017-07-22] MEDS: FLUDROCORTISONE ACETATE 0.1 MG TABLET PO SCH (12:32)
[2017-07-22] MEDS: THIAMINE HCL 100 MG TABLET PO SCH (12:33)
[2017-07-22] MEDS: FOLIC ACID 1 MG TABLET PO SCH (12:33)
[2017-07-22] MEDS: DOCUSATE SODIUM 100 MG CAPSULE PO SCH ×2 (12:33→18:41)
[2017-07-22] MEDS: MULTIVITAMIN TABLET PO SCH (12:33)
--- NOTE | 2017-07-22 12:45 | PDOC PROGRESS REPORT ---
Subjective Progress Note for:: 07/22/17 Subjective:: Denies any complaints. Reason For Visit: HYPOTENSION, HYPOTHERMIA, ENCEPHALOPATHY Physical Exam Vital Signs: Temp Pulse Resp BP Pulse Ox 98.1 F 62 16 110/60 100 07/22/17 00:00 07/22/17 00:00 07/22/17 00:00 07/22/17 00:00 07/22/17 00:00 Intake & Output 07/21/17 07/22/17 07/23/17 06:59 06:59 06:59 Intake Total 746 780 Output Total 550 Balance 746 230 General appearance: PRESENT: no acute distress Eye exam: PRESENT: conjunctiva pink. ABSENT: scleral icterus Mouth exam: PRESENT: moist, tongue midline Neck exam: ABSENT: JVD Respiratory exam: PRESENT: clear to auscultation kae. ABSENT: rales, rhonchi, wheezes Cardiovascular exam: PRESENT: RRR. ABSENT: diastolic murmur, rubs, systolic murmur GI/Abdominal exam: PRESENT: normal bowel sounds, soft. ABSENT: distended, guarding, mass, organolmegaly, rebound, tenderness Extremities exam: ABSENT: calf tenderness, clubbing, pedal edema Neurological exam: PRESENT: awake, oriented to person, oriented to place. ABSENT: oriented to time, oriented to situation Psychiatric exam: PRESENT: appropriate affect Skin exam: PRESENT: dry, intact, warm. ABSENT: cyanosis, rash Results Laboratory Results: 07/22/17 04:25 07/22/17 04:25 07/22/17 07/22/17 04:25 04:25 WBC 5.6 RBC 3.11 L Hgb 10.4 L Hct 30.1 L MCV 97 MCH 33.4 MCHC 34.5 RDW 13.6 Plt Count 218 Seg Neutrophils % 42.1 Lymphocytes % 42.4 Monocytes % 13.1 H Eosinophils % 2.3 Basophils % 0.1 Absolute Neutrophils 2.4 Absolute Lymphocytes 2.4 Absolute Monocytes 0.7 Absolute Eosinophils 0.1 Absolute Basophils 0.0 Sodium 142.2 Potassium 3.9 Chloride 106 Carbon Dioxide 25 Anion Gap 11 BUN 18 Creatinine 0.59 Est GFR ( Amer) > 60 Est GFR (Non-Af Amer) > 60 Glucose 90 Calcium 10.1 Magnesium 1.7 Total Bilirubin 0.3 AST 13 L ALT 21 Alkaline Phosphatase 35 L Total Protein 5.4 L Albumin 3.3 L Impressions: Head CT 05/28/17 20:27 IMPRESSION: No acute intracranial findings. EVIDENCE OF ACUTE STROKE: NO. Head MRI 05/29/17 00:00 IMPRESSION: NO ACUTE ISCHEMIA, HEMORRHAGE, OR MASS LESION. CANNOT ASSESS FOR ABNORMAL WHITE MATTER SIGNAL DUE TO NONDIAGNOSTIC FLAIR IMAGING FROM [employer]. EVIDENCE OF ACUTE STROKE: NO. Foot X-Ray 05/31/17 00:00 IMPRESSION: 1. No acute or suspicious radiographic abnormality left the left foot. Shoulder X-Ray 06/20/17 00:00 IMPRESSION: NEGATIVE STUDY OF THE RIGHT SHOULDER. NO RADIOGRAPHIC EVIDENCE OF ACUTE INJURY. NO EXPLANATION FOR PAIN. Chest X-Ray 06/26/17 00:00 IMPRESSION: COPD. NO ACUTE RADIOGRAPHIC FINDING IN THE CHEST. Assessment & Plan - Diagnosis (1) Hypothermia Qualifiers: Encounter type: initial encounter Qualified Code(s): T68.XXXA - Hypothermia , initial encounter Is this a current diagnosis for this admission?: Yes Plan: Resolved. (2) Hypotension Qualifiers: Hypotension type: unspecified hypotension type Qualified Code(s): I95.9 - Hypotension, unspecified Is this a current diagnosis for this admission?: Yes Plan: Resolved. There was concern that this was related to adrenal insufficiency and he is currently on Florinef. (3) Anemia Is this a current diagnosis for this admission?: Yes Plan: Stable. (4) Anxiety Is this a current diagnosis for this admission?: Yes (5) Encephalopathy Is this a current diagnosis for this admission?: Yes Plan: Most likely secondary to alcohol abuse. (6) Hypothyroidism Is this a current diagnosis for this admission?: Yes Plan: The patient's TSH was high. Continue Synthroid. (7) Severe protein-calorie malnutrition Is this a current diagnosis for this admission?: Yes - Time Time Spent with patient: 25-34 minutes - Plan Summary Plan Summary: Awaiting placement.
[2017-07-22] MEDS: ACETAMINOPHEN 325 MG TABLET PO PRN (14:54)
[2017-07-22] MEDS: LORATADINE 10 MG TABLET PO PRN (18:41)
[2017-07-23] MEDS: LEVOTHYROXINE SODIUM 0.025 MG TABLET PO SCH (05:08)
[2017-07-23] MEDS: DOCUSATE SODIUM 100 MG CAPSULE PO SCH ×2 (10:13→17:58)
[2017-07-23] MEDS: MULTIVITAMIN TABLET PO SCH (10:13)
[2017-07-23] MEDS: FOLIC ACID 1 MG TABLET PO SCH (10:13)
[2017-07-23] MEDS: THIAMINE HCL 100 MG TABLET PO SCH (10:13)
[2017-07-23] MEDS: FLUDROCORTISONE ACETATE 0.1 MG TABLET PO SCH (11:41)
--- NOTE | 2017-07-23 14:39 | PDOC PROGRESS REPORT ---
Subjective Progress Note for:: 07/23/17 Subjective:: Denies any complaints. Reason For Visit: HYPOTENSION, HYPOTHERMIA, ENCEPHALOPATHY Physical Exam Vital Signs: Temp Pulse Resp BP Pulse Ox 98.6 F 63 12 91/57 L 98 07/23/17 08:00 07/23/17 08:00 07/23/17 08:00 07/23/17 08:00 07/23/17 08:00 Intake & Output 07/22/17 07/23/17 07/24/17 06:59 06:59 06:59 Intake Total 780 954 Output Total 550 600 Balance 230 354 General appearance: PRESENT: no acute distress Eye exam: PRESENT: conjunctiva pink. ABSENT: scleral icterus Mouth exam: PRESENT: moist, tongue midline Neck exam: ABSENT: JVD Respiratory exam: PRESENT: clear to auscultation kae. ABSENT: rales, rhonchi, wheezes Cardiovascular exam: PRESENT: RRR. ABSENT: diastolic murmur, rubs, systolic murmur GI/Abdominal exam: PRESENT: normal bowel sounds, soft. ABSENT: distended, guarding, mass, organolmegaly, rebound, tenderness Skin exam: PRESENT: dry, intact, warm. ABSENT: cyanosis, rash Results Laboratory Results: 07/22/17 04:25 07/22/17 04:25 Impressions: Head CT 05/28/17 20:27 IMPRESSION: No acute intracranial findings. EVIDENCE OF ACUTE STROKE: NO. Head MRI 05/29/17 00:00 IMPRESSION: NO ACUTE ISCHEMIA, HEMORRHAGE, OR MASS LESION. CANNOT ASSESS FOR ABNORMAL WHITE MATTER SIGNAL DUE TO NONDIAGNOSTIC FLAIR IMAGING FROM [employer]. EVIDENCE OF ACUTE STROKE: NO. Foot X-Ray 05/31/17 00:00 IMPRESSION: 1. No acute or suspicious radiographic abnormality left the left foot. Shoulder X-Ray 06/20/17 00:00 IMPRESSION: NEGATIVE STUDY OF THE RIGHT SHOULDER. NO RADIOGRAPHIC EVIDENCE OF ACUTE INJURY. NO EXPLANATION FOR PAIN. Chest X-Ray 06/26/17 00:00 IMPRESSION: COPD. NO ACUTE RADIOGRAPHIC FINDING IN THE CHEST. Assessment & Plan - Diagnosis (1) Hypothermia Qualifiers: Encounter type: initial encounter Qualified Code(s): T68.XXXA - Hypothermia , initial encounter Is this a current diagnosis for this admission?: Yes Plan: Resolved. (2) Hypotension Qualifiers: Hypotension type: unspecified hypotension type Qualified Code(s): I95.9 - Hypotension, unspecified Is this a current diagnosis for this admission?: Yes Plan: Resolved. There was concern that this was related to adrenal insufficiency and he is currently on Florinef. (3) Anemia Is this a current diagnosis for this admission?: Yes Plan: Stable. (4) Anxiety Is this a current diagnosis for this admission?: Yes (5) Encephalopathy Is this a current diagnosis for this admission?: Yes Plan: Most likely secondary to alcohol abuse. (6) Hypothyroidism Is this a current diagnosis for this admission?: Yes Plan: The patient's TSH was high. Continue Synthroid. (7) Severe protein-calorie malnutrition Is this a current diagnosis for this admission?: Yes - Time Time Spent with patient: 25-34 minutes - Inpatient Certification Medical Necessity: Need Close Monitoring Due to Risk of Patient Decompensation - Plan Summary Plan Summary: Awaiting placement
[2017-07-24] MEDS: LEVOTHYROXINE SODIUM 0.025 MG TABLET PO SCH (05:10)
[2017-07-24] MEDS: DOCUSATE SODIUM 100 MG CAPSULE PO SCH ×2 (09:25→17:53)
[2017-07-24] MEDS: MULTIVITAMIN TABLET PO SCH (09:25)
[2017-07-24] MEDS: THIAMINE HCL 100 MG TABLET PO SCH (09:26)
[2017-07-24] MEDS: FOLIC ACID 1 MG TABLET PO SCH (09:26)
[2017-07-24] MEDS: FLUDROCORTISONE ACETATE 0.1 MG TABLET PO SCH (09:26)
--- NOTE | 2017-07-24 12:11 | PDOC PROGRESS REPORT ---
Subjective Progress Note for:: 07/24/17 Subjective:: Denies any complaints. His blood pressure is noted to be slightly low but he is asymptomatic Reason For Visit: HYPOTENSION, HYPOTHERMIA, ENCEPHALOPATHY Physical Exam Vital Signs: Temp Pulse Resp BP Pulse Ox 98.7 F 65 12 82/55 L 98 07/24/17 08:00 07/24/17 08:00 07/24/17 08:00 07/24/17 08:00 07/24/17 08:00 Intake & Output 07/23/17 07/24/17 07/25/17 06:59 06:59 06:59 Intake Total 954 410 Output Total 600 Balance 354 410 General appearance: PRESENT: no acute distress Eye exam: PRESENT: conjunctiva pink. ABSENT: scleral icterus Mouth exam: PRESENT: moist, tongue midline Neck exam: ABSENT: JVD Respiratory exam: PRESENT: accessory muscle use Cardiovascular exam: PRESENT: RRR. ABSENT: diastolic murmur, rubs, systolic murmur GI/Abdominal exam: PRESENT: normal bowel sounds, soft. ABSENT: distended, guarding, mass, organolmegaly, rebound, tenderness Extremities exam: ABSENT: calf tenderness, clubbing, pedal edema Psychiatric exam: PRESENT: flat affect Skin exam: PRESENT: dry, intact, warm. ABSENT: cyanosis, rash Results Laboratory Results: 07/22/17 04:25 07/22/17 04:25 Impressions: Head CT 05/28/17 20:27 IMPRESSION: No acute intracranial findings. EVIDENCE OF ACUTE STROKE: NO. Head MRI 05/29/17 00:00 IMPRESSION: NO ACUTE ISCHEMIA, HEMORRHAGE, OR MASS LESION. CANNOT ASSESS FOR ABNORMAL WHITE MATTER SIGNAL DUE TO NONDIAGNOSTIC FLAIR IMAGING FROM [employer]IF[employer]. EVIDENCE OF ACUTE STROKE: NO. Foot X-Ray 05/31/17 00:00 IMPRESSION: 1. No acute or suspicious radiographic abnormality left the left foot. Shoulder X-Ray 06/20/17 00:00 IMPRESSION: NEGATIVE STUDY OF THE RIGHT SHOULDER. NO RADIOGRAPHIC EVIDENCE OF ACUTE INJURY. NO EXPLANATION FOR PAIN. Chest X-Ray 06/26/17 00:00 IMPRESSION: COPD. NO ACUTE RADIOGRAPHIC FINDING IN THE CHEST. Assessment & Plan - Diagnosis (1) Hypothermia Qualifiers: Encounter type: initial encounter Qualified Code(s): T68.XXXA - Hypothermia , initial encounter Is this a current diagnosis for this admission?: Yes Plan: Resolved. (2) Hypotension Qualifiers: Hypotension type: unspecified hypotension type Qualified Code(s): I95.9 - Hypotension, unspecified Is this a current diagnosis for this admission?: Yes Plan: Resolved. There was concern that this was related to adrenal insufficiency and he is currently on Florinef. Will increase the dose of Florinef given his relative hypotension (3) Anemia Is this a current diagnosis for this admission?: Yes Plan: Stable. (4) Anxiety Is this a current diagnosis for this admission?: Yes (5) Encephalopathy Is this a current diagnosis for this admission?: Yes Plan: Most likely secondary to alcohol abuse. (6) Hypothyroidism Is this a current diagnosis for this admission?: Yes Plan: The patient's TSH was high. Continue Synthroid. (7) Severe protein-calorie malnutrition Is this a current diagnosis for this admission?: Yes - Time Time Spent with patient: 25-34 minutes - Inpatient Certification Medical Necessity: Need Close Monitoring Due to Risk of Patient Decompensation - Plan Summary Plan Summary: Awaiting placement
[2017-07-24] MEDS: HALOPERIDOL 5 MG TABLET PO PRN (23:14)
[2017-07-25 05:39] LABS: ABSOLUTE EOSINOPHILS # (AUTO) 0.1 10^3/uL (0.0-0.6); ABSOLUTE LYMPHOCYTES (AUTO) 2.4 10^3/uL (0.5-4.7); ABSOLUTE MONOCYTES (AUTO) 0.7 10^3/uL (0.1-1.4); ABSOLUTE NEUT (AUTO) 2.3 10^3/uL (1.7-8.2); BASOPHILS % (AUTO) 0.2 % (0-2); EOSINOPHILS % (AUTO) 1.9 % (0-6); HEMATOCRIT 30.3 % (37.9-51.0); HEMOGLOBIN 10.3 g/dL (13.5-17.0); LYMPHOCYTES % (AUTO) 43.4 % (13-45); MEAN CORPUSCULAR VOLUME 97 fl (80-97); MONOCYTES % (AUTO) 13.3 % (3-13); PLATELET COUNT 221 10^3/uL (150-450); RED BLOOD COUNT 3.12 10^6/uL (4.35-5.55); RED CELL DISTRIBUTION WIDTH 13.5 % (11.5-14.0); SEGMENTED NEUTROPHILS % (AUTO) 41.2 % (42-78); TOTAL CELLS COUNTED % (AUTO) 100 %; WHITE BLOOD COUNT 5.5 10^3/uL (4.0-10.5)
[2017-07-25] MEDS: LEVOTHYROXINE SODIUM 0.025 MG TABLET PO SCH (05:39)
[2017-07-25 06:04] LABS: ANION GAP 9 (5-19); BLOOD UREA NITROGEN 22 mg/dL (7-20); CALCIUM 10.3 mg/dL (8.4-10.2); CARBON DIOXIDE 30 mmol/L (22-30); CHLORIDE 103 mmol/L (98-107); GLUCOSE 83 mg/dL (75-110); POTASSIUM 3.9 mmol/L (3.6-5.0); SODIUM 142.2 mmol/L (137-145)
[2017-07-25] MEDS: FLUDROCORTISONE ACETATE 0.1 MG TABLET PO SCH (10:31)
[2017-07-25] MEDS: MULTIVITAMIN TABLET PO SCH (10:31)
[2017-07-25] MEDS: FOLIC ACID 1 MG TABLET PO SCH (10:31)
[2017-07-25] MEDS: THIAMINE HCL 100 MG TABLET PO SCH (10:31)
[2017-07-25] MEDS: DOCUSATE SODIUM 100 MG CAPSULE PO SCH ×2 (10:31→17:48)
--- NOTE | 2017-07-25 14:13 | PDOC PROGRESS REPORT ---
Subjective Progress Note for:: 07/25/17 Subjective:: Denies any complaints. Reason For Visit: HYPOTENSION, HYPOTHERMIA, ENCEPHALOPATHY Physical Exam Vital Signs: Temp Pulse Resp BP Pulse Ox 97.6 F 61 16 94/56 L 97 07/25/17 08:00 07/25/17 08:00 07/25/17 08:00 07/25/17 08:00 07/25/17 08:00 Intake & Output 07/24/17 07/25/17 07/26/17 06:59 06:59 06:59 Intake Total 410 580 Balance 410 580 General appearance: PRESENT: no acute distress Eye exam: PRESENT: conjunctiva pink. ABSENT: scleral icterus Ear exam: PRESENT: normal external ear exam Neck exam: ABSENT: JVD Respiratory exam: PRESENT: clear to auscultation kae. ABSENT: rales, rhonchi, wheezes Cardiovascular exam: PRESENT: RRR. ABSENT: diastolic murmur, rubs, systolic murmur GI/Abdominal exam: PRESENT: normal bowel sounds, soft. ABSENT: distended, guarding, mass, organolmegaly, rebound, tenderness Extremities exam: ABSENT: calf tenderness, clubbing, pedal edema Neurological exam: PRESENT: awake, oriented to person. ABSENT: oriented to place, oriented to time, oriented to situation Psychiatric exam: PRESENT: appropriate affect Skin exam: PRESENT: dry, intact, warm. ABSENT: cyanosis, rash Results Laboratory Results: 07/25/17 05:14 07/25/17 05:14 07/25/17 07/25/17 05:14 05:14 WBC 5.5 RBC 3.12 L Hgb 10.3 L Hct 30.3 L MCV 97 MCH 33.0 MCHC 34.0 RDW 13.5 Plt Count 221 Seg Neutrophils % 41.2 L Lymphocytes % 43.4 Monocytes % 13.3 H Eosinophils % 1.9 Basophils % 0.2 Absolute Neutrophils 2.3 Absolute Lymphocytes 2.4 Absolute Monocytes 0.7 Absolute Eosinophils 0.1 Absolute Basophils 0.0 Sodium 142.2 Potassium 3.9 Chloride 103 Carbon Dioxide 30 Anion Gap 9 BUN 22 H Creatinine 0.65 Est GFR ( Amer) > 60 Est GFR (Non-Af Amer) > 60 Glucose 83 Calcium 10.3 H Impressions: Head CT 05/28/17 20:27 IMPRESSION: No acute intracranial findings. EVIDENCE OF ACUTE STROKE: NO. Head MRI 05/29/17 00:00 IMPRESSION: NO ACUTE ISCHEMIA, HEMORRHAGE, OR MASS LESION. CANNOT ASSESS FOR ABNORMAL WHITE MATTER SIGNAL DUE TO NONDIAGNOSTIC FLAIR IMAGING FROM [employer]. EVIDENCE OF ACUTE STROKE: NO. Foot X-Ray 05/31/17 00:00 IMPRESSION: 1. No acute or suspicious radiographic abnormality left the left foot. Shoulder X-Ray 06/20/17 00:00 IMPRESSION: NEGATIVE STUDY OF THE RIGHT SHOULDER. NO RADIOGRAPHIC EVIDENCE OF ACUTE INJURY. NO EXPLANATION FOR PAIN. Chest X-Ray 06/26/17 00:00 IMPRESSION: COPD. NO ACUTE RADIOGRAPHIC FINDING IN THE CHEST. Assessment & Plan - Diagnosis (1) Hypothermia Qualifiers: Encounter type: initial encounter Qualified Code(s): T68.XXXA - Hypothermia , initial encounter Is this a current diagnosis for this admission?: Yes Plan: Resolved. (2) Hypotension Qualifiers: Hypotension type: unspecified hypotension type Qualified Code(s): I95.9 - Hypotension, unspecified Is this a current diagnosis for this admission?: Yes Plan: Resolved. There was concern that this was related to adrenal insufficiency and he is currently on Florinef. Blood pressure is doing better on the higher dose of Florinef. (3) Anemia Is this a current diagnosis for this admission?: Yes Plan: Stable. (4) Anxiety Is this a current diagnosis for this admission?: Yes (5) Encephalopathy Is this a current diagnosis for this admission?: Yes Plan: Most likely secondary to alcohol abuse. (6) Hypothyroidism Is this a current diagnosis for this admission?: Yes Plan: The patient's TSH was high. Continue Synthroid. (7) Severe protein-calorie malnutrition Is this a current diagnosis for this admission?: Yes - Time Time Spent with patient: 15-24 minutes - Plan Summary Plan Summary: Awaiting placement.
[2017-07-26] MEDS: LEVOTHYROXINE SODIUM 0.025 MG TABLET PO SCH (06:17)
[2017-07-26] MEDS: FOLIC ACID 1 MG TABLET PO SCH (10:12)
[2017-07-26] MEDS: MULTIVITAMIN TABLET PO SCH (10:12)
[2017-07-26] MEDS: THIAMINE HCL 100 MG TABLET PO SCH (10:12)
[2017-07-26] MEDS: FLUDROCORTISONE ACETATE 0.1 MG TABLET PO SCH (10:12)
[2017-07-26] MEDS: DOCUSATE SODIUM 100 MG CAPSULE PO SCH ×2 (10:12→17:26)
--- NOTE | 2017-07-26 12:55 | PDOC PROGRESS REPORT ---
Subjective Progress Note for:: 07/26/17 Subjective:: Denies any complaints. Reason For Visit: HYPOTENSION, HYPOTHERMIA, ENCEPHALOPATHY Physical Exam Vital Signs: Temp Pulse Resp BP Pulse Ox 98.4 F 63 12 103/61 98 07/26/17 08:00 07/26/17 08:00 07/26/17 08:00 07/26/17 08:00 07/26/17 08:00 Intake & Output 07/25/17 07/26/17 07/27/17 06:59 06:59 06:59 Intake Total 580 580 Balance 580 580 General appearance: PRESENT: no acute distress Respiratory exam: PRESENT: clear to auscultation kae. ABSENT: rales, rhonchi, wheezes Cardiovascular exam: PRESENT: RRR. ABSENT: diastolic murmur, rubs, systolic murmur Results Laboratory Results: 07/25/17 05:14 07/25/17 05:14 Impressions: Head CT 05/28/17 20:27 IMPRESSION: No acute intracranial findings. EVIDENCE OF ACUTE STROKE: NO. Head MRI 05/29/17 00:00 IMPRESSION: NO ACUTE ISCHEMIA, HEMORRHAGE, OR MASS LESION. CANNOT ASSESS FOR ABNORMAL WHITE MATTER SIGNAL DUE TO NONDIAGNOSTIC FLAIR IMAGING FROM [employer]IF[employer]. EVIDENCE OF ACUTE STROKE: NO. Foot X-Ray 05/31/17 00:00 IMPRESSION: 1. No acute or suspicious radiographic abnormality left the left foot. Shoulder X-Ray 06/20/17 00:00 IMPRESSION: NEGATIVE STUDY OF THE RIGHT SHOULDER. NO RADIOGRAPHIC EVIDENCE OF ACUTE INJURY. NO EXPLANATION FOR PAIN. Chest X-Ray 06/26/17 00:00 IMPRESSION: COPD. NO ACUTE RADIOGRAPHIC FINDING IN THE CHEST. Assessment & Plan - Diagnosis (1) Hypothermia Qualifiers: Encounter type: initial encounter Qualified Code(s): T68.XXXA - Hypothermia , initial encounter Is this a current diagnosis for this admission?: Yes Plan: Resolved. (2) Hypotension Qualifiers: Hypotension type: unspecified hypotension type Qualified Code(s): I95.9 - Hypotension, unspecified Is this a current diagnosis for this admission?: Yes Plan: Resolved. There was concern that this was related to adrenal insufficiency and he is currently on Florinef. Blood pressure is doing better on the higher dose of Florinef. (3) Anemia Is this a current diagnosis for this admission?: Yes Plan: Stable. (4) Anxiety Is this a current diagnosis for this admission?: Yes (5) Encephalopathy Is this a current diagnosis for this admission?: Yes Plan: Most likely secondary to alcohol abuse. (6) Hypothyroidism Is this a current diagnosis for this admission?: Yes Plan: The patient's TSH was high. Continue Synthroid. (7) Severe protein-calorie malnutrition Is this a current diagnosis for this admission?: Yes - Time Time Spent with patient: 15-24 minutes - Plan Summary Plan Summary: Awaiting on placement
[2017-07-27] MEDS: LEVOTHYROXINE SODIUM 0.025 MG TABLET PO SCH (05:05)
[2017-07-27] MEDS: FLUDROCORTISONE ACETATE 0.1 MG TABLET PO SCH (09:34)
[2017-07-27] MEDS: FOLIC ACID 1 MG TABLET PO SCH (09:34)
[2017-07-27] MEDS: THIAMINE HCL 100 MG TABLET PO SCH (09:34)
[2017-07-27] MEDS: ACETAMINOPHEN 325 MG TABLET PO PRN ×2 (09:34→23:20)
[2017-07-27] MEDS: MULTIVITAMIN TABLET PO SCH (09:34)
[2017-07-27] MEDS: DOCUSATE SODIUM 100 MG CAPSULE PO SCH ×2 (09:35→17:17)
--- NOTE | 2017-07-27 19:43 | PROGRESS NOTE E ---
Progress Note NAME: SANJANA GODWIN : 1955 AGE: 61Y DATE: 07/27/2017 ROOM: 403 SUBJECTIVE: The patient is without complaints today. He is confused as to where he is. PHYSICAL EXAMINATION: VITAL SIGNS: The patient is afebrile. Vital signs are stable. HEENT: Sclera are nonicteric. Oral mucous membranes are moist. NECK: No JVD. CHEST: Clear to auscultation. CARDIAC: Regular rate and rhythm. No murmurs, rubs or gallops are appreciated. ABDOMEN: Positive bowel sounds. Soft, nontender, no organomegaly. EXTREMITIES: No edema. NEUROLOGIC: Patient was alert and oriented to person only but not to place. ASSESSMENT/PLAN: Encephalopathy is most likely secondary to chronic alcohol use. The patient is awaiting [facility] placement. DICTATING PHYSICIAN: Jefry ODELL M.D. [id number] [id number] ID: [id number] JOB#: [id number] ACCT: [id number] cc: >
[2017-07-28] MEDS: LEVOTHYROXINE SODIUM 0.025 MG TABLET PO SCH (05:04)
[2017-07-28] MEDS: FOLIC ACID 1 MG TABLET PO SCH (09:08)
[2017-07-28] MEDS: MULTIVITAMIN TABLET PO SCH (09:08)
[2017-07-28] MEDS: THIAMINE HCL 100 MG TABLET PO SCH (09:08)
[2017-07-28] MEDS: DOCUSATE SODIUM 100 MG CAPSULE PO SCH (09:08)
[2017-07-28] MEDS: FLUDROCORTISONE ACETATE 0.1 MG TABLET PO SCH (09:09)
--- NOTE | 2017-07-28 11:42 | PDOC PROGRESS REPORT ---
Subjective Progress Note for:: 07/28/17 Subjective:: 61-year-old gentleman who is an alcoholic who was found wandering the streets of [place] by police and brought in. At that time he was found to be hypothermic and hypotensive. Patient was warmed up and still was confused. He was found to have adrenal insufficiency and was put on Florinef. The patient has a long history of alcohol use. 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 The patient has been stable and we have been awaiting placement. 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 Reason For Visit: HYPOTENSION, HYPOTHERMIA, ENCEPHALOPATHY Physical Exam Vital Signs: Temp Pulse Resp BP Pulse Ox 98.3 F 59 L 18 95/61 L 99 07/28/17 08:15 07/28/17 08:15 07/28/17 08:15 07/28/17 08:15 07/28/17 08:15 Intake & Output 07/27/17 07/28/17 07/29/17 06:59 06:59 06:59 Intake Total 770 300 Balance 770 300 Weight 55.4 kg 56.6 kg General appearance: PRESENT: no acute distress Eye exam: PRESENT: conjunctiva pink. ABSENT: scleral icterus Mouth exam: PRESENT: moist, tongue midline Neck exam: ABSENT: JVD Respiratory exam: PRESENT: clear to auscultation kae. ABSENT: rales, rhonchi, wheezes Cardiovascular exam: PRESENT: RRR. ABSENT: diastolic murmur, rubs, systolic murmur GI/Abdominal exam: PRESENT: normal bowel sounds, soft. ABSENT: distended, guarding, mass, organolmegaly, rebound, tenderness Extremities exam: ABSENT: calf tenderness, clubbing, pedal edema Neurological exam: PRESENT: altered Psychiatric exam: PRESENT: flat affect Skin exam: PRESENT: dry, intact, warm. ABSENT: cyanosis, rash Results Laboratory Results: 07/25/17 05:14 07/25/17 05:14 Impressions: Head CT 05/28/17 20:27 IMPRESSION: No acute intracranial findings. EVIDENCE OF ACUTE STROKE: NO. Head MRI 05/29/17 00:00 IMPRESSION: NO ACUTE ISCHEMIA, HEMORRHAGE, OR MASS LESION. CANNOT ASSESS FOR ABNORMAL WHITE MATTER SIGNAL DUE TO NONDIAGNOSTIC FLAIR IMAGING FROM [employer]IF[employer]. EVIDENCE OF ACUTE STROKE: NO. Foot X-Ray 05/31/17 00:00 IMPRESSION: 1. No acute or suspicious radiographic abnormality left the left foot. Shoulder X-Ray 06/20/17 00:00 IMPRESSION: NEGATIVE STUDY OF THE RIGHT SHOULDER. NO RADIOGRAPHIC EVIDENCE OF ACUTE INJURY. NO EXPLANATION FOR PAIN. Chest X-Ray 06/26/17 00:00 IMPRESSION: COPD. NO ACUTE RADIOGRAPHIC FINDING IN THE CHEST. Assessment & Plan - Diagnosis (1) Hypothermia Qualifiers: Encounter type: initial encounter Qualified Code(s): T68.XXXA - Hypothermia , initial encounter Is this a current diagnosis for this admission?: Yes Plan: Resolved. (2) Hypotension Qualifiers: Hypotension type: unspecified hypotension type Qualified Code(s): I95.9 - Hypotension, unspecified Is this a current diagnosis for this admission?: Yes Plan: Resolved. There was concern that this was related to adrenal insufficiency and he is currently on Florinef. Blood pressure is doing better on the higher dose of Florinef. (3) Anemia Is this a current diagnosis for this admission?: Yes Plan: Stable. (4) Anxiety Is this a current diagnosis for this admission?: Yes (5) Encephalopathy Is this a current diagnosis for this admission?: Yes Plan: Most likely secondary to alcohol abuse. (6) Hypothyroidism Is this a current diagnosis for this admission?: Yes Plan: The patient's TSH was high when he presented. Continue Synthroid. (7) Severe protein-calorie malnutrition Is this a current diagnosis for this admission?: Yes - Time Time Spent with patient: 15-24 minutes - Plan Summary Plan Summary: We are awaiting long-term placement for this patient.
[2017-07-28] MEDS: ACETAMINOPHEN 325 MG TABLET PO PRN (13:31)
[2017-07-29 04:43] LABS: ABSOLUTE EOSINOPHILS # (AUTO) 0.1 10^3/uL (0.0-0.6); ABSOLUTE LYMPHOCYTES (AUTO) 2.6 10^3/uL (0.5-4.7); ABSOLUTE MONOCYTES (AUTO) 0.8 10^3/uL (0.1-1.4); ABSOLUTE NEUT (AUTO) 2.5 10^3/uL (1.7-8.2); BASOPHILS % (AUTO) 0.2 % (0-2); EOSINOPHILS % (AUTO) 2.4 % (0-6); HEMATOCRIT 29.7 % (37.9-51.0); HEMOGLOBIN 10.2 g/dL (13.5-17.0); LYMPHOCYTES % (AUTO) 42.7 % (13-45); MEAN CORPUSCULAR HGB CONC 34.2 g/dL (32.0-36.0); MEAN CORPUSCULAR VOLUME 96 fl (80-97); MONOCYTES % (AUTO) 13.7 % (3-13); PLATELET COUNT 202 10^3/uL (150-450); RED BLOOD COUNT 3.08 10^6/uL (4.35-5.55); RED CELL DISTRIBUTION WIDTH 13.3 % (11.5-14.0); TOTAL CELLS COUNTED % (AUTO) 100 %; WHITE BLOOD COUNT 6.1 10^3/uL (4.0-10.5)
[2017-07-29 04:56] LABS: ANION GAP 8 (5-19); BLOOD UREA NITROGEN 22 mg/dL (7-20); CALCIUM 9.7 mg/dL (8.4-10.2); CARBON DIOXIDE 30 mmol/L (22-30); CHLORIDE 102 mmol/L (98-107); GLUCOSE 90 mg/dL (75-110); POTASSIUM 4.3 mmol/L (3.6-5.0); SODIUM 140.1 mmol/L (137-145)
[2017-07-29] MEDS: LEVOTHYROXINE SODIUM 0.025 MG TABLET PO SCH (05:09)
[2017-07-29] MEDS: FOLIC ACID 1 MG TABLET PO SCH (10:40)
[2017-07-29] MEDS: FLUDROCORTISONE ACETATE 0.1 MG TABLET PO SCH (10:40)
[2017-07-29] MEDS ORDERED: MULTIVITAMIN TABLET PO ONE (16:30)
[2017-07-29] MEDS ORDERED: THIAMINE HCL 100 MG TABLET PO ONE (16:30)
--- NOTE | 2017-07-29 17:49 | PDOC PROGRESS REPORT ---
Subjective Progress Note for:: 07/29/17 Subjective:: 61-year-old gentleman with history of alcohol who was found wandering the streets of [place] by police and brought in. At that time he was found to be hypothermic and hypotensive. Patient was warmed up and still was confused. He was found to have adrenal insufficiency and was put on Florinef. The patient has a long history of alcohol use. 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 The patient has been stable and we have been awaiting placement. Upon questioning today, states that he is doing fine. Thinks Reason For Visit: HYPOTENSION, HYPOTHERMIA, ENCEPHALOPATHY Physical Exam Vital Signs: Temp Pulse Resp BP Pulse Ox 98.0 F 66 16 118/59 L 100 07/29/17 14:46 07/29/17 14:46 07/29/17 14:46 07/29/17 14:46 07/29/17 14:46 Intake & Output 07/28/17 07/29/17 07/30/17 06:59 06:59 06:59 Intake Total 300 1860 474 Output Total 2 Balance 300 1860 472 Weight 56.6 kg Results Laboratory Results: 07/29/17 04:00 07/29/17 04:00 07/29/17 07/29/17 04:00 04:00 WBC 6.1 RBC 3.08 L Hgb 10.2 L Hct 29.7 L MCV 96 MCH 33.0 MCHC 34.2 RDW 13.3 Plt Count 202 Seg Neutrophils % 41.0 L Lymphocytes % 42.7 Monocytes % 13.7 H Eosinophils % 2.4 Basophils % 0.2 Absolute Neutrophils 2.5 Absolute Lymphocytes 2.6 Absolute Monocytes 0.8 Absolute Eosinophils 0.1 Absolute Basophils 0.0 Sodium 140.1 Potassium 4.3 Chloride 102 Carbon Dioxide 30 Anion Gap 8 BUN 22 H Creatinine 0.70 Est GFR ( Amer) > 60 Est GFR (Non-Af Amer) > 60 Glucose 90 Calcium 9.7 Impressions: Head CT 05/28/17 20:27 IMPRESSION: No acute intracranial findings. EVIDENCE OF ACUTE STROKE: NO. Head MRI 05/29/17 00:00 IMPRESSION: NO ACUTE ISCHEMIA, HEMORRHAGE, OR MASS LESION. CANNOT ASSESS FOR ABNORMAL WHITE MATTER SIGNAL DUE TO NONDIAGNOSTIC FLAIR IMAGING FROM [employer]IF[employer]. EVIDENCE OF ACUTE STROKE: NO. Foot X-Ray 05/31/17 00:00 IMPRESSION: 1. No acute or suspicious radiographic abnormality left the left foot. Shoulder X-Ray 06/20/17 00:00 IMPRESSION: NEGATIVE STUDY OF THE RIGHT SHOULDER. NO RADIOGRAPHIC EVIDENCE OF ACUTE INJURY. NO EXPLANATION FOR PAIN. Chest X-Ray 06/26/17 00:00 IMPRESSION: COPD. NO ACUTE RADIOGRAPHIC FINDING IN THE CHEST. Assessment & Plan - Diagnosis (1) Encephalopathy Is this a current diagnosis for this admission?: Yes Plan: Wernicke's Encephalopathy secondary to long standing EtOH abuse - Reordered thiamine and multivitamin today - No change (2) Sepsis Is this a current diagnosis for this admission?: No Plan: Resolved. (3) Severe protein-calorie malnutrition Is this a current diagnosis for this admission?: Yes Plan: Appetite stable. Encouraged to eat liberally (4) Homelessness Is this a current diagnosis for this admission?: Yes Plan: Working on placement - Time Time Spent with patient: Less than 15 minutes Anticipated discharge: SNF Within: when bed available
[2017-07-30] MEDS: LEVOTHYROXINE SODIUM 0.025 MG TABLET PO SCH (05:59)
--- NOTE | 2017-07-30 08:29 | PDOC PROGRESS REPORT ---
Subjective Progress Note for:: 07/30/17 Subjective:: No new issues. Reason For Visit: HYPOTENSION, HYPOTHERMIA, ENCEPHALOPATHY Physical Exam Vital Signs: Temp Pulse Resp BP Pulse Ox 98.7 F 67 16 101/55 L 100 07/29/17 19:19 07/29/17 19:19 07/29/17 19:19 07/29/17 19:19 07/29/17 19:19 Intake & Output 07/29/17 07/30/17 07/31/17 06:59 06:59 06:59 Intake Total 1860 1051 Output Total 2 Balance 1860 1049 Weight 57.4 kg General appearance: PRESENT: no acute distress, thin Head exam: PRESENT: atraumatic, normocephalic Eye exam: PRESENT: conjunctiva pink, EOMI. ABSENT: scleral icterus Ear exam: PRESENT: normal external ear exam Mouth exam: PRESENT: moist, tongue midline Neck exam: ABSENT: carotid bruit, JVD, lymphadenopathy, thyromegaly Respiratory exam: PRESENT: clear to auscultation kae. ABSENT: rales, rhonchi, wheezes Pulses: PRESENT: normal dorsalis pedis pul Vascular exam: PRESENT: normal capillary refill GI/Abdominal exam: PRESENT: normal bowel sounds, soft. ABSENT: distended, guarding, mass, organolmegaly, rebound, tenderness Rectal exam: PRESENT: deferred Extremities exam: PRESENT: full ROM. ABSENT: calf tenderness, clubbing, pedal edema Neurological exam: PRESENT: alert, oriented to person Psychiatric exam: PRESENT: appropriate affect, normal mood. ABSENT: homicidal ideation, suicidal ideation Skin exam: PRESENT: dry, intact, warm. ABSENT: cyanosis, rash Results Laboratory Results: 07/29/17 04:00 07/29/17 04:00 Impressions: Head CT 05/28/17 20:27 IMPRESSION: No acute intracranial findings. EVIDENCE OF ACUTE STROKE: NO. Head MRI 05/29/17 00:00 IMPRESSION: NO ACUTE ISCHEMIA, HEMORRHAGE, OR MASS LESION. CANNOT ASSESS FOR ABNORMAL WHITE MATTER SIGNAL DUE TO NONDIAGNOSTIC FLAIR IMAGING FROM [employer]IFACT. EVIDENCE OF ACUTE STROKE: NO. Foot X-Ray 05/31/17 00:00 IMPRESSION: 1. No acute or suspicious radiographic abnormality left the left foot. Shoulder X-Ray 06/20/17 00:00 IMPRESSION: NEGATIVE STUDY OF THE RIGHT SHOULDER. NO RADIOGRAPHIC EVIDENCE OF ACUTE INJURY. NO EXPLANATION FOR PAIN. Chest X-Ray 06/26/17 00:00 IMPRESSION: COPD. NO ACUTE RADIOGRAPHIC FINDING IN THE CHEST. Assessment & Plan - Diagnosis (1) Korsakoff's psychosis, alcoholic Is this a current diagnosis for this admission?: Yes Plan: Supportive care. Will continue to monitor. (2) Encephalopathy Is this a current diagnosis for this admission?: Yes Plan: Secondary to ETOH Abuse: Resolved. (3) Homelessness Is this a current diagnosis for this admission?: Yes (4) Hypokalemia Is this a current diagnosis for this admission?: Yes (5) Hypotension Qualifiers: Hypotension type: unspecified hypotension type Qualified Code(s): I95.9 - Hypotension, unspecified Is this a current diagnosis for this admission?: Yes Plan: Will continue current treatment. (6) Hypomagnesemia Is this a current diagnosis for this admission?: Yes (7) Hypothermia Qualifiers: Encounter type: initial encounter Qualified Code(s): T68.XXXA - Hypothermia , initial encounter Is this a current diagnosis for this admission?: Yes Plan: Secondary to environment: Resolved. (8) Hypothyroidism Is this a current diagnosis for this admission?: Yes (9) Sepsis Is this a current diagnosis for this admission?: No Plan: Ruled out (10) DVT prophylaxis Is this a current diagnosis for this admission?: Yes Plan: ambulation. - Time Time Spent with patient: Less than 15 minutes - Patient safety issue due to patient not having a guardian. Hospital is actively working with state for state guardianship. Patient not able to be discharged due to safety issues
[2017-07-30] MEDS: FLUDROCORTISONE ACETATE 0.1 MG TABLET PO SCH (09:07)
[2017-07-30] MEDS: THIAMINE HCL 100 MG TABLET PO SCH (09:08)
[2017-07-30] MEDS: MULTIVITAMIN TABLET PO SCH (09:08)
[2017-07-30] MEDS: FOLIC ACID 1 MG TABLET PO SCH (09:08)
[2017-07-30] MEDS: HALOPERIDOL 5 MG TABLET PO PRN (10:24)
[2017-07-31] MEDS: LEVOTHYROXINE SODIUM 0.025 MG TABLET PO SCH (06:29)
[2017-07-31] MEDS: THIAMINE HCL 100 MG TABLET PO SCH (10:36)
[2017-07-31] MEDS: FOLIC ACID 1 MG TABLET PO SCH (10:36)
[2017-07-31] MEDS: MULTIVITAMIN TABLET PO SCH (10:36)
[2017-07-31] MEDS: FLUDROCORTISONE ACETATE 0.1 MG TABLET PO SCH (10:37)
[2017-07-31] MEDS: HALOPERIDOL 5 MG TABLET PO PRN (11:48)
--- NOTE | 2017-07-31 20:03 | PDOC PROGRESS REPORT ---
Subjective Progress Note for:: 07/31/17 Subjective:: No new issues Reason For Visit: HYPOTENSION, HYPOTHERMIA, ENCEPHALOPATHY Physical Exam Vital Signs: Temp Pulse Resp BP Pulse Ox 98.2 F 64 12 93/56 L 99 07/31/17 11:55 07/31/17 11:55 07/31/17 11:55 07/31/17 11:55 07/31/17 11:55 Intake & Output 07/30/17 07/31/17 08/01/17 06:59 06:59 06:59 Intake Total 1051 804 713 Output Total 2 Balance 1049 804 713 Weight 57.4 kg 58 kg General appearance: PRESENT: no acute distress, thin Head exam: PRESENT: atraumatic, normocephalic Eye exam: PRESENT: conjunctiva pink, EOMI. ABSENT: scleral icterus Ear exam: PRESENT: normal external ear exam Mouth exam: PRESENT: moist, tongue midline Neck exam: ABSENT: carotid bruit, JVD, lymphadenopathy, thyromegaly Respiratory exam: PRESENT: clear to auscultation kae. ABSENT: rales, rhonchi, wheezes Cardiovascular exam: PRESENT: RRR. ABSENT: diastolic murmur, rubs, systolic murmur Pulses: PRESENT: normal dorsalis pedis pul Vascular exam: PRESENT: normal capillary refill GI/Abdominal exam: PRESENT: normal bowel sounds, soft. ABSENT: distended, guarding, mass, organolmegaly, rebound, tenderness Rectal exam: PRESENT: deferred Extremities exam: PRESENT: full ROM. ABSENT: calf tenderness, clubbing, pedal edema Neurological exam: PRESENT: alert, awake, oriented to person, oriented to place , oriented to time, oriented to situation, CN II-XII grossly intact. ABSENT: motor sensory deficit Psychiatric exam: PRESENT: appropriate affect, normal mood. ABSENT: homicidal ideation, suicidal ideation Skin exam: PRESENT: dry, intact, warm. ABSENT: cyanosis, rash Results Laboratory Results: 07/29/17 04:00 07/29/17 04:00 Impressions: Head CT 05/28/17 20:27 IMPRESSION: No acute intracranial findings. EVIDENCE OF ACUTE STROKE: NO. Head MRI 05/29/17 00:00 IMPRESSION: NO ACUTE ISCHEMIA, HEMORRHAGE, OR MASS LESION. CANNOT ASSESS FOR ABNORMAL WHITE MATTER SIGNAL DUE TO NONDIAGNOSTIC FLAIR IMAGING FROM [employer]IFACT. EVIDENCE OF ACUTE STROKE: NO. Foot X-Ray 05/31/17 00:00 IMPRESSION: 1. No acute or suspicious radiographic abnormality left the left foot. Shoulder X-Ray 06/20/17 00:00 IMPRESSION: NEGATIVE STUDY OF THE RIGHT SHOULDER. NO RADIOGRAPHIC EVIDENCE OF ACUTE INJURY. NO EXPLANATION FOR PAIN. Chest X-Ray 06/26/17 00:00 IMPRESSION: COPD. NO ACUTE RADIOGRAPHIC FINDING IN THE CHEST. Assessment & Plan - Diagnosis (1) Korsakoff's psychosis, alcoholic Is this a current diagnosis for this admission?: Yes Plan: Supportive care. Will continue to monitor. (2) Encephalopathy Is this a current diagnosis for this admission?: Yes Plan: Secondary to ETOH Abuse: Resolved. (3) Homelessness Is this a current diagnosis for this admission?: Yes Plan: Case management states that they are trying to locate his family. (4) Hypokalemia Is this a current diagnosis for this admission?: Yes Plan: Resolved. (5) Hypotension Qualifiers: Hypotension type: unspecified hypotension type Qualified Code(s): I95.9 - Hypotension, unspecified Is this a current diagnosis for this admission?: Yes Plan: Will continue current treatment. (6) Hypomagnesemia Is this a current diagnosis for this admission?: Yes Plan: Resolved. (7) Hypothermia Qualifiers: Encounter type: initial encounter Qualified Code(s): T68.XXXA - Hypothermia , initial encounter Is this a current diagnosis for this admission?: Yes Plan: Secondary to environment: Resolved. (8) Hypothyroidism Is this a current diagnosis for this admission?: Yes Plan: Continue Synthroid (9) Sepsis Is this a current diagnosis for this admission?: No Plan: Ruled out (10) DVT prophylaxis Is this a current diagnosis for this admission?: Yes Plan: ambulation. - Time Time Spent with patient: 15-24 minutes
[2017-08-01] MEDS: LEVOTHYROXINE SODIUM 0.025 MG TABLET PO SCH (05:51)
[2017-08-01] MEDS: FLUDROCORTISONE ACETATE 0.1 MG TABLET PO SCH (10:20)
[2017-08-01] MEDS: FOLIC ACID 1 MG TABLET PO SCH (10:20)
[2017-08-01] MEDS: MULTIVITAMIN TABLET PO SCH (10:21)
[2017-08-01] MEDS: THIAMINE HCL 100 MG TABLET PO SCH (10:21)
[2017-08-01] MEDS: HALOPERIDOL 5 MG TABLET PO PRN (15:10)
--- NOTE | 2017-08-01 15:31 | PDOC PROGRESS REPORT ---
Subjective Progress Note for:: 08/01/17 Subjective:: No new issues Reason For Visit: HYPOTENSION, HYPOTHERMIA, ENCEPHALOPATHY Physical Exam Vital Signs: Temp Pulse Resp BP Pulse Ox 98.5 F 61 16 94/52 L 96 08/01/17 11:38 08/01/17 11:38 08/01/17 11:38 08/01/17 11:38 08/01/17 11:38 Intake & Output 07/31/17 08/01/17 08/02/17 06:59 06:59 06:59 Intake Total 804 1257 Balance 804 1257 Weight 58 kg 58.7 kg General appearance: PRESENT: no acute distress, thin Head exam: PRESENT: atraumatic, normocephalic Eye exam: PRESENT: conjunctiva pink, EOMI. ABSENT: scleral icterus Ear exam: PRESENT: normal external ear exam Mouth exam: PRESENT: moist, tongue midline Neck exam: ABSENT: carotid bruit, JVD, lymphadenopathy, thyromegaly Respiratory exam: PRESENT: clear to auscultation kae. ABSENT: rales, rhonchi, wheezes Cardiovascular exam: PRESENT: RRR. ABSENT: diastolic murmur, rubs, systolic murmur Pulses: PRESENT: normal dorsalis pedis pul Vascular exam: PRESENT: normal capillary refill GI/Abdominal exam: PRESENT: normal bowel sounds, soft. ABSENT: distended, guarding, mass, organolmegaly, rebound, tenderness Rectal exam: PRESENT: deferred Extremities exam: PRESENT: full ROM. ABSENT: calf tenderness, clubbing, pedal edema Neurological exam: PRESENT: alert, awake, oriented to person, CN II-XII grossly intact. ABSENT: motor sensory deficit Psychiatric exam: PRESENT: flat affect. ABSENT: homicidal ideation, suicidal ideation Skin exam: PRESENT: dry, intact, warm. ABSENT: cyanosis, rash Results Laboratory Results: 07/29/17 04:00 07/29/17 04:00 Impressions: Head CT 05/28/17 20:27 IMPRESSION: No acute intracranial findings. EVIDENCE OF ACUTE STROKE: NO. Head MRI 05/29/17 00:00 IMPRESSION: NO ACUTE ISCHEMIA, HEMORRHAGE, OR MASS LESION. CANNOT ASSESS FOR ABNORMAL WHITE MATTER SIGNAL DUE TO NONDIAGNOSTIC FLAIR IMAGING FROM [employer]IFACT. EVIDENCE OF ACUTE STROKE: NO. Foot X-Ray 05/31/17 00:00 IMPRESSION: 1. No acute or suspicious radiographic abnormality left the left foot. Shoulder X-Ray 06/20/17 00:00 IMPRESSION: NEGATIVE STUDY OF THE RIGHT SHOULDER. NO RADIOGRAPHIC EVIDENCE OF ACUTE INJURY. NO EXPLANATION FOR PAIN. Chest X-Ray 06/26/17 00:00 IMPRESSION: COPD. NO ACUTE RADIOGRAPHIC FINDING IN THE CHEST. Assessment & Plan - Diagnosis (1) Korsakoff's psychosis, alcoholic Is this a current diagnosis for this admission?: Yes Plan: Supportive care. Will continue to monitor. (2) Encephalopathy Is this a current diagnosis for this admission?: Yes Plan: Secondary to ETOH Abuse: Resolved. (3) Homelessness Is this a current diagnosis for this admission?: Yes Plan: Case management states that they are trying to locate his family. (4) Hypokalemia Is this a current diagnosis for this admission?: Yes Plan: Resolved. (5) Hypotension Qualifiers: Hypotension type: unspecified hypotension type Qualified Code(s): I95.9 - Hypotension, unspecified Is this a current diagnosis for this admission?: Yes Plan: Will continue current treatment. (6) Hypomagnesemia Is this a current diagnosis for this admission?: Yes Plan: Resolved. (7) Hypothermia Qualifiers: Encounter type: initial encounter Qualified Code(s): T68.XXXA - Hypothermia , initial encounter Is this a current diagnosis for this admission?: Yes Plan: Secondary to environment: Resolved. (8) Hypothyroidism Is this a current diagnosis for this admission?: Yes Plan: Continue Synthroid (9) Sepsis Is this a current diagnosis for this admission?: No Plan: Ruled out (10) DVT prophylaxis Is this a current diagnosis for this admission?: Yes Plan: ambulation. - Time Time Spent with patient: Less than 15 minutes - No new issues
--- NOTE | 2017-08-01 17:50 | Physician Advisory Note ---
Physician Advisor ProgressNote .: Pursuant to the plan for [facility], I have reviewed the medical record for this patient. Physician Advisor Statement: Please consider documenting, if you agree: 1. "Acute Anion Gap Metabolic/Lactic Acidosis, likely due to " (per initial labs) 2. "severe protein-calorie malnutrition with BMI 16.5 on arrival, ____ [?wt loss, ?appetite loss, ]" (listed in previous progress notes) [if possible, give specifics on intake, wt loss, loss of SQ fat & muscle mass, diminished hand swatch maker strength, & clinical importance such as (A) nutritional assessment ordered, (B) modified diet or supplements ordered, (C) additional labs ordered, (D) prolonged wound healing time (Rt heel ulcer stage 2 on arrival), (E ) delayed infxn clearance] 3. "Acute hypernatremia in first 48hrs, likely due to [intravascular volume depletion?], resolved after IVF" 4. "Alcohol dependence" as well as Etoh abuse? Thanks! CK
[2017-08-02] MEDS: LEVOTHYROXINE SODIUM 0.025 MG TABLET PO SCH (06:20)
[2017-08-02] MEDS: FLUDROCORTISONE ACETATE 0.1 MG TABLET PO SCH (11:19)
[2017-08-02] MEDS: MULTIVITAMIN TABLET PO SCH (11:19)
[2017-08-02] MEDS: THIAMINE HCL 100 MG TABLET PO SCH (11:19)
[2017-08-02] MEDS: FOLIC ACID 1 MG TABLET PO SCH (11:19)
[2017-08-02] MEDS: HALOPERIDOL 5 MG TABLET PO PRN (13:25)
--- NOTE | 2017-08-02 13:43 | PDOC PROGRESS REPORT ---
Subjective Progress Note for:: 08/02/17 Subjective:: No new issues Reason For Visit: HYPOTENSION, HYPOTHERMIA, ENCEPHALOPATHY Physical Exam Vital Signs: Temp Pulse Resp BP Pulse Ox 98.5 F 67 16 106/59 L 98 08/02/17 07:46 08/02/17 07:46 08/02/17 07:46 08/02/17 07:46 08/02/17 07:46 Intake & Output 08/01/17 08/02/17 08/03/17 06:59 06:59 06:59 Intake Total 1257 622 Balance 1257 622 Weight 58.7 kg General appearance: PRESENT: no acute distress, thin Head exam: PRESENT: atraumatic, normocephalic Eye exam: PRESENT: conjunctiva pink, EOMI. ABSENT: scleral icterus Ear exam: PRESENT: normal external ear exam Mouth exam: PRESENT: moist, tongue midline Neck exam: ABSENT: carotid bruit, JVD, lymphadenopathy, thyromegaly Respiratory exam: PRESENT: clear to auscultation kae. ABSENT: rales, rhonchi, wheezes Cardiovascular exam: PRESENT: RRR. ABSENT: diastolic murmur, rubs, systolic murmur Pulses: PRESENT: normal dorsalis pedis pul Vascular exam: PRESENT: normal capillary refill GI/Abdominal exam: PRESENT: normal bowel sounds, soft. ABSENT: distended, guarding, mass, organolmegaly, rebound, tenderness Rectal exam: PRESENT: deferred Extremities exam: PRESENT: full ROM. ABSENT: calf tenderness, clubbing, pedal edema Neurological exam: PRESENT: alert, awake, oriented to person, oriented to place , oriented to time, oriented to situation, CN II-XII grossly intact. ABSENT: motor sensory deficit Psychiatric exam: PRESENT: appropriate affect, normal mood. ABSENT: homicidal ideation, suicidal ideation Skin exam: PRESENT: dry, intact, warm. ABSENT: cyanosis, rash Results Laboratory Results: 07/29/17 04:00 07/29/17 04:00 Impressions: Head CT 05/28/17 20:27 IMPRESSION: No acute intracranial findings. EVIDENCE OF ACUTE STROKE: NO. Head MRI 05/29/17 00:00 IMPRESSION: NO ACUTE ISCHEMIA, HEMORRHAGE, OR MASS LESION. CANNOT ASSESS FOR ABNORMAL WHITE MATTER SIGNAL DUE TO NONDIAGNOSTIC FLAIR IMAGING FROM [employer]IFACT. EVIDENCE OF ACUTE STROKE: NO. Foot X-Ray 05/31/17 00:00 IMPRESSION: 1. No acute or suspicious radiographic abnormality left the left foot. Shoulder X-Ray 06/20/17 00:00 IMPRESSION: NEGATIVE STUDY OF THE RIGHT SHOULDER. NO RADIOGRAPHIC EVIDENCE OF ACUTE INJURY. NO EXPLANATION FOR PAIN. Chest X-Ray 06/26/17 00:00 IMPRESSION: COPD. NO ACUTE RADIOGRAPHIC FINDING IN THE CHEST. Assessment & Plan - Diagnosis (1) Korsakoff's psychosis, alcoholic Is this a current diagnosis for this admission?: Yes Plan: Supportive care. Will continue to monitor. (2) Encephalopathy Is this a current diagnosis for this admission?: Yes Plan: Secondary to ETOH Abuse: Resolved. (3) Homelessness Is this a current diagnosis for this admission?: Yes Plan: Case management states that they are trying to locate his family. (4) Hypokalemia Is this a current diagnosis for this admission?: Yes Plan: Resolved. (5) Hypotension Qualifiers: Hypotension type: unspecified hypotension type Qualified Code(s): I95.9 - Hypotension, unspecified Is this a current diagnosis for this admission?: Yes Plan: Will continue current treatment. (6) Hypomagnesemia Is this a current diagnosis for this admission?: Yes Plan: Resolved. (7) Hypothermia Qualifiers: Encounter type: initial encounter Qualified Code(s): T68.XXXA - Hypothermia , initial encounter Is this a current diagnosis for this admission?: Yes Plan: Secondary to environment: Resolved. (8) Hypothyroidism Is this a current diagnosis for this admission?: Yes Plan: Continue Synthroid (9) Sepsis Is this a current diagnosis for this admission?: No Plan: Ruled out (10) DVT prophylaxis Is this a current diagnosis for this admission?: Yes Plan: ambulation. (11) Severe protein-calorie malnutrition Is this a current diagnosis for this admission?: Yes Plan: Encourage good p.o. intake and supplemental drinks. - Time Time Spent with patient: Less than 15 minutes - No new issues. Pt awaiting placement. Hospital trying to work to obtain state guardianship.
[2017-08-02] MEDS ORDERED: ACETAMINOPHEN 325 MG TABLET ONE (18:56)
[2017-08-03] MEDS: LEVOTHYROXINE SODIUM 0.025 MG TABLET PO SCH (06:18)
[2017-08-03] MEDS: FLUDROCORTISONE ACETATE 0.1 MG TABLET PO SCH (09:07)
[2017-08-03] MEDS: THIAMINE HCL 100 MG TABLET PO SCH (09:08)
[2017-08-03] MEDS: MULTIVITAMIN TABLET PO SCH (09:08)
[2017-08-03] MEDS: FOLIC ACID 1 MG TABLET PO SCH (09:08)
--- NOTE | 2017-08-03 14:49 | PDOC PROGRESS REPORT ---
Subjective Progress Note for:: 08/03/17 Subjective:: No new issues Reason For Visit: HYPOTENSION, HYPOTHERMIA, ENCEPHALOPATHY Physical Exam Vital Signs: Temp Pulse Resp BP Pulse Ox 98.4 F 68 17 97/49 L 98 08/03/17 11:15 08/03/17 11:15 08/03/17 11:15 08/03/17 11:15 08/03/17 11:15 Intake & Output 08/02/17 08/03/17 08/04/17 06:59 06:59 06:59 Intake Total 622 1030 Balance 622 1030 General appearance: PRESENT: no acute distress, well-developed, well-nourished Head exam: PRESENT: atraumatic, normocephalic Eye exam: PRESENT: conjunctiva pink, EOMI. ABSENT: scleral icterus Ear exam: PRESENT: normal external ear exam Mouth exam: PRESENT: moist, tongue midline Neck exam: ABSENT: carotid bruit, JVD, lymphadenopathy, thyromegaly Respiratory exam: PRESENT: clear to auscultation kae. ABSENT: rales, rhonchi, wheezes Cardiovascular exam: PRESENT: RRR. ABSENT: diastolic murmur, rubs, systolic murmur Pulses: PRESENT: normal dorsalis pedis pul Vascular exam: PRESENT: normal capillary refill GI/Abdominal exam: PRESENT: normal bowel sounds, soft. ABSENT: distended, guarding, mass, organolmegaly, rebound, tenderness Rectal exam: PRESENT: deferred Extremities exam: PRESENT: full ROM. ABSENT: calf tenderness, clubbing, pedal edema Musculoskeletal exam: PRESENT: full ROM Neurological exam: PRESENT: alert, awake, oriented to person, oriented to place , oriented to time, oriented to situation, CN II-XII grossly intact. ABSENT: motor sensory deficit Skin exam: PRESENT: dry, intact, warm. ABSENT: cyanosis, rash Results Laboratory Results: 07/29/17 04:00 07/29/17 04:00 Impressions: Head CT 05/28/17 20:27 IMPRESSION: No acute intracranial findings. EVIDENCE OF ACUTE STROKE: NO. Head MRI 05/29/17 00:00 IMPRESSION: NO ACUTE ISCHEMIA, HEMORRHAGE, OR MASS LESION. CANNOT ASSESS FOR ABNORMAL WHITE MATTER SIGNAL DUE TO NONDIAGNOSTIC FLAIR IMAGING FROM [employer]. EVIDENCE OF ACUTE STROKE: NO. Foot X-Ray 05/31/17 00:00 IMPRESSION: 1. No acute or suspicious radiographic abnormality left the left foot. Shoulder X-Ray 06/20/17 00:00 IMPRESSION: NEGATIVE STUDY OF THE RIGHT SHOULDER. NO RADIOGRAPHIC EVIDENCE OF ACUTE INJURY. NO EXPLANATION FOR PAIN. Chest X-Ray 06/26/17 00:00 IMPRESSION: COPD. NO ACUTE RADIOGRAPHIC FINDING IN THE CHEST. Assessment & Plan - Diagnosis (1) Korsakoff's psychosis, alcoholic Is this a current diagnosis for this admission?: Yes Plan: Supportive care. Will continue to monitor. (2) Encephalopathy Is this a current diagnosis for this admission?: Yes Plan: Secondary to ETOH Abuse: Resolved. (3) Homelessness Is this a current diagnosis for this admission?: Yes Plan: Case management states that they are trying to locate his family. (4) Hypokalemia Is this a current diagnosis for this admission?: Yes Plan: Resolved. (5) Hypotension Qualifiers: Hypotension type: unspecified hypotension type Qualified Code(s): I95.9 - Hypotension, unspecified Is this a current diagnosis for this admission?: Yes Plan: Will continue current treatment. (6) Hypomagnesemia Is this a current diagnosis for this admission?: Yes Plan: Resolved. (7) Hypothermia Qualifiers: Encounter type: initial encounter Qualified Code(s): T68.XXXA - Hypothermia , initial encounter Is this a current diagnosis for this admission?: Yes Plan: Secondary to environment: Resolved. (8) Hypothyroidism Is this a current diagnosis for this admission?: Yes Plan: Continue Synthroid (9) Sepsis Is this a current diagnosis for this admission?: No Plan: Ruled out (10) Severe protein-calorie malnutrition Is this a current diagnosis for this admission?: Yes Plan: Encourage good p.o. intake and supplemental drinks. (11) DVT prophylaxis Is this a current diagnosis for this admission?: Yes Plan: ambulation. - Time Time Spent with patient: Less than 15 minutes - Pt awaiting placement. Pt does not have a safe discharge home plan. State Guardianship in progress.
[2017-08-03] MEDS: HALOPERIDOL 5 MG TABLET PO PRN (15:50)
[2017-08-04] MEDS: LEVOTHYROXINE SODIUM 0.025 MG TABLET PO SCH (05:45)
[2017-08-04] MEDS: MULTIVITAMIN TABLET PO SCH (09:20)
[2017-08-04] MEDS: FOLIC ACID 1 MG TABLET PO SCH (09:20)
[2017-08-04] MEDS: FLUDROCORTISONE ACETATE 0.1 MG TABLET PO SCH (09:21)
[2017-08-04] MEDS: THIAMINE HCL 100 MG TABLET PO SCH (09:21)
--- NOTE | 2017-08-04 11:20 | PDOC PROGRESS REPORT ---
Subjective Progress Note for:: 08/04/17 Subjective:: No new issues. Reason For Visit: HYPOTENSION, HYPOTHERMIA, ENCEPHALOPATHY Physical Exam Vital Signs: Temp Pulse Resp BP Pulse Ox 98.2 F 64 18 90/57 L 97 08/04/17 07:20 08/04/17 07:20 08/04/17 07:20 08/04/17 07:20 08/04/17 07:20 Intake & Output 08/03/17 08/04/17 08/05/17 06:59 06:59 06:59 Intake Total 1030 1891 Balance 1030 1891 Weight 57.4 kg General appearance: PRESENT: no acute distress, thin Head exam: PRESENT: atraumatic, normocephalic Eye exam: PRESENT: conjunctiva pink, EOMI. ABSENT: scleral icterus Ear exam: PRESENT: normal external ear exam Mouth exam: PRESENT: moist, tongue midline Neck exam: ABSENT: carotid bruit, JVD, lymphadenopathy, thyromegaly Respiratory exam: PRESENT: clear to auscultation kae. ABSENT: rales, rhonchi, wheezes Cardiovascular exam: PRESENT: RRR. ABSENT: diastolic murmur, rubs, systolic murmur Pulses: PRESENT: normal dorsalis pedis pul Vascular exam: PRESENT: normal capillary refill GI/Abdominal exam: PRESENT: normal bowel sounds, soft. ABSENT: distended, guarding, mass, organolmegaly, rebound, tenderness Rectal exam: PRESENT: deferred Extremities exam: PRESENT: full ROM. ABSENT: calf tenderness, clubbing, pedal edema Neurological exam: PRESENT: alert, awake, oriented to person, oriented to place , oriented to time, oriented to situation, CN II-XII grossly intact. ABSENT: motor sensory deficit Psychiatric exam: PRESENT: appropriate affect, normal mood. ABSENT: homicidal ideation, suicidal ideation Skin exam: PRESENT: other - Nasal wound no signs of infection. Results Laboratory Results: 07/29/17 04:00 07/29/17 04:00 Impressions: Head CT 05/28/17 20:27 IMPRESSION: No acute intracranial findings. EVIDENCE OF ACUTE STROKE: NO. Head MRI 05/29/17 00:00 IMPRESSION: NO ACUTE ISCHEMIA, HEMORRHAGE, OR MASS LESION. CANNOT ASSESS FOR ABNORMAL WHITE MATTER SIGNAL DUE TO NONDIAGNOSTIC FLAIR IMAGING FROM [employer]. EVIDENCE OF ACUTE STROKE: NO. Foot X-Ray 05/31/17 00:00 IMPRESSION: 1. No acute or suspicious radiographic abnormality left the left foot. Shoulder X-Ray 06/20/17 00:00 IMPRESSION: NEGATIVE STUDY OF THE RIGHT SHOULDER. NO RADIOGRAPHIC EVIDENCE OF ACUTE INJURY. NO EXPLANATION FOR PAIN. Chest X-Ray 06/26/17 00:00 IMPRESSION: COPD. NO ACUTE RADIOGRAPHIC FINDING IN THE CHEST. Assessment & Plan - Diagnosis (1) Basal cell carcinoma Qualifiers: Basal cell carcinoma location: face Basal cell carcinoma face location: nose Qualified Code(s): C44.311 - Basal cell carcinoma of skin of nose Is this a current diagnosis for this admission?: Yes Plan: Will need to be addressed as outpatient. No dermatology at hospital in additional pt has no guardian currently. (2) Korsakoff's psychosis, alcoholic Is this a current diagnosis for this admission?: Yes (3) Nasal abrasion Is this a current diagnosis for this admission?: Yes Plan: Will order Bactroban. (4) Encephalopathy Is this a current diagnosis for this admission?: Yes Plan: Secondary to ETOH Abuse: Resolved. (5) Homelessness Is this a current diagnosis for this admission?: Yes Plan: Case management states that they are trying to locate his family. (6) Hypokalemia Is this a current diagnosis for this admission?: Yes Plan: Resolved. (7) Hypotension Qualifiers: Hypotension type: unspecified hypotension type Qualified Code(s): I95.9 - Hypotension, unspecified Is this a current diagnosis for this admission?: Yes Plan: Will continue current treatment. (8) Hypomagnesemia Is this a current diagnosis for this admission?: Yes Plan: Resolved. (9) Hypothermia Qualifiers: Encounter type: initial encounter Qualified Code(s): T68.XXXA - Hypothermia , initial encounter Is this a current diagnosis for this admission?: Yes Plan: Secondary to environment: Resolved. (10) Hypothyroidism Is this a current diagnosis for this admission?: Yes Plan: Continue Synthroid (11) Sepsis Is this a current diagnosis for this admission?: No Plan: Ruled out (12) Severe protein-calorie malnutrition Is this a current diagnosis for this admission?: Yes Plan: Encourage good p.o. intake and supplemental drinks. (13) DVT prophylaxis Is this a current diagnosis for this admission?: Yes Plan: ambulation. - Time Time Spent with patient: Less than 15 minutes - State Guardianship in progress.
[2017-08-05] MEDS: LEVOTHYROXINE SODIUM 0.025 MG TABLET PO SCH (06:06)
[2017-08-05] MEDS: MULTIVITAMIN TABLET PO SCH (09:54)
[2017-08-05] MEDS: FLUDROCORTISONE ACETATE 0.1 MG TABLET PO SCH (09:54)
[2017-08-05] MEDS: FOLIC ACID 1 MG TABLET PO SCH (09:54)
[2017-08-05] MEDS: THIAMINE HCL 100 MG TABLET PO SCH (09:54)
[2017-08-05] MEDS: MUPIROCIN 2% OINTMENT 22 GM TP SCH (09:55)
--- NOTE | 2017-08-05 17:26 | PDOC PROGRESS REPORT ---
Subjective Progress Note for:: 08/05/17 Subjective:: 61-year-old gentleman who was admitted on May 29 after he was brought in by police secondary to be found wandering in the streets. He has a history of alcoholism and was diagnosed with Wernicke-Korsakoff dementia. He was treated for hypothermia secondary to exposure, hypotension felt to be associated with adrenal insufficiency and was also found to have severe protein calorie malnutrition and vitamin deficiencies. He has severe protein calorie malnutrition secondary to alcohol abuse, social isolation and extreme poverty No complaints at present. Awaiting disposition. Reason For Visit: HYPOTENSION, HYPOTHERMIA, ENCEPHALOPATHY Physical Exam Vital Signs: Temp Pulse Resp BP Pulse Ox 98.5 F 58 L 16 94/55 L 98 08/05/17 00:40 08/05/17 00:40 08/05/17 00:40 08/05/17 00:40 08/05/17 00:40 Intake & Output 08/04/17 08/05/17 08/06/17 06:59 06:59 06:59 Intake Total 1891 980 Output Total 1 Balance 1891 979 Weight 57.4 kg General appearance: PRESENT: no acute distress Head exam: PRESENT: atraumatic, normocephalic Ear exam: PRESENT: normal external ear exam Neck exam: ABSENT: tracheal deviation Respiratory exam: PRESENT: clear to auscultation kae, unlabored Cardiovascular exam: PRESENT: RRR GI/Abdominal exam: PRESENT: normal bowel sounds, soft. ABSENT: tenderness Rectal exam: PRESENT: deferred Results Laboratory Results: 07/29/17 04:00 07/29/17 04:00 Impressions: Head CT 05/28/17 20:27 IMPRESSION: No acute intracranial findings. EVIDENCE OF ACUTE STROKE: NO. Head MRI 05/29/17 00:00 IMPRESSION: NO ACUTE ISCHEMIA, HEMORRHAGE, OR MASS LESION. CANNOT ASSESS FOR ABNORMAL WHITE MATTER SIGNAL DUE TO NONDIAGNOSTIC FLAIR IMAGING FROM [employer]. EVIDENCE OF ACUTE STROKE: NO. Foot X-Ray 05/31/17 00:00 IMPRESSION: 1. No acute or suspicious radiographic abnormality left the left foot. Shoulder X-Ray 06/20/17 00:00 IMPRESSION: NEGATIVE STUDY OF THE RIGHT SHOULDER. NO RADIOGRAPHIC EVIDENCE OF ACUTE INJURY. NO EXPLANATION FOR PAIN. Chest X-Ray 06/26/17 00:00 IMPRESSION: COPD. NO ACUTE RADIOGRAPHIC FINDING IN THE CHEST. Assessment & Plan - Diagnosis (4) Encephalopathy Is this a current diagnosis for this admission?: Yes (5) Hypokalemia Is this a current diagnosis for this admission?: Yes (6) Hypotension Qualifiers: Hypotension type: unspecified hypotension type Qualified Code(s): I95.9 - Hypotension, unspecified Is this a current diagnosis for this admission?: Yes (7) Hypothermia Qualifiers: Encounter type: initial encounter Qualified Code(s): T68.XXXA - Hypothermia , initial encounter Is this a current diagnosis for this admission?: Yes (8) Hypothyroidism Is this a current diagnosis for this admission?: Yes (9) Severe protein-calorie malnutrition Is this a current diagnosis for this admission?: Yes - Time Time Spent with patient: Less than 15 minutes - Plan Summary Plan Summary: Awaiting disposition.
[2017-08-05] MEDS: HALOPERIDOL 5 MG TABLET PO PRN (18:29)
[2017-08-06] MEDS: LEVOTHYROXINE SODIUM 0.025 MG TABLET PO SCH (05:45)
[2017-08-06] MEDS: FLUDROCORTISONE ACETATE 0.1 MG TABLET PO SCH (09:29)
[2017-08-06] MEDS: MUPIROCIN 2% OINTMENT 22 GM TP SCH (09:30)
[2017-08-06] MEDS: MULTIVITAMIN TABLET PO SCH (09:30)
[2017-08-06] MEDS: THIAMINE HCL 100 MG TABLET PO SCH (09:30)
[2017-08-06] MEDS: FOLIC ACID 1 MG TABLET PO SCH (09:30)
--- NOTE | 2017-08-06 12:59 | PDOC PROGRESS REPORT ---
Subjective Progress Note for:: 08/06/17 Subjective:: This is a 61-year-old man who was admitted on May 29 after he was brought in by police secondary to being found wandering in the streets confused. He was treated for hypothermia secondary to exposure, hypotension felt to be associated with adrenal insufficiency and was found to have severe protein calorie malnutrition and vitamin deficiency. He does have a history of alcoholism and has been diagnosed with Wernicke Korsakoff dementia. The patient is seen on morning rounds. He is found lying in bed comfortably. He denies fever, chills, headache, chest pain, cough, dyspnea, abdominal pain, nausea vomiting and diarrhea. He has no other questions or concerns at this time. Awaiting disposition. Reason For Visit: HYPOTENSION, HYPOTHERMIA, ENCEPHALOPATHY Physical Exam Vital Signs: Temp Pulse Resp BP Pulse Ox 98.3 F 67 18 95/56 L 99 08/06/17 11:53 08/06/17 11:53 08/06/17 11:53 08/06/17 11:53 08/06/17 11:53 Intake & Output 08/05/17 08/06/17 08/07/17 06:59 06:59 06:59 Intake Total 980 1035 Output Total 1 Balance 979 1035 General appearance: PRESENT: no acute distress, thin, well-developed, well- nourished Head exam: PRESENT: atraumatic, normocephalic Eye exam: PRESENT: conjunctiva pink, EOMI, PERRLA. ABSENT: scleral icterus Ear exam: PRESENT: normal external ear exam Mouth exam: PRESENT: moist, tongue midline Neck exam: ABSENT: carotid bruit, JVD, lymphadenopathy, thyromegaly Respiratory exam: PRESENT: clear to auscultation kae, symmetrical, unlabored. ABSENT: rales, rhonchi, wheezes Cardiovascular exam: PRESENT: RRR. ABSENT: diastolic murmur, rubs, systolic murmur Pulses: PRESENT: normal dorsalis pedis pul Vascular exam: PRESENT: normal capillary refill GI/Abdominal exam: PRESENT: normal bowel sounds, soft. ABSENT: distended, guarding, mass, organolmegaly, rebound, tenderness Rectal exam: PRESENT: deferred Extremities exam: PRESENT: full ROM. ABSENT: calf tenderness, clubbing, pedal edema Neurological exam: PRESENT: alert, awake, oriented to person, oriented to place , oriented to time, oriented to situation, CN II-XII grossly intact. ABSENT: motor sensory deficit Psychiatric exam: PRESENT: appropriate affect, normal mood. ABSENT: homicidal ideation, suicidal ideation Skin exam: PRESENT: dry, intact, warm. ABSENT: cyanosis, rash Results Laboratory Results: 07/29/17 04:00 07/29/17 04:00 Impressions: Head CT 05/28/17 20:27 IMPRESSION: No acute intracranial findings. EVIDENCE OF ACUTE STROKE: NO. Head MRI 05/29/17 00:00 IMPRESSION: NO ACUTE ISCHEMIA, HEMORRHAGE, OR MASS LESION. CANNOT ASSESS FOR ABNORMAL WHITE MATTER SIGNAL DUE TO NONDIAGNOSTIC FLAIR IMAGING FROM [employer]. EVIDENCE OF ACUTE STROKE: NO. Foot X-Ray 05/31/17 00:00 IMPRESSION: 1. No acute or suspicious radiographic abnormality left the left foot. Shoulder X-Ray 06/20/17 00:00 IMPRESSION: NEGATIVE STUDY OF THE RIGHT SHOULDER. NO RADIOGRAPHIC EVIDENCE OF ACUTE INJURY. NO EXPLANATION FOR PAIN. Chest X-Ray 06/26/17 00:00 IMPRESSION: COPD. NO ACUTE RADIOGRAPHIC FINDING IN THE CHEST. Assessment & Plan - Diagnosis (1) Adrenal insufficiency Is this a current diagnosis for this admission?: Yes Plan: We will continue steroid supplementation. (2) Severe protein-calorie malnutrition Is this a current diagnosis for this admission?: Yes Plan: Continue regular diet with vitamin supplements. Appreciate RD consultation and recommendation. (3) Dementia Is this a current diagnosis for this admission?: Yes Plan: Wernicke Korsakoff dementia. Will provide for patient safety. Appreciate discharge planning's assistance in establishing a safe discharge plan. (4) Anemia Is this a current diagnosis for this admission?: Yes Plan: Hemoglobin is stable. No signs of active bleeding at this time. We will continue to monitor. (5) Anxiety Is this a current diagnosis for this admission?: Yes Plan: Stable. Haldol as needed for severe anxiety/agitation. (6) Hypotension Qualifiers: Hypotension type: unspecified hypotension type Qualified Code(s): I95.9 - Hypotension, unspecified Is this a current diagnosis for this admission?: Yes Plan: Likely secondary to adrenal insufficiency. Improved with Florinef; though remains hypotensive. Will increase to Florinef 0.3 mg daily. (7) Hypothermia Qualifiers: Encounter type: initial encounter Qualified Code(s): T68.XXXA - Hypothermia , initial encounter Is this a current diagnosis for this admission?: Yes Plan: Secondary to exposure. Resolved. (8) Hypothyroidism Is this a current diagnosis for this admission?: Yes Plan: TSH was elevated on admission (7.99) and he was placed on Synthroid. Repeat labs are much improved; TSH 3.19 and Free T4 0.95 Will continue current dosing. (9) Alcohol dependence Plan: We will continue thiamine and folic acid supplements. - Time Time Spent with patient: Less than 15 minutes Medications reviewed and adjusted accordingly: Yes
[2017-08-06] MEDS: HALOPERIDOL 5 MG TABLET PO PRN (14:56)
[2017-08-06] MEDS: ACETAMINOPHEN 325 MG TABLET PO PRN (17:17)
[2017-08-07] MEDS: LEVOTHYROXINE SODIUM 0.025 MG TABLET PO SCH (06:06)
[2017-08-07 08:16] LABS: HEMATOCRIT 29.8 % (37.9-51.0); HEMOGLOBIN 10.3 g/dL (13.5-17.0); MEAN CORPUSCULAR HEMOGLOBIN 32.7 pg (27.0-33.4); MEAN CORPUSCULAR HGB CONC 34.5 g/dL (32.0-36.0); MEAN CORPUSCULAR VOLUME 95 fl (80-97); PLATELET COUNT 207 10^3/uL (150-450); RED BLOOD COUNT 3.14 10^6/uL (4.35-5.55); RED CELL DISTRIBUTION WIDTH 12.7 % (11.5-14.0)
[2017-08-07 08:39] LABS: ANION GAP 7 (5-19); BLOOD UREA NITROGEN 17 mg/dL (7-20); CALCIUM 9.9 mg/dL (8.4-10.2); CARBON DIOXIDE 28 mmol/L (22-30); CHLORIDE 105 mmol/L (98-107); GLUCOSE 86 mg/dL (75-110)
[2017-08-07] MEDS: FLUDROCORTISONE ACETATE 0.1 MG TABLET PO SCH (09:41)
[2017-08-07] MEDS: FOLIC ACID 1 MG TABLET PO SCH (09:42)
[2017-08-07] MEDS: THIAMINE HCL 100 MG TABLET PO SCH (09:43)
[2017-08-07] MEDS: MULTIVITAMIN TABLET PO SCH (09:43)
[2017-08-07] MEDS: MUPIROCIN 2% OINTMENT 22 GM TP SCH (09:43)
--- NOTE | 2017-08-07 11:30 | PDOC PROGRESS REPORT ---
Subjective Progress Note for:: 08/07/17 Subjective:: This is a 61-year-old man who was admitted on May 29 after he was brought in by police secondary to being found wandering in the streets confused. He was treated for hypothermia secondary to exposure, hypotension felt to be associated with adrenal insufficiency and was found to have severe protein calorie malnutrition and vitamin deficiency. He does have a history of alcoholism and has been diagnosed with Wernicke Korsakoff dementia. The patient is seen on morning rounds. He is found lying in bed comfortably and is noted to be pleasantly confused. He denies fever, chills, headache, chest pain, cough, dyspnea, abdominal pain, nausea vomiting and diarrhea. He has no other questions or concerns at this time. Awaiting disposition. Reason For Visit: HYPOTENSION, HYPOTHERMIA, ENCEPHALOPATHY Physical Exam Vital Signs: Temp Pulse Resp BP Pulse Ox 98.6 F 59 L 18 101/55 L 98 08/07/17 07:52 08/07/17 07:52 08/07/17 07:52 08/07/17 07:52 08/07/17 07:52 Intake & Output 08/06/17 08/07/17 08/08/17 06:59 06:59 06:59 Intake Total 1035 1463 Balance 1035 1463 Weight 55.3 kg General appearance: PRESENT: no acute distress, disheveled, thin, well-developed , well-nourished Head exam: PRESENT: atraumatic, normocephalic Eye exam: PRESENT: conjunctiva pink, EOMI, PERRLA. ABSENT: scleral icterus Ear exam: PRESENT: normal external ear exam Mouth exam: PRESENT: moist, tongue midline Teeth exam: PRESENT: poor dentation Neck exam: ABSENT: carotid bruit, JVD, lymphadenopathy, thyromegaly Respiratory exam: PRESENT: clear to auscultation kae, symmetrical, unlabored. ABSENT: rales, rhonchi, wheezes Cardiovascular exam: PRESENT: RRR, +S1, +S2. ABSENT: diastolic murmur, rubs, systolic murmur Pulses: PRESENT: normal dorsalis pedis pul Vascular exam: PRESENT: normal capillary refill GI/Abdominal exam: PRESENT: normal bowel sounds, soft. ABSENT: distended, guarding, mass, organolmegaly, rebound, tenderness Rectal exam: PRESENT: deferred Extremities exam: PRESENT: full ROM. ABSENT: calf tenderness, clubbing, pedal edema Neurological exam: PRESENT: alert, awake, oriented to person, CN II-XII grossly intact. ABSENT: oriented to place, oriented to time, oriented to situation, motor sensory deficit Psychiatric exam: PRESENT: appropriate affect, normal mood. ABSENT: homicidal ideation, suicidal ideation Skin exam: PRESENT: dry, intact, warm. ABSENT: cyanosis, rash Results Laboratory Results: 08/07/17 08:08 08/07/17 08:08 08/07/17 08/07/17 08:08 08:08 WBC 5.0 RBC 3.14 L Hgb 10.3 L Hct 29.8 L MCV 95 MCH 32.7 MCHC 34.5 RDW 12.7 Plt Count 207 Sodium 140.0 Potassium 4.0 Chloride 105 Carbon Dioxide 28 Anion Gap 7 BUN 17 Creatinine 0.61 Est GFR ( Amer) > 60 Est GFR (Non-Af Amer) > 60 Glucose 86 Calcium 9.9 Impressions: Head CT 05/28/17 20:27 IMPRESSION: No acute intracranial findings. EVIDENCE OF ACUTE STROKE: NO. Head MRI 05/29/17 00:00 IMPRESSION: NO ACUTE ISCHEMIA, HEMORRHAGE, OR MASS LESION. CANNOT ASSESS FOR ABNORMAL WHITE MATTER SIGNAL DUE TO NONDIAGNOSTIC FLAIR IMAGING FROM [employer]. EVIDENCE OF ACUTE STROKE: NO. Foot X-Ray 05/31/17 00:00 IMPRESSION: 1. No acute or suspicious radiographic abnormality left the left foot. Shoulder X-Ray 06/20/17 00:00 IMPRESSION: NEGATIVE STUDY OF THE RIGHT SHOULDER. NO RADIOGRAPHIC EVIDENCE OF ACUTE INJURY. NO EXPLANATION FOR PAIN. Chest X-Ray 06/26/17 00:00 IMPRESSION: COPD. NO ACUTE RADIOGRAPHIC FINDING IN THE CHEST. Assessment & Plan - Diagnosis (1) Dehydration Is this a current diagnosis for this admission?: Yes Plan: The patient remains hypotensive and was noted to be mildly orthostatic this morning. Chemistry is unremarkable. He does not have IV access at this time and is tolerating p.o. intake well. Have asked nursing to encourage p.o. fluids. (2) Hypotension Qualifiers: Hypotension type: unspecified hypotension type Qualified Code(s): I95.9 - Hypotension, unspecified Is this a current diagnosis for this admission?: Yes Plan: Likely secondary to adrenal insufficiency and dehydration. Improved with Florinef; though remains hypotensive. Dose was increased yesterday. I have asked that nursing encourage p.o. fluid intake. Will hold off on IV fluids for now. (3) Adrenal insufficiency Is this a current diagnosis for this admission?: Yes Plan: We will continue steroid supplementation. (4) Severe protein-calorie malnutrition Is this a current diagnosis for this admission?: Yes Plan: Continue regular diet with vitamin supplements. Appreciate RD consultation and recommendation. (5) Dementia Is this a current diagnosis for this admission?: Yes Plan: Wernicke Korsakoff dementia. Will provide for patient safety. Appreciate discharge planning's assistance in establishing a safe discharge plan. (6) Anemia Is this a current diagnosis for this admission?: Yes Plan: Hemoglobin is stable. No signs of active bleeding at this time. We will continue to monitor. (7) Anxiety Is this a current diagnosis for this admission?: Yes Plan: Stable. Haldol as needed for severe anxiety/agitation. (8) Hypothyroidism Is this a current diagnosis for this admission?: Yes Plan: TSH was elevated on admission (7.99) and he was placed on Synthroid. Repeat labs are much improved; TSH 3.19 and Free T4 0.95 Will continue current dosing. (9) Alcohol dependence Plan: We will continue thiamine and folic acid supplements. (10) Hypothermia Qualifiers: Encounter type: initial encounter Qualified Code(s): T68.XXXA - Hypothermia , initial encounter Is this a current diagnosis for this admission?: Yes Plan: Secondary to exposure. Resolved. - Time Time Spent with patient: 15-24 minutes Medications reviewed and adjusted accordingly: Yes
[2017-08-07] MEDS: HALOPERIDOL 5 MG TABLET PO PRN ×2 (14:20→20:23)
[2017-08-08] MEDS: FLUDROCORTISONE ACETATE 0.1 MG TABLET PO SCH (09:57)
[2017-08-08] MEDS: FOLIC ACID 1 MG TABLET PO SCH (09:57)
[2017-08-08] MEDS: MULTIVITAMIN TABLET PO SCH (09:57)
[2017-08-08] MEDS: THIAMINE HCL 100 MG TABLET PO SCH (09:58)
[2017-08-08] MEDS: MUPIROCIN 2% OINTMENT 22 GM TP SCH (09:58)
--- NOTE | 2017-08-08 10:26 | PDOC PROGRESS REPORT ---
Subjective Progress Note for:: 08/08/17 Subjective:: This is a 61-year-old man who was admitted on May 29 after he was brought in by police secondary to being found wandering in the streets confused. He was treated for hypothermia secondary to exposure, hypotension felt to be associated with adrenal insufficiency and was found to have severe protein calorie malnutrition and vitamin deficiency. He does have a history of alcoholism and has been diagnosed with Wernicke Korsakoff dementia. The patient is seen on morning rounds. He is found lying in bed comfortably and is noted to be pleasantly confused; states that he needs to do some yard work today. He denies fever, chills, headache, chest pain, cough, dyspnea, abdominal pain, nausea vomiting and diarrhea. He has no other questions or concerns at this time. Awaiting disposition. Reason For Visit: HYPOTENSION, HYPOTHERMIA, ENCEPHALOPATHY Physical Exam Vital Signs: Temp Pulse Resp BP Pulse Ox 98.5 F 64 18 91/51 L 97 08/08/17 08:11 08/08/17 08:11 08/08/17 08:11 08/08/17 08:11 08/08/17 08:11 Intake & Output 08/07/17 08/08/17 08/09/17 06:59 06:59 06:59 Intake Total 1463 1639 Balance 1463 1639 Weight 55.3 kg General appearance: PRESENT: no acute distress, thin, well-developed, well- nourished Head exam: PRESENT: atraumatic, normocephalic Eye exam: PRESENT: conjunctiva pink, EOMI, PERRLA. ABSENT: scleral icterus Ear exam: PRESENT: normal external ear exam Mouth exam: PRESENT: moist, tongue midline Teeth exam: PRESENT: poor dentation Neck exam: ABSENT: carotid bruit, JVD, lymphadenopathy, thyromegaly Respiratory exam: PRESENT: clear to auscultation kae, symmetrical, unlabored. ABSENT: rales, rhonchi, wheezes Cardiovascular exam: PRESENT: RRR, +S1, +S2. ABSENT: diastolic murmur, rubs, systolic murmur Pulses: PRESENT: normal dorsalis pedis pul Vascular exam: PRESENT: normal capillary refill GI/Abdominal exam: PRESENT: normal bowel sounds, soft. ABSENT: distended, guarding, mass, organolmegaly, rebound, tenderness Rectal exam: PRESENT: deferred Extremities exam: PRESENT: full ROM. ABSENT: calf tenderness, clubbing, pedal edema Neurological exam: PRESENT: alert, awake, oriented to person, CN II-XII grossly intact. ABSENT: oriented to place, oriented to time, oriented to situation, motor sensory deficit Psychiatric exam: PRESENT: appropriate affect, normal mood. ABSENT: homicidal ideation, suicidal ideation Skin exam: PRESENT: dry, intact, warm. ABSENT: cyanosis, rash Results Laboratory Results: 08/07/17 08:08 08/07/17 08:08 Impressions: Head CT 05/28/17 20:27 IMPRESSION: No acute intracranial findings. EVIDENCE OF ACUTE STROKE: NO. Head MRI 05/29/17 00:00 IMPRESSION: NO ACUTE ISCHEMIA, HEMORRHAGE, OR MASS LESION. CANNOT ASSESS FOR ABNORMAL WHITE MATTER SIGNAL DUE TO NONDIAGNOSTIC FLAIR IMAGING FROM [employer]. EVIDENCE OF ACUTE STROKE: NO. Foot X-Ray 05/31/17 00:00 IMPRESSION: 1. No acute or suspicious radiographic abnormality left the left foot. Shoulder X-Ray 06/20/17 00:00 IMPRESSION: NEGATIVE STUDY OF THE RIGHT SHOULDER. NO RADIOGRAPHIC EVIDENCE OF ACUTE INJURY. NO EXPLANATION FOR PAIN. Chest X-Ray 06/26/17 00:00 IMPRESSION: COPD. NO ACUTE RADIOGRAPHIC FINDING IN THE CHEST. Assessment & Plan - Diagnosis (1) Dehydration Is this a current diagnosis for this admission?: Yes Plan: The patient remains hypotensive and was noted to be mildly orthostatic yesterday. Chemistry was unremarkable. He does not have IV access at this time and is tolerating p.o. intake well. He drank 1.6 L yesterday and is 50 - 100% of his meals. New encouraging encourage p.o. fluids/intake. (2) Hypotension Qualifiers: Hypotension type: unspecified hypotension type Qualified Code(s): I95.9 - Hypotension, unspecified Is this a current diagnosis for this admission?: Yes Plan: Stable; likely secondary to adrenal insufficiency and mild dehydration. Improved with Florinef; though remains hypotensive. I have asked that nursing encourage p.o. fluid intake. Will hold off on IV fluids for now. I have also spoken with nursing about increasing the patient's mobility; to ambulate in the hallways at least once daily. The patient is also noted to be taking Haldol 5 mg on average 1-2 times daily. Will reduce dose due to potential for causing orthostatic hypotension. (3) Adrenal insufficiency Is this a current diagnosis for this admission?: Yes Plan: We will continue steroid supplementation. (4) Severe protein-calorie malnutrition Is this a current diagnosis for this admission?: Yes Plan: Have advanced to a high calorie high protein diet with vitamin supplements. Appreciate RD consultation and recommendation. (5) Dementia Is this a current diagnosis for this admission?: Yes Plan: Wernicke Korsakoff dementia. Will provide for patient safety. Appreciate discharge planning's assistance in establishing a safe discharge plan. (6) Anemia Is this a current diagnosis for this admission?: Yes Plan: Hemoglobin is stable. No signs of active bleeding at this time. We will continue to monitor. (7) Anxiety Is this a current diagnosis for this admission?: Yes Plan: Stable. Haldol as needed for severe anxiety/agitation; will reduce dose slightly today as the patient is requiring Haldol only once daily on average. (8) Hypothyroidism Is this a current diagnosis for this admission?: Yes Plan: TSH was elevated on admission (7.99) and he was placed on Synthroid. Repeat labs are much improved; TSH 3.19 and Free T4 0.95 Will continue current dosing. (9) Alcohol dependence Plan: We will continue thiamine and folic acid supplements. (10) Hypothermia Qualifiers: Encounter type: initial encounter Qualified Code(s): T68.XXXA - Hypothermia , initial encounter Is this a current diagnosis for this admission?: Yes Plan: Secondary to exposure. Resolved. - Time Time Spent with patient: 15-24 minutes Medications reviewed and adjusted accordingly: Yes
[2017-08-08] MEDS: HALOPERIDOL 2 MG TABLET PO PRN ×2 (12:15→21:23)
[2017-08-09] MEDS: FOLIC ACID 1 MG TABLET PO SCH (09:22)
[2017-08-09] MEDS: THIAMINE HCL 100 MG TABLET PO SCH (09:22)
[2017-08-09] MEDS: FLUDROCORTISONE ACETATE 0.1 MG TABLET PO SCH (09:22)
[2017-08-09] MEDS: MULTIVITAMIN TABLET PO SCH (09:22)
[2017-08-09] MEDS: MUPIROCIN 2% OINTMENT 22 GM TP SCH (09:24)
--- NOTE | 2017-08-09 10:43 | PDOC PROGRESS REPORT ---
Subjective Progress Note for:: 08/09/17 Subjective:: This is a 61-year-old man who was admitted on May 29 after he was brought in by police secondary to being found wandering in the streets confused. He was treated for hypothermia secondary to exposure, hypotension felt to be associated with adrenal insufficiency and was found to have severe protein calorie malnutrition and vitamin deficiency. He does have a history of alcoholism and has been diagnosed with Wernicke Korsakoff dementia. The patient is seen on morning rounds. He is found lying in bed comfortably and is noted to be pleasantly confused. He denies fever, chills, headache, chest pain, cough, dyspnea, abdominal pain, nausea vomiting and diarrhea. He has no questions or concerns at this time. Awaiting disposition. Reason For Visit: HYPOTENSION, HYPOTHERMIA, ENCEPHALOPATHY Physical Exam Vital Signs: Temp Pulse Resp BP Pulse Ox 98.6 F 65 16 104/65 97 08/09/17 07:54 08/09/17 07:54 08/09/17 07:54 08/09/17 07:54 08/09/17 07:54 Intake & Output 08/08/17 08/09/17 08/10/17 06:59 06:59 06:59 Intake Total 1639 1180 Balance 1639 1180 General appearance: PRESENT: no acute distress, thin, well-developed, other - Cachectic. ABSENT: well-nourished Head exam: PRESENT: atraumatic, normocephalic Eye exam: PRESENT: conjunctiva pink, EOMI, PERRLA. ABSENT: scleral icterus Ear exam: PRESENT: normal external ear exam Mouth exam: PRESENT: moist, tongue midline Teeth exam: PRESENT: poor dentation Neck exam: ABSENT: carotid bruit, JVD, lymphadenopathy, thyromegaly Respiratory exam: PRESENT: clear to auscultation kae, symmetrical, unlabored. ABSENT: rales, rhonchi, wheezes Cardiovascular exam: PRESENT: RRR, +S1, +S2. ABSENT: diastolic murmur, rubs, systolic murmur Pulses: PRESENT: normal dorsalis pedis pul Vascular exam: PRESENT: normal capillary refill GI/Abdominal exam: PRESENT: normal bowel sounds, soft. ABSENT: distended, guarding, mass, organolmegaly, rebound, tenderness Rectal exam: PRESENT: deferred Extremities exam: PRESENT: full ROM. ABSENT: calf tenderness, clubbing, pedal edema Neurological exam: PRESENT: alert, awake, oriented to person, CN II-XII grossly intact, other - Pleasantly confused.. ABSENT: oriented to place, oriented to time, oriented to situation, motor sensory deficit Psychiatric exam: PRESENT: appropriate affect, normal mood. ABSENT: homicidal ideation, suicidal ideation Skin exam: PRESENT: dry, intact, warm. ABSENT: cyanosis, rash Results Laboratory Results: 08/07/17 08:08 08/07/17 08:08 Impressions: Head CT 05/28/17 20:27 IMPRESSION: No acute intracranial findings. EVIDENCE OF ACUTE STROKE: NO. Head MRI 05/29/17 00:00 IMPRESSION: NO ACUTE ISCHEMIA, HEMORRHAGE, OR MASS LESION. CANNOT ASSESS FOR ABNORMAL WHITE MATTER SIGNAL DUE TO NONDIAGNOSTIC FLAIR IMAGING FROM [employer]. EVIDENCE OF ACUTE STROKE: NO. Foot X-Ray 05/31/17 00:00 IMPRESSION: 1. No acute or suspicious radiographic abnormality left the left foot. Shoulder X-Ray 06/20/17 00:00 IMPRESSION: NEGATIVE STUDY OF THE RIGHT SHOULDER. NO RADIOGRAPHIC EVIDENCE OF ACUTE INJURY. NO EXPLANATION FOR PAIN. Chest X-Ray 06/26/17 00:00 IMPRESSION: COPD. NO ACUTE RADIOGRAPHIC FINDING IN THE CHEST. Assessment & Plan - Diagnosis (1) Dehydration Is this a current diagnosis for this admission?: Yes Plan: The patient remains hypotensive and is noted to be orthostatic this morning. P.o. intake appears to be down slightly despite encouragement by nursing. Will rehydrate with IVF. (2) Hypotension Qualifiers: Hypotension type: unspecified hypotension type Qualified Code(s): I95.9 - Hypotension, unspecified Is this a current diagnosis for this admission?: Yes Plan: Stable; likely secondary to adrenal insufficiency and dehydration. Improved with Florinef; though remains hypotensive. I have asked that nursing encourage p.o. fluid intake. Will also provide IV fluids today. I have also spoken with nursing about increasing the patient's mobility; to ambulate in the hallways at least once daily. Haldol was reduced due to concern of contribution to hypotension; pt tolerated well. (3) Adrenal insufficiency Is this a current diagnosis for this admission?: Yes Plan: We will continue steroid supplementation. (4) Severe protein-calorie malnutrition Is this a current diagnosis for this admission?: Yes Plan: Weight has increased from 45.5 kg at admission to 55.3 kg. Albumin remains low at 3.3, though is trending upward. Have advanced to a high calorie high protein diet with vitamin supplements. Appreciate RD consultation and recommendation. (5) Dementia Is this a current diagnosis for this admission?: Yes Plan: Wernicke Korsakoff dementia. Will provide for patient safety. Appreciate discharge planning's assistance in establishing a safe discharge plan. (6) Anemia Is this a current diagnosis for this admission?: Yes Plan: Hemoglobin is stable. No signs of active bleeding at this time. We will continue to monitor. (7) Anxiety Is this a current diagnosis for this admission?: Yes Plan: Stable. Haldol as needed for severe anxiety/agitation; tolerated dose reduction well. (8) Hypothyroidism Is this a current diagnosis for this admission?: Yes Plan: TSH was elevated on admission (7.99) and he was placed on Synthroid. Repeat labs are much improved; TSH 3.19 and Free T4 0.95 Will continue current dosing. (9) Alcohol dependence Plan: We will continue thiamine and folic acid supplements. (10) Hypothermia Qualifiers: Encounter type: initial encounter Qualified Code(s): T68.XXXA - Hypothermia , initial encounter Is this a current diagnosis for this admission?: Yes - Time Time Spent with patient: 15-24 minutes Medications reviewed and adjusted accordingly: Yes
[2017-08-09] MEDS: HALOPERIDOL 2 MG TABLET PO PRN ×2 (11:13→17:00)
[2017-08-09] MEDS: ACETAMINOPHEN 325 MG TABLET PO PRN ×2 (12:32→22:43)
[2017-08-09] MEDS: NORMAL SALINE 1000 ML 1,000 ML IV PRN ×2 (12:32→22:38)
[2017-08-10] MEDS ORDERED: HALOPERIDOL 2 MG TABLET ONE (00:23)
[2017-08-10] MEDS: HALOPERIDOL 2 MG TABLET PO PRN ×2 (02:10→12:26)
[2017-08-10] MEDS: FLUDROCORTISONE ACETATE 0.1 MG TABLET PO SCH (09:30)
[2017-08-10] MEDS: MULTIVITAMIN TABLET PO SCH (09:30)
[2017-08-10] MEDS: THIAMINE HCL 100 MG TABLET PO SCH (09:30)
[2017-08-10] MEDS: FOLIC ACID 1 MG TABLET PO SCH (09:30)
[2017-08-10] MEDS: MUPIROCIN 2% OINTMENT 22 GM TP SCH (09:31)
--- NOTE | 2017-08-10 12:59 | PDOC PROGRESS REPORT ---
Subjective Progress Note for:: 08/10/17 Subjective:: This is a 61-year-old man who was admitted on May 29 after he was brought in by police secondary to being found wandering in the streets confused. He was treated for hypothermia secondary to exposure, hypotension felt to be associated with adrenal insufficiency and was found to have severe protein calorie malnutrition and vitamin deficiency. He does have a history of alcoholism and has been diagnosed with Wernicke Korsakoff dementia. The patient is seen on morning rounds. He is found sitting upright to the edge of the bed eating his breakfast. He denies fever, chills, headache, chest pain, cough, dyspnea, abdominal pain, nausea vomiting and diarrhea. He has no questions or concerns at this time. Awaiting disposition. Reason For Visit: HYPOTENSION, HYPOTHERMIA, ENCEPHALOPATHY Physical Exam Vital Signs: Temp Pulse Resp BP Pulse Ox 98.5 F 60 16 96/52 L 97 08/10/17 07:16 08/10/17 07:16 08/10/17 07:16 08/10/17 07:16 08/10/17 07:16 Intake & Output 08/09/17 08/10/17 08/11/17 06:59 06:59 06:59 Intake Total 1180 3541 1000 Balance 1180 3541 1000 Weight 57.9 kg General appearance: PRESENT: no acute distress, thin, well-developed Head exam: PRESENT: atraumatic, normocephalic Eye exam: PRESENT: conjunctiva pink, EOMI, PERRLA. ABSENT: scleral icterus Ear exam: PRESENT: normal external ear exam Mouth exam: PRESENT: moist, tongue midline Neck exam: ABSENT: carotid bruit, JVD, lymphadenopathy, thyromegaly Respiratory exam: PRESENT: clear to auscultation kae, symmetrical, unlabored. ABSENT: rales, rhonchi, wheezes Cardiovascular exam: PRESENT: RRR, +S1, +S2. ABSENT: diastolic murmur, rubs, systolic murmur Pulses: PRESENT: normal dorsalis pedis pul Vascular exam: PRESENT: normal capillary refill GI/Abdominal exam: PRESENT: normal bowel sounds, soft. ABSENT: distended, guarding, mass, organolmegaly, rebound, tenderness Rectal exam: PRESENT: deferred Extremities exam: PRESENT: full ROM. ABSENT: calf tenderness, clubbing, pedal edema Neurological exam: PRESENT: alert, awake, oriented to person, oriented to place , CN II-XII grossly intact. ABSENT: oriented to time, oriented to situation, motor sensory deficit Psychiatric exam: PRESENT: appropriate affect, normal mood. ABSENT: homicidal ideation, suicidal ideation Skin exam: PRESENT: dry, intact, warm. ABSENT: cyanosis, rash Results Laboratory Results: 08/07/17 08:08 08/07/17 08:08 Impressions: Head CT 05/28/17 20:27 IMPRESSION: No acute intracranial findings. EVIDENCE OF ACUTE STROKE: NO. Head MRI 05/29/17 00:00 IMPRESSION: NO ACUTE ISCHEMIA, HEMORRHAGE, OR MASS LESION. CANNOT ASSESS FOR ABNORMAL WHITE MATTER SIGNAL DUE TO NONDIAGNOSTIC FLAIR IMAGING FROM [employer]. EVIDENCE OF ACUTE STROKE: NO. Foot X-Ray 05/31/17 00:00 IMPRESSION: 1. No acute or suspicious radiographic abnormality left the left foot. Shoulder X-Ray 06/20/17 00:00 IMPRESSION: NEGATIVE STUDY OF THE RIGHT SHOULDER. NO RADIOGRAPHIC EVIDENCE OF ACUTE INJURY. NO EXPLANATION FOR PAIN. Chest X-Ray 06/26/17 00:00 IMPRESSION: COPD. NO ACUTE RADIOGRAPHIC FINDING IN THE CHEST. Assessment & Plan - Diagnosis (1) Dehydration Is this a current diagnosis for this admission?: Yes Plan: Improved following 2 L of NS provided yesterday. Orthostatic hypotension has resolved. Encourage p.o. fluids. Continue daily orthostats. (2) Hypotension Qualifiers: Hypotension type: unspecified hypotension type Qualified Code(s): I95.9 - Hypotension, unspecified Is this a current diagnosis for this admission?: Yes Plan: Stable; likely secondary to adrenal insufficiency and dehydration. Improved with Florinef; though remains slightly hypotensive. I have asked that nursing encourage p.o. fluid intake. I have also spoken with nursing about increasing the patient's mobility; to ambulate in the hallways at least once daily. Haldol was reduced due to concern of contribution to hypotension; pt tolerated well. Daily orthostats. (3) Adrenal insufficiency Is this a current diagnosis for this admission?: Yes Plan: We will continue steroid supplementation. (4) Severe protein-calorie malnutrition Is this a current diagnosis for this admission?: Yes Plan: Weight has increased from 45.5 kg at admission to 55.3 kg. Albumin remains low at 3.3, though is trending upward. Have advanced to a high calorie high protein diet with vitamin supplements. Appreciate RD consultation and recommendation. (5) Dementia Is this a current diagnosis for this admission?: Yes Plan: Wernicke Korsakoff dementia. Will provide for patient safety. Appreciate discharge planning's assistance in establishing a safe discharge plan. (6) Anemia Is this a current diagnosis for this admission?: Yes Plan: Hemoglobin is stable. No signs of active bleeding at this time. We will continue to monitor. (7) Anxiety Is this a current diagnosis for this admission?: Yes Plan: Stable. Haldol as needed for severe anxiety/agitation; tolerated dose reduction well. (8) Hypothyroidism Is this a current diagnosis for this admission?: Yes Plan: TSH was elevated on admission (7.99) and he was placed on Synthroid. Repeat labs are much improved; TSH 3.19 and Free T4 0.95 Will continue current dosing. (9) Alcohol dependence Plan: We will continue thiamine and folic acid supplements. (10) Hypothermia Qualifiers: Encounter type: initial encounter Qualified Code(s): T68.XXXA - Hypothermia , initial encounter Is this a current diagnosis for this admission?: Yes Plan: Secondary to exposure. Resolved. - Time Time Spent with patient: 15-24 minutes Medications reviewed and adjusted accordingly: Yes
[2017-08-10] MEDS: ACETAMINOPHEN 325 MG TABLET PO PRN (21:32)
[2017-08-11] MEDS: ACETAMINOPHEN 325 MG TABLET PO PRN (08:02)
[2017-08-11] MEDS: FLUDROCORTISONE ACETATE 0.1 MG TABLET PO SCH (09:52)
[2017-08-11] MEDS: FOLIC ACID 1 MG TABLET PO SCH (09:52)
[2017-08-11] MEDS: MULTIVITAMIN TABLET PO SCH (09:52)
[2017-08-11] MEDS: THIAMINE HCL 100 MG TABLET PO SCH (09:52)
[2017-08-11] MEDS: HALOPERIDOL 2 MG TABLET PO PRN ×2 (09:52→21:25)
[2017-08-11] MEDS: MUPIROCIN 2% OINTMENT 22 GM TP SCH (09:53)
--- NOTE | 2017-08-11 12:27 | PDOC PROGRESS REPORT ---
Subjective Progress Note for:: 08/11/17 - Admission Day 74 Subjective:: This is a 61-year-old man who was admitted on May 29 after he was brought in by police secondary to being found wandering in the streets confused. He was treated for hypothermia secondary to exposure, hypotension felt to be associated with adrenal insufficiency and was found to have severe protein calorie malnutrition and vitamin deficiency. He does have a history of alcoholism and has been diagnosed with Wernicke Korsakoff dementia. The patient is seen on morning rounds. He is found resting in bed comfortably. He states that he has a headache and is not feeling well today but is unable to further elaborate. He denies fever, chills, chest pain, cough, dyspnea, abdominal pain, nausea vomiting and diarrhea. He has no other questions or concerns at this time. Awaiting disposition. Reason For Visit: HYPOTENSION, HYPOTHERMIA, ENCEPHALOPATHY Physical Exam Vital Signs: Temp Pulse Resp BP Pulse Ox 98.4 F 61 17 95/55 L 97 08/11/17 07:54 08/11/17 07:54 08/11/17 07:54 08/11/17 07:54 08/11/17 07:54 Intake & Output 08/10/17 08/11/17 08/12/17 06:59 06:59 06:59 Intake Total 3541 1622 Balance 3541 1622 Weight 57.9 kg General appearance: PRESENT: no acute distress, cooperative, thin, well- developed Head exam: PRESENT: atraumatic, normocephalic Eye exam: PRESENT: conjunctiva pink, EOMI, PERRLA. ABSENT: scleral icterus Ear exam: PRESENT: normal external ear exam Mouth exam: PRESENT: moist, tongue midline Teeth exam: PRESENT: poor dentation Neck exam: ABSENT: carotid bruit, JVD, lymphadenopathy, thyromegaly Respiratory exam: PRESENT: clear to auscultation kae, symmetrical, unlabored. ABSENT: rales, rhonchi, wheezes Cardiovascular exam: PRESENT: RRR, +S1, +S2. ABSENT: diastolic murmur, rubs, systolic murmur Pulses: PRESENT: normal dorsalis pedis pul Vascular exam: PRESENT: normal capillary refill GI/Abdominal exam: PRESENT: normal bowel sounds, soft. ABSENT: distended, guarding, mass, organolmegaly, rebound, tenderness Rectal exam: PRESENT: deferred Extremities exam: PRESENT: full ROM. ABSENT: calf tenderness, clubbing, pedal edema Neurological exam: PRESENT: alert, awake, oriented to person, oriented to place , CN II-XII grossly intact. ABSENT: oriented to time, oriented to situation, motor sensory deficit Psychiatric exam: PRESENT: appropriate affect, normal mood. ABSENT: homicidal ideation, suicidal ideation Skin exam: PRESENT: dry, intact, warm. ABSENT: cyanosis, rash Results Laboratory Results: 08/07/17 08:08 08/07/17 08:08 Impressions: Head CT 05/28/17 20:27 IMPRESSION: No acute intracranial findings. EVIDENCE OF ACUTE STROKE: NO. Head MRI 05/29/17 00:00 IMPRESSION: NO ACUTE ISCHEMIA, HEMORRHAGE, OR MASS LESION. CANNOT ASSESS FOR ABNORMAL WHITE MATTER SIGNAL DUE TO NONDIAGNOSTIC FLAIR IMAGING FROM [employer]. EVIDENCE OF ACUTE STROKE: NO. Foot X-Ray 05/31/17 00:00 IMPRESSION: 1. No acute or suspicious radiographic abnormality left the left foot. Shoulder X-Ray 06/20/17 00:00 IMPRESSION: NEGATIVE STUDY OF THE RIGHT SHOULDER. NO RADIOGRAPHIC EVIDENCE OF ACUTE INJURY. NO EXPLANATION FOR PAIN. Chest X-Ray 06/26/17 00:00 IMPRESSION: COPD. NO ACUTE RADIOGRAPHIC FINDING IN THE CHEST. Assessment & Plan - Diagnosis (1) Dehydration Is this a current diagnosis for this admission?: Yes Plan: Improved following 2 L of NS provided yesterday. Orthostatic hypotension has resolved. Encourage p.o. fluids. Continue daily orthostats. (2) Hypotension Qualifiers: Hypotension type: unspecified hypotension type Qualified Code(s): I95.9 - Hypotension, unspecified Is this a current diagnosis for this admission?: Yes Plan: Stable; likely secondary to adrenal insufficiency and poor p.o. intake. Improved with Florinef; though remains slightly hypotensive. I have asked that nursing encourage p.o. fluid intake. I have also spoken with nursing about increasing the patient's mobility; to ambulate in the hallways three times daily. Haldol was reduced due to concern of contribution to hypotension; pt tolerated well. Daily orthostats. (3) Adrenal insufficiency Is this a current diagnosis for this admission?: Yes Plan: We will continue steroid supplementation. (4) Severe protein-calorie malnutrition Is this a current diagnosis for this admission?: Yes Plan: Weight has increased from 45.5 kg at admission to 57.9 kg. Albumin remains low at 3.3, though is trending upward. Have advanced to a high calorie high protein diet with vitamin supplements. Appreciate RD consultation and recommendation. (5) Dementia Is this a current diagnosis for this admission?: Yes Plan: Wernicke Korsakoff dementia. Will provide for patient safety. Appreciate discharge planning's assistance in establishing a safe discharge plan. (6) Anemia Is this a current diagnosis for this admission?: Yes Plan: Hemoglobin is stable. No signs of active bleeding at this time. We will continue to monitor. (7) Anxiety Is this a current diagnosis for this admission?: Yes Plan: Stable. Haldol as needed for severe anxiety/agitation; tolerated dose reduction well. (8) Hypothyroidism Is this a current diagnosis for this admission?: Yes Plan: TSH was elevated on admission (7.99) and he was placed on Synthroid. Repeat labs are much improved; TSH 3.19 and Free T4 0.95 Will continue current dosing. (9) Alcohol dependence Plan: We will continue thiamine and folic acid supplements. (10) Hypothermia Qualifiers: Encounter type: initial encounter Qualified Code(s): T68.XXXA - Hypothermia , initial encounter Is this a current diagnosis for this admission?: Yes Plan: Secondary to exposure. Resolved. (11) Influenza vaccination administered at current visit Is this a current diagnosis for this admission?: Yes - Time Time Spent with patient: Less than 15 minutes Medications reviewed and adjusted accordingly: Yes
[2017-08-11] MEDS ORDERED: INFLUENZA ADLT QUAD (36MOS+) 2017-18 VAC 0.5 ML SYR IM ONE (12:28)
[2017-08-12] MEDS: FLUDROCORTISONE ACETATE 0.1 MG TABLET PO SCH (09:41)
[2017-08-12] MEDS: FOLIC ACID 1 MG TABLET PO SCH (09:41)
[2017-08-12] MEDS: MULTIVITAMIN TABLET PO SCH (09:41)
[2017-08-12] MEDS: THIAMINE HCL 100 MG TABLET PO SCH (09:42)
[2017-08-12] MEDS: MUPIROCIN 2% OINTMENT 22 GM TP SCH (09:42)
[2017-08-12] MEDS: IBUPROFEN 600 MG TABLET PO PRN (09:44)
[2017-08-12] MEDS: HALOPERIDOL 2 MG TABLET PO PRN (13:35)
[2017-08-13] MEDS: HALOPERIDOL 2 MG TABLET PO PRN ×2 (09:18→18:26)
[2017-08-13] MEDS: FOLIC ACID 1 MG TABLET PO SCH (09:57)
[2017-08-13] MEDS: MULTIVITAMIN TABLET PO SCH (09:57)
[2017-08-13] MEDS: FLUDROCORTISONE ACETATE 0.1 MG TABLET PO SCH (09:58)
[2017-08-13] MEDS: THIAMINE HCL 100 MG TABLET PO SCH (09:59)
[2017-08-13] MEDS: MUPIROCIN 2% OINTMENT 22 GM TP SCH (10:02)
--- NOTE | 2017-08-13 11:40 | PDOC PROGRESS REPORT ---
Subjective Progress Note for:: 08/12/17 Subjective:: Patient is a 61-year-old male brought in May 29 by police found wandering the streets confused. Patient diagnosed with Wernicke-Korsakoff dementia and is not competent to make his decisions. Patient has been hospitalized at [facility] ever since. Patient states he is doing okay today. Patient did sign a few documents. Patient came to this and ask for a Band-Aid. Reason For Visit: HYPOTENSION, HYPOTHERMIA, ENCEPHALOPATHY Physical Exam Vital Signs: Temp Pulse Resp BP Pulse Ox 98.3 F 68 16 113/64 98 08/12/17 19:34 08/12/17 19:34 08/12/17 19:34 08/12/17 19:34 08/12/17 19:34 Intake & Output 08/11/17 08/12/17 08/13/17 06:59 06:59 06:59 Intake Total 4903 608 2469 Balance 6099 413 1552 General appearance: PRESENT: no acute distress, cooperative, disheveled, thin, well-developed Head exam: PRESENT: normocephalic Eye exam: PRESENT: EOMI. ABSENT: scleral icterus Mouth exam: PRESENT: moist Neck exam: ABSENT: carotid bruit, JVD, lymphadenopathy, thyromegaly Respiratory exam: PRESENT: clear to auscultation kae. ABSENT: rales, rhonchi, wheezes Cardiovascular exam: PRESENT: RRR. ABSENT: diastolic murmur, rubs, systolic murmur GI/Abdominal exam: PRESENT: normal bowel sounds, soft. ABSENT: distended, guarding, mass, organolmegaly, rebound, tenderness Rectal exam: PRESENT: deferred Extremities exam: PRESENT: full ROM. ABSENT: calf tenderness, clubbing, pedal edema Neurological exam: PRESENT: alert, awake, oriented to person, CN II-XII grossly intact. ABSENT: motor sensory deficit Psychiatric exam: PRESENT: flat affect, normal mood. ABSENT: homicidal ideation , suicidal ideation Skin exam: PRESENT: dry, intact, warm. ABSENT: cyanosis, rash Results Laboratory Results: 08/07/17 08:08 08/07/17 08:08 Impressions: Head CT 05/28/17 20:27 IMPRESSION: No acute intracranial findings. EVIDENCE OF ACUTE STROKE: NO. Head MRI 05/29/17 00:00 IMPRESSION: NO ACUTE ISCHEMIA, HEMORRHAGE, OR MASS LESION. CANNOT ASSESS FOR ABNORMAL WHITE MATTER SIGNAL DUE TO NONDIAGNOSTIC FLAIR IMAGING FROM [employer]. EVIDENCE OF ACUTE STROKE: NO. Foot X-Ray 05/31/17 00:00 IMPRESSION: 1. No acute or suspicious radiographic abnormality left the left foot. Shoulder X-Ray 06/20/17 00:00 IMPRESSION: NEGATIVE STUDY OF THE RIGHT SHOULDER. NO RADIOGRAPHIC EVIDENCE OF ACUTE INJURY. NO EXPLANATION FOR PAIN. Chest X-Ray 06/26/17 00:00 IMPRESSION: COPD. NO ACUTE RADIOGRAPHIC FINDING IN THE CHEST. Assessment & Plan - Diagnosis (1) Hypotension Qualifiers: Hypotension type: unspecified hypotension type Qualified Code(s): I95.9 - Hypotension, unspecified Is this a current diagnosis for this admission?: Yes Plan: Labile. Continue florinef. Patient ambulatory and is asymptomatic. (2) Hypokalemia Is this a current diagnosis for this admission?: Yes Plan: Resolved. Continue to monitor intermittently. (3) Hypothyroidism Is this a current diagnosis for this admission?: Yes Plan: Continue supplement. Improved on recent labs. TSH 3.19 and free T4 0.95. (4) Hypothermia Qualifiers: Encounter type: initial encounter Qualified Code(s): T68.XXXA - Hypothermia , initial encounter Is this a current diagnosis for this admission?: Yes Plan: Resolved (5) Anxiety Is this a current diagnosis for this admission?: Yes Plan: Patient was initially started on BuSpar however BuSpar may not have been effective enough. Patient currently on Haldol as needed. (6) Adrenal insufficiency Is this a current diagnosis for this admission?: Yes (7) Alcohol dependence Is this a current diagnosis for this admission?: Yes Plan: Continue on thiamine and folate supplements. (8) Anemia Is this a current diagnosis for this admission?: Yes Plan: Possibly secondary to malnutrition. Hemoglobin has been stable. Will continue to monitor intermittently. (9) Dehydration Plan: Patient did receive gentle hydration. Patient encouraged to take oral hydration. (10) Severe protein-calorie malnutrition Is this a current diagnosis for this admission?: Yes Plan: Patient is gaining weight. Patient on high calorie protein diet with vitamin supplements. Dietary consulted. Unfortunately patient tends to rahel the food instead of eating it. Food has been found and drawers. (11) Dementia Is this a current diagnosis for this admission?: Yes Plan: Patient with Warneke Korsakoff dementia. Currently working on safe disposition as patient as patient does not have decision-making capacity. - Time Time Spent with patient: Less than 15 minutes Anticipated discharge: Other Within: when bed available - Patient does not have decision-making capacity and is not safe for him to be discharged on his own. Hospital is establishing a safe disposition. Discharge planning in case management will
--- NOTE | 2017-08-13 15:12 | PDOC PROGRESS REPORT ---
Subjective Progress Note for:: 08/13/17 Subjective:: Patient is a 61-year-old male brought in May 29 by police found wandering the streets confused. Patient diagnosed with Wernicke-Korsakoff dementia and is not competent to make his decisions. Patient has been hospitalized at [facility] ever since. Patient sitting up in recliner stating that he does not need anything at the moment. Reason For Visit: HYPOTENSION, HYPOTHERMIA, ENCEPHALOPATHY Physical Exam Vital Signs: Temp Pulse Resp BP Pulse Ox 98.5 F 66 12 107/61 96 08/13/17 11:28 08/13/17 11:28 08/13/17 11:28 08/13/17 11:28 08/13/17 11:28 Intake & Output 08/12/17 08/13/17 08/14/17 06:59 06:59 06:59 Intake Total 843 2116 Balance 843 2116 General appearance: PRESENT: no acute distress, disheveled, thin Head exam: PRESENT: normocephalic Eye exam: PRESENT: EOMI. ABSENT: scleral icterus Ear exam: PRESENT: normal external ear exam Mouth exam: PRESENT: moist Neck exam: ABSENT: carotid bruit, JVD, lymphadenopathy, thyromegaly Respiratory exam: PRESENT: clear to auscultation kae. ABSENT: rales, rhonchi, wheezes Cardiovascular exam: PRESENT: RRR. ABSENT: diastolic murmur, rubs, systolic murmur Pulses: PRESENT: normal dorsalis pedis pul Vascular exam: PRESENT: normal capillary refill GI/Abdominal exam: PRESENT: normal bowel sounds, soft. ABSENT: distended, guarding, mass, organolmegaly, rebound, tenderness Rectal exam: PRESENT: deferred Extremities exam: PRESENT: full ROM. ABSENT: calf tenderness, clubbing, pedal edema Neurological exam: PRESENT: alert, awake, oriented to person, oriented to place , oriented to time, oriented to situation, CN II-XII grossly intact. ABSENT: motor sensory deficit Psychiatric exam: PRESENT: appropriate affect, normal mood. ABSENT: homicidal ideation, suicidal ideation Skin exam: PRESENT: dry, intact, warm. ABSENT: cyanosis, rash Results Laboratory Results: 08/07/17 08:08 08/07/17 08:08 Impressions: Head CT 05/28/17 20:27 IMPRESSION: No acute intracranial findings. EVIDENCE OF ACUTE STROKE: NO. Head MRI 05/29/17 00:00 IMPRESSION: NO ACUTE ISCHEMIA, HEMORRHAGE, OR MASS LESION. CANNOT ASSESS FOR ABNORMAL WHITE MATTER SIGNAL DUE TO NONDIAGNOSTIC FLAIR IMAGING FROM [employer]. EVIDENCE OF ACUTE STROKE: NO. Foot X-Ray 05/31/17 00:00 IMPRESSION: 1. No acute or suspicious radiographic abnormality left the left foot. Shoulder X-Ray 06/20/17 00:00 IMPRESSION: NEGATIVE STUDY OF THE RIGHT SHOULDER. NO RADIOGRAPHIC EVIDENCE OF ACUTE INJURY. NO EXPLANATION FOR PAIN. Chest X-Ray 06/26/17 00:00 IMPRESSION: COPD. NO ACUTE RADIOGRAPHIC FINDING IN THE CHEST. Assessment & Plan - Diagnosis (1) Hypotension Qualifiers: Hypotension type: unspecified hypotension type Qualified Code(s): I95.9 - Hypotension, unspecified Is this a current diagnosis for this admission?: Yes Plan: Labile. Continue florinef. Patient ambulatory and is asymptomatic. (2) Hypokalemia Is this a current diagnosis for this admission?: Yes Plan: Resolved. Continue to monitor intermittently. (3) Hypothyroidism Is this a current diagnosis for this admission?: Yes Plan: Continue supplement. Improved on recent labs. TSH 3.19 and free T4 0.95. (4) Hypothermia Qualifiers: Encounter type: initial encounter Qualified Code(s): T68.XXXA - Hypothermia , initial encounter Is this a current diagnosis for this admission?: Yes Plan: Resolved (5) Anxiety Is this a current diagnosis for this admission?: Yes Plan: Patient was initially started on BuSpar however BuSpar may not have been effective enough. Patient currently on Haldol as needed. (6) Adrenal insufficiency Is this a current diagnosis for this admission?: Yes (7) Alcohol dependence Is this a current diagnosis for this admission?: Yes Plan: Continue on thiamine and folate. (8) Anemia Is this a current diagnosis for this admission?: Yes Plan: Possibly secondary to malnutrition. Hemoglobin has been stable. Will continue to monitor intermittently. (9) Dehydration Plan: Patient did receive gentle hydration. Patient encouraged to take oral hydration. (10) Severe protein-calorie malnutrition Is this a current diagnosis for this admission?: Yes Plan: Patient is gaining weight. Patient on high calorie protein diet with vitamin supplements. Dietary consulted. Unfortunately patient tends to rahel the food instead of eating it. Food has been found and drawers. (11) Dementia Is this a current diagnosis for this admission?: Yes Plan: Patient with Warneke Korsakoff dementia. Currently working on safe disposition as patient as patient does not have decision-making capacity. - Time Time Spent with patient: Less than 15 minutes Anticipated discharge: Other Within: when bed available - Inpatient Certification Medical Necessity: Other - Patient does not have decision making capacity. Current arranging safe discharge.
[2017-08-14] MEDS: FLUDROCORTISONE ACETATE 0.1 MG TABLET PO SCH (10:28)
[2017-08-14] MEDS: HALOPERIDOL 2 MG TABLET PO PRN ×2 (10:29→19:00)
[2017-08-14] MEDS: MULTIVITAMIN TABLET PO SCH (10:30)
[2017-08-14] MEDS: MUPIROCIN 2% OINTMENT 22 GM TP SCH (10:30)
[2017-08-14] MEDS: THIAMINE HCL 100 MG TABLET PO SCH (10:30)
[2017-08-14] MEDS: FOLIC ACID 1 MG TABLET PO SCH (10:30)
[2017-08-15] MEDS: FLUDROCORTISONE ACETATE 0.1 MG TABLET PO SCH (09:45)
[2017-08-15] MEDS: MUPIROCIN 2% OINTMENT 22 GM TP SCH (09:46)
[2017-08-15] MEDS: MULTIVITAMIN TABLET PO SCH (09:46)
[2017-08-15] MEDS: THIAMINE HCL 100 MG TABLET PO SCH (09:46)
[2017-08-16] MEDS: FLUDROCORTISONE ACETATE 0.1 MG TABLET PO SCH (10:04)
--- NOTE | 2017-08-16 10:04 | PDOC PROGRESS REPORT ---
Subjective Progress Note for:: 08/14/17 Subjective:: Patient is a 61-year-old male brought in May 29 by police found wandering the streets confused. Patient diagnosed with Wernicke-Korsakoff dementia and is not competent to make his decisions. Patient has been hospitalized at [facility] ever since. Patient in bed talking about feeling anxious. Reason For Visit: HYPOTENSION, HYPOTHERMIA, ENCEPHALOPATHY Physical Exam Vital Signs: Temp Pulse Resp BP Pulse Ox 98.5 F 62 18 122/71 98 08/14/17 16:03 08/14/17 16:03 08/14/17 16:03 08/14/17 16:03 08/14/17 16:03 Intake & Output 08/13/17 08/14/17 08/15/17 06:59 06:59 06:59 Intake Total 2116 1195 480 Balance 2116 1195 480 General appearance: PRESENT: no acute distress, well-developed, well-nourished Head exam: PRESENT: normocephalic, other - small abrasion on his nose Eye exam: PRESENT: conjunctiva pink, EOMI, PERRLA. ABSENT: scleral icterus Ear exam: PRESENT: normal external ear exam Mouth exam: PRESENT: moist Neck exam: ABSENT: carotid bruit, JVD, lymphadenopathy, thyromegaly Respiratory exam: PRESENT: clear to auscultation kae. ABSENT: rales, rhonchi, wheezes Cardiovascular exam: PRESENT: RRR. ABSENT: diastolic murmur, rubs, systolic murmur Pulses: PRESENT: normal dorsalis pedis pul Vascular exam: PRESENT: normal capillary refill GI/Abdominal exam: PRESENT: normal bowel sounds, soft. ABSENT: distended, guarding, mass, organolmegaly, rebound, tenderness Rectal exam: PRESENT: deferred Extremities exam: PRESENT: full ROM. ABSENT: calf tenderness, clubbing, pedal edema Neurological exam: PRESENT: alert, awake, oriented to person, CN II-XII grossly intact. ABSENT: motor sensory deficit Psychiatric exam: PRESENT: flat affect, normal mood. ABSENT: homicidal ideation , suicidal ideation Skin exam: PRESENT: dry, intact, warm. ABSENT: cyanosis, rash Results Laboratory Results: 08/07/17 08:08 08/07/17 08:08 Impressions: Head CT 05/28/17 20:27 IMPRESSION: No acute intracranial findings. EVIDENCE OF ACUTE STROKE: NO. Head MRI 05/29/17 00:00 IMPRESSION: NO ACUTE ISCHEMIA, HEMORRHAGE, OR MASS LESION. CANNOT ASSESS FOR ABNORMAL WHITE MATTER SIGNAL DUE TO NONDIAGNOSTIC FLAIR IMAGING FROM [employer]. EVIDENCE OF ACUTE STROKE: NO. Foot X-Ray 05/31/17 00:00 IMPRESSION: 1. No acute or suspicious radiographic abnormality left the left foot. Shoulder X-Ray 06/20/17 00:00 IMPRESSION: NEGATIVE STUDY OF THE RIGHT SHOULDER. NO RADIOGRAPHIC EVIDENCE OF ACUTE INJURY. NO EXPLANATION FOR PAIN. Chest X-Ray 06/26/17 00:00 IMPRESSION: COPD. NO ACUTE RADIOGRAPHIC FINDING IN THE CHEST. Assessment & Plan - Diagnosis (1) Hypotension Qualifiers: Hypotension type: unspecified hypotension type Qualified Code(s): I95.9 - Hypotension, unspecified Is this a current diagnosis for this admission?: Yes Plan: Labile. Continue florinef. Patient ambulatory and is asymptomatic. (2) Hypokalemia Is this a current diagnosis for this admission?: Yes Plan: Resolved. Continue to monitor weekly. (3) Hypothyroidism Is this a current diagnosis for this admission?: Yes Plan: Continue supplement. Improved on recent labs. TSH 3.19 and free T4 0.95. (4) Hypothermia Qualifiers: Encounter type: initial encounter Qualified Code(s): T68.XXXA - Hypothermia , initial encounter Is this a current diagnosis for this admission?: Yes Plan: Resolved (5) Anxiety Is this a current diagnosis for this admission?: Yes Plan: Patient was initially started on BuSpar however BuSpar may not have been effective enough. Buspar was discontinued. Patient currently on Haldol as needed. (6) Adrenal insufficiency Is this a current diagnosis for this admission?: Yes (7) Alcohol dependence Is this a current diagnosis for this admission?: Yes Plan: Continue on thiamine and folate. (8) Anemia Is this a current diagnosis for this admission?: Yes Plan: Possibly secondary to malnutrition. Hemoglobin has been stable. Monitor weekly. (9) Dehydration Plan: Patient encouraged to drink. (10) Severe protein-calorie malnutrition Is this a current diagnosis for this admission?: Yes Plan: Patient is gaining weight. Patient on high calorie protein diet with vitamin supplements. Unfortunately patient tends to rahel the food instead of eating it. Food has been found and drawers. (11) Dementia Is this a current diagnosis for this admission?: Yes Plan: Patient with Warneke Korsakoff dementia. Currently working on safe disposition as patient as patient does not have decision-making capacity. - Time Time Spent with patient: Less than 15 minutes Anticipated discharge: Other Within: when bed available
[2017-08-16] MEDS: MULTIVITAMIN TABLET PO SCH (10:05)
[2017-08-16] MEDS: THIAMINE HCL 100 MG TABLET PO SCH (10:05)
[2017-08-16] MEDS: MUPIROCIN 2% OINTMENT 22 GM TP SCH (10:05)
--- NOTE | 2017-08-16 10:07 | PDOC PROGRESS REPORT ---
Subjective Progress Note for:: 08/15/17 Subjective:: Patient is a 61-year-old male brought in May 29 by police found wandering the streets confused. Patient diagnosed with Wernicke-Korsakoff dementia and is not competent to make his decisions. Patient has been hospitalized at [facility] ever since. Patient does not need anything at the time. Reason For Visit: HYPOTENSION, HYPOTHERMIA, ENCEPHALOPATHY Physical Exam Vital Signs: Temp Pulse Resp BP Pulse Ox 98.8 F 70 16 98/55 L 97 08/15/17 20:00 08/15/17 20:00 08/15/17 20:00 08/15/17 20:00 08/15/17 20:00 Intake & Output 08/14/17 08/15/17 08/16/17 06:59 06:59 06:59 Intake Total 1195 480 520 Balance 1195 480 520 General appearance: PRESENT: no acute distress, thin Head exam: PRESENT: normocephalic, other - cut on bridge of nose. Eye exam: PRESENT: conjunctiva pink, EOMI, PERRLA. ABSENT: scleral icterus Ear exam: PRESENT: normal external ear exam Mouth exam: PRESENT: moist, tongue midline Neck exam: ABSENT: carotid bruit, JVD, lymphadenopathy, thyromegaly Respiratory exam: PRESENT: clear to auscultation kae. ABSENT: rales, rhonchi, wheezes Cardiovascular exam: PRESENT: RRR. ABSENT: diastolic murmur, rubs, systolic murmur Pulses: PRESENT: normal dorsalis pedis pul Vascular exam: PRESENT: normal capillary refill GI/Abdominal exam: PRESENT: normal bowel sounds, soft. ABSENT: distended, guarding, mass, organolmegaly, rebound, tenderness Rectal exam: PRESENT: deferred Extremities exam: PRESENT: full ROM. ABSENT: calf tenderness, clubbing, pedal edema Neurological exam: PRESENT: alert, awake, CN II-XII grossly intact. ABSENT: motor sensory deficit Psychiatric exam: PRESENT: flat affect, normal mood. ABSENT: homicidal ideation , suicidal ideation Skin exam: PRESENT: dry, intact, warm. ABSENT: cyanosis, rash Results Laboratory Results: 08/07/17 08:08 08/07/17 08:08 Impressions: Head CT 05/28/17 20:27 IMPRESSION: No acute intracranial findings. EVIDENCE OF ACUTE STROKE: NO. Head MRI 05/29/17 00:00 IMPRESSION: NO ACUTE ISCHEMIA, HEMORRHAGE, OR MASS LESION. CANNOT ASSESS FOR ABNORMAL WHITE MATTER SIGNAL DUE TO NONDIAGNOSTIC FLAIR IMAGING FROM [employer]. EVIDENCE OF ACUTE STROKE: NO. Foot X-Ray 05/31/17 00:00 IMPRESSION: 1. No acute or suspicious radiographic abnormality left the left foot. Shoulder X-Ray 06/20/17 00:00 IMPRESSION: NEGATIVE STUDY OF THE RIGHT SHOULDER. NO RADIOGRAPHIC EVIDENCE OF ACUTE INJURY. NO EXPLANATION FOR PAIN. Chest X-Ray 06/26/17 00:00 IMPRESSION: COPD. NO ACUTE RADIOGRAPHIC FINDING IN THE CHEST. Assessment & Plan - Diagnosis (1) Hypotension Qualifiers: Hypotension type: unspecified hypotension type Qualified Code(s): I95.9 - Hypotension, unspecified Is this a current diagnosis for this admission?: Yes Plan: Patient still hypotensive but asymptomatic. Continue florinef. (2) Hypokalemia Is this a current diagnosis for this admission?: Yes Plan: Resolved. Continue to monitor weekly. (3) Hypothyroidism Is this a current diagnosis for this admission?: Yes Plan: Continue supplement. Improved on recent labs. TSH 3.19 and free T4 0.95. (4) Hypothermia Qualifiers: Encounter type: initial encounter Qualified Code(s): T68.XXXA - Hypothermia , initial encounter Is this a current diagnosis for this admission?: Yes Plan: Resolved (5) Anxiety Is this a current diagnosis for this admission?: Yes Plan: Patient was initially started on BuSpar however BuSpar may not have been effective enough. Buspar was discontinued. Patient currently on Haldol as needed. (6) Adrenal insufficiency Is this a current diagnosis for this admission?: Yes (7) Alcohol dependence Is this a current diagnosis for this admission?: Yes Plan: Continue on thiamine and folate. (8) Anemia Is this a current diagnosis for this admission?: Yes Plan: Possibly secondary to malnutrition. Hemoglobin has been stable. Monitor weekly. (9) Dehydration Plan: Patient encouraged to drink. (10) Severe protein-calorie malnutrition Is this a current diagnosis for this admission?: Yes Plan: Patient is gaining weight. Patient on high calorie protein diet with vitamin supplements. Unfortunately patient tends to rahel the food instead of eating it. Food has been found and drawers. (11) Dementia Is this a current diagnosis for this admission?: Yes Plan: Patient with Warneke Korsakoff dementia. Currently working on safe disposition as patient as patient does not have decision-making capacity. - Time Time Spent with patient: Less than 15 minutes Anticipated discharge: Other Within: when bed available
--- NOTE | 2017-08-16 10:13 | PDOC PROGRESS REPORT ---
Subjective Progress Note for:: 08/16/17 Subjective:: Patient is a 61-year-old male brought in May 29 by police found wandering the streets confused. Patient diagnosed with Wernicke-Korsakoff dementia and is not competent to make his decisions. Patient has been hospitalized at [facility] ever since. Patient resting comfortably. Reason For Visit: HYPOTENSION, HYPOTHERMIA, ENCEPHALOPATHY Physical Exam Vital Signs: Temp Pulse Resp BP Pulse Ox 98.5 F 89 16 93/62 L 96 08/16/17 07:31 08/16/17 07:33 08/16/17 07:31 08/16/17 07:33 08/16/17 07:31 Intake & Output 08/15/17 08/16/17 08/17/17 06:59 06:59 06:59 Intake Total 480 760 Balance 480 760 Weight 58 kg General appearance: PRESENT: no acute distress, thin Head exam: PRESENT: normocephalic Eye exam: ABSENT: scleral icterus Ear exam: PRESENT: normal external ear exam Neck exam: ABSENT: carotid bruit, JVD, lymphadenopathy, thyromegaly Respiratory exam: PRESENT: clear to auscultation kae. ABSENT: rales, rhonchi, wheezes Cardiovascular exam: PRESENT: RRR. ABSENT: diastolic murmur, rubs, systolic murmur Pulses: PRESENT: normal dorsalis pedis pul GI/Abdominal exam: PRESENT: normal bowel sounds, soft. ABSENT: distended, guarding, mass, organolmegaly, rebound, tenderness Rectal exam: PRESENT: deferred Extremities exam: ABSENT: calf tenderness, clubbing, pedal edema Neurological exam: ABSENT: motor sensory deficit Psychiatric exam: ABSENT: homicidal ideation, suicidal ideation Skin exam: PRESENT: dry, intact, warm. ABSENT: cyanosis, rash Results Laboratory Results: 08/07/17 08:08 08/07/17 08:08 Impressions: Head CT 05/28/17 20:27 IMPRESSION: No acute intracranial findings. EVIDENCE OF ACUTE STROKE: NO. Head MRI 05/29/17 00:00 IMPRESSION: NO ACUTE ISCHEMIA, HEMORRHAGE, OR MASS LESION. CANNOT ASSESS FOR ABNORMAL WHITE MATTER SIGNAL DUE TO NONDIAGNOSTIC FLAIR IMAGING FROM [employer]IF[employer]. EVIDENCE OF ACUTE STROKE: NO. Foot X-Ray 05/31/17 00:00 IMPRESSION: 1. No acute or suspicious radiographic abnormality left the left foot. Shoulder X-Ray 06/20/17 00:00 IMPRESSION: NEGATIVE STUDY OF THE RIGHT SHOULDER. NO RADIOGRAPHIC EVIDENCE OF ACUTE INJURY. NO EXPLANATION FOR PAIN. Chest X-Ray 06/26/17 00:00 IMPRESSION: COPD. NO ACUTE RADIOGRAPHIC FINDING IN THE CHEST. Assessment & Plan - Diagnosis (1) Hypotension Qualifiers: Hypotension type: unspecified hypotension type Qualified Code(s): I95.9 - Hypotension, unspecified Is this a current diagnosis for this admission?: Yes Plan: Patient still hypotensive but asymptomatic. Continue florinef. (2) Hypokalemia Is this a current diagnosis for this admission?: Yes Plan: Resolved. Continue to monitor weekly. (3) Hypothyroidism Is this a current diagnosis for this admission?: Yes Plan: Continue supplement. Improved on recent labs. TSH 3.19 and free T4 0.95. (4) Hypothermia Qualifiers: Encounter type: initial encounter Qualified Code(s): T68.XXXA - Hypothermia , initial encounter Is this a current diagnosis for this admission?: Yes Plan: Resolved (5) Anxiety Is this a current diagnosis for this admission?: Yes Plan: Patient was initially started on BuSpar however BuSpar may not have been effective enough. Buspar was discontinued. Patient currently on Haldol as needed. Patient may be better suited with a scheduled medication. (6) Adrenal insufficiency Is this a current diagnosis for this admission?: Yes Plan: Continue on florinef. (7) Alcohol dependence Is this a current diagnosis for this admission?: Yes Plan: Continue on thiamine and folate. (8) Anemia Is this a current diagnosis for this admission?: Yes Plan: Possibly secondary to malnutrition. Hemoglobin has been stable. Monitor weekly. (9) Dehydration Plan: Patient encouraged to drink. (10) Severe protein-calorie malnutrition Is this a current diagnosis for this admission?: Yes Plan: Patient is gaining weight. Patient on high calorie protein diet with vitamin supplements. Unfortunately patient tends to rahel the food instead of eating it. Food has been found and drawers. Patient eating from 25 to 100% of him meals. (11) Dementia Is this a current diagnosis for this admission?: Yes Plan: Patient with Warneke Korsakoff dementia. Currently working on safe disposition as patient as patient does not have decision-making capacity. - Time Time Spent with patient: Less than 15 minutes Anticipated discharge: Other Within: when bed available - Inpatient Certification Medical Necessity: Risk of Complication if Not Cared For in Hospital - Patient with poor decision making capacity secondary to dementia as a result of alcohol abuse. Need to ensure safe discharge. Currently awaiting placement.
[2017-08-16] MEDS: IBUPROFEN 600 MG TABLET PO PRN (10:54)
[2017-08-16] MEDS: HALOPERIDOL 2 MG TABLET PO PRN (20:58)
[2017-08-17] MEDS: HALOPERIDOL 2 MG TABLET PO PRN ×2 (03:26→10:35)
[2017-08-17 06:53] LABS: ABSOLUTE EOSINOPHILS # (AUTO) 0.1 10^3/uL (0.0-0.6); ABSOLUTE LYMPHOCYTES (AUTO) 2.2 10^3/uL (0.5-4.7); ABSOLUTE MONOCYTES (AUTO) 0.7 10^3/uL (0.1-1.4); ABSOLUTE NEUT (AUTO) 1.9 10^3/uL (1.7-8.2); BASOPHILS % (AUTO) 0.2 % (0-2); HEMATOCRIT 31.1 % (37.9-51.0); HEMOGLOBIN 10.7 g/dL (13.5-17.0); MEAN CORPUSCULAR HEMOGLOBIN 32.2 pg (27.0-33.4); MEAN CORPUSCULAR HGB CONC 34.3 g/dL (32.0-36.0); MEAN CORPUSCULAR VOLUME 94 fl (80-97); MONOCYTES % (AUTO) 14.1 % (3-13); PLATELET COUNT 201 10^3/uL (150-450); RED BLOOD COUNT 3.32 10^6/uL (4.35-5.55); RED CELL DISTRIBUTION WIDTH 12.8 % (11.5-14.0); SEGMENTED NEUTROPHILS % (AUTO) 38.7 % (42-78); TOTAL CELLS COUNTED % (AUTO) 100 %; WHITE BLOOD COUNT 4.9 10^3/uL (4.0-10.5)
[2017-08-17 07:08] LABS: ANION GAP 5 (5-19); BLOOD UREA NITROGEN 16 mg/dL (7-20); CALCIUM 9.9 mg/dL (8.4-10.2); CARBON DIOXIDE 30 mmol/L (22-30); CHLORIDE 105 mmol/L (98-107); GLUCOSE 86 mg/dL (75-110); POTASSIUM 3.7 mmol/L (3.6-5.0); SODIUM 140.4 mmol/L (137-145)
[2017-08-17] MEDS: THIAMINE HCL 100 MG TABLET PO SCH (10:34)
[2017-08-17] MEDS: FLUDROCORTISONE ACETATE 0.1 MG TABLET PO SCH (10:34)
[2017-08-17] MEDS: MUPIROCIN 2% OINTMENT 22 GM TP SCH (10:35)
[2017-08-17] MEDS: MULTIVITAMIN TABLET PO SCH (10:35)
[2017-08-17] MEDS: ACETAMINOPHEN 325 MG TABLET PO PRN (10:35)
[2017-08-17] MEDS: LORATADINE 10 MG TABLET PO PRN (12:00)
--- NOTE | 2017-08-17 14:59 | PDOC PROGRESS REPORT ---
Subjective Progress Note for:: 08/17/17 Subjective:: The patient is a 61-year-old male who was brought in by police secondary to being found wandering in [place]. He is chronically an alcoholic. 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 The patient has been treated for hypothermia from exposure, hypotension likely associated with adrenal insufficiency, severe protein calorie malnutrition and vitamin deficiencies. He remains in the hospital. He is not safe for discharge. We are working on a disposition for this patient with discharge planning. Patient remains disoriented and continues to confabulate stories. The patient is estranged from his family including his . Discharge planning has now involved Adult Protective Services. Reason For Visit: HYPOTENSION, HYPOTHERMIA, ENCEPHALOPATHY Physical Exam Vital Signs: Temp Pulse Resp BP Pulse Ox 97.8 F 60 18 107/67 97 08/17/17 10:58 08/17/17 10:58 08/17/17 10:58 08/17/17 10:58 08/17/17 10:58 Intake & Output 08/16/17 08/17/17 08/18/17 06:59 06:59 06:59 Intake Total 760 586 Balance 760 586 Weight 58 kg 55.5 kg Additional comments: The patient is sitting up at the edge of the bed. He was eating breakfast this morning. His cognition is unchanged. His lungs are noted to be clear to auscultation bilaterally. His cardiac exam is regular with no murmurs, gallops or rubs. The abdomen is soft and flat. Bowel sounds are present in the lower quadrants. The lower extremities are unremarkable. On the skin the patient does appear to have a lesion on the tip of his nose. This is purpuric. Will follow. Results Laboratory Results: 08/17/17 06:29 08/17/17 06:29 08/17/17 08/17/17 06:29 06:29 WBC 4.9 RBC 3.32 L Hgb 10.7 L Hct 31.1 L MCV 94 MCH 32.2 MCHC 34.3 RDW 12.8 Plt Count 201 Seg Neutrophils % 38.7 L Lymphocytes % 45.0 Monocytes % 14.1 H Eosinophils % 2.0 Basophils % 0.2 Absolute Neutrophils 1.9 Absolute Lymphocytes 2.2 Absolute Monocytes 0.7 Absolute Eosinophils 0.1 Absolute Basophils 0.0 Sodium 140.4 Potassium 3.7 Chloride 105 Carbon Dioxide 30 Anion Gap 5 BUN 16 Creatinine 0.64 Est GFR ( Amer) > 60 Est GFR (Non-Af Amer) > 60 Glucose 86 Calcium 9.9 Magnesium 1.7 Impressions: Head CT 05/28/17 20:27 IMPRESSION: No acute intracranial findings. EVIDENCE OF ACUTE STROKE: NO. Head MRI 05/29/17 00:00 IMPRESSION: NO ACUTE ISCHEMIA, HEMORRHAGE, OR MASS LESION. CANNOT ASSESS FOR ABNORMAL WHITE MATTER SIGNAL DUE TO NONDIAGNOSTIC FLAIR IMAGING FROM [employer]. EVIDENCE OF ACUTE STROKE: NO. Foot X-Ray 05/31/17 00:00 IMPRESSION: 1. No acute or suspicious radiographic abnormality left the left foot. Shoulder X-Ray 06/20/17 00:00 IMPRESSION: NEGATIVE STUDY OF THE RIGHT SHOULDER. NO RADIOGRAPHIC EVIDENCE OF ACUTE INJURY. NO EXPLANATION FOR PAIN. Chest X-Ray 06/26/17 00:00 IMPRESSION: COPD. NO ACUTE RADIOGRAPHIC FINDING IN THE CHEST. Assessment & Plan - Diagnosis (1) Encephalopathy Is this a current diagnosis for this admission?: Yes (2) Hypokalemia Is this a current diagnosis for this admission?: Yes (3) Hypomagnesemia Is this a current diagnosis for this admission?: Yes (4) Hypotension Qualifiers: Hypotension type: unspecified hypotension type Qualified Code(s): I95.9 - Hypotension, unspecified Is this a current diagnosis for this admission?: Yes (5) Hypothermia Qualifiers: Encounter type: initial encounter Qualified Code(s): T68.XXXA - Hypothermia , initial encounter Is this a current diagnosis for this admission?: Yes (6) Hypothyroidism Is this a current diagnosis for this admission?: Yes (7) Metabolic acidosis Is this a current diagnosis for this admission?: Yes (8) Sepsis Is this a current diagnosis for this admission?: No (9) Severe protein-calorie malnutrition Is this a current diagnosis for this admission?: Yes (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
[2017-08-17] MEDS: IBUPROFEN 600 MG TABLET PO PRN (16:19)
[2017-08-17] MEDS ORDERED: HALOPERIDOL 2 MG TABLET ONE (20:51)
[2017-08-18] MEDS: THIAMINE HCL 100 MG TABLET PO SCH (09:37)
[2017-08-18] MEDS: MULTIVITAMIN TABLET PO SCH (09:37)
[2017-08-18] MEDS: FLUDROCORTISONE ACETATE 0.1 MG TABLET PO SCH (09:37)
[2017-08-18] MEDS: MUPIROCIN 2% OINTMENT 22 GM TP SCH (09:38)
--- NOTE | 2017-08-18 13:11 | PDOC PROGRESS REPORT ---
Subjective Progress Note for:: 08/18/17 Subjective:: The patient is a 61-year-old male who was brought in by police secondary to being found wandering in [place]. He is chronically an alcoholic. 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 The patient has been treated for hypothermia from exposure, hypotension likely associated with adrenal insufficiency, severe protein calorie malnutrition and vitamin deficiencies. He remains in the hospital. He is not safe for discharge. We are working on a disposition for this patient with discharge planning. Patient remains disoriented and continues to confabulate stories. The patient is estranged from his family including his . Discharge planning has now involved Adult Protective Services. Reason For Visit: HYPOTENSION, HYPOTHERMIA, ENCEPHALOPATHY Physical Exam Vital Signs: Temp Pulse Resp BP Pulse Ox 98.4 F 62 16 100/60 97 08/18/17 12:00 08/18/17 12:00 08/18/17 12:00 08/18/17 12:00 08/18/17 12:00 Intake & Output 08/17/17 08/18/17 08/19/17 06:59 06:59 06:59 Intake Total 586 1009 Balance 586 1009 Weight 55.5 kg 57.2 kg Additional comments: The patient was lying in the right lateral decubitus position this morning. He appeared to be very comfortable. His facial appearance still shows a purpuric lesion on the tip of his nose. His exam is unchanged. His lungs are clear bilaterally. His cardiac exam is regular without murmurs. The abdomen is benign. The lower extremities are without edema. Results Laboratory Results: 08/17/17 06:29 08/17/17 06:29 Impressions: Head CT 05/28/17 20:27 IMPRESSION: No acute intracranial findings. EVIDENCE OF ACUTE STROKE: NO. Head MRI 05/29/17 00:00 IMPRESSION: NO ACUTE ISCHEMIA, HEMORRHAGE, OR MASS LESION. CANNOT ASSESS FOR ABNORMAL WHITE MATTER SIGNAL DUE TO NONDIAGNOSTIC FLAIR IMAGING FROM [employer]. EVIDENCE OF ACUTE STROKE: NO. Foot X-Ray 05/31/17 00:00 IMPRESSION: 1. No acute or suspicious radiographic abnormality left the left foot. Shoulder X-Ray 06/20/17 00:00 IMPRESSION: NEGATIVE STUDY OF THE RIGHT SHOULDER. NO RADIOGRAPHIC EVIDENCE OF ACUTE INJURY. NO EXPLANATION FOR PAIN. Chest X-Ray 06/26/17 00:00 IMPRESSION: COPD. NO ACUTE RADIOGRAPHIC FINDING IN THE CHEST. Assessment & Plan - Diagnosis (1) Encephalopathy Is this a current diagnosis for this admission?: Yes (2) Hypokalemia Is this a current diagnosis for this admission?: Yes (3) Hypomagnesemia Is this a current diagnosis for this admission?: Yes (4) Hypotension Qualifiers: Hypotension type: unspecified hypotension type Qualified Code(s): I95.9 - Hypotension, unspecified Is this a current diagnosis for this admission?: Yes (5) Hypothermia Qualifiers: Encounter type: initial encounter Qualified Code(s): T68.XXXA - Hypothermia , initial encounter Is this a current diagnosis for this admission?: Yes (6) Hypothyroidism Is this a current diagnosis for this admission?: Yes (7) Metabolic acidosis Is this a current diagnosis for this admission?: Yes (8) Sepsis Is this a current diagnosis for this admission?: No (9) Severe protein-calorie malnutrition Is this a current diagnosis for this admission?: Yes (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 Placement is pending.
[2017-08-18] MEDS: HALOPERIDOL 2 MG TABLET PO PRN (14:26)
[2017-08-18] MEDS: IBUPROFEN 600 MG TABLET PO PRN (17:42)
[2017-08-19] MEDS: MULTIVITAMIN TABLET PO SCH (09:06)
[2017-08-19] MEDS: FLUDROCORTISONE ACETATE 0.1 MG TABLET PO SCH (09:06)
[2017-08-19] MEDS: THIAMINE HCL 100 MG TABLET PO SCH (09:06)
[2017-08-19] MEDS: MUPIROCIN 2% OINTMENT 22 GM TP SCH (09:07)
[2017-08-19] MEDS: IBUPROFEN 600 MG TABLET PO PRN (12:46)
[2017-08-19] MEDS: HALOPERIDOL 2 MG TABLET PO PRN (14:06)
--- NOTE | 2017-08-19 14:13 | PDOC PROGRESS REPORT ---
Subjective Progress Note for:: 08/19/17 Subjective:: The patient is a 61-year-old male who was brought in by police secondary to being found wandering in [place]. He is chronically an alcoholic. 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 The patient has been treated for hypothermia from exposure, hypotension likely associated with adrenal insufficiency, severe protein calorie malnutrition and vitamin deficiencies. He remains in the hospital. He is not safe for discharge. We are working on a disposition for this patient with discharge planning. Patient remains disoriented and continues to confabulate stories. The patient is estranged from his family including his . Discharge planning has now involved Adult Protective Services. Reason For Visit: HYPOTENSION, HYPOTHERMIA, ENCEPHALOPATHY Physical Exam Vital Signs: Temp Pulse Resp BP Pulse Ox 98.5 F 52 L 16 94/57 L 98 08/19/17 11:31 08/19/17 11:31 08/19/17 11:31 08/19/17 11:31 08/19/17 11:31 Intake & Output 08/18/17 08/19/17 08/20/17 06:59 06:59 06:59 Intake Total 1009 2446 Balance 1009 2446 Weight 57.2 kg Additional comments: The patient remains hospitalized. Essentially, his exam is benign. His lungs are clear to auscultation bilaterally. His cardiac exam is unremarkable and his abdominal exam is unremarkable. He continues to have a purpuric lesion on his nose which is stable. Results Laboratory Results: 08/17/17 06:29 08/17/17 06:29 Impressions: Head CT 05/28/17 20:27 IMPRESSION: No acute intracranial findings. EVIDENCE OF ACUTE STROKE: NO. Head MRI 05/29/17 00:00 IMPRESSION: NO ACUTE ISCHEMIA, HEMORRHAGE, OR MASS LESION. CANNOT ASSESS FOR ABNORMAL WHITE MATTER SIGNAL DUE TO NONDIAGNOSTIC FLAIR IMAGING FROM [employer]. EVIDENCE OF ACUTE STROKE: NO. Foot X-Ray 05/31/17 00:00 IMPRESSION: 1. No acute or suspicious radiographic abnormality left the left foot. Shoulder X-Ray 06/20/17 00:00 IMPRESSION: NEGATIVE STUDY OF THE RIGHT SHOULDER. NO RADIOGRAPHIC EVIDENCE OF ACUTE INJURY. NO EXPLANATION FOR PAIN. Chest X-Ray 06/26/17 00:00 IMPRESSION: COPD. NO ACUTE RADIOGRAPHIC FINDING IN THE CHEST. Assessment & Plan - Diagnosis (1) Encephalopathy Is this a current diagnosis for this admission?: Yes (2) Hypokalemia Is this a current diagnosis for this admission?: Yes (3) Hypomagnesemia Is this a current diagnosis for this admission?: Yes (4) Hypotension Qualifiers: Hypotension type: unspecified hypotension type Qualified Code(s): I95.9 - Hypotension, unspecified Is this a current diagnosis for this admission?: Yes (5) Hypothermia Qualifiers: Encounter type: initial encounter Qualified Code(s): T68.XXXA - Hypothermia , initial encounter Is this a current diagnosis for this admission?: Yes (6) Hypothyroidism Is this a current diagnosis for this admission?: Yes (7) Metabolic acidosis Is this a current diagnosis for this admission?: Yes (8) Sepsis Is this a current diagnosis for this admission?: No (9) Severe protein-calorie malnutrition Is this a current diagnosis for this admission?: Yes (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 He remains stable for discharge. Placement is pending.
[2017-08-20] MEDS: MUPIROCIN 2% OINTMENT 22 GM TP SCH (09:55)
[2017-08-20] MEDS: THIAMINE HCL 100 MG TABLET PO SCH (09:55)
[2017-08-20] MEDS: FLUDROCORTISONE ACETATE 0.1 MG TABLET PO SCH (09:56)
[2017-08-20] MEDS: HALOPERIDOL 2 MG TABLET PO PRN ×2 (09:56→19:57)
[2017-08-20] MEDS: MULTIVITAMIN TABLET PO SCH (09:56)
--- NOTE | 2017-08-20 15:01 | PDOC PROGRESS REPORT ---
Subjective Progress Note for:: 08/20/17 Subjective:: The patient is a 61-year-old male who was brought in by police secondary to being found wandering in [place]. He is chronically an alcoholic. 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 The patient has been treated for hypothermia from exposure, hypotension likely associated with adrenal insufficiency, severe protein calorie malnutrition and vitamin deficiencies. He remains in the hospital. He is not safe for discharge. We are working on a disposition for this patient with discharge planning. Patient remains disoriented and continues to confabulate stories. The patient is estranged from his family including his . Discharge planning has now involved Adult Protective Services. Reason For Visit: HYPOTENSION, HYPOTHERMIA, ENCEPHALOPATHY Physical Exam Vital Signs: Temp Pulse Resp BP Pulse Ox 98.5 F 55 L 18 102/50 L 95 08/20/17 12:00 08/20/17 12:00 08/20/17 12:00 08/20/17 12:00 08/20/17 12:00 Intake & Output 08/19/17 08/20/17 08/21/17 06:59 06:59 06:59 Intake Total 2446 1730 Balance 2446 1730 Additional comments: Patient appears to be frail and disheveled. He appears to be much older than his stated age. Again, he has a lesion on the tip of his nose. It has been purpuric. This is somewhat scaly. It is concerning for a skin cancer. Otherwise, his lungs are clear bilaterally. His cardiac exam is regular without murmurs, gallops or rubs. The abdomen is soft, flat and benign. The extremities are unremarkable. Results Laboratory Results: 08/17/17 06:29 08/17/17 06:29 Impressions: Head CT 05/28/17 20:27 IMPRESSION: No acute intracranial findings. EVIDENCE OF ACUTE STROKE: NO. Head MRI 05/29/17 00:00 IMPRESSION: NO ACUTE ISCHEMIA, HEMORRHAGE, OR MASS LESION. CANNOT ASSESS FOR ABNORMAL WHITE MATTER SIGNAL DUE TO NONDIAGNOSTIC FLAIR IMAGING FROM [employer]. EVIDENCE OF ACUTE STROKE: NO. Foot X-Ray 05/31/17 00:00 IMPRESSION: 1. No acute or suspicious radiographic abnormality left the left foot. Shoulder X-Ray 06/20/17 00:00 IMPRESSION: NEGATIVE STUDY OF THE RIGHT SHOULDER. NO RADIOGRAPHIC EVIDENCE OF ACUTE INJURY. NO EXPLANATION FOR PAIN. Chest X-Ray 06/26/17 00:00 IMPRESSION: COPD. NO ACUTE RADIOGRAPHIC FINDING IN THE CHEST. Assessment & Plan - Diagnosis (1) Encephalopathy Is this a current diagnosis for this admission?: Yes Plan: Ammonia level and RPR were normal. Patient likely has chronic dementia from alcoholism. (2) Hypokalemia Is this a current diagnosis for this admission?: Yes Plan: Resolved (3) Hypomagnesemia Is this a current diagnosis for this admission?: Yes Plan: Resolved (4) Hypotension Qualifiers: Hypotension type: unspecified hypotension type Qualified Code(s): I95.9 - Hypotension, unspecified Is this a current diagnosis for this admission?: Yes Plan: Upon admission, the patient required Levophed. He was then placed on midodrine and fludrocortisone. He developed anxiety and therefore Midodrine was discontinued. Patient remains on Florinef. (5) Hypothermia Qualifiers: Encounter type: initial encounter Qualified Code(s): T68.XXXA - Hypothermia , initial encounter Is this a current diagnosis for this admission?: Yes Plan: Likely due to exposure. Resolved (6) Hypothyroidism Is this a current diagnosis for this admission?: Yes Plan: Continue supplementation. (7) Metabolic acidosis Is this a current diagnosis for this admission?: Yes Plan: Resolved. (8) Sepsis Is this a current diagnosis for this admission?: No Plan: Ruled out. (9) Severe protein-calorie malnutrition Is this a current diagnosis for this admission?: Yes Plan: The patient presents with evidence of severe and long-standing protein calorie malnutrition. Continue supplements. 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 Patient is also receiving folate and multivitamin. Buspar has been added for anxiety. (11) Hyperphosphatemia Is this a current diagnosis for this admission?: Yes Plan: Phosphorus was mildly elevated on last draw at 4.6. Consider repeating with next blood work. - Time Time Spent with patient: Less than 15 minutes - Inpatient Certification Medical Necessity: Risk of Complication if Not Cared For in Hospital - Plan Summary Plan Summary: Continue attempts at placement.
[2017-08-21] MEDS: THIAMINE HCL 100 MG TABLET PO SCH (11:08)
[2017-08-21] MEDS: MUPIROCIN 2% OINTMENT 22 GM TP SCH (11:09)
[2017-08-21] MEDS: FLUDROCORTISONE ACETATE 0.1 MG TABLET PO SCH (11:09)
[2017-08-21] MEDS: MULTIVITAMIN TABLET PO SCH (11:09)
--- NOTE | 2017-08-21 11:26 | PDOC PROGRESS REPORT ---
Subjective Progress Note for:: 08/21/17 Subjective:: This is a 61-year-old man who was admitted on May 29 after he was brought in by police secondary to being found wandering in the streets confused. He was treated for hypothermia secondary to exposure, hypotension felt to be associated with adrenal insufficiency and was found to have severe protein calorie malnutrition and vitamin deficiency. He does have a history of alcoholism and has been diagnosed with Wernicke Korsakoff dementia. The patient is seen on morning rounds. He is found resting in bed comfortably. He states that he is feeling well today and has no complaints. He does appear to remember me from 2 weeks ago. He does talk with me about his generalized anxiety and asks if there is anything that can be done for it. He has no other questions or concerns at this time. He denies fever, chills, chest pain, cough, dyspnea, abdominal pain, nausea vomiting and diarrhea. Awaiting disposition. Reason For Visit: HYPOTENSION, HYPOTHERMIA, ENCEPHALOPATHY Physical Exam Vital Signs: Temp Pulse Resp BP Pulse Ox 98.1 F 59 L 16 106/63 97 08/21/17 08:00 08/21/17 08:00 08/21/17 08:00 08/21/17 08:00 08/21/17 08:00 Intake & Output 08/20/17 08/21/17 08/22/17 06:59 06:59 06:59 Intake Total 1730 600 Balance 1730 600 General appearance: PRESENT: no acute distress, cooperative, thin, well- developed Head exam: PRESENT: atraumatic, normocephalic Eye exam: PRESENT: conjunctiva pink, EOMI, PERRLA. ABSENT: scleral icterus Ear exam: PRESENT: normal external ear exam Mouth exam: PRESENT: moist, tongue midline Neck exam: ABSENT: carotid bruit, JVD, lymphadenopathy, thyromegaly Respiratory exam: PRESENT: clear to auscultation kae, symmetrical, unlabored. ABSENT: rales, rhonchi, wheezes Cardiovascular exam: PRESENT: RRR, +S1, +S2. ABSENT: diastolic murmur, rubs, systolic murmur Pulses: PRESENT: normal dorsalis pedis pul Vascular exam: PRESENT: normal capillary refill GI/Abdominal exam: PRESENT: normal bowel sounds, soft. ABSENT: distended, guarding, mass, organolmegaly, rebound, tenderness Rectal exam: PRESENT: deferred Extremities exam: PRESENT: full ROM. ABSENT: calf tenderness, clubbing, pedal edema Neurological exam: PRESENT: alert, awake, oriented to person, oriented to place , CN II-XII grossly intact. ABSENT: oriented to time, oriented to situation, motor sensory deficit Psychiatric exam: PRESENT: appropriate affect, normal mood. ABSENT: homicidal ideation, suicidal ideation Skin exam: PRESENT: dry, intact, warm. ABSENT: cyanosis, rash Results Laboratory Results: 08/17/17 06:29 08/17/17 06:29 Impressions: Head CT 05/28/17 20:27 IMPRESSION: No acute intracranial findings. EVIDENCE OF ACUTE STROKE: NO. Head MRI 05/29/17 00:00 IMPRESSION: NO ACUTE ISCHEMIA, HEMORRHAGE, OR MASS LESION. CANNOT ASSESS FOR ABNORMAL WHITE MATTER SIGNAL DUE TO NONDIAGNOSTIC FLAIR IMAGING FROM [employer]. EVIDENCE OF ACUTE STROKE: NO. Foot X-Ray 05/31/17 00:00 IMPRESSION: 1. No acute or suspicious radiographic abnormality left the left foot. Shoulder X-Ray 06/20/17 00:00 IMPRESSION: NEGATIVE STUDY OF THE RIGHT SHOULDER. NO RADIOGRAPHIC EVIDENCE OF ACUTE INJURY. NO EXPLANATION FOR PAIN. Chest X-Ray 06/26/17 00:00 IMPRESSION: COPD. NO ACUTE RADIOGRAPHIC FINDING IN THE CHEST. Assessment & Plan - Diagnosis (1) Encephalopathy Is this a current diagnosis for this admission?: Yes Plan: Ammonia level and RPR were normal. Patient likely has chronic dementia from alcoholism. The patient is estranged from his family members. APS has been consulted; currently proceeding with attempts to establish custody by the [facility]. (2) Anxiety Is this a current diagnosis for this admission?: Yes Plan: Stable. Haldol as needed for severe anxiety/agitation; tolerated dose reduction well. Will add scheduled BuSpar. (3) Hypotension Qualifiers: Hypotension type: unspecified hypotension type Qualified Code(s): I95.9 - Hypotension, unspecified Is this a current diagnosis for this admission?: Yes Plan: Stable; likely secondary to adrenal insufficiency and poor p.o. intake. Improved with Florinef; though remains slightly hypotensive. I have asked that nursing encourage p.o. fluid intake. I have also spoken with nursing about increasing the patient's mobility; to ambulate in the hallways three times daily. Haldol was reduced due to concern of contribution to hypotension; pt tolerated well. (4) Adrenal insufficiency Is this a current diagnosis for this admission?: Yes Plan: We will continue steroid supplementation. (5) Severe protein-calorie malnutrition Is this a current diagnosis for this admission?: Yes Plan: Weight has increased from 45.5 kg at admission to 57.1 kg. Albumin remains low at 3.3, though is trending upward. Have advanced to a high calorie high protein diet with vitamin supplements. Appreciate RD consultation and recommendation. (6) Dementia Is this a current diagnosis for this admission?: Yes Plan: Wernicke Korsakoff dementia. Will provide for patient safety. Appreciate discharge planning's assistance in establishing a safe discharge plan. (7) Anemia Is this a current diagnosis for this admission?: Yes Plan: Hemoglobin is stable. No signs of active bleeding at this time. We will continue to monitor. (8) Hypothyroidism Is this a current diagnosis for this admission?: Yes Plan: TSH was elevated on admission (7.99) and he was placed on Synthroid. Repeat labs are much improved; TSH 3.19 and Free T4 0.95 Will continue current dosing. (9) Alcohol dependence Is this a current diagnosis for this admission?: Yes Plan: We will continue thiamine and folic acid supplements. (10) Hypothermia Qualifiers: Encounter type: initial encounter Qualified Code(s): T68.XXXA - Hypothermia , initial encounter Is this a current diagnosis for this admission?: Yes Plan: Secondary to exposure. Resolved. (11) Dehydration Is this a current diagnosis for this admission?: Yes Plan: Resolved. Encourage p.o. fluids. (12) Hyperphosphatemia Is this a current diagnosis for this admission?: Yes Plan: Phosphorus was elevated to 4.6 previously; should be rechecked at next routine lab draw. - Time Time Spent with patient: 15-24 minutes Medications reviewed and adjusted accordingly: Yes Anticipated discharge: Other Within: Other - When safe discharge plan has been established
[2017-08-21] MEDS: ACETAMINOPHEN 325 MG TABLET PO PRN (12:07)
[2017-08-21] MEDS: HALOPERIDOL 2 MG TABLET PO PRN (17:41)
[2017-08-21] MEDS: IBUPROFEN 600 MG TABLET PO PRN (20:48)
[2017-08-21] MEDS: BUSPIRONE HCL 10 MG TABLET PO SCH (21:05)
[2017-08-22] MEDS: MULTIVITAMIN TABLET PO SCH (11:31)
[2017-08-22] MEDS: BUSPIRONE HCL 10 MG TABLET PO SCH ×2 (11:32→23:00)
[2017-08-22] MEDS: FLUDROCORTISONE ACETATE 0.1 MG TABLET PO SCH (11:33)
[2017-08-22] MEDS: THIAMINE HCL 100 MG TABLET PO SCH (11:33)
[2017-08-22] MEDS: ACETAMINOPHEN 325 MG TABLET PO PRN (11:33)
[2017-08-22] MEDS: MUPIROCIN 2% OINTMENT 22 GM TP SCH (11:34)
--- NOTE | 2017-08-22 13:11 | PDOC PROGRESS REPORT ---
Subjective Progress Note for:: 08/22/17 Subjective:: This is a 61-year-old man who was admitted on May 29 after he was brought in by police secondary to being found wandering in the streets confused. He was treated for hypothermia secondary to exposure, hypotension felt to be associated with adrenal insufficiency and was found to have severe protein calorie malnutrition and vitamin deficiency. He does have a history of alcoholism and has been diagnosed with Wernicke Korsakoff dementia. The patient is seen on morning rounds. He is found sitting upright in the chair after having ambulated in the hallways. He states that he has a slight headache at this time. He states that he is frustrated at still being in the hospital and asks if there is an update on when he will be "ready to go home." He denies fever, chills, chest pain, cough, dyspnea, abdominal pain, nausea vomiting and diarrhea. Awaiting disposition; I did speak with social work, there are no updates on state guardianship proceedings. Reason For Visit: HYPOTENSION, HYPOTHERMIA, ENCEPHALOPATHY Physical Exam Vital Signs: Temp Pulse Resp BP Pulse Ox 98.6 F 56 L 16 102/59 L 97 08/22/17 07:20 08/22/17 07:20 08/22/17 07:20 08/22/17 07:20 08/22/17 07:20 Intake & Output 08/21/17 08/22/17 08/23/17 06:59 06:59 06:59 Intake Total 600 2106 Balance 600 2106 General appearance: PRESENT: no acute distress, cooperative, thin, well- developed, well-nourished Head exam: PRESENT: atraumatic, normocephalic Eye exam: PRESENT: conjunctiva pink, EOMI, PERRLA. ABSENT: scleral icterus Ear exam: PRESENT: normal external ear exam Mouth exam: PRESENT: moist, tongue midline Neck exam: ABSENT: carotid bruit, JVD, lymphadenopathy, thyromegaly Respiratory exam: PRESENT: clear to auscultation kae, symmetrical, unlabored. ABSENT: rales, rhonchi, wheezes Cardiovascular exam: PRESENT: RRR, +S1, +S2. ABSENT: diastolic murmur, rubs, systolic murmur Pulses: PRESENT: normal dorsalis pedis pul Vascular exam: PRESENT: normal capillary refill GI/Abdominal exam: PRESENT: normal bowel sounds, soft. ABSENT: distended, guarding, mass, organolmegaly, rebound, tenderness Rectal exam: PRESENT: deferred Extremities exam: PRESENT: full ROM. ABSENT: calf tenderness, clubbing, pedal edema Neurological exam: PRESENT: alert, awake, oriented to person, oriented to place , oriented to time, oriented to situation, CN II-XII grossly intact. ABSENT: motor sensory deficit Psychiatric exam: PRESENT: appropriate affect, normal mood. ABSENT: homicidal ideation, suicidal ideation Skin exam: PRESENT: dry, intact, warm. ABSENT: cyanosis, rash Results Laboratory Results: 08/17/17 06:29 08/17/17 06:29 Impressions: Head CT 05/28/17 20:27 IMPRESSION: No acute intracranial findings. EVIDENCE OF ACUTE STROKE: NO. Head MRI 05/29/17 00:00 IMPRESSION: NO ACUTE ISCHEMIA, HEMORRHAGE, OR MASS LESION. CANNOT ASSESS FOR ABNORMAL WHITE MATTER SIGNAL DUE TO NONDIAGNOSTIC FLAIR IMAGING FROM [employer]. EVIDENCE OF ACUTE STROKE: NO. Foot X-Ray 05/31/17 00:00 IMPRESSION: 1. No acute or suspicious radiographic abnormality left the left foot. Shoulder X-Ray 06/20/17 00:00 IMPRESSION: NEGATIVE STUDY OF THE RIGHT SHOULDER. NO RADIOGRAPHIC EVIDENCE OF ACUTE INJURY. NO EXPLANATION FOR PAIN. Chest X-Ray 06/26/17 00:00 IMPRESSION: COPD. NO ACUTE RADIOGRAPHIC FINDING IN THE CHEST. Assessment & Plan - Diagnosis (1) Encephalopathy Is this a current diagnosis for this admission?: Yes Plan: Ammonia level and RPR were normal. Patient likely has chronic dementia from alcoholism. The patient is estranged from his family members. APS has been consulted; currently proceeding with attempts to establish custody by the [facility]. (2) Anxiety Is this a current diagnosis for this admission?: Yes Plan: Stable. Haldol as needed for severe anxiety/agitation; tolerated dose reduction well. Continue scheduled BuSpar. (3) Hypotension Qualifiers: Hypotension type: unspecified hypotension type Qualified Code(s): I95.9 - Hypotension, unspecified Is this a current diagnosis for this admission?: Yes Plan: Stable with gradual improvements; likely secondary to adrenal insufficiency and poor p.o. intake. Improved with Florinef. I have asked that nursing encourage p.o. fluid intake. I have also spoken with nursing about increasing the patient's mobility; to ambulate in the hallways three times daily. Haldol was reduced due to concern of contribution to hypotension; pt tolerated well. (4) Adrenal insufficiency Is this a current diagnosis for this admission?: Yes Plan: We will continue steroid supplementation. (5) Severe protein-calorie malnutrition Is this a current diagnosis for this admission?: Yes Plan: Weight has increased from 45.5 kg at admission to 57.1 kg. Albumin remains low at 3.3, though is trending upward. Have advanced to a high calorie high protein diet with vitamin supplements. Appreciate RD consultation and recommendation. (6) Dementia Is this a current diagnosis for this admission?: Yes Plan: Wernicke Korsakoff dementia. Will provide for patient safety. Appreciate discharge planning's assistance in establishing a safe discharge plan. (7) Anemia Is this a current diagnosis for this admission?: Yes Plan: Hemoglobin is stable. No signs of active bleeding at this time. We will continue to monitor. (8) Hypothyroidism Is this a current diagnosis for this admission?: Yes Plan: TSH was elevated on admission (7.99) and he was placed on Synthroid. Repeat labs are much improved; TSH 3.19 and Free T4 0.95 Will continue current dosing. (9) Alcohol dependence Is this a current diagnosis for this admission?: Yes Plan: We will continue thiamine and folic acid supplements. (10) Hypothermia Qualifiers: Encounter type: initial encounter Qualified Code(s): T68.XXXA - Hypothermia , initial encounter Is this a current diagnosis for this admission?: Yes Plan: Secondary to exposure. Resolved. (11) Dehydration Is this a current diagnosis for this admission?: Yes Plan: Resolved. Encourage p.o. fluids. (12) Hyperphosphatemia Is this a current diagnosis for this admission?: Yes Plan: Phosphorus was elevated to 4.6 previously; should be rechecked at next routine lab draw. - Time Time Spent with patient: 15-24 minutes Medications reviewed and adjusted accordingly: Yes
[2017-08-22] MEDS: IBUPROFEN 600 MG TABLET PO PRN ×2 (14:52→23:00)
[2017-08-23] MEDS: MULTIVITAMIN TABLET PO SCH (09:06)
[2017-08-23] MEDS: THIAMINE HCL 100 MG TABLET PO SCH (09:06)
[2017-08-23] MEDS: FLUDROCORTISONE ACETATE 0.1 MG TABLET PO SCH (09:06)
[2017-08-23] MEDS: BUSPIRONE HCL 10 MG TABLET PO SCH ×2 (09:06→21:36)
[2017-08-23] MEDS: MUPIROCIN 2% OINTMENT 22 GM TP SCH (09:06)
--- NOTE | 2017-08-23 14:00 | PDOC PROGRESS REPORT ---
Subjective Progress Note for:: 08/23/17 Subjective:: This is a 61-year-old man who was admitted on May 29 after he was brought in by police secondary to being found wandering in the streets confused. He was treated for hypothermia secondary to exposure, hypotension felt to be associated with adrenal insufficiency and was found to have severe protein calorie malnutrition and vitamin deficiency. He does have a history of alcoholism and has been diagnosed with Wernicke Korsakoff dementia. The patient is seen on morning rounds. He is found resting in bed comfortably on room air. He states that he is feeling fine today. He denies fever, chills, chest pain, cough, dyspnea, abdominal pain, nausea vomiting and diarrhea. Awaiting disposition; there are no updates on state guardianship/disability proceedings. Reason For Visit: HYPOTENSION, HYPOTHERMIA, ENCEPHALOPATHY Physical Exam Vital Signs: Temp Pulse Resp BP Pulse Ox 98.2 F 60 18 98/55 L 100 08/23/17 11:18 08/23/17 11:18 08/23/17 11:18 08/23/17 11:18 08/23/17 11:18 Intake & Output 08/22/17 08/23/17 08/24/17 06:59 06:59 06:59 Intake Total 2106 540 Balance 2106 540 Weight 57.4 kg General appearance: PRESENT: no acute distress, cooperative, thin, well- developed, well-nourished Head exam: PRESENT: atraumatic, normocephalic Eye exam: PRESENT: conjunctiva pink, EOMI, PERRLA. ABSENT: scleral icterus Ear exam: PRESENT: normal external ear exam Mouth exam: PRESENT: moist, tongue midline Neck exam: ABSENT: carotid bruit, JVD, lymphadenopathy, thyromegaly Respiratory exam: PRESENT: clear to auscultation kae, symmetrical, unlabored. ABSENT: rales, rhonchi, wheezes Cardiovascular exam: PRESENT: RRR, +S1, +S2. ABSENT: diastolic murmur, rubs, systolic murmur Pulses: PRESENT: normal dorsalis pedis pul Vascular exam: PRESENT: normal capillary refill GI/Abdominal exam: PRESENT: normal bowel sounds, soft. ABSENT: distended, guarding, mass, organolmegaly, rebound, tenderness Rectal exam: PRESENT: deferred Extremities exam: PRESENT: full ROM. ABSENT: calf tenderness, clubbing, pedal edema Neurological exam: PRESENT: alert, awake, oriented to person, oriented to place , CN II-XII grossly intact. ABSENT: oriented to time, oriented to situation, motor sensory deficit Psychiatric exam: PRESENT: appropriate affect, normal mood. ABSENT: homicidal ideation, suicidal ideation Skin exam: PRESENT: dry, intact, warm. ABSENT: cyanosis, rash Results Laboratory Results: 08/17/17 06:29 08/17/17 06:29 Impressions: Head CT 05/28/17 20:27 IMPRESSION: No acute intracranial findings. EVIDENCE OF ACUTE STROKE: NO. Head MRI 05/29/17 00:00 IMPRESSION: NO ACUTE ISCHEMIA, HEMORRHAGE, OR MASS LESION. CANNOT ASSESS FOR ABNORMAL WHITE MATTER SIGNAL DUE TO NONDIAGNOSTIC FLAIR IMAGING FROM [employer]. EVIDENCE OF ACUTE STROKE: NO. Foot X-Ray 05/31/17 00:00 IMPRESSION: 1. No acute or suspicious radiographic abnormality left the left foot. Shoulder X-Ray 06/20/17 00:00 IMPRESSION: NEGATIVE STUDY OF THE RIGHT SHOULDER. NO RADIOGRAPHIC EVIDENCE OF ACUTE INJURY. NO EXPLANATION FOR PAIN. Chest X-Ray 06/26/17 00:00 IMPRESSION: COPD. NO ACUTE RADIOGRAPHIC FINDING IN THE CHEST. Assessment & Plan - Diagnosis (1) Encephalopathy Is this a current diagnosis for this admission?: Yes Plan: Ammonia level and RPR were normal. Patient likely has chronic dementia from alcoholism. The patient is estranged from his family members. APS has been consulted; currently proceeding with attempts to establish custody by the state. (2) Anxiety Is this a current diagnosis for this admission?: Yes Plan: Stable. Haldol as needed for severe anxiety/agitation; tolerated dose reduction well. Continue scheduled BuSpar; pt states he is feeling better. (3) Hypotension Qualifiers: Hypotension type: unspecified hypotension type Qualified Code(s): I95.9 - Hypotension, unspecified Is this a current diagnosis for this admission?: Yes Plan: Stable with gradual improvements; likely secondary to adrenal insufficiency and poor p.o. intake. Improved with Florinef. I have asked that nursing encourage p.o. fluid intake. Increase patient's mobility; to ambulate in the hallways three times daily. Will monitor closely for evidence of orthostatic hypotension. (4) Adrenal insufficiency Is this a current diagnosis for this admission?: Yes Plan: We will continue steroid supplementation. (5) Severe protein-calorie malnutrition Is this a current diagnosis for this admission?: Yes Plan: Weight has increased from 45.5 kg at admission to 57.4 kg. Albumin remains low at 3.3, though is trending upward. Have advanced to a high calorie high protein diet with vitamin supplements. Appreciate RD consultation and recommendation. (6) Dementia Is this a current diagnosis for this admission?: Yes Plan: Wernicke Korsakoff dementia. Will provide for patient safety. Appreciate discharge planning's assistance in establishing a safe discharge plan. (7) Anemia Is this a current diagnosis for this admission?: Yes Plan: Hemoglobin is stable. No signs of active bleeding at this time. We will continue to monitor. (8) Hypothyroidism Is this a current diagnosis for this admission?: Yes Plan: TSH was elevated on admission (7.99) and he was placed on Synthroid. Repeat labs are much improved; TSH 3.19 and Free T4 0.95 Will continue current dosing. (9) Alcohol dependence Is this a current diagnosis for this admission?: Yes Plan: We will continue thiamine and folic acid supplements. (10) Hypothermia Qualifiers: Encounter type: initial encounter Qualified Code(s): T68.XXXA - Hypothermia , initial encounter Is this a current diagnosis for this admission?: Yes Plan: Secondary to exposure. Resolved. (11) Dehydration Is this a current diagnosis for this admission?: Yes Plan: Resolved. Encourage p.o. fluids. (12) Hyperphosphatemia Is this a current diagnosis for this admission?: Yes Plan: Phosphorus was elevated to 4.6 previously; should be rechecked at next routine lab draw. - Time Time Spent with patient: 15-24 minutes Medications reviewed and adjusted accordingly: Yes
[2017-08-23] MEDS: ACETAMINOPHEN 325 MG TABLET PO PRN (20:15)
[2017-08-23] MEDS: HALOPERIDOL 2 MG TABLET PO PRN (20:17)
[2017-08-24] MEDS: MULTIVITAMIN TABLET PO SCH (10:47)
[2017-08-24] MEDS: ACETAMINOPHEN 325 MG TABLET PO PRN ×2 (10:48→20:15)
[2017-08-24] MEDS: THIAMINE HCL 100 MG TABLET PO SCH (10:48)
[2017-08-24] MEDS: BUSPIRONE HCL 10 MG TABLET PO SCH ×2 (10:48→22:09)
[2017-08-24] MEDS: FLUDROCORTISONE ACETATE 0.1 MG TABLET PO SCH (10:49)
[2017-08-24] MEDS: MUPIROCIN 2% OINTMENT 22 GM TP SCH (10:55)
[2017-08-24] MEDS: HALOPERIDOL 2 MG TABLET PO PRN ×2 (12:14→18:12)
[2017-08-24] MEDS: IBUPROFEN 600 MG TABLET PO PRN (13:36)
--- NOTE | 2017-08-24 16:17 | PDOC PROGRESS REPORT ---
Subjective Progress Note for:: 08/24/17 Subjective:: This is a 61-year-old man who was admitted on May 29 after he was brought in by police secondary to being found wandering in the streets confused. He was treated for hypothermia secondary to exposure, hypotension felt to be associated with adrenal insufficiency and was found to have severe protein calorie malnutrition and vitamin deficiency. He does have a history of alcoholism and has been diagnosed with Wernicke Korsakoff dementia. The patient is seen on morning rounds. He is found resting in bed comfortably on room air. 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 Awaiting disposition; there are no updates on state guardianship/disability proceedings. Reason For Visit: HYPOTENSION, HYPOTHERMIA, ENCEPHALOPATHY Physical Exam Vital Signs: Temp Pulse Resp BP Pulse Ox 97.9 F 61 14 111/65 97 08/24/17 12:00 08/24/17 12:00 08/24/17 12:00 08/24/17 12:00 08/24/17 12:00 Intake & Output 08/23/17 08/24/17 08/25/17 06:59 06:59 06:59 Intake Total 540 922 150 Balance 540 922 150 Weight 57.4 kg 58.4 kg General appearance: PRESENT: no acute distress, thin, well-developed, well- nourished Head exam: PRESENT: atraumatic, normocephalic Eye exam: PRESENT: conjunctiva pink, EOMI, PERRLA. ABSENT: scleral icterus Ear exam: PRESENT: normal external ear exam Mouth exam: PRESENT: moist, tongue midline Neck exam: ABSENT: carotid bruit, JVD, lymphadenopathy, thyromegaly Respiratory exam: PRESENT: clear to auscultation kae, symmetrical, unlabored. ABSENT: rales, rhonchi, wheezes Cardiovascular exam: PRESENT: RRR, +S1, +S2. ABSENT: diastolic murmur, rubs, systolic murmur Pulses: PRESENT: normal dorsalis pedis pul Vascular exam: PRESENT: normal capillary refill GI/Abdominal exam: PRESENT: normal bowel sounds, soft. ABSENT: distended, guarding, mass, organolmegaly, rebound, tenderness Rectal exam: PRESENT: deferred Extremities exam: PRESENT: full ROM. ABSENT: calf tenderness, clubbing, pedal edema Neurological exam: PRESENT: alert, awake, oriented to person, oriented to place , CN II-XII grossly intact. ABSENT: oriented to time, oriented to situation, motor sensory deficit Psychiatric exam: PRESENT: appropriate affect, normal mood. ABSENT: homicidal ideation, suicidal ideation Skin exam: PRESENT: dry, intact, warm. ABSENT: cyanosis, rash Results Laboratory Results: 08/17/17 06:29 08/17/17 06:29 Impressions: Head CT 05/28/17 20:27 IMPRESSION: No acute intracranial findings. EVIDENCE OF ACUTE STROKE: NO. Head MRI 05/29/17 00:00 IMPRESSION: NO ACUTE ISCHEMIA, HEMORRHAGE, OR MASS LESION. CANNOT ASSESS FOR ABNORMAL WHITE MATTER SIGNAL DUE TO NONDIAGNOSTIC FLAIR IMAGING FROM [employer]IF[employer]. EVIDENCE OF ACUTE STROKE: NO. Foot X-Ray 05/31/17 00:00 IMPRESSION: 1. No acute or suspicious radiographic abnormality left the left foot. Shoulder X-Ray 06/20/17 00:00 IMPRESSION: NEGATIVE STUDY OF THE RIGHT SHOULDER. NO RADIOGRAPHIC EVIDENCE OF ACUTE INJURY. NO EXPLANATION FOR PAIN. Chest X-Ray 06/26/17 00:00 IMPRESSION: COPD. NO ACUTE RADIOGRAPHIC FINDING IN THE CHEST. Assessment & Plan - Diagnosis (1) Encephalopathy Is this a current diagnosis for this admission?: Yes Plan: Ammonia level and RPR were normal. Patient likely has chronic dementia from alcoholism. The patient is estranged from his family members. APS has been consulted; currently proceeding with attempts to establish custody by the state. (2) Anxiety Is this a current diagnosis for this admission?: Yes Plan: Stable. Haldol as needed for severe anxiety/agitation; tolerated dose reduction well. Continue scheduled BuSpar; pt states he is feeling better. (3) Hypotension Qualifiers: Hypotension type: unspecified hypotension type Qualified Code(s): I95.9 - Hypotension, unspecified Is this a current diagnosis for this admission?: Yes Plan: Stable with gradual improvements; likely secondary to adrenal insufficiency and poor p.o. intake. Improved with Florinef. I have asked that nursing encourage p.o. fluid intake. Increase patient's mobility; to ambulate in the hallways three times daily. Will monitor closely for evidence of orthostatic hypotension. (4) Adrenal insufficiency Is this a current diagnosis for this admission?: Yes Plan: We will continue steroid supplementation. (5) Severe protein-calorie malnutrition Is this a current diagnosis for this admission?: Yes Plan: Weight has increased approximately 12 kg over course of hospitalization. Albumin remains low at 3.3, though is trending upward. Have advanced to a high calorie high protein diet with vitamin supplements. Appreciate RD consultation and recommendation. (6) Dementia Is this a current diagnosis for this admission?: Yes Plan: Wernicke Korsakoff dementia. Will provide for patient safety. Appreciate discharge planning's assistance in establishing a safe discharge plan. (7) Anemia Is this a current diagnosis for this admission?: Yes Plan: Hemoglobin is stable. No signs of active bleeding at this time. We will continue to monitor. (8) Hypothyroidism Is this a current diagnosis for this admission?: Yes Plan: TSH was elevated on admission (7.99) and he was placed on Synthroid. Repeat labs are much improved; TSH 3.19 and Free T4 0.95 Will continue current dosing. (9) Alcohol dependence Is this a current diagnosis for this admission?: Yes Plan: We will continue thiamine and folic acid supplements. (10) Hypothermia Qualifiers: Encounter type: initial encounter Qualified Code(s): T68.XXXA - Hypothermia , initial encounter Is this a current diagnosis for this admission?: Yes Plan: Secondary to exposure. Resolved. (11) Dehydration Is this a current diagnosis for this admission?: Yes Plan: Resolved. Encourage p.o. fluids. (12) Hyperphosphatemia Is this a current diagnosis for this admission?: Yes Plan: Phosphorus was elevated to 4.6 previously; should be rechecked at next routine lab draw. - Time Time Spent with patient: 15-24 minutes Medications reviewed and adjusted accordingly: Yes
[2017-08-25] MEDS: THIAMINE HCL 100 MG TABLET PO SCH (09:46)
[2017-08-25] MEDS: MULTIVITAMIN TABLET PO SCH (09:46)
[2017-08-25] MEDS: FLUDROCORTISONE ACETATE 0.1 MG TABLET PO SCH (09:46)
[2017-08-25] MEDS: BUSPIRONE HCL 10 MG TABLET PO SCH ×2 (09:46→21:06)
[2017-08-25] MEDS: MUPIROCIN 2% OINTMENT 22 GM TP SCH (09:49)
[2017-08-25] MEDS: ACETAMINOPHEN 325 MG TABLET PO PRN (12:59)
--- NOTE | 2017-08-25 13:32 | PDOC PROGRESS REPORT ---
Subjective Progress Note for:: 08/25/17 Subjective:: This is a 61-year-old man who was admitted on May 29 after he was brought in by police secondary to being found wandering in the streets confused. He was treated for hypothermia secondary to exposure, hypotension felt to be associated with adrenal insufficiency and was found to have severe protein calorie malnutrition and vitamin deficiency. He does have a history of alcoholism and has been diagnosed with Wernicke Korsakoff dementia. The patient is seen on morning rounds. He is found resting in bed comfortably on room air. He talks about his dog today; makes eye contact and is engaging. He denies fever, chills, chest pain, cough, dyspnea, abdominal pain, nausea vomiting and diarrhea. Awaiting disposition; there are no updates on state guardianship/disability proceedings. Reason For Visit: HYPOTENSION, HYPOTHERMIA, ENCEPHALOPATHY Physical Exam Vital Signs: Temp Pulse Resp BP Pulse Ox 98.6 F 71 17 83/42 L 94 08/25/17 11:21 08/25/17 11:21 08/25/17 11:21 08/25/17 11:21 08/25/17 11:21 Intake & Output 08/24/17 08/25/17 08/26/17 06:59 06:59 06:59 Intake Total 922 700 Balance 922 700 Weight 58.4 kg 58.6 kg General appearance: PRESENT: no acute distress, thin, well-developed Head exam: PRESENT: atraumatic, normocephalic Eye exam: PRESENT: conjunctiva pink, EOMI, PERRLA. ABSENT: scleral icterus Ear exam: PRESENT: normal external ear exam Mouth exam: PRESENT: moist, tongue midline Neck exam: ABSENT: carotid bruit, JVD, lymphadenopathy, thyromegaly Respiratory exam: PRESENT: clear to auscultation kae, symmetrical, unlabored. ABSENT: rales, rhonchi, wheezes Cardiovascular exam: PRESENT: RRR, +S1, +S2. ABSENT: diastolic murmur, rubs, systolic murmur Pulses: PRESENT: normal dorsalis pedis pul Vascular exam: PRESENT: normal capillary refill GI/Abdominal exam: PRESENT: normal bowel sounds, soft. ABSENT: distended, guarding, mass, organolmegaly, rebound, tenderness Rectal exam: PRESENT: deferred Extremities exam: PRESENT: full ROM. ABSENT: calf tenderness, clubbing, pedal edema Neurological exam: PRESENT: alert, awake, oriented to person, oriented to place , CN II-XII grossly intact. ABSENT: oriented to time, oriented to situation, motor sensory deficit Psychiatric exam: PRESENT: appropriate affect, normal mood. ABSENT: homicidal ideation, suicidal ideation Skin exam: PRESENT: dry, intact, warm. ABSENT: cyanosis, rash Results Laboratory Results: 08/17/17 06:29 08/17/17 06:29 Impressions: Head CT 05/28/17 20:27 IMPRESSION: No acute intracranial findings. EVIDENCE OF ACUTE STROKE: NO. Head MRI 05/29/17 00:00 IMPRESSION: NO ACUTE ISCHEMIA, HEMORRHAGE, OR MASS LESION. CANNOT ASSESS FOR ABNORMAL WHITE MATTER SIGNAL DUE TO NONDIAGNOSTIC FLAIR IMAGING FROM [employer]IFACT. EVIDENCE OF ACUTE STROKE: NO. Foot X-Ray 05/31/17 00:00 IMPRESSION: 1. No acute or suspicious radiographic abnormality left the left foot. Shoulder X-Ray 06/20/17 00:00 IMPRESSION: NEGATIVE STUDY OF THE RIGHT SHOULDER. NO RADIOGRAPHIC EVIDENCE OF ACUTE INJURY. NO EXPLANATION FOR PAIN. Chest X-Ray 06/26/17 00:00 IMPRESSION: COPD. NO ACUTE RADIOGRAPHIC FINDING IN THE CHEST. Assessment & Plan - Diagnosis (1) Dementia Is this a current diagnosis for this admission?: Yes Plan: Wernicke Korsakoff dementia. Will provide for patient safety. Appreciate discharge planning's assistance in establishing a safe discharge plan. (2) Encephalopathy Is this a current diagnosis for this admission?: Yes Plan: Ammonia level and RPR were normal. Patient likely has chronic dementia from alcoholism. The patient is estranged from his family members. APS has been consulted; currently proceeding with attempts to establish custody by the [facility]. (3) Anxiety Is this a current diagnosis for this admission?: Yes Plan: Stable. Haldol as needed for severe anxiety/agitation; tolerated dose reduction well. Continue scheduled BuSpar; pt states he is feeling better. (4) Hypotension Qualifiers: Hypotension type: unspecified hypotension type Qualified Code(s): I95.9 - Hypotension, unspecified Is this a current diagnosis for this admission?: Yes Plan: Improved. Stable with gradual improvements; likely secondary to adrenal insufficiency and poor p.o. intake. Improved with Florinef. Encourage p.o. fluid intake. Increase patient's mobility; to ambulate in the hallways three times daily. Will monitor closely for evidence of orthostatic hypotension. (5) Adrenal insufficiency Is this a current diagnosis for this admission?: Yes Plan: We will continue steroid supplementation. (6) Severe protein-calorie malnutrition Is this a current diagnosis for this admission?: Yes Plan: Weight has increased approximately 12 kg over course of hospitalization. Albumin remains low at 3.3, though is trending upward. Have advanced to a high calorie high protein diet with vitamin supplements. Appreciate RD consultation and recommendation. (7) Anemia Is this a current diagnosis for this admission?: Yes (8) Hypothyroidism Is this a current diagnosis for this admission?: Yes Plan: TSH was elevated on admission (7.99) and he was placed on Synthroid. Repeat labs are much improved; TSH 3.19 and Free T4 0.95 Will continue current dosing. (9) Alcohol dependence Is this a current diagnosis for this admission?: Yes Plan: We will continue thiamine and folic acid supplements. (10) Hypothermia Qualifiers: Encounter type: initial encounter Qualified Code(s): T68.XXXA - Hypothermia , initial encounter Is this a current diagnosis for this admission?: Yes Plan: Secondary to exposure. Resolved. (11) Dehydration Is this a current diagnosis for this admission?: Yes Plan: Resolved. Encourage p.o. fluids. (12) Hyperphosphatemia Is this a current diagnosis for this admission?: Yes Plan: Phosphorus was elevated to 4.6 previously; should be rechecked at next routine lab draw. - Time Time Spent with patient: Less than 15 minutes Medications reviewed and adjusted accordingly: Yes
[2017-08-25] MEDS: HALOPERIDOL 2 MG TABLET PO PRN ×2 (14:51→22:10)
[2017-08-26] MEDS: ACETAMINOPHEN 325 MG TABLET PO PRN ×2 (10:02→23:00)
[2017-08-26] MEDS: MULTIVITAMIN TABLET PO SCH (10:03)
[2017-08-26] MEDS: THIAMINE HCL 100 MG TABLET PO SCH (10:04)
[2017-08-26] MEDS: BUSPIRONE HCL 10 MG TABLET PO SCH ×2 (10:04→21:12)
[2017-08-26] MEDS: FLUDROCORTISONE ACETATE 0.1 MG TABLET PO SCH (10:04)
[2017-08-26] MEDS: MUPIROCIN 2% OINTMENT 22 GM TP SCH (10:07)
--- NOTE | 2017-08-26 17:17 | PDOC PROGRESS REPORT ---
Subjective Progress Note for:: 08/26/17 Subjective:: No issues. Reason For Visit: HYPOTENSION, HYPOTHERMIA, ENCEPHALOPATHY Physical Exam Vital Signs: Temp Pulse Resp BP Pulse Ox 98.3 F 57 L 17 116/64 95 08/26/17 15:22 08/26/17 15:22 08/26/17 15:22 08/26/17 15:22 08/26/17 15:22 Intake & Output 08/25/17 08/26/17 08/27/17 06:59 06:59 06:59 Intake Total 700 1095 592 Balance 700 1095 592 Weight 58.6 kg 58.1 kg General appearance: PRESENT: no acute distress, well-developed, well-nourished Head exam: PRESENT: atraumatic, normocephalic Eye exam: PRESENT: conjunctiva pink, EOMI. ABSENT: scleral icterus Ear exam: PRESENT: normal external ear exam Mouth exam: PRESENT: moist, tongue midline Neck exam: ABSENT: carotid bruit, JVD, lymphadenopathy, thyromegaly Respiratory exam: PRESENT: clear to auscultation kae. ABSENT: rales, rhonchi, wheezes Cardiovascular exam: PRESENT: RRR. ABSENT: diastolic murmur, rubs, systolic murmur Pulses: PRESENT: normal dorsalis pedis pul Vascular exam: PRESENT: normal capillary refill GI/Abdominal exam: PRESENT: normal bowel sounds, soft. ABSENT: distended, guarding, mass, organolmegaly, rebound, tenderness Rectal exam: PRESENT: deferred Extremities exam: PRESENT: full ROM. ABSENT: calf tenderness, clubbing, pedal edema Neurological exam: PRESENT: alert, awake, oriented to person Psychiatric exam: PRESENT: appropriate affect, normal mood. ABSENT: homicidal ideation, suicidal ideation Skin exam: PRESENT: dry, intact, warm. ABSENT: cyanosis, rash Results Laboratory Results: 08/17/17 06:29 08/17/17 06:29 Impressions: Head CT 05/28/17 20:27 IMPRESSION: No acute intracranial findings. EVIDENCE OF ACUTE STROKE: NO. Head MRI 05/29/17 00:00 IMPRESSION: NO ACUTE ISCHEMIA, HEMORRHAGE, OR MASS LESION. CANNOT ASSESS FOR ABNORMAL WHITE MATTER SIGNAL DUE TO NONDIAGNOSTIC FLAIR IMAGING FROM ARTIFACT. EVIDENCE OF ACUTE STROKE: NO. Foot X-Ray 05/31/17 00:00 IMPRESSION: 1. No acute or suspicious radiographic abnormality left the left foot. Shoulder X-Ray 06/20/17 00:00 IMPRESSION: NEGATIVE STUDY OF THE RIGHT SHOULDER. NO RADIOGRAPHIC EVIDENCE OF ACUTE INJURY. NO EXPLANATION FOR PAIN. Chest X-Ray 06/26/17 00:00 IMPRESSION: COPD. NO ACUTE RADIOGRAPHIC FINDING IN THE CHEST. Assessment & Plan - Diagnosis (1) Basal cell carcinoma Qualifiers: Basal cell carcinoma location: face Basal cell carcinoma face location: nose Qualified Code(s): C44.311 - Basal cell carcinoma of skin of nose Is this a current diagnosis for this admission?: Yes Plan: Will need to be addressed as outpatient. No dermatology at hospital in additional pt has no guardian currently. (2) Korsakoff's psychosis, alcoholic Is this a current diagnosis for this admission?: Yes Plan: Supportive care. Will continue to monitor. (3) Nasal abrasion Is this a current diagnosis for this admission?: Yes Plan: Bactroban. (4) Encephalopathy Is this a current diagnosis for this admission?: Yes Plan: Secondary to ETOH Abuse: Resolved. (5) Homelessness Is this a current diagnosis for this admission?: Yes Plan: Case management states that they are trying to locate his family. (6) Hypokalemia Is this a current diagnosis for this admission?: Yes Plan: Resolved. (7) Hypotension Qualifiers: Hypotension type: unspecified hypotension type Qualified Code(s): I95.9 - Hypotension, unspecified Is this a current diagnosis for this admission?: Yes Plan: Will continue current treatment. (8) Hypomagnesemia Is this a current diagnosis for this admission?: Yes Plan: Resolved. (9) Hypothermia Qualifiers: Encounter type: initial encounter Qualified Code(s): T68.XXXA - Hypothermia , initial encounter Is this a current diagnosis for this admission?: Yes Plan: Secondary to environment: Resolved. (10) Hypothyroidism Is this a current diagnosis for this admission?: Yes Plan: Continue Synthroid (11) Sepsis Is this a current diagnosis for this admission?: No Plan: Ruled out (12) Severe protein-calorie malnutrition Is this a current diagnosis for this admission?: Yes Plan: Encourage good p.o. intake and supplemental drinks. (13) DVT prophylaxis Is this a current diagnosis for this admission?: Yes Plan: ambulation. - Time Time Spent with patient: Less than 15 minutes
[2017-08-26] MEDS: HALOPERIDOL 2 MG TABLET PO PRN (18:29)
[2017-08-27] MEDS: FLUDROCORTISONE ACETATE 0.1 MG TABLET PO SCH (12:08)
[2017-08-27] MEDS: MULTIVITAMIN TABLET PO SCH (12:08)
[2017-08-27] MEDS: MUPIROCIN 2% OINTMENT 22 GM TP SCH (12:09)
[2017-08-27] MEDS: THIAMINE HCL 100 MG TABLET PO SCH (12:09)
[2017-08-27] MEDS: BUSPIRONE HCL 10 MG TABLET PO SCH ×2 (12:09→21:14)
[2017-08-27] MEDS: HALOPERIDOL 2 MG TABLET PO PRN (16:03)
--- NOTE | 2017-08-27 16:16 | PDOC PROGRESS REPORT ---
Subjective Progress Note for:: 08/27/17 Subjective:: This is a 61-year-old man who was admitted on May 29 after he was brought in by police found wandering the streets. He was treated for hypothermia, hypotension felt to be associated with adrenal insufficiency and was found to have severe protein calorie malnutrition and vitamin deficiency. He does have a history of alcoholism and has been diagnosed with Wernicke-Korsakoff dementia. The patient was seen on morning rounds. He was found ambulating in the hallway. Patient states he feels anxious this morning and was requesting his BuSpar. During conversation, the patient is making eye contact and engaging. He denies pain, dizziness, hallucinations, or visual disturbances. Awaiting disposition, there are no updates on state guardianship/disability proceedings Reason For Visit: HYPOTENSION, HYPOTHERMIA, ENCEPHALOPATHY Physical Exam Vital Signs: Temp Pulse Resp BP Pulse Ox 98.3 F 54 L 16 115/66 98 08/27/17 11:14 08/27/17 11:14 08/27/17 11:14 08/27/17 11:14 08/27/17 11:14 Intake & Output 08/26/17 08/27/17 08/28/17 06:59 06:59 06:59 Intake Total 1095 1002 Balance 1095 1002 Weight 58.1 kg General appearance: PRESENT: no acute distress Head exam: PRESENT: normocephalic Eye exam: PRESENT: conjunctiva pink Teeth exam: PRESENT: poor dentation Respiratory exam: PRESENT: clear to auscultation kae Cardiovascular exam: PRESENT: +S1, +S2 Pulses: PRESENT: normal radial pulses, +1 pedal pulses bilateral Vascular exam: PRESENT: normal capillary refill GI/Abdominal exam: PRESENT: soft Rectal exam: PRESENT: deferred Musculoskeletal exam: PRESENT: ambulatory Neurological exam: PRESENT: alert, awake Psychiatric exam: PRESENT: flat affect Results Laboratory Results: 08/17/17 06:29 08/17/17 06:29 Impressions: Head CT 05/28/17 20:27 IMPRESSION: No acute intracranial findings. EVIDENCE OF ACUTE STROKE: NO. Head MRI 05/29/17 00:00 IMPRESSION: NO ACUTE ISCHEMIA, HEMORRHAGE, OR MASS LESION. CANNOT ASSESS FOR ABNORMAL WHITE MATTER SIGNAL DUE TO NONDIAGNOSTIC FLAIR IMAGING FROM ARTIFACT. EVIDENCE OF ACUTE STROKE: NO. Foot X-Ray 05/31/17 00:00 IMPRESSION: 1. No acute or suspicious radiographic abnormality left the left foot. Shoulder X-Ray 06/20/17 00:00 IMPRESSION: NEGATIVE STUDY OF THE RIGHT SHOULDER. NO RADIOGRAPHIC EVIDENCE OF ACUTE INJURY. NO EXPLANATION FOR PAIN. Chest X-Ray 06/26/17 00:00 IMPRESSION: COPD. NO ACUTE RADIOGRAPHIC FINDING IN THE CHEST. Status: Imported from PACS Assessment & Plan - Diagnosis (1) Korsakoff's psychosis, alcoholic Is this a current diagnosis for this admission?: Yes Plan: Wernicke-Korsakoff dementia. Appreciate case management's assistance in establishing a safe discharge plan. (2) Alcohol abuse Plan: Continue thiamine and folic acid supplements (3) Anxiety Is this a current diagnosis for this admission?: Yes Plan: Controlled. Continue scheduled BuSpar, patient states he feels better after taking the medication. Haldol ordered as needed for severe anxiety and agitation. (4) Encephalopathy Is this a current diagnosis for this admission?: Yes Plan: Ammonia level and RPR were normal. Patient likely has chronic dementia from alcoholism. Patient is estranged from his family members. APS has been consulted, currently proceeding with attempts to establish custody by this date. (5) Homelessness Is this a current diagnosis for this admission?: Yes Plan: Discharge planning and case management are working with APS. Currently [facility] - Time Time Spent with patient: 25-34 minutes Smoking Cessation Education: 3 to 10 minutes Anticipated discharge: Home, Other Within: Other - Aproximatley 2-3 weeks
[2017-08-27] MEDS: ACETAMINOPHEN 325 MG TABLET PO PRN (17:09)
[2017-08-27] MEDS: IBUPROFEN 600 MG TABLET PO PRN (21:22)
--- NOTE | 2017-08-28 09:49 | PDOC PROGRESS REPORT ---
Subjective Progress Note for:: 08/28/17 Subjective:: This is a 61-year-old man who was admitted on May 29 after he was brought in by police found wandering the streets. He was treated for hypothermia, hypotension felt to be associated with adrenal insufficiency and was found to have severe protein calorie malnutrition and vitamin deficiency. He does have a history of alcoholism and has been diagnosed with Wernicke-Korsakoff dementia. The patient was seen on morning rounds. He was found ambulating in the hallway. Patient states he feels anxious this morning and was requesting his BuSpar. During conversation, the patient is making eye contact and engaging. He denies pain, dizziness, hallucinations, or visual disturbances. Awaiting disposition, there are no updates on state guardianship/disability proceedings Reason For Visit: HYPOTENSION, HYPOTHERMIA, ENCEPHALOPATHY Physical Exam Vital Signs: Temp Pulse Resp BP Pulse Ox 98.1 F 55 L 16 115/66 95 08/28/17 07:31 08/28/17 07:31 08/28/17 07:31 08/28/17 07:31 08/28/17 07:31 Intake & Output 08/27/17 08/28/17 08/29/17 06:59 06:59 06:59 Intake Total 1002 1380 Balance 1002 1380 General appearance: PRESENT: no acute distress Head exam: PRESENT: normocephalic Mouth exam: PRESENT: moist Teeth exam: PRESENT: poor dentation Neck exam: PRESENT: full ROM Respiratory exam: PRESENT: clear to auscultation kae Cardiovascular exam: PRESENT: +S1, +S2 Pulses: PRESENT: normal radial pulses Vascular exam: PRESENT: normal capillary refill GI/Abdominal exam: PRESENT: soft Rectal exam: PRESENT: deferred Extremities exam: PRESENT: full ROM Musculoskeletal exam: PRESENT: ambulatory Neurological exam: PRESENT: alert, awake Psychiatric exam: PRESENT: flat affect Skin exam: PRESENT: dry, other - small open blister on tip of nose Results Laboratory Results: 08/17/17 06:29 08/17/17 06:29 Impressions: Head CT 05/28/17 20:27 IMPRESSION: No acute intracranial findings. EVIDENCE OF ACUTE STROKE: NO. Head MRI 05/29/17 00:00 IMPRESSION: NO ACUTE ISCHEMIA, HEMORRHAGE, OR MASS LESION. CANNOT ASSESS FOR ABNORMAL WHITE MATTER SIGNAL DUE TO NONDIAGNOSTIC FLAIR IMAGING FROM ARTIFACT. EVIDENCE OF ACUTE STROKE: NO. Foot X-Ray 05/31/17 00:00 IMPRESSION: 1. No acute or suspicious radiographic abnormality left the left foot. Shoulder X-Ray 06/20/17 00:00 IMPRESSION: NEGATIVE STUDY OF THE RIGHT SHOULDER. NO RADIOGRAPHIC EVIDENCE OF ACUTE INJURY. NO EXPLANATION FOR PAIN. Chest X-Ray 06/26/17 00:00 IMPRESSION: COPD. NO ACUTE RADIOGRAPHIC FINDING IN THE CHEST. Assessment & Plan - Diagnosis (1) Korsakoff's psychosis, alcoholic Is this a current diagnosis for this admission?: Yes Plan: Wernicke-Korsakoff dementia. Appreciate case management's assistance in establishing a safe discharge plan. (2) Alcohol abuse Plan: Continue thiamine and folic acid supplements (3) Anxiety Is this a current diagnosis for this admission?: Yes Plan: Controlled. Continue scheduled BuSpar, patient states he feels better after taking the medication. Haldol ordered as needed for severe anxiety and agitation. Patient very interested in pet therapy, case management aware. Plan to have visit from service animal tomorrow (4) Encephalopathy Is this a current diagnosis for this admission?: Yes Plan: Ammonia level and RPR were normal. Patient likely has chronic dementia from alcoholism. Patient is estranged from his family members. APS has been consulted, currently proceeding with attempts to establish custody by this date. (5) Homelessness Is this a current diagnosis for this admission?: Yes Plan: Discharge planning and case management are working with APS. Currently seeking to establish custody [facility] - Time Time Spent with patient: 15-24 minutes Smoking Cessation Education: 3 to 10 minutes Medications reviewed and adjusted accordingly: Yes Anticipated discharge: Home Within: Other - legal proceedings to make patient a [place] of the state Disposition: discharge to prison. case management working to find appropriate placement after discharge - Inpatient Certification Based on my medical assessment, after consideration of the patient's comorbidities, presenting symptoms, or acuity I expect that the services needed warrant INPATIENT care.: Yes I certify that my determination is in accordance with my understanding of Medicare's requirements for reasonable and necessary INPATIENT services [42 CFR 412.3e].: Yes Medical Necessity: Other - see above - Plan Summary Plan Summary: Ultimately, the goal is to discharge the patient to a prison or facility that can accommodate him. Patient has no domicile and is estranged from his family. Case management is working to have the state assume custody of the patient.
[2017-08-28] MEDS: FLUDROCORTISONE ACETATE 0.1 MG TABLET PO SCH (10:17)
[2017-08-28] MEDS: MULTIVITAMIN TABLET PO SCH (10:17)
[2017-08-28] MEDS: MUPIROCIN 2% OINTMENT 22 GM TP SCH (10:17)
[2017-08-28] MEDS: THIAMINE HCL 100 MG TABLET PO SCH (10:17)
[2017-08-28] MEDS: BUSPIRONE HCL 10 MG TABLET PO SCH ×2 (10:17→21:01)
[2017-08-28] MEDS: HALOPERIDOL 2 MG TABLET PO PRN ×2 (12:28→20:35)
[2017-08-28] MEDS: IBUPROFEN 600 MG TABLET PO PRN ×2 (12:28→21:47)
[2017-08-29] MEDS: HALOPERIDOL 2 MG TABLET PO PRN ×2 (04:06→21:08)
[2017-08-29] MEDS: THIAMINE HCL 100 MG TABLET PO SCH (10:43)
[2017-08-29] MEDS: MULTIVITAMIN TABLET PO SCH (10:44)
[2017-08-29] MEDS: FLUDROCORTISONE ACETATE 0.1 MG TABLET PO SCH (10:44)
[2017-08-29] MEDS: BUSPIRONE HCL 10 MG TABLET PO SCH ×2 (10:44→21:11)
[2017-08-29] MEDS: MUPIROCIN 2% OINTMENT 22 GM TP SCH (10:45)
--- NOTE | 2017-08-29 16:22 | PDOC PROGRESS REPORT ---
Subjective Progress Note for:: 08/29/17 Subjective:: This is a 61-year-old man who was admitted on May 29 after he was brought in by police found wandering the streets. He was treated for hypothermia, hypotension felt to be associated with adrenal insufficiency and was found to have severe protein calorie malnutrition and vitamin deficiency. He does have a history of alcoholism and has been diagnosed with Wernicke-Korsakoff dementia. The patient was seen on morning rounds. He was found ambulating in the hallway. Patient states he feels anxious this morning and was requesting his BuSpar. During conversation, the patient is making eye contact and engaging. He denies pain, dizziness, hallucinations, or visual disturbances. Awaiting disposition, there are no updates on state guardianship/disability proceedings Reason For Visit: HYPOTENSION, HYPOTHERMIA, ENCEPHALOPATHY Physical Exam Vital Signs: Temp Pulse Resp BP Pulse Ox 98.4 F 59 L 16 104/54 L 96 08/29/17 07:38 08/29/17 07:38 08/29/17 07:38 08/29/17 07:38 08/29/17 07:38 Intake & Output 08/28/17 08/29/17 08/30/17 06:59 06:59 06:59 Intake Total 1380 896 Balance 1380 896 General appearance: PRESENT: no acute distress Head exam: PRESENT: normocephalic Mouth exam: PRESENT: moist Teeth exam: PRESENT: poor dentation Neck exam: PRESENT: full ROM Respiratory exam: PRESENT: clear to auscultation kae Cardiovascular exam: PRESENT: +S1, +S2 Pulses: PRESENT: normal radial pulses GI/Abdominal exam: PRESENT: soft Rectal exam: PRESENT: deferred Extremities exam: PRESENT: full ROM Musculoskeletal exam: PRESENT: ambulatory Neurological exam: PRESENT: alert, awake Psychiatric exam: PRESENT: anxious, flat affect Results Laboratory Results: 08/17/17 06:29 08/17/17 06:29 Impressions: Head CT 05/28/17 20:27 IMPRESSION: No acute intracranial findings. EVIDENCE OF ACUTE STROKE: NO. Head MRI 05/29/17 00:00 IMPRESSION: NO ACUTE ISCHEMIA, HEMORRHAGE, OR MASS LESION. CANNOT ASSESS FOR ABNORMAL WHITE MATTER SIGNAL DUE TO NONDIAGNOSTIC FLAIR IMAGING FROM [employer]IFACT. EVIDENCE OF ACUTE STROKE: NO. Foot X-Ray 05/31/17 00:00 IMPRESSION: 1. No acute or suspicious radiographic abnormality left the left foot. Shoulder X-Ray 06/20/17 00:00 IMPRESSION: NEGATIVE STUDY OF THE RIGHT SHOULDER. NO RADIOGRAPHIC EVIDENCE OF ACUTE INJURY. NO EXPLANATION FOR PAIN. Chest X-Ray 06/26/17 00:00 IMPRESSION: COPD. NO ACUTE RADIOGRAPHIC FINDING IN THE CHEST. Status: Imported from PACS Assessment & Plan - Diagnosis (1) Korsakoff's psychosis, alcoholic Is this a current diagnosis for this admission?: Yes Plan: Wernicke-Korsakoff dementia. Appreciate case management's assistance in establishing a safe discharge plan. (2) Alcohol abuse Plan: Continue thiamine and folic acid supplements (3) Anxiety Is this a current diagnosis for this admission?: Yes Plan: Controlled. Patient participated in pet therapy today. Continue scheduled BuSpar, patient states he feels better after taking the medication. Haldol ordered as needed for severe anxiety and agitation. Patient very interested in pet therapy, case management aware. Plan to have visit from service animal tomorrow (4) Encephalopathy Is this a current diagnosis for this admission?: Yes Plan: Ammonia level and RPR were normal. Patient likely has chronic dementia from alcoholism. Patient is estranged from his family members. APS has been consulted, currently proceeding with attempts to establish custody by this date. (5) Homelessness Is this a current diagnosis for this admission?: Yes Plan: Discharge planning and case management are working with APS. Currently seeking to establish custody by the [facility] - Time Time Spent with patient: 15-24 minutes Medications reviewed and adjusted accordingly: Yes Anticipated discharge: Home Within: Other - Inpatient Certification Based on my medical assessment, after consideration of the patient's comorbidities, presenting symptoms, or acuity I expect that the services needed warrant INPATIENT care.: Yes I certify that my determination is in accordance with my understanding of Medicare's requirements for reasonable and necessary INPATIENT services [42 CFR 412.3e].: Yes Medical Necessity: Need for Neurological Checks
[2017-08-30] MEDS: BUSPIRONE HCL 10 MG TABLET PO SCH ×2 (10:55→21:52)
[2017-08-30] MEDS: FLUDROCORTISONE ACETATE 0.1 MG TABLET PO SCH (10:57)
[2017-08-30] MEDS: MULTIVITAMIN TABLET PO SCH (10:58)
[2017-08-30] MEDS: MUPIROCIN 2% OINTMENT 22 GM TP SCH (10:58)
[2017-08-30] MEDS: THIAMINE HCL 100 MG TABLET PO SCH (10:58)
[2017-08-30] MEDS: HALOPERIDOL 2 MG TABLET PO PRN ×2 (12:47→18:51)
--- NOTE | 2017-08-30 13:27 | PDOC PROGRESS REPORT ---
Subjective Progress Note for:: 08/30/17 Subjective:: This is a 61-year-old man who was admitted on May 29 after he was brought in by police found wandering the streets. He was treated for hypothermia, hypotension felt to be associated with adrenal insufficiency and was found to have severe protein calorie malnutrition and vitamin deficiency. He does have a history of alcoholism and has been diagnosed with Wernicke-Korsakoff dementia. The patient was seen on morning rounds. He was found ambulating in the hallway. Patient states he feels anxious this morning and was requesting his BuSpar. During conversation, the patient is making eye contact and engaging. He denies pain, dizziness, hallucinations, or visual disturbances. Awaiting disposition, there are no updates on state guardianship/disability proceedings Reason For Visit: HYPOTENSION, HYPOTHERMIA, ENCEPHALOPATHY Physical Exam Vital Signs: Temp Pulse Resp BP Pulse Ox 98.5 F 65 16 113/69 97 08/30/17 11:15 08/30/17 11:15 08/30/17 11:15 08/30/17 11:15 08/30/17 11:15 Intake & Output 08/29/17 08/30/17 08/31/17 06:59 06:59 06:59 Intake Total 896 577 Balance 896 577 General appearance: PRESENT: no acute distress, well-developed, well-nourished Head exam: PRESENT: atraumatic, normocephalic Eye exam: PRESENT: conjunctiva pink, EOMI, PERRLA. ABSENT: scleral icterus Teeth exam: PRESENT: poor dentation Neck exam: PRESENT: full ROM Respiratory exam: PRESENT: unlabored Cardiovascular exam: PRESENT: +S1, +S2 Pulses: PRESENT: normal radial pulses Vascular exam: PRESENT: normal capillary refill GI/Abdominal exam: PRESENT: soft Rectal exam: PRESENT: deferred Extremities exam: PRESENT: full ROM Musculoskeletal exam: PRESENT: full ROM - c/o left shoulder pain, limited ROM Neurological exam: PRESENT: alert, awake Psychiatric exam: PRESENT: appropriate affect Skin exam: PRESENT: dry, intact, warm. ABSENT: cyanosis, rash Results Laboratory Results: 08/17/17 06:29 08/17/17 06:29 Impressions: Head CT 05/28/17 20:27 IMPRESSION: No acute intracranial findings. EVIDENCE OF ACUTE STROKE: NO. Head MRI 05/29/17 00:00 IMPRESSION: NO ACUTE ISCHEMIA, HEMORRHAGE, OR MASS LESION. CANNOT ASSESS FOR ABNORMAL WHITE MATTER SIGNAL DUE TO NONDIAGNOSTIC FLAIR IMAGING FROM ARTIFACT. EVIDENCE OF ACUTE STROKE: NO. Foot X-Ray 05/31/17 00:00 IMPRESSION: 1. No acute or suspicious radiographic abnormality left the left foot. Shoulder X-Ray 06/20/17 00:00 IMPRESSION: NEGATIVE STUDY OF THE RIGHT SHOULDER. NO RADIOGRAPHIC EVIDENCE OF ACUTE INJURY. NO EXPLANATION FOR PAIN. Chest X-Ray 06/26/17 00:00 IMPRESSION: COPD. NO ACUTE RADIOGRAPHIC FINDING IN THE CHEST. Status: Imported from PACS Assessment & Plan - Diagnosis (1) Korsakoff's psychosis, alcoholic Is this a current diagnosis for this admission?: Yes Plan: Wernicke-Korsakoff dementia. Patient is appropriate and participatory in care. Appreciate case management's assistance in establishing a safe discharge plan. (2) Alcohol abuse Plan: Continue thiamine and folic acid supplements. (3) Anxiety Is this a current diagnosis for this admission?: Yes Plan: Controlled. Patient participated in pet therapy today. Continue scheduled BuSpar, patient states he feels better after taking the medication. Haldol ordered as needed for severe anxiety and agitation. Patient very interested in pet therapy, case management aware. Service animal visited with patient yesterday (08/29/2017). (4) Encephalopathy Is this a current diagnosis for this admission?: Yes Plan: Ammonia level and RPR were normal. Patient likely has chronic dementia from alcoholism. Patient is estranged from his family members. APS has been consulted. See Case Management notes for up to date information regarding this matter. (5) Homelessness Is this a current diagnosis for this admission?: Yes Plan: Discharge planning and case management are working with APS. See Case Management notes re: up to date information. - Time Time Spent with patient: 15-24 minutes Medications reviewed and adjusted accordingly: Yes Anticipated discharge: Home Within: Other - unknown. case management working to determine safe discharge plan
[2017-08-31] MEDS: ACETAMINOPHEN 325 MG TABLET PO PRN (08:43)
[2017-08-31] MEDS: BUSPIRONE HCL 10 MG TABLET PO SCH ×2 (10:39→21:39)
[2017-08-31] MEDS: FLUDROCORTISONE ACETATE 0.1 MG TABLET PO SCH (10:40)
[2017-08-31] MEDS: THIAMINE HCL 100 MG TABLET PO SCH (10:40)
[2017-08-31] MEDS: MUPIROCIN 2% OINTMENT 22 GM TP SCH (10:40)
[2017-08-31] MEDS: MULTIVITAMIN TABLET PO SCH (10:40)
--- NOTE | 2017-08-31 12:12 | PDOC PROGRESS REPORT ---
Subjective Progress Note for:: 08/31/17 Subjective:: This is a 61-year-old man who was admitted on May 29 after he was brought in by police found wandering the streets. He was treated for hypothermia, hypotension felt to be associated with adrenal insufficiency and was found to have severe protein calorie malnutrition and vitamin deficiency. He does have a history of alcoholism and has been diagnosed with Wernicke-Korsakoff dementia. The patient was seen on morning rounds. He was found ambulating in the hallway. Patient states he feels anxious this morning and was requesting his BuSpar. During conversation, the patient is making eye contact and engaging. He denies pain, dizziness, hallucinations, or visual disturbances. Awaiting disposition, there are no updates on state guardianship/disability proceedings Reason For Visit: HYPOTENSION, HYPOTHERMIA, ENCEPHALOPATHY Physical Exam Vital Signs: Temp Pulse Resp BP Pulse Ox 97.9 F 63 18 114/73 96 08/31/17 10:47 08/31/17 10:47 08/31/17 10:47 08/31/17 10:47 08/31/17 10:47 Intake & Output 08/30/17 08/31/17 09/01/17 06:59 06:59 06:59 Intake Total 577 1020 Balance 577 1020 Weight 58.8 kg General appearance: PRESENT: no acute distress, well-developed, well-nourished Head exam: PRESENT: atraumatic, normocephalic Eye exam: PRESENT: conjunctiva pink Mouth exam: PRESENT: moist Neck exam: PRESENT: full ROM Respiratory exam: PRESENT: clear to auscultation kae Cardiovascular exam: PRESENT: +S1, +S2 Pulses: PRESENT: normal radial pulses GI/Abdominal exam: PRESENT: soft Rectal exam: PRESENT: deferred Extremities exam: PRESENT: full ROM Musculoskeletal exam: PRESENT: full ROM Neurological exam: PRESENT: alert, awake Skin exam: PRESENT: intact Results Laboratory Results: 08/17/17 06:29 08/17/17 06:29 Impressions: Head CT 05/28/17 20:27 IMPRESSION: No acute intracranial findings. EVIDENCE OF ACUTE STROKE: NO. Head MRI 05/29/17 00:00 IMPRESSION: NO ACUTE ISCHEMIA, HEMORRHAGE, OR MASS LESION. CANNOT ASSESS FOR ABNORMAL WHITE MATTER SIGNAL DUE TO NONDIAGNOSTIC FLAIR IMAGING FROM [employer]IFACT. EVIDENCE OF ACUTE STROKE: NO. Foot X-Ray 05/31/17 00:00 IMPRESSION: 1. No acute or suspicious radiographic abnormality left the left foot. Shoulder X-Ray 06/20/17 00:00 IMPRESSION: NEGATIVE STUDY OF THE RIGHT SHOULDER. NO RADIOGRAPHIC EVIDENCE OF ACUTE INJURY. NO EXPLANATION FOR PAIN. Chest X-Ray 06/26/17 00:00 IMPRESSION: COPD. NO ACUTE RADIOGRAPHIC FINDING IN THE CHEST. Status: Imported from PACS Assessment & Plan - Diagnosis (1) Korsakoff's psychosis, alcoholic Is this a current diagnosis for this admission?: Yes Plan: Wernicke-Korsakoff dementia secondary to patient's long history of alcohol abuse. Patient is appropriate and participatory in care. Appreciate case management's assistance in establishing a safe discharge plan. (2) Alcohol abuse Plan: At this time the patient is out of the window for DTs. Continue thiamine and folic acid supplements. (3) Anxiety Is this a current diagnosis for this admission?: Yes Plan: Controlled. Patient participating in pet therapy. Encourage interaction with staff members, ambulating in hallways, and listening to music. Continue scheduled BuSpar, patient states he feels better after taking the medication. Haldol ordered as needed for severe anxiety and agitation. Patient very interested in pet therapy, case management aware. Most recent visit with service animal 08/29/2017. (4) Encephalopathy Is this a current diagnosis for this admission?: Yes Plan: Patient likely has chronic dementia from alcoholism. Ammonia level and RPR were normal. Patient is estranged from his family members. APS has been consulted. See Case Management notes for up to date information regarding this matter. (5) Homelessness Is this a current diagnosis for this admission?: Yes Plan: Discharge planning and case management are working with APS. See Case Management notes re: up to date information. - Time Time Spent with patient: Less than 15 minutes Medications reviewed and adjusted accordingly: Yes Anticipated discharge: Other Within: Other - unknown - Inpatient Certification Based on my medical assessment, after consideration of the patient's comorbidities, presenting symptoms, or acuity I expect that the services needed warrant INPATIENT care.: Yes I certify that my determination is in accordance with my understanding of Medicare's requirements for reasonable and necessary INPATIENT services [42 CFR 412.3e].: Yes Medical Necessity: Risk of Complication if Not Cared For in Hospital - Plan Summary Plan Summary: discharge to appropriate alf or assisted living facility. see discharge planning notes regarding progress
[2017-08-31] MEDS: HALOPERIDOL 2 MG TABLET PO PRN ×2 (12:34→18:39)
[2017-08-31] MEDS: IBUPROFEN 600 MG TABLET PO PRN (15:53)
[2017-09-01] MEDS: FLUDROCORTISONE ACETATE 0.1 MG TABLET PO SCH (09:51)
[2017-09-01] MEDS: IBUPROFEN 600 MG TABLET PO PRN (09:51)
[2017-09-01] MEDS: THIAMINE HCL 100 MG TABLET PO SCH (09:51)
[2017-09-01] MEDS: MULTIVITAMIN TABLET PO SCH (09:51)
[2017-09-01] MEDS: MUPIROCIN 2% OINTMENT 22 GM TP SCH (09:52)
[2017-09-01] MEDS: BUSPIRONE HCL 10 MG TABLET PO SCH ×2 (09:52→21:25)
--- NOTE | 2017-09-01 10:40 | PDOC PROGRESS REPORT ---
Subjective Progress Note for:: 09/01/17 Subjective:: This is a 61-year-old man who was admitted on May 29 after he was brought in by police found wandering the streets. He was treated for hypothermia, hypotension felt to be associated with adrenal insufficiency and was found to have severe protein calorie malnutrition and vitamin deficiency. He does have a history of alcoholism and has been diagnosed with Wernicke-Korsakoff dementia. The patient was seen on morning rounds. He was resting in the room. During conversation, the patient is making eye contact and engaging. He denies pain, dizziness, hallucinations, or visual disturbances. Awaiting disposition, appreciate case management updates. Reason For Visit: HYPOTENSION, HYPOTHERMIA, ENCEPHALOPATHY Physical Exam Vital Signs: Temp Pulse Resp BP Pulse Ox 98.3 F 58 L 18 123/68 96 09/01/17 07:21 09/01/17 07:21 09/01/17 07:21 09/01/17 07:21 09/01/17 07:21 Intake & Output 08/31/17 09/01/17 09/02/17 06:59 06:59 06:59 Intake Total 1020 1305 Balance 1020 1305 Weight 58.8 kg General appearance: PRESENT: no acute distress, well-developed, well-nourished Head exam: PRESENT: atraumatic, normocephalic Eye exam: PRESENT: conjunctiva pink, EOMI, PERRLA. ABSENT: scleral icterus Ear exam: PRESENT: normal external ear exam Mouth exam: PRESENT: moist, tongue midline Neck exam: ABSENT: carotid bruit, JVD, lymphadenopathy, thyromegaly Respiratory exam: PRESENT: clear to auscultation kae Cardiovascular exam: PRESENT: +S1, +S2 Pulses: PRESENT: normal radial pulses Vascular exam: PRESENT: normal capillary refill GI/Abdominal exam: PRESENT: soft Rectal exam: PRESENT: deferred Extremities exam: PRESENT: full ROM Musculoskeletal exam: PRESENT: full ROM Neurological exam: PRESENT: alert, awake Psychiatric exam: PRESENT: appropriate affect Results Laboratory Results: 08/17/17 06:29 08/17/17 06:29 Impressions: Head CT 05/28/17 20:27 IMPRESSION: No acute intracranial findings. EVIDENCE OF ACUTE STROKE: NO. Head MRI 05/29/17 00:00 IMPRESSION: NO ACUTE ISCHEMIA, HEMORRHAGE, OR MASS LESION. CANNOT ASSESS FOR ABNORMAL WHITE MATTER SIGNAL DUE TO NONDIAGNOSTIC FLAIR IMAGING FROM ARTIFACT. EVIDENCE OF ACUTE STROKE: NO. Foot X-Ray 05/31/17 00:00 IMPRESSION: 1. No acute or suspicious radiographic abnormality left the left foot. Shoulder X-Ray 06/20/17 00:00 IMPRESSION: NEGATIVE STUDY OF THE RIGHT SHOULDER. NO RADIOGRAPHIC EVIDENCE OF ACUTE INJURY. NO EXPLANATION FOR PAIN. Chest X-Ray 06/26/17 00:00 IMPRESSION: COPD. NO ACUTE RADIOGRAPHIC FINDING IN THE CHEST. Status: Imported from PACS Assessment & Plan - Diagnosis (1) Korsakoff's psychosis, alcoholic Is this a current diagnosis for this admission?: Yes Plan: Wernicke-Korsakoff dementia secondary to patient's long history of alcohol abuse. Patient is appropriate and participatory in care. Appreciate case management's assistance in establishing a safe discharge plan. (2) Alcohol abuse Plan: At this time the patient is out of the window for DTs. Continue thiamine and folic acid supplements. (3) Anxiety Is this a current diagnosis for this admission?: Yes Plan: Controlled. Patient participating in pet therapy. Encourage interaction with staff members, ambulating in hallways, and listening to music. Continue scheduled BuSpar, patient states he feels better after taking the medication. Haldol ordered as needed for severe anxiety and agitation. Patient very interested in pet therapy, case management aware. Most recent visit with service animal 08/29/2017. (4) Encephalopathy Is this a current diagnosis for this admission?: Yes Plan: Patient likely has chronic dementia from alcoholism. Ammonia level and RPR were normal. Patient is estranged from his family members. APS has been consulted. See Case Management notes for up to date information regarding this matter. (5) Homelessness Is this a current diagnosis for this admission?: Yes Plan: Discharge planning and case management are working with APS. See Case Management notes re: up to date information. - Time Time Spent with patient: 15-24 minutes Anticipated discharge: Other Within: Other - unknown - Inpatient Certification Based on my medical assessment, after consideration of the patient's comorbidities, presenting symptoms, or acuity I expect that the services needed warrant INPATIENT care.: Yes I certify that my determination is in accordance with my understanding of Medicare's requirements for reasonable and necessary INPATIENT services [42 CFR 412.3e].: Yes Medical Necessity: Risk of Complication if Not Cared For in Hospital - Plan Summary Plan Summary: Ultimately, the plan is to discharge the patient in to a custodial or independent living facility
[2017-09-01] MEDS: HALOPERIDOL 2 MG TABLET PO PRN ×2 (11:54→17:36)
[2017-09-02] MEDS: FLUDROCORTISONE ACETATE 0.1 MG TABLET PO SCH (09:42)
[2017-09-02] MEDS: MULTIVITAMIN TABLET PO SCH (09:42)
[2017-09-02] MEDS: THIAMINE HCL 100 MG TABLET PO SCH (09:43)
[2017-09-02] MEDS: BUSPIRONE HCL 10 MG TABLET PO SCH ×2 (09:43→21:08)
[2017-09-02] MEDS: MUPIROCIN 2% OINTMENT 22 GM TP SCH (09:43)
[2017-09-02] MEDS ORDERED: LIDOCAINE 5% (700 MG) TRANSDERMAL ADH..PATCH TP ONE (11:00)
--- NOTE | 2017-09-02 13:55 | PDOC PROGRESS REPORT ---
Subjective Progress Note for:: 09/02/17 Subjective:: This is a 61-year-old man who was admitted on May 29 after he was brought in by police secondary to being found wandering in the streets confused. He was treated for hypothermia secondary to exposure, hypotension felt to be associated with adrenal insufficiency and was found to have severe protein calorie malnutrition and vitamin deficiency. He does have a history of alcoholism and has been diagnosed with Wernicke Korsakoff dementia. The patient is seen on morning rounds. He is found resting in bed comfortably on room air. He makes eye contact and is engaging. He does complain of bilateral shoulder pain with the left being greater than right that he relates to arthritic pain. He denies fever, chills, chest pain, cough, dyspnea, abdominal pain, nausea vomiting and diarrhea. Awaiting a bed offer. Reason For Visit: HYPOTENSION, HYPOTHERMIA, ENCEPHALOPATHY Physical Exam Vital Signs: Temp Pulse Resp BP Pulse Ox 98.3 F 59 L 16 113/69 97 09/02/17 12:00 09/02/17 12:00 09/02/17 12:00 09/02/17 12:00 09/02/17 12:00 Intake & Output 09/01/17 09/02/17 09/03/17 06:59 06:59 06:59 Intake Total 1305 1426 Balance 1305 1426 General appearance: PRESENT: no acute distress, thin, well-developed Head exam: PRESENT: atraumatic, normocephalic Eye exam: PRESENT: conjunctiva pink, EOMI, PERRLA. ABSENT: scleral icterus Ear exam: PRESENT: normal external ear exam Mouth exam: PRESENT: moist, tongue midline Neck exam: ABSENT: carotid bruit, JVD, lymphadenopathy, thyromegaly Respiratory exam: PRESENT: clear to auscultation kae, symmetrical, unlabored. ABSENT: rales, rhonchi, wheezes Cardiovascular exam: PRESENT: RRR, +S1, +S2. ABSENT: diastolic murmur, rubs, systolic murmur Pulses: PRESENT: normal dorsalis pedis pul Vascular exam: PRESENT: normal capillary refill GI/Abdominal exam: PRESENT: normal bowel sounds, soft. ABSENT: distended, guarding, mass, organolmegaly, rebound, tenderness Rectal exam: PRESENT: deferred Extremities exam: PRESENT: full ROM. ABSENT: calf tenderness, clubbing, pedal edema Neurological exam: PRESENT: alert, awake, oriented to person, oriented to place , CN II-XII grossly intact. ABSENT: oriented to time, oriented to situation, motor sensory deficit Psychiatric exam: PRESENT: appropriate affect, normal mood. ABSENT: homicidal ideation, suicidal ideation Skin exam: PRESENT: dry, intact, warm. ABSENT: cyanosis, rash Results Laboratory Results: 08/17/17 06:29 08/17/17 06:29 Impressions: Head CT 05/28/17 20:27 IMPRESSION: No acute intracranial findings. EVIDENCE OF ACUTE STROKE: NO. Head MRI 05/29/17 00:00 IMPRESSION: NO ACUTE ISCHEMIA, HEMORRHAGE, OR MASS LESION. CANNOT ASSESS FOR ABNORMAL WHITE MATTER SIGNAL DUE TO NONDIAGNOSTIC FLAIR IMAGING FROM ARTIFACT. EVIDENCE OF ACUTE STROKE: NO. Foot X-Ray 05/31/17 00:00 IMPRESSION: 1. No acute or suspicious radiographic abnormality left the left foot. Shoulder X-Ray 06/20/17 00:00 IMPRESSION: NEGATIVE STUDY OF THE RIGHT SHOULDER. NO RADIOGRAPHIC EVIDENCE OF ACUTE INJURY. NO EXPLANATION FOR PAIN. Chest X-Ray 06/26/17 00:00 IMPRESSION: COPD. NO ACUTE RADIOGRAPHIC FINDING IN THE CHEST. Assessment & Plan - Diagnosis (1) Dementia Is this a current diagnosis for this admission?: Yes Plan: Wernicke Korsakoff dementia. Will provide for patient safety. Appreciate discharge planning's assistance in establishing a safe discharge plan. (2) Anxiety Is this a current diagnosis for this admission?: Yes Plan: Stable. Haldol as needed for severe anxiety/agitation; tolerated dose reduction well. Continue scheduled BuSpar; pt states he is feeling better. Encourage nonpharmacological prevention such as increased interactions with staff members, ambulating in the hallways, listening to music, and pet therapy. The [facility] service animal does visit on Wednesdays and Fridays. (3) Hypotension Qualifiers: Hypotension type: unspecified hypotension type Qualified Code(s): I95.9 - Hypotension, unspecified Is this a current diagnosis for this admission?: Yes Plan: Improved. Stable with gradual improvements; likely secondary to adrenal insufficiency and poor p.o. intake. Continue Florinef Encourage p.o. fluid intake. Increase patient's mobility; to ambulate in the hallways three times daily. Will monitor closely for evidence of orthostatic hypotension. (4) Adrenal insufficiency Is this a current diagnosis for this admission?: Yes Plan: We will continue steroid supplementation. (5) Severe protein-calorie malnutrition Is this a current diagnosis for this admission?: Yes Plan: Weight has increased approximately 12 kg over course of hospitalization. Albumin remains low at 3.3, though is trending upward. Have advanced to a high calorie high protein diet with vitamin supplements. Appreciate RD consultation and recommendation. (6) Anemia Is this a current diagnosis for this admission?: Yes Plan: Hemoglobin is stable. No signs of active bleeding at this time. We will continue to monitor. (7) Hypothyroidism Is this a current diagnosis for this admission?: Yes Plan: TSH was elevated on admission (7.99) and he was placed on Synthroid. Repeat labs are much improved; TSH 3.19 and Free T4 0.95 Will continue current dosing. (8) Alcohol dependence Is this a current diagnosis for this admission?: Yes Plan: We will continue thiamine and folic acid supplements. (9) Hypothermia Qualifiers: Encounter type: initial encounter Qualified Code(s): T68.XXXA - Hypothermia , initial encounter Is this a current diagnosis for this admission?: Yes Plan: Secondary to exposure. Resolved. (10) Dehydration Is this a current diagnosis for this admission?: Yes Plan: Resolved. Encourage p.o. fluids. (11) Hyperphosphatemia Is this a current diagnosis for this admission?: Yes Plan: Phosphorus was elevated to 4.6 previously; should be rechecked at next routine lab draw. (12) Encephalopathy Is this a current diagnosis for this admission?: Yes Plan: Resolved; Patient likely has chronic dementia from alcoholism. Ammonia level and RPR were normal. (13) Arthritis Is this a current diagnosis for this admission?: Yes Plan: Ibuprofen as needed. We will try Lidoderm patches. - Time Time Spent with patient: 25-34 minutes Medications reviewed and adjusted accordingly: Yes Anticipated discharge: SNF Within: when bed available
[2017-09-03] MEDS: BUSPIRONE HCL 10 MG TABLET PO SCH ×2 (10:01→21:18)
[2017-09-03] MEDS: MULTIVITAMIN TABLET PO SCH (10:02)
[2017-09-03] MEDS: FLUDROCORTISONE ACETATE 0.1 MG TABLET PO SCH (10:03)
[2017-09-03] MEDS: MUPIROCIN 2% OINTMENT 22 GM TP SCH (10:04)
[2017-09-03] MEDS: THIAMINE HCL 100 MG TABLET PO SCH (10:05)
[2017-09-03] MEDS: LIDOCAINE 5% (700 MG) TRANSDERMAL ADH..PATCH TP SCH (10:06)
[2017-09-03] MEDS: HALOPERIDOL 2 MG TABLET PO PRN ×2 (11:19→18:35)
[2017-09-03] MEDS: IBUPROFEN 600 MG TABLET PO PRN (13:34)
--- NOTE | 2017-09-03 13:54 | PDOC PROGRESS REPORT ---
Subjective Progress Note for:: 09/03/17 Subjective:: This is a 61-year-old man who was admitted on May 29 after he was brought in by police secondary to being found wandering in the streets confused. He was treated for hypothermia secondary to exposure, hypotension felt to be associated with adrenal insufficiency and was found to have severe protein calorie malnutrition and vitamin deficiency. He does have a history of alcoholism and has been diagnosed with Wernicke Korsakoff dementia. The patient is seen on morning rounds. He is found resting in bed comfortably on room air. He makes eye contact and is engaging. He states that his bilateral shoulder pain is improved today with use of lidocaine patches. He asks if Taylor (service dog) can come see him again. He denies fever, chills, chest pain, cough, dyspnea, abdominal pain, nausea vomiting and diarrhea. Awaiting a bed offer. Reason For Visit: HYPOTENSION, HYPOTHERMIA, ENCEPHALOPATHY Physical Exam Vital Signs: Temp Pulse Resp BP Pulse Ox 98.8 F 62 18 120/66 98 09/03/17 11:46 09/03/17 11:46 09/03/17 11:46 09/03/17 11:46 09/03/17 11:46 Intake & Output 09/02/17 09/03/17 09/04/17 06:59 06:59 06:59 Intake Total 1426 710 Balance 1426 710 General appearance: PRESENT: no acute distress, thin, well-developed, well- nourished Head exam: PRESENT: atraumatic, normocephalic Eye exam: PRESENT: conjunctiva pink, EOMI, PERRLA. ABSENT: scleral icterus Ear exam: PRESENT: normal external ear exam Mouth exam: PRESENT: moist, tongue midline Neck exam: ABSENT: carotid bruit, JVD, lymphadenopathy, thyromegaly Respiratory exam: PRESENT: clear to auscultation kae, symmetrical, unlabored. ABSENT: rales, rhonchi, wheezes Cardiovascular exam: PRESENT: RRR, +S1, +S2. ABSENT: diastolic murmur, rubs, systolic murmur Pulses: PRESENT: normal dorsalis pedis pul Vascular exam: PRESENT: normal capillary refill GI/Abdominal exam: PRESENT: normal bowel sounds, soft. ABSENT: distended, guarding, mass, organolmegaly, rebound, tenderness Rectal exam: PRESENT: deferred Extremities exam: PRESENT: full ROM. ABSENT: calf tenderness, clubbing, pedal edema Neurological exam: PRESENT: alert, awake, oriented to person, oriented to place , oriented to situation, CN II-XII grossly intact. ABSENT: oriented to time, motor sensory deficit Psychiatric exam: PRESENT: appropriate affect, normal mood. ABSENT: homicidal ideation, suicidal ideation Skin exam: PRESENT: dry, intact, warm. ABSENT: cyanosis, rash Results Laboratory Results: 08/17/17 06:29 08/17/17 06:29 Impressions: Head CT 05/28/17 20:27 IMPRESSION: No acute intracranial findings. EVIDENCE OF ACUTE STROKE: NO. Head MRI 05/29/17 00:00 IMPRESSION: NO ACUTE ISCHEMIA, HEMORRHAGE, OR MASS LESION. CANNOT ASSESS FOR ABNORMAL WHITE MATTER SIGNAL DUE TO NONDIAGNOSTIC FLAIR IMAGING FROM [employer]. EVIDENCE OF ACUTE STROKE: NO. Foot X-Ray 05/31/17 00:00 IMPRESSION: 1. No acute or suspicious radiographic abnormality left the left foot. Shoulder X-Ray 06/20/17 00:00 IMPRESSION: NEGATIVE STUDY OF THE RIGHT SHOULDER. NO RADIOGRAPHIC EVIDENCE OF ACUTE INJURY. NO EXPLANATION FOR PAIN. Chest X-Ray 06/26/17 00:00 IMPRESSION: COPD. NO ACUTE RADIOGRAPHIC FINDING IN THE CHEST. Assessment & Plan - Diagnosis (1) Dementia Is this a current diagnosis for this admission?: Yes Plan: Wernicke Korsakoff dementia. Will provide for patient safety. Appreciate discharge planning's assistance in establishing a safe discharge plan. (2) Anxiety Is this a current diagnosis for this admission?: Yes Plan: Stable. Haldol as needed for severe anxiety/agitation; tolerated dose reduction well. Continue scheduled BuSpar; pt states he is feeling better. Encourage nonpharmacological prevention such as increased interactions with staff members, ambulating in the hallways, listening to music, and pet therapy. The hospital service animal does visit on Wednesdays and Fridays. Blood pressure is much improved; may consider use of Paxil vs Remeron for depression/generalized anxiety. (3) Hypotension Qualifiers: Hypotension type: unspecified hypotension type Qualified Code(s): I95.9 - Hypotension, unspecified Is this a current diagnosis for this admission?: Yes Plan: Much improved. Stable with gradual improvements; likely secondary to adrenal insufficiency and poor p.o. intake. Continue Florinef Encourage p.o. fluid intake. Increase patient's mobility; to ambulate in the hallways three times daily. Will monitor closely for evidence of orthostatic hypotension. (4) Adrenal insufficiency Is this a current diagnosis for this admission?: Yes Plan: We will continue steroid supplementation. (5) Severe protein-calorie malnutrition Is this a current diagnosis for this admission?: Yes Plan: Weight has increased approximately 12 kg over course of hospitalization. Albumin remains low at 3.3, though is trending upward. Have advanced to a high calorie high protein diet with vitamin supplements. Appreciate RD consultation and recommendation. (6) Anemia Is this a current diagnosis for this admission?: Yes Plan: Hemoglobin is stable. No signs of active bleeding at this time. We will continue to monitor. (7) Hypothyroidism Is this a current diagnosis for this admission?: Yes Plan: TSH was elevated on admission (7.99) and he was placed on Synthroid. Repeat labs are much improved; TSH 3.19 and Free T4 0.95 Will continue current dosing. (8) Alcohol dependence Is this a current diagnosis for this admission?: Yes Plan: We will continue thiamine and folic acid supplements. (9) Hypothermia Qualifiers: Encounter type: initial encounter Qualified Code(s): T68.XXXA - Hypothermia , initial encounter Is this a current diagnosis for this admission?: Yes Plan: Secondary to exposure. Resolved. (10) Dehydration Is this a current diagnosis for this admission?: Yes Plan: Resolved. Encourage p.o. fluids. (11) Hyperphosphatemia Is this a current diagnosis for this admission?: Yes Plan: Phosphorus was elevated to 4.6 previously; should be rechecked at next routine lab draw. (12) Encephalopathy Is this a current diagnosis for this admission?: Yes Plan: Resolved; Patient likely has chronic dementia from alcoholism. Ammonia level and RPR were normal. (13) Arthritis Is this a current diagnosis for this admission?: Yes Plan: Ibuprofen as needed. Improved pain w/ Lidoderm patches. - Time Time Spent with patient: 15-24 minutes Anticipated discharge: SNF Within: when bed available
[2017-09-04] MEDS: THIAMINE HCL 100 MG TABLET PO SCH (12:06)
[2017-09-04] MEDS: BUSPIRONE HCL 10 MG TABLET PO SCH ×2 (12:07→21:19)
[2017-09-04] MEDS: MULTIVITAMIN TABLET PO SCH (12:07)
[2017-09-04] MEDS: FLUDROCORTISONE ACETATE 0.1 MG TABLET PO SCH (12:07)
[2017-09-04] MEDS: LIDOCAINE 5% (700 MG) TRANSDERMAL ADH..PATCH TP SCH (12:08)
--- NOTE | 2017-09-04 13:11 | PDOC PROGRESS REPORT ---
Subjective Progress Note for:: 09/04/17 Subjective:: This is a 61-year-old man who was admitted on May 29 after he was brought in by police secondary to being found wandering in the streets confused. He was treated for hypothermia secondary to exposure, hypotension felt to be associated with adrenal insufficiency and was found to have severe protein calorie malnutrition and vitamin deficiency. He does have a history of alcoholism and has been diagnosed with Wernicke Korsakoff dementia. The patient is seen on morning rounds. He is found resting in bed comfortably on room air. He is very engaging and talkative today. He states that he enjoyed visiting with Maya, the service dog, yesterday. He does report that his left shoulder is bothering him today and asks if he might have some Motrin. We also discussed his depression and generalized anxiety. He denies fever, chills, chest pain, cough, dyspnea, abdominal pain, nausea vomiting and diarrhea. Awaiting a bed offer. Reason For Visit: HYPOTENSION, HYPOTHERMIA, ENCEPHALOPATHY Physical Exam Vital Signs: Temp Pulse Resp BP Pulse Ox 98.1 F 64 18 138/79 H 98 09/04/17 12:00 09/04/17 12:00 09/04/17 12:00 09/04/17 12:00 09/04/17 12:00 Intake & Output 09/03/17 09/04/17 09/05/17 06:59 06:59 06:59 Intake Total 710 628 Balance 710 628 Weight 59 kg General appearance: PRESENT: no acute distress, thin, well-developed, well- nourished Head exam: PRESENT: atraumatic, normocephalic Eye exam: PRESENT: conjunctiva pink, EOMI, PERRLA. ABSENT: scleral icterus Ear exam: PRESENT: normal external ear exam Mouth exam: PRESENT: moist, tongue midline Neck exam: ABSENT: carotid bruit, JVD, lymphadenopathy, thyromegaly Respiratory exam: PRESENT: clear to auscultation kae, symmetrical, unlabored. ABSENT: rales, rhonchi, wheezes Cardiovascular exam: PRESENT: RRR, +S1, +S2. ABSENT: diastolic murmur, rubs, systolic murmur Pulses: PRESENT: normal dorsalis pedis pul Vascular exam: PRESENT: normal capillary refill GI/Abdominal exam: PRESENT: normal bowel sounds, soft. ABSENT: distended, guarding, mass, organolmegaly, rebound, tenderness Rectal exam: PRESENT: deferred Extremities exam: PRESENT: full ROM. ABSENT: calf tenderness, clubbing, pedal edema Neurological exam: PRESENT: alert, awake, oriented to person, oriented to place , CN II-XII grossly intact. ABSENT: oriented to time, oriented to situation, motor sensory deficit Psychiatric exam: PRESENT: appropriate affect, normal mood. ABSENT: homicidal ideation, suicidal ideation Skin exam: PRESENT: dry, intact, warm. ABSENT: cyanosis, rash Results Laboratory Results: 08/17/17 06:29 08/17/17 06:29 Impressions: Head CT 05/28/17 20:27 IMPRESSION: No acute intracranial findings. EVIDENCE OF ACUTE STROKE: NO. Head MRI 05/29/17 00:00 IMPRESSION: NO ACUTE ISCHEMIA, HEMORRHAGE, OR MASS LESION. CANNOT ASSESS FOR ABNORMAL WHITE MATTER SIGNAL DUE TO NONDIAGNOSTIC FLAIR IMAGING FROM [employer]. EVIDENCE OF ACUTE STROKE: NO. Foot X-Ray 05/31/17 00:00 IMPRESSION: 1. No acute or suspicious radiographic abnormality left the left foot. Shoulder X-Ray 06/20/17 00:00 IMPRESSION: NEGATIVE STUDY OF THE RIGHT SHOULDER. NO RADIOGRAPHIC EVIDENCE OF ACUTE INJURY. NO EXPLANATION FOR PAIN. Chest X-Ray 06/26/17 00:00 IMPRESSION: COPD. NO ACUTE RADIOGRAPHIC FINDING IN THE CHEST. Assessment & Plan - Diagnosis (1) Dementia Is this a current diagnosis for this admission?: Yes Plan: Wernicke Korsakoff dementia. Will provide for patient safety. Appreciate discharge planning's assistance in establishing a safe discharge plan ; awaiting bed offer. (2) Anxiety Is this a current diagnosis for this admission?: Yes Plan: Stable. Haldol as needed for severe anxiety/agitation. Continue scheduled BuSpar. Encourage nonpharmacological prevention such as increased interactions with staff members, ambulating in the hallways, listening to music, and pet therapy. The hospital service animal does visit on Wednesdays and Fridays. We discussed the patient's depression and generalized anxiety today. I informed him that his blood pressure has been stable for several days now and I felt comfortable starting an antidepressant such as Remeron. The patient does admit to depression and anxiety. He agrees that he may benefit from an antidepressant, however, states that he is "worried about rocking the boat." Will hold on initiation of medications at this time. I do believe that his emotional and mental health will improve significantly once he is transferred to a long-term care facility that will facilitate increased social activity. (3) Hypotension Qualifiers: Hypotension type: unspecified hypotension type Qualified Code(s): I95.9 - Hypotension, unspecified Is this a current diagnosis for this admission?: Yes Plan: Much improved. Stable with gradual improvements; likely secondary to adrenal insufficiency and poor p.o. intake. Continue Florinef Encourage p.o. fluid intake. Increase patient's mobility; to ambulate in the hallways three times daily. Will monitor closely for evidence of orthostatic hypotension. (4) Adrenal insufficiency Is this a current diagnosis for this admission?: Yes Plan: We will continue steroid supplementation. (5) Severe protein-calorie malnutrition Is this a current diagnosis for this admission?: Yes Plan: Weight has increased approximately 12 kg over course of hospitalization. Albumin remains low at 3.3, though is trending upward. Have advanced to a high calorie high protein diet with vitamin supplements. Appreciate RD consultation and recommendation. (6) Anemia Is this a current diagnosis for this admission?: Yes Plan: Hemoglobin is stable. No signs of active bleeding at this time. We will continue to monitor. (7) Hypothyroidism Is this a current diagnosis for this admission?: Yes Plan: TSH was elevated on admission (7.99) and he was placed on Synthroid. Repeat labs are much improved; TSH 3.19 and Free T4 0.95 Will continue current dosing. (8) Alcohol dependence Is this a current diagnosis for this admission?: Yes Plan: We will continue thiamine and folic acid supplements. (9) Hypothermia Qualifiers: Encounter type: initial encounter Qualified Code(s): T68.XXXA - Hypothermia , initial encounter Is this a current diagnosis for this admission?: Yes Plan: Secondary to exposure. Resolved. (10) Dehydration Is this a current diagnosis for this admission?: Yes Plan: Resolved. Encourage p.o. fluids. (11) Hyperphosphatemia Is this a current diagnosis for this admission?: Yes Plan: Phosphorus was elevated to 4.6 previously; should be rechecked at next routine lab draw. (12) Encephalopathy Is this a current diagnosis for this admission?: Yes Plan: Resolved; Patient likely has chronic dementia from alcoholism. Ammonia level and RPR were normal. (13) Arthritis Is this a current diagnosis for this admission?: Yes Plan: Ibuprofen as needed. Improved pain w/ Lidoderm patches. - Time Time Spent with patient: 15-24 minutes Medications reviewed and adjusted accordingly: Yes Anticipated discharge: SNF Within: when bed available
[2017-09-04] MEDS: HALOPERIDOL 2 MG TABLET PO PRN (16:15)
[2017-09-04] MEDS: MUPIROCIN 2% OINTMENT 22 GM TP SCH (17:11)
[2017-09-05] MEDS: IBUPROFEN 600 MG TABLET PO PRN ×2 (01:43→10:37)
[2017-09-05] MEDS: LIDOCAINE 5% (700 MG) TRANSDERMAL ADH..PATCH TP SCH (10:36)
[2017-09-05] MEDS: BUSPIRONE HCL 10 MG TABLET PO SCH ×2 (10:37→21:54)
[2017-09-05] MEDS: FLUDROCORTISONE ACETATE 0.1 MG TABLET PO SCH (10:37)
[2017-09-05] MEDS ORDERED: MULTIVITAMIN TABLET PO ONE (11:00)
[2017-09-05] MEDS ORDERED: THIAMINE HCL 100 MG TABLET PO ONE (11:00)
--- NOTE | 2017-09-05 14:36 | PDOC PROGRESS REPORT ---
Subjective Progress Note for:: 09/05/17 Subjective:: This is a 61-year-old man who was admitted on May 29 after he was brought in by police secondary to being found wandering in the streets confused. He was treated for hypothermia secondary to exposure, hypotension felt to be associated with adrenal insufficiency and was found to have severe protein calorie malnutrition and vitamin deficiency. He does have a history of alcoholism and has been diagnosed with Wernicke Korsakoff dementia. The patient is seen on morning rounds. He is found resting in bed comfortably on room air. He states that he is feeling well today and has no questions or concerns. He denies fever, chills, chest pain, cough, dyspnea, abdominal pain, nausea vomiting and diarrhea. Awaiting a bed offer. Reason For Visit: HYPOTENSION, HYPOTHERMIA, ENCEPHALOPATHY Physical Exam Vital Signs: Temp Pulse Resp BP Pulse Ox 98.6 F 62 18 126/76 H 96 09/05/17 07:38 09/05/17 07:38 09/05/17 07:38 09/05/17 07:38 09/05/17 07:38 Intake & Output 09/04/17 09/05/17 09/06/17 06:59 06:59 06:59 Intake Total 628 940 Balance 628 940 Weight 59 kg General appearance: PRESENT: no acute distress, cooperative, thin, well- developed, well-nourished Head exam: PRESENT: atraumatic, normocephalic Eye exam: PRESENT: conjunctiva pink, EOMI, PERRLA. ABSENT: scleral icterus Ear exam: PRESENT: normal external ear exam Mouth exam: PRESENT: moist, tongue midline Neck exam: ABSENT: carotid bruit, JVD, lymphadenopathy, thyromegaly Respiratory exam: PRESENT: clear to auscultation kae, symmetrical, unlabored. ABSENT: rales, rhonchi, wheezes Cardiovascular exam: PRESENT: RRR, +S1, +S2. ABSENT: diastolic murmur, rubs, systolic murmur Pulses: PRESENT: normal dorsalis pedis pul Vascular exam: PRESENT: normal capillary refill GI/Abdominal exam: PRESENT: normal bowel sounds, soft. ABSENT: distended, guarding, mass, organolmegaly, rebound, tenderness Rectal exam: PRESENT: deferred Extremities exam: PRESENT: full ROM. ABSENT: calf tenderness, clubbing, pedal edema Neurological exam: PRESENT: alert, awake, oriented to person, oriented to place , CN II-XII grossly intact. ABSENT: oriented to time, oriented to situation, motor sensory deficit Psychiatric exam: PRESENT: appropriate affect, normal mood. ABSENT: homicidal ideation, suicidal ideation Skin exam: PRESENT: dry, intact, warm. ABSENT: cyanosis, rash Results Laboratory Results: 08/17/17 06:29 08/17/17 06:29 Impressions: Head CT 05/28/17 20:27 IMPRESSION: No acute intracranial findings. EVIDENCE OF ACUTE STROKE: NO. Head MRI 05/29/17 00:00 IMPRESSION: NO ACUTE ISCHEMIA, HEMORRHAGE, OR MASS LESION. CANNOT ASSESS FOR ABNORMAL WHITE MATTER SIGNAL DUE TO NONDIAGNOSTIC FLAIR IMAGING FROM [employer]. EVIDENCE OF ACUTE STROKE: NO. Foot X-Ray 05/31/17 00:00 IMPRESSION: 1. No acute or suspicious radiographic abnormality left the left foot. Shoulder X-Ray 06/20/17 00:00 IMPRESSION: NEGATIVE STUDY OF THE RIGHT SHOULDER. NO RADIOGRAPHIC EVIDENCE OF ACUTE INJURY. NO EXPLANATION FOR PAIN. Chest X-Ray 06/26/17 00:00 IMPRESSION: COPD. NO ACUTE RADIOGRAPHIC FINDING IN THE CHEST. Assessment & Plan - Diagnosis (1) Dementia Is this a current diagnosis for this admission?: Yes Plan: Wernicke Korsakoff dementia. Will provide for patient safety. Appreciate discharge planning's assistance in establishing a safe discharge plan ; awaiting bed offer. (2) Anxiety Is this a current diagnosis for this admission?: Yes Plan: Stable. Haldol as needed for anxiety; appears to be using medication once daily. Continue scheduled BuSpar. Encourage nonpharmacological prevention such as increased interactions with staff members, ambulating in the hallways, listening to music, and pet therapy. The [facility] service animal does visit on Wednesdays and Fridays. The patient's blood pressure would not tolerate an depressant. Would recommend Remeron; patient has requested that we initiate any new medications at this time. (3) Hypotension Qualifiers: Hypotension type: unspecified hypotension type Qualified Code(s): I95.9 - Hypotension, unspecified Is this a current diagnosis for this admission?: Yes Plan: Resolved; likely secondary to adrenal insufficiency and poor p.o. intake. Continue Florinef Encourage p.o. fluid intake. Increase patient's mobility; to ambulate in the hallways three times daily. Will monitor closely for evidence of orthostatic hypotension. (4) Adrenal insufficiency Is this a current diagnosis for this admission?: Yes Plan: We will continue steroid supplementation. (5) Severe protein-calorie malnutrition Is this a current diagnosis for this admission?: Yes Plan: Weight has increased approximately 14 kg over course of hospitalization. Albumin remains low at 3.3, though is trending upward. Have advanced to a high calorie high protein diet with vitamin supplements. Appreciate RD consultation and recommendation. (6) Anemia Is this a current diagnosis for this admission?: Yes Plan: Hemoglobin is stable. No signs of active bleeding at this time. We will continue to monitor. (7) Hypothyroidism Is this a current diagnosis for this admission?: Yes Plan: TSH was elevated on admission (7.99) and he was placed on Synthroid. Repeat labs are much improved; TSH 3.19 and Free T4 0.95 Will continue current dosing. (8) Alcohol dependence Is this a current diagnosis for this admission?: Yes Plan: We will continue thiamine and folic acid supplements. (9) Hypothermia Qualifiers: Encounter type: initial encounter Qualified Code(s): T68.XXXA - Hypothermia , initial encounter Is this a current diagnosis for this admission?: Yes Plan: Secondary to exposure. Resolved. (10) Dehydration Is this a current diagnosis for this admission?: Yes Plan: Resolved. Encourage p.o. fluids. (11) Hyperphosphatemia Is this a current diagnosis for this admission?: Yes Plan: Phosphorus was elevated to 4.6 previously; should be rechecked at next routine lab draw. (12) Encephalopathy Is this a current diagnosis for this admission?: Yes Plan: Resolved; Patient likely has chronic dementia from alcoholism. Ammonia level and RPR were normal. (13) Arthritis Is this a current diagnosis for this admission?: Yes Plan: Ibuprofen as needed. Improved pain w/ Lidoderm patches. - Time Time Spent with patient: 15-24 minutes Medications reviewed and adjusted accordingly: Yes Anticipated discharge: SNF Within: when bed available
[2017-09-05] MEDS: MUPIROCIN 2% OINTMENT 22 GM TP SCH (18:11)
[2017-09-06] MEDS: HALOPERIDOL 2 MG TABLET PO PRN ×2 (00:35→13:33)
[2017-09-06] MEDS: IBUPROFEN 600 MG TABLET PO PRN (01:19)
[2017-09-06] MEDS: BUSPIRONE HCL 10 MG TABLET PO SCH ×2 (09:51→21:53)
[2017-09-06] MEDS: FLUTICASONE NASAL SPRAY 50 MCG/SPRY 120 SPRAY/16 GM NASL SCH (09:52)
[2017-09-06] MEDS: LIDOCAINE 5% (700 MG) TRANSDERMAL ADH..PATCH TP SCH (09:52)
[2017-09-06] MEDS: MULTIVITAMIN TABLET PO SCH (09:52)
[2017-09-06] MEDS: FLUDROCORTISONE ACETATE 0.1 MG TABLET PO SCH (09:52)
[2017-09-06] MEDS: THIAMINE HCL 100 MG TABLET PO SCH (09:52)
--- NOTE | 2017-09-06 13:15 | PDOC PROGRESS REPORT ---
Subjective Progress Note for:: 09/06/17 Subjective:: This is a 61-year-old man who was admitted on May 29 after he was brought in by police secondary to being found wandering in the streets confused. He was treated for hypothermia secondary to exposure, hypotension felt to be associated with adrenal insufficiency and was found to have severe protein calorie malnutrition and vitamin deficiency. He does have a history of alcoholism and has been diagnosed with Wernicke Korsakoff dementia. The patient is seen on morning rounds. He is found resting in bed comfortably on room air. He states that he is feeling well today and has no questions or concerns. He denies fever, chills, chest pain, cough, dyspnea, abdominal pain, nausea vomiting and diarrhea. He is noted to have a very flat affect today and is not very engaging. Awaiting a bed offer. Reason For Visit: HYPOTENSION, HYPOTHERMIA, ENCEPHALOPATHY Physical Exam Vital Signs: Temp Pulse Resp BP Pulse Ox 98.0 F 65 18 129/80 H 98 09/06/17 11:45 09/06/17 11:45 09/06/17 11:45 09/06/17 11:45 09/06/17 11:45 Intake & Output 09/05/17 09/06/17 09/07/17 06:59 06:59 06:59 Intake Total 940 350 Balance 940 350 General appearance: PRESENT: no acute distress, thin, well-developed, well- nourished Head exam: PRESENT: atraumatic, normocephalic Eye exam: PRESENT: conjunctiva pink, EOMI, PERRLA. ABSENT: scleral icterus Ear exam: PRESENT: normal external ear exam Mouth exam: PRESENT: moist, tongue midline Neck exam: ABSENT: carotid bruit, JVD, lymphadenopathy, thyromegaly Respiratory exam: PRESENT: clear to auscultation kae, symmetrical, unlabored. ABSENT: rales, rhonchi, wheezes Cardiovascular exam: PRESENT: RRR, +S1, +S2. ABSENT: diastolic murmur, rubs, systolic murmur Pulses: PRESENT: normal dorsalis pedis pul Vascular exam: PRESENT: normal capillary refill GI/Abdominal exam: PRESENT: normal bowel sounds, soft. ABSENT: distended, guarding, mass, organolmegaly, rebound, tenderness Rectal exam: PRESENT: deferred Extremities exam: PRESENT: full ROM. ABSENT: calf tenderness, clubbing, pedal edema Neurological exam: PRESENT: alert, awake, oriented to person, oriented to place , CN II-XII grossly intact. ABSENT: oriented to time, oriented to situation, motor sensory deficit Psychiatric exam: PRESENT: depressed, flat affect. ABSENT: homicidal ideation, suicidal ideation Skin exam: PRESENT: dry, intact, warm. ABSENT: cyanosis, rash Results Laboratory Results: 08/17/17 06:29 08/17/17 06:29 Impressions: Head CT 05/28/17 20:27 IMPRESSION: No acute intracranial findings. EVIDENCE OF ACUTE STROKE: NO. Head MRI 05/29/17 00:00 IMPRESSION: NO ACUTE ISCHEMIA, HEMORRHAGE, OR MASS LESION. CANNOT ASSESS FOR ABNORMAL WHITE MATTER SIGNAL DUE TO NONDIAGNOSTIC FLAIR IMAGING FROM [employer]. EVIDENCE OF ACUTE STROKE: NO. Foot X-Ray 05/31/17 00:00 IMPRESSION: 1. No acute or suspicious radiographic abnormality left the left foot. Shoulder X-Ray 06/20/17 00:00 IMPRESSION: NEGATIVE STUDY OF THE RIGHT SHOULDER. NO RADIOGRAPHIC EVIDENCE OF ACUTE INJURY. NO EXPLANATION FOR PAIN. Chest X-Ray 06/26/17 00:00 IMPRESSION: COPD. NO ACUTE RADIOGRAPHIC FINDING IN THE CHEST. Assessment & Plan - Diagnosis (1) Dementia Is this a current diagnosis for this admission?: Yes Plan: Wernicke Korsakoff dementia. Will provide for patient safety. Appreciate discharge planning's assistance in establishing a safe discharge plan ; awaiting bed offer. (2) Anxiety Is this a current diagnosis for this admission?: Yes Plan: Stable. Haldol as needed for anxiety; decreased frequency today as patient appears to be using it only once daily. Continue scheduled BuSpar. Will start Remeron this evening for depression/anxiety. Encourage nonpharmacological prevention such as increased interactions with staff members, ambulating in the hallways, listening to music, and pet therapy. The hospital service animal does visit on Wednesdays and Fridays. (3) Hypotension Qualifiers: Hypotension type: unspecified hypotension type Qualified Code(s): I95.9 - Hypotension, unspecified Is this a current diagnosis for this admission?: Yes Plan: Resolved; likely secondary to adrenal insufficiency and poor p.o. intake. Continue Florinef Encourage p.o. fluid intake. Increase patient's mobility; to ambulate in the hallways three times daily. Will monitor closely for evidence of orthostatic hypotension. (4) Adrenal insufficiency Is this a current diagnosis for this admission?: Yes Plan: We will continue steroid supplementation. (5) Severe protein-calorie malnutrition Is this a current diagnosis for this admission?: Yes Plan: Weight has increased approximately 14 kg over course of hospitalization. Albumin remains low at 3.3, though is trending upward. Have advanced to a high calorie high protein diet with vitamin supplements. Appreciate RD consultation and recommendation. Starting remeron today for depression/anxiety; may help to stimulate the patient 's appetite. (6) Anemia Is this a current diagnosis for this admission?: Yes Plan: Hemoglobin is stable. No signs of active bleeding at this time. We will continue to monitor. (7) Hypothyroidism Is this a current diagnosis for this admission?: Yes Plan: TSH was elevated on admission (7.99) and he was placed on Synthroid. Repeat labs are much improved; TSH 3.19 and Free T4 0.95 Will continue current dosing. (8) Alcohol dependence Is this a current diagnosis for this admission?: Yes Plan: We will continue thiamine and folic acid supplements. (9) Hypothermia Qualifiers: Encounter type: initial encounter Qualified Code(s): T68.XXXA - Hypothermia , initial encounter Is this a current diagnosis for this admission?: Yes Plan: Secondary to exposure. Resolved. (10) Dehydration Is this a current diagnosis for this admission?: Yes Plan: Resolved. Encourage p.o. fluids. (11) Hyperphosphatemia Is this a current diagnosis for this admission?: Yes Plan: Phosphorus was elevated to 4.6 previously; should be rechecked at next routine lab draw. (12) Encephalopathy Is this a current diagnosis for this admission?: Yes Plan: Resolved; Patient likely has chronic dementia from alcoholism. Ammonia level and RPR were normal. (13) Arthritis Is this a current diagnosis for this admission?: Yes Plan: Ibuprofen as needed. Improved pain w/ Lidoderm patches. (14) Congested nose Is this a current diagnosis for this admission?: Yes Plan: Nasal congestion w/ slight left ear fullness. Will trial flonase. - Time Time Spent with patient: 15-24 minutes Anticipated discharge: SNF Within: when bed available
[2017-09-06] MEDS: MUPIROCIN 2% OINTMENT 22 GM TP SCH (18:03)
[2017-09-06] MEDS: MIRTAZAPINE 15 MG TABLET PO SCH (21:53)
[2017-09-07] MEDS ORDERED: FLUDROCORTISONE ACETATE 0.1 MG TABLET PO SCH (10:00)
[2017-09-07] MEDS: LIDOCAINE 5% (700 MG) TRANSDERMAL ADH..PATCH TP SCH (10:22)
[2017-09-07] MEDS: BUSPIRONE HCL 10 MG TABLET PO SCH ×2 (10:22→21:00)
[2017-09-07] MEDS: FLUTICASONE NASAL SPRAY 50 MCG/SPRY 120 SPRAY/16 GM NASL SCH (10:22)
[2017-09-07] MEDS: MULTIVITAMIN TABLET PO SCH (10:22)
[2017-09-07] MEDS: THIAMINE HCL 100 MG TABLET PO SCH (10:22)
[2017-09-07] MEDS: FLUDROCORTISONE ACETATE 0.1 MG TABLET PO SCH (10:22)
--- NOTE | 2017-09-07 13:07 | PDOC PROGRESS REPORT ---
Subjective Progress Note for:: 09/07/17 Subjective:: This is a 61-year-old man who was admitted on May 29 after he was brought in by police secondary to being found wandering in the streets confused. He was treated for hypothermia secondary to exposure, hypotension felt to be associated with adrenal insufficiency and was found to have severe protein calorie malnutrition and vitamin deficiency. He does have a history of alcoholism and has been diagnosed with Wernicke Korsakoff dementia. The patient is seen on morning rounds. He is found resting in bed comfortably on room air. He states that he is feeling well today and has no questions or concerns. He denies fever, chills, chest pain, cough, dyspnea, abdominal pain, nausea vomiting and diarrhea. Awaiting a bed offer. Reason For Visit: HYPOTENSION, HYPOTHERMIA, ENCEPHALOPATHY Physical Exam Vital Signs: Temp Pulse Resp BP Pulse Ox 98.2 F 58 L 20 106/57 L 95 09/07/17 07:36 09/07/17 07:36 09/07/17 07:36 09/07/17 07:36 09/07/17 07:36 Intake & Output 09/06/17 09/07/17 09/08/17 06:59 06:59 06:59 Intake Total 350 1334 Balance 350 1334 Weight 59.2 kg General appearance: PRESENT: no acute distress, thin, well-developed, well- nourished Head exam: PRESENT: atraumatic, normocephalic Eye exam: PRESENT: conjunctiva pink, EOMI, PERRLA. ABSENT: scleral icterus Ear exam: PRESENT: normal external ear exam Mouth exam: PRESENT: moist, tongue midline Neck exam: ABSENT: carotid bruit, JVD, lymphadenopathy, thyromegaly Respiratory exam: PRESENT: clear to auscultation kae, symmetrical, unlabored. ABSENT: rales, rhonchi, wheezes Cardiovascular exam: PRESENT: RRR, +S1, +S2. ABSENT: diastolic murmur, rubs, systolic murmur Pulses: PRESENT: normal dorsalis pedis pul Vascular exam: PRESENT: normal capillary refill GI/Abdominal exam: PRESENT: normal bowel sounds, soft. ABSENT: distended, guarding, mass, organolmegaly, rebound, tenderness Rectal exam: PRESENT: deferred Extremities exam: PRESENT: full ROM. ABSENT: calf tenderness, clubbing, pedal edema Neurological exam: PRESENT: alert, awake, oriented to person, oriented to place , CN II-XII grossly intact. ABSENT: motor sensory deficit Psychiatric exam: PRESENT: depressed, normal mood. ABSENT: homicidal ideation, suicidal ideation Skin exam: PRESENT: dry, intact, warm. ABSENT: cyanosis, rash Results Laboratory Results: 08/17/17 06:29 08/17/17 06:29 Impressions: Head CT 05/28/17 20:27 IMPRESSION: No acute intracranial findings. EVIDENCE OF ACUTE STROKE: NO. Head MRI 05/29/17 00:00 IMPRESSION: NO ACUTE ISCHEMIA, HEMORRHAGE, OR MASS LESION. CANNOT ASSESS FOR ABNORMAL WHITE MATTER SIGNAL DUE TO NONDIAGNOSTIC FLAIR IMAGING FROM [employer]. EVIDENCE OF ACUTE STROKE: NO. Foot X-Ray 05/31/17 00:00 IMPRESSION: 1. No acute or suspicious radiographic abnormality left the left foot. Shoulder X-Ray 06/20/17 00:00 IMPRESSION: NEGATIVE STUDY OF THE RIGHT SHOULDER. NO RADIOGRAPHIC EVIDENCE OF ACUTE INJURY. NO EXPLANATION FOR PAIN. Chest X-Ray 06/26/17 00:00 IMPRESSION: COPD. NO ACUTE RADIOGRAPHIC FINDING IN THE CHEST. Assessment & Plan - Diagnosis (1) Dementia Is this a current diagnosis for this admission?: Yes Plan: Wernicke Korsakoff dementia. Will provide for patient safety. Appreciate discharge planning's assistance in establishing a safe discharge plan ; awaiting bed offer. (2) Anxiety Is this a current diagnosis for this admission?: Yes Plan: Stable. Haldol as needed for anxiety; decreased frequency today as patient appears to be using it only once daily. Continue scheduled BuSpar. Will start Remeron this evening for depression/anxiety. Encourage nonpharmacological prevention such as increased interactions with staff members, ambulating in the hallways, listening to music, and pet therapy. [facility] does visit on Wednesdays and Fridays. (3) Hypotension Qualifiers: Hypotension type: unspecified hypotension type Qualified Code(s): I95.9 - Hypotension, unspecified Is this a current diagnosis for this admission?: Yes Plan: Resolved; likely secondary to adrenal insufficiency and poor p.o. intake. Continue Florinef Encourage p.o. fluid intake. Increase patient's mobility; to ambulate in the hallways three times daily. Will monitor closely for evidence of orthostatic hypotension. Nursing has been asked to do manual blood pressures only. (4) Adrenal insufficiency Is this a current diagnosis for this admission?: Yes Plan: We will continue steroid supplementation. (5) Severe protein-calorie malnutrition Is this a current diagnosis for this admission?: Yes Plan: Weight has increased approximately 14 kg over course of hospitalization. Albumin remains low at 3.3, though is trending upward. Have advanced to a high calorie high protein diet with vitamin supplements. Appreciate RD consultation and recommendation. Starting remeron today for depression/anxiety; may help to stimulate the patient 's appetite. (6) Anemia Is this a current diagnosis for this admission?: Yes Plan: Hemoglobin is stable. No signs of active bleeding at this time. We will continue to monitor. (7) Hypothyroidism Is this a current diagnosis for this admission?: Yes Plan: TSH was elevated on admission (7.99) and he was placed on Synthroid. Repeat labs are much improved; TSH 3.19 and Free T4 0.95 Will continue current dosing. (8) Alcohol dependence Is this a current diagnosis for this admission?: Yes Plan: We will continue thiamine and folic acid supplements. (9) Hypothermia Qualifiers: Encounter type: initial encounter Qualified Code(s): T68.XXXA - Hypothermia , initial encounter Is this a current diagnosis for this admission?: Yes Plan: Secondary to exposure. Resolved. (10) Dehydration Is this a current diagnosis for this admission?: Yes Plan: Resolved. Encourage p.o. fluids. (11) Hyperphosphatemia Is this a current diagnosis for this admission?: Yes Plan: Phosphorus was elevated to 4.6 previously; should be rechecked at next routine lab draw. (12) Encephalopathy Is this a current diagnosis for this admission?: Yes Plan: Resolved; Patient likely has chronic dementia from alcoholism. Ammonia level and RPR were normal. (13) Arthritis Is this a current diagnosis for this admission?: Yes Plan: Ibuprofen as needed. Improved pain w/ Lidoderm patches. (14) Congested nose Is this a current diagnosis for this admission?: Yes Plan: Doing better. Nasal congestion w/ slight left ear fullness. Will trial flonase. - Time Time Spent with patient: 25-34 minutes Anticipated discharge: SNF Within: when bed available
[2017-09-07] MEDS: HALOPERIDOL 2 MG TABLET PO PRN (16:43)
[2017-09-07] MEDS: MUPIROCIN 2% OINTMENT 22 GM TP SCH (16:45)
[2017-09-07] MEDS: MIRTAZAPINE 15 MG TABLET PO SCH (21:00)
[2017-09-08] MEDS: BUSPIRONE HCL 10 MG TABLET PO SCH ×2 (09:27→21:05)
[2017-09-08] MEDS: FLUTICASONE NASAL SPRAY 50 MCG/SPRY 120 SPRAY/16 GM NASL SCH (09:27)
[2017-09-08] MEDS: FLUDROCORTISONE ACETATE 0.1 MG TABLET PO SCH (09:27)
[2017-09-08] MEDS: HALOPERIDOL 2 MG TABLET PO PRN (09:28)
[2017-09-08] MEDS: THIAMINE HCL 100 MG TABLET PO SCH (09:28)
[2017-09-08] MEDS: MULTIVITAMIN TABLET PO SCH (09:28)
[2017-09-08] MEDS: LIDOCAINE 5% (700 MG) TRANSDERMAL ADH..PATCH TP SCH (09:28)
--- NOTE | 2017-09-08 10:51 | PDOC PROGRESS REPORT ---
Subjective Progress Note for:: 09/08/17 Subjective:: This is a 61-year-old man who was admitted on May 29 after he was brought in by police secondary to being found wandering in the streets confused. He was treated for hypothermia secondary to exposure, hypotension felt to be associated with adrenal insufficiency and was found to have severe protein calorie malnutrition and vitamin deficiency. He does have a history of alcoholism and has been diagnosed with Wernicke Korsakoff dementia. The patient is seen on morning rounds. He is sitting upright to the edge of his bed eating breakfast. He states that he is feeling very good today. He denies shoulder pain. He does report that he continues to have some nasal congestion but that his ear discomfort has resolved. He denies fever, chills, chest pain, cough, dyspnea, abdominal pain, nausea vomiting and diarrhea. Awaiting a bed offer. Reason For Visit: HYPOTENSION, HYPOTHERMIA, ENCEPHALOPATHY Physical Exam Vital Signs: Temp Pulse Resp BP Pulse Ox 98.5 F 63 16 115/56 L 97 09/08/17 08:00 09/08/17 08:00 09/08/17 08:00 09/08/17 08:00 09/08/17 08:00 Intake & Output 09/07/17 09/08/17 09/09/17 06:59 06:59 06:59 Intake Total 1334 672 Balance 1334 672 Weight 59.2 kg General appearance: PRESENT: no acute distress, cooperative, thin, well- developed, well-nourished Head exam: PRESENT: atraumatic, normocephalic Eye exam: PRESENT: conjunctiva pink, EOMI, PERRLA. ABSENT: scleral icterus Ear exam: PRESENT: normal external ear exam Mouth exam: PRESENT: moist, tongue midline Neck exam: ABSENT: carotid bruit, JVD, lymphadenopathy, thyromegaly Respiratory exam: PRESENT: clear to auscultation kae, symmetrical, unlabored. ABSENT: rales, rhonchi, wheezes Cardiovascular exam: PRESENT: RRR, +S1, +S2. ABSENT: diastolic murmur, rubs, systolic murmur Pulses: PRESENT: normal dorsalis pedis pul Vascular exam: PRESENT: normal capillary refill GI/Abdominal exam: PRESENT: normal bowel sounds, soft. ABSENT: distended, guarding, mass, organolmegaly, rebound, tenderness Rectal exam: PRESENT: deferred Extremities exam: PRESENT: full ROM. ABSENT: calf tenderness, clubbing, pedal edema Neurological exam: PRESENT: alert, awake, oriented to person, oriented to place , CN II-XII grossly intact. ABSENT: oriented to time, oriented to situation, motor sensory deficit Psychiatric exam: PRESENT: appropriate affect, normal mood. ABSENT: homicidal ideation, suicidal ideation Skin exam: PRESENT: dry, intact, warm. ABSENT: cyanosis, rash Results Laboratory Results: 08/17/17 06:29 08/17/17 06:29 Impressions: Head CT 05/28/17 20:27 IMPRESSION: No acute intracranial findings. EVIDENCE OF ACUTE STROKE: NO. Head MRI 05/29/17 00:00 IMPRESSION: NO ACUTE ISCHEMIA, HEMORRHAGE, OR MASS LESION. CANNOT ASSESS FOR ABNORMAL WHITE MATTER SIGNAL DUE TO NONDIAGNOSTIC FLAIR IMAGING FROM [employer]. EVIDENCE OF ACUTE STROKE: NO. Foot X-Ray 05/31/17 00:00 IMPRESSION: 1. No acute or suspicious radiographic abnormality left the left foot. Shoulder X-Ray 06/20/17 00:00 IMPRESSION: NEGATIVE STUDY OF THE RIGHT SHOULDER. NO RADIOGRAPHIC EVIDENCE OF ACUTE INJURY. NO EXPLANATION FOR PAIN. Chest X-Ray 06/26/17 00:00 IMPRESSION: COPD. NO ACUTE RADIOGRAPHIC FINDING IN THE CHEST. Assessment & Plan - Diagnosis (1) Dementia Is this a current diagnosis for this admission?: Yes Plan: Wernicke Korsakoff dementia. Will provide for patient safety. Appreciate discharge planning's assistance in establishing a safe discharge plan ; awaiting bed offer. (2) Anxiety Is this a current diagnosis for this admission?: Yes Plan: Stable. Haldol as needed for anxiety. Continue scheduled BuSpar. Continue Remeron. Encourage nonpharmacological prevention such as increased interactions with staff members, ambulating in the hallways, listening to music, and pet therapy. The hospital service animal does visit on Wednesdays and Fridays. (3) Hypotension Qualifiers: Hypotension type: unspecified hypotension type Qualified Code(s): I95.9 - Hypotension, unspecified Is this a current diagnosis for this admission?: Yes Plan: Resolved; likely secondary to adrenal insufficiency and poor p.o. intake. Continue Florinef Encourage p.o. fluid intake. Increase patient's mobility; to ambulate in the hallways three times daily. Will monitor closely for evidence of orthostatic hypotension. Nursing has been asked to do manual blood pressures only. (4) Adrenal insufficiency Is this a current diagnosis for this admission?: Yes Plan: We will continue steroid supplementation. (5) Severe protein-calorie malnutrition Is this a current diagnosis for this admission?: Yes Plan: Weight has increased approximately 14 kg over course of hospitalization. Albumin remains low at 3.3, though is trending upward. Have advanced to a high calorie high protein diet with vitamin supplements. Appreciate RD consultation and recommendation. Starting remeron today for depression/anxiety; may help to stimulate the patient 's appetite. (6) Anemia Is this a current diagnosis for this admission?: Yes Plan: Hemoglobin is stable. No signs of active bleeding at this time. We will continue to monitor. (7) Hypothyroidism Is this a current diagnosis for this admission?: Yes Plan: TSH was elevated on admission (7.99) and he was placed on Synthroid. Repeat labs are much improved; TSH 3.19 and Free T4 0.95 Will continue current dosing. (8) Alcohol dependence Is this a current diagnosis for this admission?: Yes Plan: We will continue thiamine and folic acid supplements. (9) Hypothermia Qualifiers: Encounter type: initial encounter Qualified Code(s): T68.XXXA - Hypothermia , initial encounter Is this a current diagnosis for this admission?: Yes Plan: Secondary to exposure. Resolved. (10) Dehydration Is this a current diagnosis for this admission?: Yes Plan: Resolved. Encourage p.o. fluids. (11) Hyperphosphatemia Is this a current diagnosis for this admission?: Yes Plan: Phosphorus was elevated to 4.6 previously; should be rechecked at next routine lab draw. (12) Encephalopathy Is this a current diagnosis for this admission?: Yes Plan: Resolved; Patient likely has chronic dementia from alcoholism. Ammonia level and RPR were normal. (13) Arthritis Is this a current diagnosis for this admission?: Yes Plan: Ibuprofen as needed. Improved pain w/ Lidoderm patches. (14) Congested nose Is this a current diagnosis for this admission?: Yes Plan: Improved. Nasal congestion w/ slight left ear fullness. Will trial flonase. - Time Time Spent with patient: Less than 15 minutes Anticipated discharge: SNF Within: when bed available
[2017-09-08] MEDS: MUPIROCIN 2% OINTMENT 22 GM TP SCH (17:02)
[2017-09-08] MEDS: MIRTAZAPINE 15 MG TABLET PO SCH (21:06)
[2017-09-08] MEDS: PHARMACY COMMUNICATION ORDER MC SCH (23:16)
[2017-09-09] MEDS: LIDOCAINE 5% (700 MG) TRANSDERMAL ADH..PATCH TP SCH (10:15)
[2017-09-09] MEDS: FLUTICASONE NASAL SPRAY 50 MCG/SPRY 120 SPRAY/16 GM NASL SCH (10:24)
[2017-09-09] MEDS: FLUDROCORTISONE ACETATE 0.1 MG TABLET PO SCH (10:24)
[2017-09-09] MEDS: BUSPIRONE HCL 10 MG TABLET PO SCH ×2 (10:24→21:29)
[2017-09-09] MEDS: THIAMINE HCL 100 MG TABLET PO SCH (10:24)
[2017-09-09] MEDS: MULTIVITAMIN TABLET PO SCH (10:24)
[2017-09-09] MEDS: HALOPERIDOL 2 MG TABLET PO PRN (16:10)
[2017-09-09] MEDS: MUPIROCIN 2% OINTMENT 22 GM TP SCH (17:44)
[2017-09-09] MEDS: MIRTAZAPINE 15 MG TABLET PO SCH (21:27)
[2017-09-09] MEDS: PHARMACY COMMUNICATION ORDER MC SCH (21:30)
--- NOTE | 2017-09-10 09:24 | PDOC PROGRESS REPORT ---
Subjective Progress Note for:: 09/09/17 Subjective:: This is a 61-year-old man who was admitted on May 29 after he was brought in by police found wandering the streets. He was treated for hypothermia, hypotension felt to be associated with adrenal insufficiency and was found to have severe protein calorie malnutrition and vitamin deficiency. He does have a history of alcoholism and has been diagnosed with Wernicke-Korsakoff dementia. The patient was seen on morning rounds. He was resting in the room. During conversation, the patient is making eye contact and engaging. He denies pain, dizziness, hallucinations, or visual disturbances. Patient states that his anxiety is well controlled. Awaiting disposition, appreciate case management updates. Reason For Visit: HYPOTENSION, HYPOTHERMIA, ENCEPHALOPATHY Physical Exam Vital Signs: Temp Pulse Resp BP Pulse Ox 98.2 F 62 16 109/61 97 09/09/17 09:29 09/09/17 09:29 09/09/17 09:29 09/09/17 09:29 09/09/17 09:29 Intake & Output 09/08/17 09/09/17 09/10/17 06:59 06:59 06:59 Intake Total 672 1470 Balance 672 1470 General appearance: PRESENT: no acute distress, well-developed, well-nourished Head exam: PRESENT: atraumatic, normocephalic Eye exam: PRESENT: conjunctiva pink, EOMI, PERRLA. ABSENT: scleral icterus Ear exam: PRESENT: normal external ear exam Mouth exam: PRESENT: moist, tongue midline Respiratory exam: PRESENT: clear to auscultation kae. ABSENT: rales, rhonchi, wheezes Cardiovascular exam: PRESENT: RRR. ABSENT: diastolic murmur, rubs, systolic murmur Pulses: PRESENT: normal dorsalis pedis pul GI/Abdominal exam: PRESENT: normal bowel sounds, soft. ABSENT: distended, guarding, mass, organolmegaly, rebound, tenderness Musculoskeletal exam: PRESENT: full ROM Neurological exam: PRESENT: alert, awake Psychiatric exam: PRESENT: appropriate affect Skin exam: PRESENT: abrasion, other - ABRASION ON TIP OF NOSE. SCAB. NO ACTIVE BLEEDING Results Laboratory Results: 08/17/17 06:29 08/17/17 06:29 Impressions: Head CT 05/28/17 20:27 IMPRESSION: No acute intracranial findings. EVIDENCE OF ACUTE STROKE: NO. Head MRI 05/29/17 00:00 IMPRESSION: NO ACUTE ISCHEMIA, HEMORRHAGE, OR MASS LESION. CANNOT ASSESS FOR ABNORMAL WHITE MATTER SIGNAL DUE TO NONDIAGNOSTIC FLAIR IMAGING FROM [employer]. EVIDENCE OF ACUTE STROKE: NO. Foot X-Ray 05/31/17 00:00 IMPRESSION: 1. No acute or suspicious radiographic abnormality left the left foot. Shoulder X-Ray 06/20/17 00:00 IMPRESSION: NEGATIVE STUDY OF THE RIGHT SHOULDER. NO RADIOGRAPHIC EVIDENCE OF ACUTE INJURY. NO EXPLANATION FOR PAIN. Chest X-Ray 06/26/17 00:00 IMPRESSION: COPD. NO ACUTE RADIOGRAPHIC FINDING IN THE CHEST. Status: Imported from PACS Assessment & Plan - Diagnosis (1) Dementia Is this a current diagnosis for this admission?: Yes Plan: Wernicke-Korsakoff dementia. Appreciate discharge planning recommendations for placement. (2) Anxiety Is this a current diagnosis for this admission?: Yes Plan: Controlled. Patient participating in pet therapy. Encourage interaction with staff members, ambulating in hallways, and listening to music. Continue scheduled BuSpar, patient states he feels better after taking the medication. Haldol ordered as needed for severe anxiety and agitation. Patient also started on Remeron for depression in hopes of boosting his appetite (3) Korsakoff's psychosis, alcoholic Is this a current diagnosis for this admission?: Yes Plan: Wernicke-Korsakoff dementia secondary to patient's long history of alcohol abuse. Patient is appropriate and participatory in care. Appreciate case management's assistance in establishing a safe discharge plan. (4) Alcohol abuse Plan: At this time the patient is out of the window for DTs. Continue thiamine and folic acid supplements. (5) Encephalopathy Is this a current diagnosis for this admission?: Yes Plan: Patient likely has chronic dementia from alcoholism. Ammonia level and RPR were normal. Patient is estranged from his family members. APS has been consulted. See Case Management notes for up to date information regarding this matter. (6) Hypotension Qualifiers: Hypotension type: unspecified hypotension type Qualified Code(s): I95.9 - Hypotension, unspecified Is this a current diagnosis for this admission?: Yes Plan: Resolved, likely secondary to adrenal insufficiency and poor oral intake. Continue Florinef. Monitor closely for orthostatic hypotension (7) Homelessness Is this a current diagnosis for this admission?: Yes Plan: Discharge planning and case management are working with APS. See Case Management notes re: up to date information. (8) Adrenal insufficiency Is this a current diagnosis for this admission?: Yes Plan: Resolved, patient is currently NORMOtensive. Continue steroid supplementation (9) Hypothyroidism Qualifiers: Hypothyroidism type: unspecified Qualified Code(s): E03.9 - Hypothyroidism , unspecified Is this a current diagnosis for this admission?: Yes Plan: TSH was elevated (7.99)on admission patient was placed on Synthroid. Repeat labs show improvement, TSH 3.19 and free T4 0.95. (10) Severe protein-calorie malnutrition Is this a current diagnosis for this admission?: Yes Plan: The patient has gained 14 kg over the course of hospitalization. Continue high calorie high protein diet with vitamin supplements. Continue Remeron for depression/anxiety, hoping it will stimulate patient's appetite - Time Time Spent with patient: Less than 15 minutes Medications reviewed and adjusted accordingly: Yes Anticipated discharge: Other - fdc? Within: Other - Inpatient Certification Based on my medical assessment, after consideration of the patient's comorbidities, presenting symptoms, or acuity I expect that the services needed warrant INPATIENT care.: Yes I certify that my determination is in accordance with my understanding of Medicare's requirements for reasonable and necessary INPATIENT services [42 CFR 412.3e].: Yes Medical Necessity: Risk of Complication if Not Cared For in Hospital - Plan Summary Plan Summary: Discharged to appropriate facility
[2017-09-10] MEDS: BUSPIRONE HCL 10 MG TABLET PO SCH ×2 (11:14→21:04)
[2017-09-10] MEDS: MULTIVITAMIN TABLET PO SCH (11:14)
[2017-09-10] MEDS: FLUTICASONE NASAL SPRAY 50 MCG/SPRY 120 SPRAY/16 GM NASL SCH (11:15)
[2017-09-10] MEDS: THIAMINE HCL 100 MG TABLET PO SCH (11:15)
[2017-09-10] MEDS: FLUDROCORTISONE ACETATE 0.1 MG TABLET PO SCH (11:16)
[2017-09-10] MEDS: LIDOCAINE 5% (700 MG) TRANSDERMAL ADH..PATCH TP SCH (11:18)
[2017-09-10] MEDS: MUPIROCIN 2% OINTMENT 22 GM TP SCH (18:04)
[2017-09-10] MEDS: MIRTAZAPINE 15 MG TABLET PO SCH (21:05)
[2017-09-10] MEDS: PHARMACY COMMUNICATION ORDER MC SCH (21:06)
[2017-09-11] MEDS: MULTIVITAMIN TABLET PO SCH (10:32)
[2017-09-11] MEDS: FLUTICASONE NASAL SPRAY 50 MCG/SPRY 120 SPRAY/16 GM NASL SCH (10:32)
[2017-09-11] MEDS: BUSPIRONE HCL 10 MG TABLET PO SCH ×2 (10:32→21:19)
[2017-09-11] MEDS: FLUDROCORTISONE ACETATE 0.1 MG TABLET PO SCH (10:32)
[2017-09-11] MEDS: LIDOCAINE 5% (700 MG) TRANSDERMAL ADH..PATCH TP SCH (10:33)
[2017-09-11] MEDS: THIAMINE HCL 100 MG TABLET PO SCH (10:37)
[2017-09-11] MEDS: HALOPERIDOL 2 MG TABLET PO PRN (15:44)
--- NOTE | 2017-09-11 16:46 | PDOC PROGRESS REPORT ---
Subjective Progress Note for:: 09/11/17 Subjective:: This is a 61-year-old man who was admitted on May 29 after he was brought in by police found wandering the streets. He was treated for hypothermia, hypotension felt to be associated with adrenal insufficiency and was found to have severe protein calorie malnutrition and vitamin deficiency. He does have a history of alcoholism and has been diagnosed with Wernicke-Korsakoff dementia. The patient was seen on morning rounds. He was resting in the room. During conversation, the patient is making eye contact and engaging. He denies pain, dizziness, hallucinations, or visual disturbances. Patient states that his anxiety is well controlled. Awaiting disposition, appreciate case management updates. Reason For Visit: HYPOTENSION, HYPOTHERMIA, ENCEPHALOPATHY Physical Exam Vital Signs: Temp Pulse Resp BP Pulse Ox 98.5 F 57 L 12 100/54 L 92 09/11/17 07:26 09/11/17 07:26 09/11/17 07:26 09/11/17 07:26 09/11/17 07:26 Intake & Output 09/10/17 09/11/17 09/12/17 06:59 06:59 06:59 Intake Total 1500 1302 580 Output Total 400 Balance 1500 1302 180 General appearance: PRESENT: no acute distress, well-developed, well-nourished Head exam: PRESENT: atraumatic, normocephalic Eye exam: PRESENT: conjunctiva pink, EOMI, PERRLA. ABSENT: scleral icterus Ear exam: PRESENT: normal external ear exam Mouth exam: PRESENT: moist, tongue midline Neck exam: ABSENT: carotid bruit, JVD, lymphadenopathy, thyromegaly Respiratory exam: PRESENT: clear to auscultation kae. ABSENT: rales, rhonchi, wheezes Cardiovascular exam: PRESENT: RRR. ABSENT: diastolic murmur, rubs, systolic murmur Pulses: PRESENT: normal dorsalis pedis pul Vascular exam: PRESENT: normal capillary refill GI/Abdominal exam: PRESENT: normal bowel sounds, soft. ABSENT: distended, guarding, mass, organolmegaly, rebound, tenderness Rectal exam: PRESENT: deferred Extremities exam: PRESENT: full ROM. ABSENT: calf tenderness, clubbing, pedal edema Neurological exam: PRESENT: alert, awake, oriented to person, oriented to place , oriented to time, oriented to situation, CN II-XII grossly intact. ABSENT: motor sensory deficit Psychiatric exam: PRESENT: anxious, appropriate affect, normal mood Skin exam: PRESENT: dry, intact, warm. ABSENT: cyanosis, rash Results Laboratory Results: 08/17/17 06:29 08/17/17 06:29 Impressions: Head CT 05/28/17 20:27 IMPRESSION: No acute intracranial findings. EVIDENCE OF ACUTE STROKE: NO. Head MRI 05/29/17 00:00 IMPRESSION: NO ACUTE ISCHEMIA, HEMORRHAGE, OR MASS LESION. CANNOT ASSESS FOR ABNORMAL WHITE MATTER SIGNAL DUE TO NONDIAGNOSTIC FLAIR IMAGING FROM [employer]. EVIDENCE OF ACUTE STROKE: NO. Foot X-Ray 05/31/17 00:00 IMPRESSION: 1. No acute or suspicious radiographic abnormality left the left foot. Shoulder X-Ray 06/20/17 00:00 IMPRESSION: NEGATIVE STUDY OF THE RIGHT SHOULDER. NO RADIOGRAPHIC EVIDENCE OF ACUTE INJURY. NO EXPLANATION FOR PAIN. Chest X-Ray 06/26/17 00:00 IMPRESSION: COPD. NO ACUTE RADIOGRAPHIC FINDING IN THE CHEST. Status: Imported from PACS Assessment & Plan - Diagnosis (1) Dementia Is this a current diagnosis for this admission?: Yes Plan: Wernicke-Korsakoff dementia. Appreciate discharge planning recommendations for placement. (2) Anxiety Is this a current diagnosis for this admission?: Yes Plan: Controlled. Patient participating in pet therapy. Encourage interaction with staff members, ambulating in hallways, and listening to music. Continue scheduled BuSpar, patient states he feels better after taking the medication. Haldol ordered as needed for severe anxiety and agitation. Patient also started on Remeron for depression in hopes of boosting his appetite (3) Korsakoff's psychosis, alcoholic Is this a current diagnosis for this admission?: Yes Plan: Wernicke-Korsakoff dementia secondary to patient's long history of alcohol abuse. Patient is appropriate and participatory in care. Appreciate case management's assistance in establishing a safe discharge plan. (4) Alcohol abuse Plan: At this time the patient is out of the window for DTs. Continue thiamine and folic acid supplements. (5) Encephalopathy Is this a current diagnosis for this admission?: Yes Plan: Patient likely has chronic dementia from alcoholism. Ammonia level and RPR were normal. Patient is estranged from his family members. APS has been consulted. See Case Management notes for up to date information regarding this matter. (6) Hypotension Qualifiers: Hypotension type: unspecified hypotension type Qualified Code(s): I95.9 - Hypotension, unspecified Is this a current diagnosis for this admission?: Yes Plan: Resolved, likely secondary to adrenal insufficiency and poor oral intake. Continue Florinef. Monitor closely for orthostatic hypotension (7) Homelessness Is this a current diagnosis for this admission?: Yes Plan: Discharge planning and case management are working with APS. See Case Management notes re: up to date information. (8) Adrenal insufficiency Is this a current diagnosis for this admission?: Yes Plan: Resolved, patient is currently NORMOtensive. Continue steroid supplementation (9) Hypothyroidism Qualifiers: Hypothyroidism type: unspecified Qualified Code(s): E03.9 - Hypothyroidism , unspecified Is this a current diagnosis for this admission?: Yes Plan: TSH was elevated (7.99)on admission patient was placed on Synthroid. Repeat labs show improvement, TSH 3.19 and free T4 0.95. (10) Severe protein-calorie malnutrition Is this a current diagnosis for this admission?: Yes Plan: The patient has gained 14 kg over the course of hospitalization. Continue high calorie high protein diet with vitamin supplements. Continue Remeron for depression/anxiety, hoping it will stimulate patient's appetite - Time Time Spent with patient: 15-24 minutes Anticipated discharge: Other Within: Other - Inpatient Certification Based on my medical assessment, after consideration of the patient's comorbidities, presenting symptoms, or acuity I expect that the services needed warrant INPATIENT care.: Yes I certify that my determination is in accordance with my understanding of Medicare's requirements for reasonable and necessary INPATIENT services [42 CFR 412.3e].: Yes Medical Necessity: Risk of Complication if Not Cared For in Hospital - Plan Summary Plan Summary: discharge to appropriate facility
[2017-09-11] MEDS: MUPIROCIN 2% OINTMENT 22 GM TP SCH (17:11)
[2017-09-11] MEDS: MIRTAZAPINE 15 MG TABLET PO SCH (21:19)
[2017-09-11] MEDS: PHARMACY COMMUNICATION ORDER MC SCH (21:19)
[2017-09-12] MEDS: BUSPIRONE HCL 10 MG TABLET PO SCH ×2 (09:31→22:04)
[2017-09-12] MEDS: FLUDROCORTISONE ACETATE 0.1 MG TABLET PO SCH (09:31)
[2017-09-12] MEDS: FLUTICASONE NASAL SPRAY 50 MCG/SPRY 120 SPRAY/16 GM NASL SCH (09:31)
[2017-09-12] MEDS: MULTIVITAMIN TABLET PO SCH (09:31)
[2017-09-12] MEDS: THIAMINE HCL 100 MG TABLET PO SCH (09:31)
[2017-09-12] MEDS: LIDOCAINE 5% (700 MG) TRANSDERMAL ADH..PATCH TP SCH (09:33)
--- NOTE | 2017-09-12 17:09 | PDOC PROGRESS REPORT ---
Subjective Progress Note for:: 09/12/17 Subjective:: This is a 61-year-old man who was admitted on May 29 after he was brought in by police found wandering the streets. He was treated for hypothermia, hypotension felt to be associated with adrenal insufficiency and was found to have severe protein calorie malnutrition and vitamin deficiency. He does have a history of alcoholism and has been diagnosed with Wernicke-Korsakoff dementia. The patient was seen on morning rounds. He was resting in the room. During conversation, the patient is making eye contact and engaging. He denies pain, dizziness, hallucinations, or visual disturbances. Patient states that his anxiety is well controlled. Awaiting disposition, appreciate case management updates. Reason For Visit: HYPOTENSION, HYPOTHERMIA, ENCEPHALOPATHY Physical Exam Vital Signs: Temp Pulse Resp BP Pulse Ox 97.5 F 63 14 113/53 L 96 09/11/17 19:43 09/11/17 19:43 09/11/17 19:43 09/11/17 19:43 09/11/17 19:43 Intake & Output 09/11/17 09/12/17 09/13/17 06:59 06:59 06:59 Intake Total 1302 1982 Output Total 500 Balance 1302 1482 Weight 59.2 kg General appearance: PRESENT: no acute distress, well-developed, well-nourished Head exam: PRESENT: atraumatic, normocephalic Eye exam: PRESENT: conjunctiva pink, EOMI, PERRLA. ABSENT: scleral icterus Ear exam: PRESENT: normal external ear exam Mouth exam: PRESENT: moist, tongue midline Neck exam: ABSENT: carotid bruit, JVD, lymphadenopathy, thyromegaly Respiratory exam: PRESENT: clear to auscultation kae. ABSENT: rales, rhonchi, wheezes Cardiovascular exam: PRESENT: RRR. ABSENT: diastolic murmur, rubs, systolic murmur Pulses: PRESENT: normal dorsalis pedis pul Vascular exam: PRESENT: normal capillary refill GI/Abdominal exam: PRESENT: normal bowel sounds, soft. ABSENT: distended, guarding, mass, organolmegaly, rebound, tenderness Rectal exam: PRESENT: deferred Extremities exam: PRESENT: full ROM. ABSENT: calf tenderness, clubbing, pedal edema Neurological exam: PRESENT: alert, awake, oriented to person, oriented to place , oriented to time, oriented to situation, CN II-XII grossly intact. ABSENT: motor sensory deficit Psychiatric exam: PRESENT: appropriate affect, normal mood. ABSENT: homicidal ideation, suicidal ideation Skin exam: PRESENT: dry, intact, warm. ABSENT: cyanosis, rash Results Laboratory Results: 08/17/17 06:29 08/17/17 06:29 Impressions: Head CT 05/28/17 20:27 IMPRESSION: No acute intracranial findings. EVIDENCE OF ACUTE STROKE: NO. Head MRI 05/29/17 00:00 IMPRESSION: NO ACUTE ISCHEMIA, HEMORRHAGE, OR MASS LESION. CANNOT ASSESS FOR ABNORMAL WHITE MATTER SIGNAL DUE TO NONDIAGNOSTIC FLAIR IMAGING FROM [employer]. EVIDENCE OF ACUTE STROKE: NO. Foot X-Ray 05/31/17 00:00 IMPRESSION: 1. No acute or suspicious radiographic abnormality left the left foot. Shoulder X-Ray 06/20/17 00:00 IMPRESSION: NEGATIVE STUDY OF THE RIGHT SHOULDER. NO RADIOGRAPHIC EVIDENCE OF ACUTE INJURY. NO EXPLANATION FOR PAIN. Chest X-Ray 06/26/17 00:00 IMPRESSION: COPD. NO ACUTE RADIOGRAPHIC FINDING IN THE CHEST. Status: Imported from PACS Assessment & Plan - Diagnosis (1) Dementia Qualifiers: Dementia type: associated with alcoholism Dementia behavioral disturbance: without behavioral disturbance Qualified Code(s): F10.97 - Alcohol use, unspecified with alcohol-induced persisting dementia Is this a current diagnosis for this admission?: Yes Plan: Wernicke-Korsakoff dementia. The patient has some short-term memory impairment , however, he is easily redirected. He is always appropriate and cooperative with staff. This patient is very mild mannered and soft-spoken. He is not aggressive. He does not wander. The patient's room is very close to a stairwell, and the patient has never attempted to elope. the patient does enjoy ambulating in the hallway but only when under the direction of supportive staff. The patient has been in the hospital for more than 100 days with minimal physical activity. It is my assessment that this patient lacks the strength and stamina to be considered a safety risk. This patient is not an elopement risk. Appreciate discharge planning recommendations for placement. (2) Anxiety Is this a current diagnosis for this admission?: Yes Plan: Controlled. Patient participating in pet therapy. Encourage interaction with staff members, ambulating in hallways, and listening to music. The patient has even asked to help clean the nurses station just to pass time. Continue scheduled BuSpar, patient states he feels better after taking the medication. Haldol ordered as needed for severe anxiety and agitation, although in the 3 weeks that I have known him, he has never showed signs of aggression. Patient also started on Remeron for depression in hopes of boosting his appetite (3) Korsakoff's psychosis, alcoholic Is this a current diagnosis for this admission?: Yes Plan: Wernicke-Korsakoff dementia secondary to patient's long history of alcohol abuse. Patient is appropriate and participatory in care. He enjoys socializing with staff and sitting at the nurses station playing cards. Twice a week pet therapy comes by and he gets to spend time with Taylor the pineda retriever. The patient is very mild mannered and follows all commands. He is not an elopement risk. Most days he stays in his room watching TV or reading the newspaper. When he is in his room he likes the door to be open so he can watch the people going by, that being said, the patient does not wander out of his room. He only comes out of his room when participating in physical activity with supportive staff. Appreciate case management's assistance in establishing a safe discharge plan. (4) Alcohol abuse Plan: At this time the patient is out of the window for DTs. Continue thiamine and folic acid supplements. (5) Encephalopathy Is this a current diagnosis for this admission?: Yes Plan: Patient likely has chronic dementia from alcoholism. Ammonia level and RPR were normal. The patient is not confused, only intermittently forgetful. He enjoys socializing with staff and sitting at the nurses station playing cards. Unless he is asked to come out of his room, will stay in his room all day. His typical day is spent watching TV or reading the newspaper. He has a healthy diet and eats all 3 meals every day. Patient is estranged from his family members. APS has been consulted. See Case Management notes for up to date information regarding this matter. (6) Hypotension Qualifiers: Hypotension type: unspecified hypotension type Qualified Code(s): I95.9 - Hypotension, unspecified Is this a current diagnosis for this admission?: Yes Plan: Resolved, likely secondary to adrenal insufficiency and poor oral intake. Continue Florinef. Monitor closely for orthostatic hypotension (7) Homelessness Is this a current diagnosis for this admission?: Yes Plan: Discharge planning and case management are working with APS. See Case Management notes re: up to date information. (8) Adrenal insufficiency Is this a current diagnosis for this admission?: Yes Plan: Resolved, patient is currently NORMOtensive. Continue steroid supplementation (9) Hypothyroidism Qualifiers: Hypothyroidism type: unspecified Qualified Code(s): E03.9 - Hypothyroidism , unspecified Is this a current diagnosis for this admission?: Yes Plan: TSH was elevated (7.99)on admission patient was placed on Synthroid. Repeat labs show improvement, TSH 3.19 and free T4 0.95. (10) Severe protein-calorie malnutrition Is this a current diagnosis for this admission?: Yes Plan: The patient has gained 14 kg over the course of hospitalization. Continue high calorie high protein diet with vitamin supplements. Continue Remeron for depression/anxiety, hoping it will stimulate patient's appetite - Time Time Spent with patient: 15-24 minutes Medications reviewed and adjusted accordingly: Yes Anticipated discharge: Other - Inpatient Certification Based on my medical assessment, after consideration of the patient's comorbidities, presenting symptoms, or acuity I expect that the services needed warrant INPATIENT care.: Yes I certify that my determination is in accordance with my understanding of Medicare's requirements for reasonable and necessary INPATIENT services [42 CFR 412.3e].: Yes Medical Necessity: Risk of Complication if Not Cared For in Hospital - Plan Summary Plan Summary: Discharge to appropriate facility
[2017-09-12] MEDS: MUPIROCIN 2% OINTMENT 22 GM TP SCH (18:50)
[2017-09-12] MEDS: PHARMACY COMMUNICATION ORDER MC SCH (22:00)
[2017-09-12] MEDS: MIRTAZAPINE 15 MG TABLET PO SCH (22:03)
[2017-09-13] MEDS: BUSPIRONE HCL 10 MG TABLET PO SCH ×2 (09:51→21:43)
[2017-09-13] MEDS: FLUTICASONE NASAL SPRAY 50 MCG/SPRY 120 SPRAY/16 GM NASL SCH (09:51)
[2017-09-13] MEDS: FLUDROCORTISONE ACETATE 0.1 MG TABLET PO SCH (09:51)
[2017-09-13] MEDS: THIAMINE HCL 100 MG TABLET PO SCH (09:52)
[2017-09-13] MEDS: MULTIVITAMIN TABLET PO SCH (09:52)
[2017-09-13] MEDS: LIDOCAINE 5% (700 MG) TRANSDERMAL ADH..PATCH TP SCH (09:52)
--- NOTE | 2017-09-13 11:22 | PDOC PROGRESS REPORT ---
Subjective Progress Note for:: 09/13/17 Subjective:: This is a 61-year-old man who was admitted on May 29 after he was brought in by police found wandering the streets. He was treated for hypothermia, hypotension felt to be associated with adrenal insufficiency and was found to have severe protein calorie malnutrition and vitamin deficiency. He does have a history of alcoholism and has been diagnosed with Wernicke-Korsakoff dementia. The patient was seen on morning rounds. He was resting in the room. During conversation, the patient is making eye contact and engaging. He denies pain, dizziness, hallucinations, or visual disturbances. Patient states that his anxiety is well controlled. Awaiting disposition, appreciate case management updates. Reason For Visit: HYPOTENSION, HYPOTHERMIA, ENCEPHALOPATHY Physical Exam Vital Signs: Temp Pulse Resp BP Pulse Ox 98.8 F 66 14 114/58 L 97 09/13/17 07:55 09/13/17 07:55 09/13/17 07:55 09/13/17 07:55 09/13/17 07:55 Intake & Output 09/12/17 09/13/17 09/14/17 06:59 06:59 06:59 Intake Total 1982 1312 Output Total 500 Balance 1482 1312 Weight 59.2 kg 97.6 kg General appearance: PRESENT: no acute distress, well-developed, well-nourished Head exam: PRESENT: atraumatic, normocephalic Eye exam: PRESENT: conjunctiva pink, EOMI, PERRLA. ABSENT: scleral icterus Ear exam: PRESENT: normal external ear exam Mouth exam: PRESENT: moist Neck exam: ABSENT: carotid bruit, JVD, lymphadenopathy Respiratory exam: PRESENT: clear to auscultation kae. ABSENT: rales, rhonchi, wheezes Cardiovascular exam: PRESENT: RRR. ABSENT: diastolic murmur, rubs, systolic murmur Pulses: PRESENT: normal dorsalis pedis pul Vascular exam: PRESENT: normal capillary refill GI/Abdominal exam: PRESENT: normal bowel sounds, soft. ABSENT: distended, guarding, mass, organolmegaly, rebound, tenderness Rectal exam: PRESENT: deferred Extremities exam: PRESENT: full ROM. ABSENT: calf tenderness, clubbing, pedal edema Neurological exam: PRESENT: alert, awake, oriented to person, oriented to place , oriented to time, oriented to situation. ABSENT: motor sensory deficit Psychiatric exam: PRESENT: appropriate affect, normal mood. ABSENT: homicidal ideation, suicidal ideation Skin exam: PRESENT: dry, intact, warm. ABSENT: cyanosis, rash Results Laboratory Results: 08/17/17 06:29 08/17/17 06:29 Impressions: Head CT 05/28/17 20:27 IMPRESSION: No acute intracranial findings. EVIDENCE OF ACUTE STROKE: NO. Head MRI 05/29/17 00:00 IMPRESSION: NO ACUTE ISCHEMIA, HEMORRHAGE, OR MASS LESION. CANNOT ASSESS FOR ABNORMAL WHITE MATTER SIGNAL DUE TO NONDIAGNOSTIC FLAIR IMAGING FROM [facility]. EVIDENCE OF ACUTE STROKE: NO. Foot X-Ray 05/31/17 00:00 IMPRESSION: 1. No acute or suspicious radiographic abnormality left the left foot. Shoulder X-Ray 06/20/17 00:00 IMPRESSION: NEGATIVE STUDY OF THE RIGHT SHOULDER. NO RADIOGRAPHIC EVIDENCE OF ACUTE INJURY. NO EXPLANATION FOR PAIN. Chest X-Ray 06/26/17 00:00 IMPRESSION: COPD. NO ACUTE RADIOGRAPHIC FINDING IN THE CHEST. Status: Imported from PACS Assessment & Plan - Diagnosis (1) Dementia Qualifiers: Dementia type: associated with alcoholism Dementia behavioral disturbance: without behavioral disturbance Qualified Code(s): F10.97 - Alcohol use, unspecified with alcohol-induced persisting dementia Is this a current diagnosis for this admission?: Yes Plan: Wernicke-Korsakoff dementia. The patient has some short-term memory impairment , however, he is easily redirected. He is always appropriate and cooperative with staff. This patient is very mild mannered and soft-spoken. He is not aggressive. He does not wander. The patient's room is very close to a stairwell, and the patient has never attempted to elope. the patient does enjoy ambulating in the hallway but only when under the direction of supportive staff. The patient has been in the hospital for more than 100 days with minimal physical activity. It is my assessment that this patient lacks the strength and stamina to be considered a safety risk. This patient is not an elopement risk. Appreciate discharge planning recommendations for placement. (2) Anxiety Is this a current diagnosis for this admission?: Yes Plan: Controlled. Patient participating in pet therapy. Encourage interaction with staff members, ambulating in hallways, and listening to music. The patient has even asked to help clean the nurses station just to pass time. Continue scheduled BuSpar, patient states he feels better after taking the medication. Haldol ordered as needed for severe anxiety and agitation, although in the 3 weeks that I have known him, he has never showed signs of aggression. Patient also started on Remeron for depression in hopes of boosting his appetite (3) Korsakoff's psychosis, alcoholic Is this a current diagnosis for this admission?: Yes Plan: Wernicke-Korsakoff dementia secondary to patient's long history of alcohol abuse. Patient is appropriate and participatory in care. He enjoys socializing with staff and sitting at the nurses station playing cards. Twice a week pet therapy comes by and he gets to spend time with Taylor the pineda retriever. The patient is very mild mannered and follows all commands. He is not an elopement risk. Most days he stays in his room watching TV or reading the newspaper. When he is in his room he likes the door to be open so he can watch the people going by, that being said, the patient does not wander out of his room. He only comes out of his room when participating in physical activity with supportive staff. Appreciate case management's assistance in establishing a safe discharge plan. (4) Alcohol abuse Plan: At this time the patient is out of the window for DTs. Continue thiamine and folic acid supplements. (5) Encephalopathy Is this a current diagnosis for this admission?: Yes Plan: Patient likely has chronic dementia from alcoholism. Ammonia level and RPR were normal. The patient is not confused, only intermittently forgetful. He enjoys socializing with staff and sitting at the nurses station playing cards. Unless he is asked to come out of his room, will stay in his room all day. His typical day is spent watching TV or reading the newspaper. He has a healthy diet and eats all 3 meals every day. Patient is estranged from his family members. APS has been consulted. See Case Management notes for up to date information regarding this matter. (6) Hypotension Qualifiers: Hypotension type: unspecified hypotension type Qualified Code(s): I95.9 - Hypotension, unspecified Is this a current diagnosis for this admission?: Yes Plan: Resolved, likely secondary to adrenal insufficiency and poor oral intake. Continue Florinef. Monitor closely for orthostatic hypotension (7) Homelessness Is this a current diagnosis for this admission?: Yes Plan: Discharge planning and case management are working with APS. See Case Management notes re: up to date information. (8) Adrenal insufficiency Is this a current diagnosis for this admission?: Yes Plan: Resolved, patient is currently NORMOtensive. Continue steroid supplementation (9) Hypothyroidism Qualifiers: Hypothyroidism type: unspecified Qualified Code(s): E03.9 - Hypothyroidism , unspecified Is this a current diagnosis for this admission?: Yes Plan: TSH was elevated (7.99)on admission patient was placed on Synthroid. Repeat labs show improvement, TSH 3.19 and free T4 0.95. (10) Severe protein-calorie malnutrition Is this a current diagnosis for this admission?: Yes Plan: The patient has gained 14 kg over the course of hospitalization. Continue high calorie high protein diet with vitamin supplements. Continue Remeron for depression/anxiety, hoping it will stimulate patient's appetite - Time Time Spent with patient: 15-24 minutes Medications reviewed and adjusted accordingly: Yes Anticipated discharge: Home - Inpatient Certification Based on my medical assessment, after consideration of the patient's comorbidities, presenting symptoms, or acuity I expect that the services needed warrant INPATIENT care.: Yes I certify that my determination is in accordance with my understanding of Medicare's requirements for reasonable and necessary INPATIENT services [42 CFR 412.3e].: Yes Medical Necessity: Risk of Complication if Not Cared For in Hospital - Plan Summary Plan Summary: Ultimately, the plan is to discharge to an appropriate facility
[2017-09-13] MEDS: MUPIROCIN 2% OINTMENT 22 GM TP SCH (17:22)
[2017-09-13] MEDS: MIRTAZAPINE 15 MG TABLET PO SCH (21:43)
[2017-09-13] MEDS: PHARMACY COMMUNICATION ORDER MC SCH (22:00)
[2017-09-13] MEDS: HALOPERIDOL 2 MG TABLET PO PRN (23:25)
[2017-09-14] MEDS: MULTIVITAMIN TABLET PO SCH (10:11)
[2017-09-14] MEDS: BUSPIRONE HCL 10 MG TABLET PO SCH ×2 (10:11→21:30)
[2017-09-14] MEDS: FLUDROCORTISONE ACETATE 0.1 MG TABLET PO SCH (10:11)
[2017-09-14] MEDS: THIAMINE HCL 100 MG TABLET PO SCH (10:12)
[2017-09-14] MEDS: FLUTICASONE NASAL SPRAY 50 MCG/SPRY 120 SPRAY/16 GM NASL SCH (10:12)
[2017-09-14] MEDS: LIDOCAINE 5% (700 MG) TRANSDERMAL ADH..PATCH TP SCH (10:12)
--- NOTE | 2017-09-14 14:22 | PDOC PROGRESS REPORT ---
Subjective Progress Note for:: 09/14/17 Subjective:: This is a 61-year-old man who was admitted on May 29 after he was brought in by police found wandering the streets. He was treated for hypothermia, hypotension felt to be associated with adrenal insufficiency and was found to have severe protein calorie malnutrition and vitamin deficiency. He does have a history of alcoholism and has been diagnosed with Wernicke-Korsakoff dementia. The patient was seen on morning rounds. He was resting in the room. The patient had no complaints, stated he was ready for breakfast. States his anxiety is well controlled with the current medication regimen. Awaiting disposition, appreciate case management updates. Reason For Visit: HYPOTENSION, HYPOTHERMIA, ENCEPHALOPATHY Physical Exam Vital Signs: Temp Pulse Resp BP Pulse Ox 98.8 F 64 16 118/60 96 09/14/17 11:41 09/14/17 11:41 09/14/17 11:41 09/14/17 11:41 09/14/17 11:41 Intake & Output 09/13/17 09/14/17 09/15/17 06:59 06:59 06:59 Intake Total 1312 1076 600 Balance 1312 1076 600 Weight 97.6 kg 58.4 kg General appearance: PRESENT: no acute distress, well-developed, well-nourished Head exam: PRESENT: atraumatic, normocephalic Eye exam: PRESENT: conjunctiva pink, EOMI, PERRLA. ABSENT: scleral icterus Ear exam: PRESENT: normal external ear exam Mouth exam: PRESENT: moist, tongue midline Neck exam: ABSENT: carotid bruit, JVD, lymphadenopathy, thyromegaly Respiratory exam: PRESENT: clear to auscultation kae. ABSENT: rales, rhonchi, wheezes Cardiovascular exam: PRESENT: RRR. ABSENT: diastolic murmur, rubs, systolic murmur Pulses: PRESENT: normal dorsalis pedis pul Vascular exam: PRESENT: normal capillary refill GI/Abdominal exam: PRESENT: normal bowel sounds, soft. ABSENT: distended, guarding, mass, organolmegaly, rebound, tenderness Rectal exam: PRESENT: deferred Extremities exam: PRESENT: full ROM. ABSENT: calf tenderness, clubbing, pedal edema Neurological exam: PRESENT: alert, awake, oriented to person, oriented to place , oriented to time, oriented to situation, CN II-XII grossly intact. ABSENT: motor sensory deficit Psychiatric exam: PRESENT: appropriate affect, normal mood. ABSENT: homicidal ideation, suicidal ideation Skin exam: PRESENT: dry, intact, warm. ABSENT: cyanosis, rash Results Laboratory Results: 08/17/17 06:29 08/17/17 06:29 Impressions: Head CT 05/28/17 20:27 IMPRESSION: No acute intracranial findings. EVIDENCE OF ACUTE STROKE: NO. Head MRI 05/29/17 00:00 IMPRESSION: NO ACUTE ISCHEMIA, HEMORRHAGE, OR MASS LESION. CANNOT ASSESS FOR ABNORMAL WHITE MATTER SIGNAL DUE TO NONDIAGNOSTIC FLAIR IMAGING FROM [facility]. EVIDENCE OF ACUTE STROKE: NO. Foot X-Ray 05/31/17 00:00 IMPRESSION: 1. No acute or suspicious radiographic abnormality left the left foot. Shoulder X-Ray 06/20/17 00:00 IMPRESSION: NEGATIVE STUDY OF THE RIGHT SHOULDER. NO RADIOGRAPHIC EVIDENCE OF ACUTE INJURY. NO EXPLANATION FOR PAIN. Chest X-Ray 06/26/17 00:00 IMPRESSION: COPD. NO ACUTE RADIOGRAPHIC FINDING IN THE CHEST. Status: Imported from PACS Assessment & Plan - Diagnosis (1) Dementia Qualifiers: Dementia type: associated with alcoholism Dementia behavioral disturbance: without behavioral disturbance Qualified Code(s): F10.97 - Alcohol use, unspecified with alcohol-induced persisting dementia Is this a current diagnosis for this admission?: Yes Plan: Wernicke-Korsakoff dementia. The patient has some short-term memory impairment , however, he is easily redirected. He is always appropriate and cooperative with staff. This patient is very mild mannered and soft-spoken. He is not aggressive. He does not wander. The patient's room is very close to a stairwell, and the patient has never attempted to elope. the patient does enjoy ambulating in the hallway but only when under the direction of supportive staff. The patient has been in the hospital for more than 100 days with minimal physical activity. It is my assessment that this patient lacks the strength and stamina to be considered a safety risk. This patient is not an elopement risk. Appreciate discharge planning recommendations for placement. (2) Anxiety Is this a current diagnosis for this admission?: Yes Plan: Controlled. Patient participating in pet therapy. Encourage interaction with staff members, ambulating in hallways, and listening to music. The patient has even asked to help clean the nurses station just to pass time. Continue scheduled BuSpar, patient states he feels better after taking the medication. Haldol ordered as needed for severe anxiety and agitation, although in the 3 weeks that I have known him, he has never showed signs of aggression. Patient also started on Remeron for depression in hopes of boosting his appetite (3) Korsakoff's psychosis, alcoholic Is this a current diagnosis for this admission?: Yes Plan: Wernicke-Korsakoff dementia secondary to patient's long history of alcohol abuse. Patient is appropriate and participatory in care. He enjoys socializing with staff and sitting at the nurses station playing cards. Twice a week pet therapy comes by and he gets to spend time with Taylor the pineda retriever. The patient is very mild mannered and follows all commands. He is not an elopement risk. Most days he stays in his room watching TV or reading the newspaper. When he is in his room he likes the door to be open so he can watch the people going by, that being said, the patient does not wander out of his room. He only comes out of his room when participating in physical activity with supportive staff. Appreciate case management's assistance in establishing a safe discharge plan. (4) Alcohol abuse Plan: At this time the patient is out of the window for DTs. Continue thiamine and folic acid supplements. (5) Encephalopathy Is this a current diagnosis for this admission?: Yes Plan: Patient likely has chronic dementia from alcoholism. Ammonia level and RPR were normal. The patient is not confused, only intermittently forgetful. He enjoys socializing with staff and sitting at the nurses station playing cards. Unless he is asked to come out of his room, will stay in his room all day. His typical day is spent watching TV or reading the newspaper. He has a healthy diet and eats all 3 meals every day. Patient is estranged from his family members. APS has been consulted. See Case Management notes for up to date information regarding this matter. (6) Hypotension Qualifiers: Hypotension type: unspecified hypotension type Qualified Code(s): I95.9 - Hypotension, unspecified Is this a current diagnosis for this admission?: Yes Plan: Resolved, likely secondary to adrenal insufficiency and poor oral intake. Continue Florinef. Monitor closely for orthostatic hypotension (7) Homelessness Is this a current diagnosis for this admission?: Yes Plan: Discharge planning and case management are working with APS. See Case Management notes re: up to date information. (8) Adrenal insufficiency Is this a current diagnosis for this admission?: Yes Plan: Resolved, patient is currently NORMOtensive. Continue steroid supplementation (9) Hypothyroidism Qualifiers: Hypothyroidism type: unspecified Qualified Code(s): E03.9 - Hypothyroidism , unspecified Is this a current diagnosis for this admission?: Yes Plan: TSH was elevated (7.99)on admission patient was placed on Synthroid. Repeat labs show improvement, TSH 3.19 and free T4 0.95. (10) Severe protein-calorie malnutrition Is this a current diagnosis for this admission?: Yes Plan: The patient has gained 14 kg over the course of hospitalization. Continue high calorie high protein diet with vitamin supplements. Continue Remeron for depression/anxiety, hoping it will stimulate patient's appetite - Time Time Spent with patient: 15-24 minutes Medications reviewed and adjusted accordingly: Yes Anticipated discharge: Other - Inpatient Certification Based on my medical assessment, after consideration of the patient's comorbidities, presenting symptoms, or acuity I expect that the services needed warrant INPATIENT care.: Yes I certify that my determination is in accordance with my understanding of Medicare's requirements for reasonable and necessary INPATIENT services [42 CFR 412.3e].: Yes Medical Necessity: Risk of Complication if Not Cared For in Hospital - Plan Summary Plan Summary: Discharged to appropriate group/psych facility
[2017-09-14] MEDS ORDERED: IBUPROFEN 800 MG TABLET PO PRN (17:24)
[2017-09-14] MEDS ORDERED: IBUPROFEN 800 MG TABLET ONE (17:27)
[2017-09-14] MEDS: MUPIROCIN 2% OINTMENT 22 GM TP SCH (17:29)
[2017-09-14] MEDS: MIRTAZAPINE 15 MG TABLET PO SCH (21:30)
[2017-09-14] MEDS: PHARMACY COMMUNICATION ORDER MC SCH (21:30)
[2017-09-14] MEDS: HALOPERIDOL 2 MG TABLET PO PRN (22:57)
[2017-09-15] MEDS: LIDOCAINE 5% (700 MG) TRANSDERMAL ADH..PATCH TP SCH (10:23)
[2017-09-15] MEDS: FLUTICASONE NASAL SPRAY 50 MCG/SPRY 120 SPRAY/16 GM NASL SCH (10:23)
[2017-09-15] MEDS: THIAMINE HCL 100 MG TABLET PO SCH (10:23)
[2017-09-15] MEDS: MULTIVITAMIN TABLET PO SCH (10:23)
[2017-09-15] MEDS: BUSPIRONE HCL 10 MG TABLET PO SCH ×2 (10:23→22:03)
[2017-09-15] MEDS: FLUDROCORTISONE ACETATE 0.1 MG TABLET PO SCH (10:23)
--- NOTE | 2017-09-15 14:55 | PDOC PROGRESS REPORT ---
Subjective Progress Note for:: 09/15/17 Subjective:: This is a 61-year-old man who was admitted on May 29 after he was brought in by police found wandering the streets. He was treated for hypothermia, hypotension felt to be associated with adrenal insufficiency and was found to have severe protein calorie malnutrition and vitamin deficiency. He does have a history of alcoholism and has been diagnosed with Wernicke-Korsakoff dementia. The patient was seen on morning rounds. He was resting in the room. The patient had no complaints. States his anxiety is well controlled with the current medication regimen. During this hospitalization the patient qualified for Medicaid. Attempts were made to get patient into facility in [facility], but found out today that they denied him (unclear reasoning). Case management is currently working to find placement. Reason For Visit: HYPOTENSION, HYPOTHERMIA, ENCEPHALOPATHY Physical Exam Vital Signs: Temp Pulse Resp BP Pulse Ox 98.1 F 59 L 16 109/45 L 97 09/14/17 23:38 09/14/17 23:38 09/14/17 23:38 09/14/17 23:38 09/14/17 23:38 Intake & Output 09/14/17 09/15/17 09/16/17 06:59 06:59 06:59 Intake Total 1076 1431 458 Balance 1076 1431 458 Weight 58.4 kg 59.2 kg General appearance: PRESENT: no acute distress, well-developed, well-nourished Head exam: PRESENT: atraumatic, normocephalic Eye exam: PRESENT: conjunctiva pink, EOMI, PERRLA. ABSENT: scleral icterus Ear exam: PRESENT: normal external ear exam Mouth exam: PRESENT: moist, tongue midline Neck exam: ABSENT: carotid bruit, JVD, lymphadenopathy, thyromegaly Respiratory exam: PRESENT: clear to auscultation kae. ABSENT: rales, rhonchi, wheezes Cardiovascular exam: PRESENT: RRR. ABSENT: diastolic murmur, rubs, systolic murmur Pulses: PRESENT: normal dorsalis pedis pul Vascular exam: PRESENT: normal capillary refill GI/Abdominal exam: PRESENT: normal bowel sounds, soft. ABSENT: distended, guarding, mass, organolmegaly, rebound, tenderness Rectal exam: PRESENT: deferred Extremities exam: PRESENT: full ROM. ABSENT: calf tenderness, clubbing, pedal edema Neurological exam: PRESENT: alert, awake, oriented to person, oriented to place , oriented to time, oriented to situation, CN II-XII grossly intact. ABSENT: motor sensory deficit Psychiatric exam: PRESENT: appropriate affect, normal mood. ABSENT: homicidal ideation, suicidal ideation Skin exam: PRESENT: dry, intact, warm. ABSENT: cyanosis, rash Results Laboratory Results: 08/17/17 06:29 08/17/17 06:29 Impressions: Head CT 05/28/17 20:27 IMPRESSION: No acute intracranial findings. EVIDENCE OF ACUTE STROKE: NO. Head MRI 05/29/17 00:00 IMPRESSION: NO ACUTE ISCHEMIA, HEMORRHAGE, OR MASS LESION. CANNOT ASSESS FOR ABNORMAL WHITE MATTER SIGNAL DUE TO NONDIAGNOSTIC FLAIR IMAGING FROM ARTIFACT. EVIDENCE OF ACUTE STROKE: NO. Foot X-Ray 05/31/17 00:00 IMPRESSION: 1. No acute or suspicious radiographic abnormality left the left foot. Shoulder X-Ray 06/20/17 00:00 IMPRESSION: NEGATIVE STUDY OF THE RIGHT SHOULDER. NO RADIOGRAPHIC EVIDENCE OF ACUTE INJURY. NO EXPLANATION FOR PAIN. Chest X-Ray 06/26/17 00:00 IMPRESSION: COPD. NO ACUTE RADIOGRAPHIC FINDING IN THE CHEST. Status: Imported from PACS Assessment & Plan - Diagnosis (1) Dementia Qualifiers: Dementia type: associated with alcoholism Dementia behavioral disturbance: without behavioral disturbance Qualified Code(s): F10.97 - Alcohol use, unspecified with alcohol-induced persisting dementia Is this a current diagnosis for this admission?: Yes Plan: Wernicke-Korsakoff dementia. The patient has some short-term memory impairment , however, he is easily redirected. He is always appropriate and cooperative with staff. This patient is very mild mannered and soft-spoken. He is not aggressive. He does not wander. The patient's room is very close to a stairwell, and the patient has never attempted to elope. the patient does enjoy ambulating in the hallway but only when under the direction of supportive staff. The patient has been in the hospital for more than 100 days with minimal physical activity. It is my assessment that this patient lacks the strength and stamina to be considered a safety risk. This patient is not an elopement risk. Appreciate discharge planning recommendations for placement. (2) Anxiety Is this a current diagnosis for this admission?: Yes Plan: Controlled. Patient participating in pet therapy. Encourage interaction with staff members, ambulating in hallways, and listening to music. The patient has even asked to help clean the nurses station just to pass time. Continue scheduled BuSpar, patient states he feels better after taking the medication. Haldol ordered as needed for severe anxiety and agitation, although in the 3 weeks that I have known him, he has never showed signs of aggression. Patient also started on Remeron for depression in hopes of boosting his appetite (3) Korsakoff's psychosis, alcoholic Is this a current diagnosis for this admission?: Yes Plan: Wernicke-Korsakoff dementia secondary to patient's long history of alcohol abuse. Patient is appropriate and participatory in care. He enjoys socializing with staff and sitting at the nurses station playing cards. Twice a week pet therapy comes by and he gets to spend time with Taylor the pineda retriever. The patient is very mild mannered and follows all commands. He is not an elopement risk. Most days he stays in his room watching TV or reading the newspaper. When he is in his room he likes the door to be open so he can watch the people going by, that being said, the patient does not wander out of his room. He only comes out of his room when participating in physical activity with supportive staff. Appreciate case management's assistance in establishing a safe discharge plan. (4) Alcohol abuse Plan: At this time the patient is out of the window for DTs. Continue thiamine and folic acid supplements. (5) Encephalopathy Is this a current diagnosis for this admission?: Yes Plan: Patient likely has chronic dementia from alcoholism. Ammonia level and RPR were normal. The patient is not confused, only intermittently forgetful. He enjoys socializing with staff and sitting at the nurses station playing cards. Unless he is asked to come out of his room, will stay in his room all day. His typical day is spent watching TV or reading the newspaper. He has a healthy diet and eats all 3 meals every day. Patient is estranged from his family members. APS has been consulted. See Case Management notes for up to date information regarding this matter. (6) Hypotension Qualifiers: Hypotension type: unspecified hypotension type Qualified Code(s): I95.9 - Hypotension, unspecified Is this a current diagnosis for this admission?: Yes Plan: Resolved, likely secondary to adrenal insufficiency and poor oral intake. Continue Florinef. Monitor closely for orthostatic hypotension (7) Homelessness Is this a current diagnosis for this admission?: Yes Plan: Discharge planning and case management are working with APS. See Case Management notes re: up to date information. (8) Adrenal insufficiency Is this a current diagnosis for this admission?: Yes Plan: Resolved, patient is currently NORMOtensive. Continue steroid supplementation (9) Hypothyroidism Qualifiers: Hypothyroidism type: unspecified Qualified Code(s): E03.9 - Hypothyroidism , unspecified Is this a current diagnosis for this admission?: Yes Plan: TSH was elevated (7.99)on admission patient was placed on Synthroid. Repeat labs show improvement, TSH 3.19 and free T4 0.95. (10) Severe protein-calorie malnutrition Is this a current diagnosis for this admission?: Yes Plan: The patient has gained 14 kg over the course of hospitalization. Continue high calorie high protein diet with vitamin supplements. Continue Remeron for depression/anxiety, hoping it will stimulate patient's appetite - Time Time Spent with patient: 15-24 minutes Medications reviewed and adjusted accordingly: Yes Anticipated discharge: Other - Inpatient Certification Based on my medical assessment, after consideration of the patient's comorbidities, presenting symptoms, or acuity I expect that the services needed warrant INPATIENT care.: Yes I certify that my determination is in accordance with my understanding of Medicare's requirements for reasonable and necessary INPATIENT services [42 CFR 412.3e].: Yes Medical Necessity: Risk of Complication if Not Cared For in Hospital - Plan Summary Plan Summary: The plan is to send patient to half-way. Appreciate discharge planning recommendations
[2017-09-15] MEDS: MUPIROCIN 2% OINTMENT 22 GM TP SCH (18:40)
[2017-09-15] MEDS: MIRTAZAPINE 15 MG TABLET PO SCH (22:03)
[2017-09-15] MEDS: PHARMACY COMMUNICATION ORDER MC SCH (22:04)
[2017-09-16] MEDS: BUSPIRONE HCL 10 MG TABLET PO SCH ×2 (10:38→21:05)
[2017-09-16] MEDS: MULTIVITAMIN TABLET PO SCH (10:39)
[2017-09-16] MEDS: LIDOCAINE 5% (700 MG) TRANSDERMAL ADH..PATCH TP SCH (10:39)
[2017-09-16] MEDS: FLUDROCORTISONE ACETATE 0.1 MG TABLET PO SCH (10:39)
[2017-09-16] MEDS: FLUTICASONE NASAL SPRAY 50 MCG/SPRY 120 SPRAY/16 GM NASL SCH (10:39)
[2017-09-16] MEDS: THIAMINE HCL 100 MG TABLET PO SCH (10:39)
--- NOTE | 2017-09-16 11:14 | PDOC PROGRESS REPORT ---
Subjective Progress Note for:: 09/16/17 Subjective:: The patient is a 61-year-old homeless man who was brought to the emergency room with confusion. He was found to be hypotensive and encephalopathic. He was initially in the ICU. He had multiple electrolyte abnormalities at the time of admission which is since been corrected. It is felt that the patient has Korsakoff encephalopathy. He is currently awaiting disposition. It is felt that the patient needs placement due to his homeless status and ongoing encephalopathy. He cannot make good decisions for himself. This is been a prolonged hospitalization. Ultimately his Medicaid has been approved however we still do not have an accepting facility. When I saw the patient this morning he was sleeping. He really did not want to talk to me. He had no complaints that he was willing to vocalize today. Reason For Visit: HYPOTENSION, HYPOTHERMIA, ENCEPHALOPATHY Physical Exam Vital Signs: Temp Pulse Resp BP Pulse Ox 98.1 F 62 16 113/57 L 97 09/15/17 23:09 09/15/17 23:09 09/15/17 23:09 09/15/17 23:09 09/15/17 23:09 Intake & Output 09/15/17 09/16/17 09/17/17 06:59 06:59 06:59 Intake Total 1431 1058 Balance 1431 1058 Weight 59.2 kg General appearance: PRESENT: no acute distress, disheveled, thin Head exam: PRESENT: atraumatic, normocephalic Mouth exam: PRESENT: moist, tongue midline Respiratory exam: PRESENT: clear to auscultation kae. ABSENT: rales, rhonchi, wheezes Cardiovascular exam: PRESENT: RRR. ABSENT: diastolic murmur, rubs, systolic murmur GI/Abdominal exam: PRESENT: normal bowel sounds, soft. ABSENT: distended, guarding, mass, organolmegaly, rebound, tenderness Rectal exam: PRESENT: deferred Extremities exam: PRESENT: full ROM. ABSENT: calf tenderness, clubbing, pedal edema Neurological exam: PRESENT: other - He is sleeping and will not answer my questions. He appears to be oriented Psychiatric exam: PRESENT: appropriate affect, normal mood. ABSENT: homicidal ideation, suicidal ideation Skin exam: PRESENT: dry, intact, warm. ABSENT: cyanosis, rash Results Laboratory Results: 08/17/17 06:29 08/17/17 06:29 Impressions: Head CT 05/28/17 20:27 IMPRESSION: No acute intracranial findings. EVIDENCE OF ACUTE STROKE: NO. Head MRI 05/29/17 00:00 IMPRESSION: NO ACUTE ISCHEMIA, HEMORRHAGE, OR MASS LESION. CANNOT ASSESS FOR ABNORMAL WHITE MATTER SIGNAL DUE TO NONDIAGNOSTIC FLAIR IMAGING FROM [employer]IF[employer]. EVIDENCE OF ACUTE STROKE: NO. Foot X-Ray 05/31/17 00:00 IMPRESSION: 1. No acute or suspicious radiographic abnormality left the left foot. Shoulder X-Ray 06/20/17 00:00 IMPRESSION: NEGATIVE STUDY OF THE RIGHT SHOULDER. NO RADIOGRAPHIC EVIDENCE OF ACUTE INJURY. NO EXPLANATION FOR PAIN. Chest X-Ray 06/26/17 00:00 IMPRESSION: COPD. NO ACUTE RADIOGRAPHIC FINDING IN THE CHEST. Assessment & Plan - Diagnosis (1) Alcoholic dementia Is this a current diagnosis for this admission?: Yes Plan: He will require placement (2) Korsakoff's psychosis, alcoholic Is this a current diagnosis for this admission?: Yes Plan: He appears to be at his baseline. (3) Encephalopathy Is this a current diagnosis for this admission?: Yes Plan: Likely due to his Korsakoff's. I do believe his encephalopathy has improved since the time of admission. He did have multiple electrolyte abnormalities that were likely contributing as well as being hypotensive and hypothermic at the time of admission. (4) Shortness of breath Is this a current diagnosis for this admission?: Yes Plan: Resolved (5) Homelessness Is this a current diagnosis for this admission?: Yes Plan: We are waiting on placement (6) Hypokalemia Is this a current diagnosis for this admission?: Yes Plan: Repleted and resolved (7) Hypotension Qualifiers: Hypotension type: unspecified hypotension type Qualified Code(s): I95.9 - Hypotension, unspecified Is this a current diagnosis for this admission?: Yes Plan: Secondary to dehydration. Resolved. He was initially admitted to the ICU and was briefly on pressors. (8) Hypomagnesemia Is this a current diagnosis for this admission?: Yes Plan: Repleted and resolved (9) Hypothermia Qualifiers: Encounter type: initial encounter Qualified Code(s): T68.XXXA - Hypothermia , initial encounter Is this a current diagnosis for this admission?: Yes Plan: Due to environmental exposure. Resolved (10) Metabolic acidosis Is this a current diagnosis for this admission?: Yes Plan: Resolved (11) Severe protein-calorie malnutrition Is this a current diagnosis for this admission?: Yes Plan: Continue to encourage good p.o. intake. (12) Alcohol abuse Plan: He will need placement (13) Anxiety Is this a current diagnosis for this admission?: Yes Plan: Stable (14) Anemia Is this a current diagnosis for this admission?: Yes Plan: He has a macrocytic anemia likely related to his alcohol abuse. His hemoglobin is stable (15) Dehydration Plan: Resolved (16) Sepsis Plan: Ruled out (17) Hypothyroidism Qualifiers: Hypothyroidism type: unspecified Qualified Code(s): E03.9 - Hypothyroidism , unspecified Is this a current diagnosis for this admission?: Yes Plan: Ruled out. His elevated TSH may have been from his acute presentation at the time of admission. TSH is now within normal limits. He is not on any medications. At this point he does not appear to have hypothyroidism. - Time Time Spent with patient: 15-24 minutes - Inpatient Certification Medical Necessity: Other - Inpatient hospitalization remains necessary for disposition. Overall the patient does not have a place to go. The discharge planners are working on finding this facility. He is not able to take care of himself at this point.
[2017-09-16] MEDS: MUPIROCIN 2% OINTMENT 22 GM TP SCH (17:33)
[2017-09-16] MEDS: MIRTAZAPINE 15 MG TABLET PO SCH (21:05)
[2017-09-16] MEDS: PHARMACY COMMUNICATION ORDER MC SCH (21:06)
[2017-09-17 08:29] VITALS: BP 140/75
[2017-09-17 10:07] LABS: HEMATOCRIT 37.4 % (37.9-51.0); HEMOGLOBIN 12.7 g/dL (13.5-17.0); MEAN CORPUSCULAR HEMOGLOBIN 30.6 pg (27.0-33.4); MEAN CORPUSCULAR HGB CONC 33.8 g/dL (32.0-36.0); MEAN CORPUSCULAR VOLUME 91 fl (80-97); PLATELET COUNT 225 10^3/uL (150-450); RED BLOOD COUNT 4.14 10^6/uL (4.35-5.55); RED CELL DISTRIBUTION WIDTH 13.1 % (11.5-14.0); WHITE BLOOD COUNT 5.3 10^3/uL (4.0-10.5)
[2017-09-17] MEDS: LIDOCAINE 5% (700 MG) TRANSDERMAL ADH..PATCH TP SCH (10:14)
[2017-09-17] MEDS: MULTIVITAMIN TABLET PO SCH (10:14)
[2017-09-17] MEDS: THIAMINE HCL 100 MG TABLET PO SCH (10:14)
[2017-09-17] MEDS: BUSPIRONE HCL 10 MG TABLET PO SCH (10:14)
[2017-09-17] MEDS: FLUDROCORTISONE ACETATE 0.1 MG TABLET PO SCH (10:14)
[2017-09-17] MEDS: FLUTICASONE NASAL SPRAY 50 MCG/SPRY 120 SPRAY/16 GM NASL SCH (10:14)
[2017-09-17 10:38] LABS: ANION GAP 10 (5-19); BLOOD UREA NITROGEN 12 mg/dL (7-20); CALCIUM 10.1 mg/dL (8.4-10.2); CARBON DIOXIDE 30 mmol/L (22-30); CHLORIDE 105 mmol/L (98-107); GLUCOSE 70 mg/dL (75-110); PHOSPHORUS 4.1 mg/dL (2.5-4.5); POTASSIUM 3.2 mmol/L (3.6-5.0); SODIUM 145.3 mmol/L (137-145)
[2017-09-17 10:51] LABS: FREE T4 (FREE THYROXINE) 0.96 ng/dL (0.78-2.19)
[2017-09-17 11:05] LABS: THYROID STIMULATING HORMONE 2.28 uIU/mL (0.47-4.68)
[2017-09-17] MEDS ORDERED: POTASSIUM CHLORIDE 10 MEQ TABLET.SA PO SCH (12:00)
--- NOTE | 2017-09-17 12:31 | PDOC TRANSFER SUMMARY ---
General - Admit/Disc Date/PCP Admission Date/Primary Care Provider: 05/29/17 00:58 Discharge Date: 09/17/17 - Discharge Diagnosis (1) Dementia Is this a current diagnosis for this admission?: Yes (2) Anxiety Is this a current diagnosis for this admission?: Yes (3) Hypotension Is this a current diagnosis for this admission?: Yes (4) Adrenal insufficiency Is this a current diagnosis for this admission?: Yes (5) Severe protein-calorie malnutrition Is this a current diagnosis for this admission?: Yes (6) Anemia Is this a current diagnosis for this admission?: Yes (7) Hypothyroidism Is this a current diagnosis for this admission?: Yes (8) Alcohol dependence Is this a current diagnosis for this admission?: Yes (9) Hypothermia Is this a current diagnosis for this admission?: Yes (10) Dehydration Is this a current diagnosis for this admission?: Yes (11) Hyperphosphatemia Is this a current diagnosis for this admission?: Yes (12) Encephalopathy Is this a current diagnosis for this admission?: Yes (13) Arthritis Is this a current diagnosis for this admission?: Yes (14) Congested nose Is this a current diagnosis for this admission?: Yes - Additional Information Resuscitation Status: Full Code Discharge Diet: Regular Discharge Activity: Activity As Tolerated Prescriptions: Buspirone HCl [Buspar 10 mg Tablet] 5 mg PO DAILY #30 tablet Buspirone HCl [Buspar 10 mg Tablet] 10 mg PO QHS #30 tablet Fludrocortisone Acetate [Florinef 0.1 mg Tablet] 0.4 mg PO DAILY #30 tablet Fluticasone Propionate [Flonase Nasal [place] 50 Mcg/[place]wich 16 gm] 2 spray NASL DAILY #1 spray.pump Haloperidol [Haldol 2 mg Tablet] 2 mg PO BIDP PRN #14 tablet PRN Reason: Lidocaine [Lidoderm 5% (700 mg) Transdermal Patch] 1 patch TP DAILY #30 adh..patch Mirtazapine [Remeron 15 mg Tablet] 7.5 mg PO QHS #30 tablet Home Medications: Buspirone HCl [Buspar 10 mg Tablet] 5 mg PO DAILY #30 tablet 09/17/17 Buspirone HCl [Buspar 10 mg Tablet] 10 mg PO QHS #30 tablet 09/17/17 Fludrocortisone Acetate [Florinef 0.1 mg Tablet] 0.4 mg PO DAILY #30 tablet Fluticasone Propionate [Flonase Nasal [place] 50 Mcg/[place]wich 16 gm] 2 spray NASL DAILY #1 spray.pump 09/17/17 Haloperidol [Haldol 2 mg Tablet] 2 mg PO BIDP PRN #14 tablet 09/17/17 Ibuprofen [Motrin 800 mg Tablet] 800 mg PO Q8HP PRN tablet 09/17/17 Lidocaine [Lidoderm 5% (700 mg) Transdermal Patch] 1 patch TP DAILY #30 adh..patch 09/17/17 Mirtazapine [Remeron 15 mg Tablet] 7.5 mg PO QHS #30 tablet 09/17/17 Multivitamin [Tab-A-Martin (Multiple Vitamin) Tablet] 1 tab PO DAILY tablet 09/17 Thiamine HCl [Thiamine 100 mg Tablet] 100 mg PO DAILY tablet 09/17/17 History of Present Illness Admission Date/PCP: 05/29/17 00:58 History of Present Illness: SANJANA GODWIN is a 61 year old male with an unclear past medical history who is brought to the emergency room by J after being found confused walking around in the rain. He is found to be hypothermic at 92.2, hypotensive with blood pressure of 70/40 with tachycardia. He denies pain, his speech is clear but confused believing he is in [place]. There is no record of prior visit , he cannot recall his medication. He receives IV fluid and warming and referred to the hospitalist for admission. Hospital Course Hospital Course: The patient is a 61-year-old homeless man who is brought to the emergency department by law enforcement after being found wandering the streets confused. He was found to be hypotensive and encephalopathic. He was initially in the ICU. He had multiple electrolyte abnormalities at the time of admission which have since been corrected. 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 He did not have any withdrawal symptoms while admitted. He was found to have anemia, likely secondary to severe protein-calorie malnutrition. He was provided a high calorie, high protein diet with Ensure supplements and p.o. iron. He has gained 13 kg since his date of admission, and his hemoglobin has trended upwards to 12.7. The patient had orthostatic hypotension determined to be related to adrenal insufficiency. He was initially trialed on Midodrin but developed hallucinations. Therefore he was transitioned to Florinef 0.4 mg daily without side effects and appropriate blood pressure response. TSH and free T4 showed him to be euthymic without medication and therefore he does not have hypothyroidism. The patient does have mixed anxiety and depression that is well managed at this time with Remeron 7.5 mg nightly and BuSpar twice daily. He has occasionally required Haldol 2 mg once daily for anxiety. He has not demonstrated flight risk, aggressive tendencies, or agitation. His mood has been easily managed with medications as above and redirection. At time of discharge, the patient is in stable condition and tolerating a regular diet. Physical Exam Vital Signs: Temp Pulse Resp BP Pulse Ox 98.3 F 63 14 140/75 H 97 09/17/17 07:09 09/17/17 07:09 09/17/17 07:09 09/17/17 07:09 09/17/17 07:09 Intake & Output 09/16/17 09/17/17 09/18/17 06:59 06:59 06:59 Intake Total 1058 800 Output Total 550 Balance 1058 250 General appearance: PRESENT: no acute distress, thin, well-developed, well- nourished Head exam: PRESENT: atraumatic, normocephalic Eye exam: PRESENT: conjunctiva pink, EOMI, PERRLA. ABSENT: scleral icterus Ear exam: PRESENT: normal external ear exam Mouth exam: PRESENT: moist, tongue midline Neck exam: ABSENT: carotid bruit, JVD, lymphadenopathy, thyromegaly Respiratory exam: PRESENT: clear to auscultation kae, symmetrical, unlabored. ABSENT: rales, rhonchi, wheezes Cardiovascular exam: PRESENT: RRR. ABSENT: diastolic murmur, rubs, systolic murmur Pulses: PRESENT: normal dorsalis pedis pul Vascular exam: PRESENT: normal capillary refill GI/Abdominal exam: PRESENT: normal bowel sounds, soft. ABSENT: distended, guarding, mass, organolmegaly, rebound, tenderness Rectal exam: PRESENT: deferred Extremities exam: PRESENT: full ROM. ABSENT: calf tenderness, clubbing, pedal edema Neurological exam: PRESENT: alert, awake, oriented to person, oriented to place , CN II-XII grossly intact. ABSENT: oriented to time, oriented to situation, motor sensory deficit Psychiatric exam: PRESENT: flat affect, normal mood. ABSENT: homicidal ideation , suicidal ideation Skin exam: PRESENT: dry, intact, warm. ABSENT: cyanosis, rash Results Laboratory Results: 09/17/17 09:54 09/17/17 09:54 09/17/17 09/17/17 09/17/17 09:54 09:54 09:54 WBC 5.3 RBC 4.14 L Hgb 12.7 L Hct 37.4 L MCV 91 MCH 30.6 MCHC 33.8 RDW 13.1 Plt Count 225 Sodium 145.3 H Potassium 3.2 L Chloride 105 Carbon Dioxide 30 Anion Gap 10 BUN 12 Creatinine 0.78 Est GFR ( Amer) > 60 Est GFR (Non-Af Amer) > 60 Glucose 70 L Calcium 10.1 Phosphorus 4.1 TSH 2.28 Free T4 0.96 Impressions: Head CT 05/28/17 20:27 IMPRESSION: No acute intracranial findings. EVIDENCE OF ACUTE STROKE: NO. Head MRI 05/29/17 00:00 IMPRESSION: NO ACUTE ISCHEMIA, HEMORRHAGE, OR MASS LESION. CANNOT ASSESS FOR ABNORMAL WHITE MATTER SIGNAL DUE TO NONDIAGNOSTIC FLAIR IMAGING FROM [employer]IF[employer]. EVIDENCE OF ACUTE STROKE: NO. Foot X-Ray 05/31/17 00:00 IMPRESSION: 1. No acute or suspicious radiographic abnormality left the left foot. Shoulder X-Ray 06/20/17 00:00 IMPRESSION: NEGATIVE STUDY OF THE RIGHT SHOULDER. NO RADIOGRAPHIC EVIDENCE OF ACUTE INJURY. NO EXPLANATION FOR PAIN. Chest X-Ray 06/26/17 00:00 IMPRESSION: COPD. NO ACUTE RADIOGRAPHIC FINDING IN THE CHEST. Transfer Plan - Disposition Transfer Plan: The patient will be discharged to the [facility]. - Time Spent with Patient Time spent with patient: Less than 30 Minutes Qualifiers - * PATEINT BEING DISCHARGED WITH ANY OF THE FOLLOWING DIAGNOSIS?: No
== END 2017-09-17 16:38 | DRG 896 ==
LOC: ER 19:28 → EH 05-29 00:11 → UNDOADMIN 05-29 00:11 → EH 05-29 00:58 → ICU 05-29 03:30 → 4N 06-01 07:54 → 4W 08-05 13:22
PROVIDERS: ADMIT Internal Medicine; ATTEND Internal Medicine
PROC: 3E0F73Z Introduction of Anti-inflammatory into Respiratory Tract, Via Natural or Artificial Opening (ICD-10-PCS; principal; 2017-05-29)
DX: F10.259 Alcohol dependence with alcohol-induced psychotic disorder, unspecified (principal); G93.40 Encephalopathy, unspecified; E43 Unspecified severe protein-calorie malnutrition; E87.2 Acidosis; Z68.1 Body mass index [BMI] 19.9 or less, adult; R41.0 Disorientation, unspecified; T68.XXXA Hypothermia, initial encounter; F17.210 Nicotine dependence, cigarettes, uncomplicated; Y90.0 Blood alcohol level of less than 20 mg/100 ml; E87.6 Hypokalemia; I95.1 Orthostatic hypotension; J44.9 Chronic obstructive pulmonary disease, unspecified; E83.42 Hypomagnesemia; E03.9 Hypothyroidism, unspecified; K02.9 Dental caries, unspecified; R59.0 Localized enlarged lymph nodes; L89.612 Pressure ulcer of right heel, stage 2; E86.0 Dehydration; F41.9 Anxiety disorder, unspecified; E53.8 Deficiency of other specified B group vitamins; M25.511 Pain in right shoulder; D53.9 Nutritional anemia, unspecified; F10.26 Alcohol dependence with alcohol-induced persisting amnestic disorder; Z59.0 Homelessness
CPT/HCPCS: 36415; 51702; 70450; 70551; 71020; 80048; 80053; 80307; 81001; 82040; 82140; 82533; 82550; 82553; 82607; 82728; 82746; 82803; 82962; 83540; 83550; 83605; 83735; 84100; 84439; 84443; 84466; 84484; 85025; 85027; 85045; 85610; 86592; 87040; 93005; 93010; 94640; 96360; 96361; 99291; J1630; J1644; J1720; J1956; J2060; J3411; J3475; J3480; J3490; J7030; J7040; J7050; J7060; J7120; J7620